=== PATIENT | female | born 1935 | race Caucasian/White ===

== ENCOUNTER → 2018-02-17 | Outpatient (CLI) | payer MEDICARE, OTHER ==
--- NOTE | 2018-02-17 12:51 | XR ---
EXAMINATION TYPE: XR lumbar spine 2 or 3V DATE OF EXAM: 02/17/2018 CLINICAL HISTORY: pain TECHNIQUE: Three views of the lumbar spine are submitted. COMPARISON: None. FINDINGS: There appear to be changes of prior lumbar laminectomy and fusion extending from L3 through L5 S1. Th ere is grade 1 retrolisthesis of L3 on L4 of approximately 5.7 mm and grade 1 anterolisthesis of L4 o n L5 of approximately 3.4 mm. Irregularity inferior endplate of L3 and may be postoperative in nature . Chronic infection is not excluded however. Correlate clinically and consider MRI or CT if felt clin ically indicated. Multilevel degenerative disc space narrowing and facet joint arthropathy. Mild curv ature convex to the right. IMPRESSION: 1.Irregularity inferior endplate of L3 and may be postoperative in nature. Chronic infection is not e xcluded however. Correlate clinically and consider MRI or CT if felt clinically indicated.
== END | disposition home or self-care (01) ==
LOC: RADXRMAIN 12:16
PROVIDERS: ATTEND Physician Assistant
DX: R93.7 Abnormal findings on diagnostic imaging of other parts of musculoskeletal system (principal)
CPT/HCPCS: 72100

== ENCOUNTER → 2018-02-18 | Outpatient (CLI) | payer MEDICARE, OTHER ==
--- NOTE | 2018-02-18 12:05 | MR ---
EXAMINATION TYPE: MR lumbar spine wo con DATE OF EXAM: 02/18/2018 COMPARISON: X-ray 02/17/2018 HISTORY: Chronic osteomyelitis TECHNIQUE: T1 and T2 axial and sagittal images of the lumbar spine are submitted. Exam is severely limited due to artifact and technique. Suggestion of bowel artifact in the posterior soft tissues at T12-L1. The patient did refuse contrast. This will limit assessment for infection including discitis and osteomyelitis. FINDINGS: Assessment spinal cord is limited due to artifact. Grossly no abnormal signal seen within t he visualized spinal cord. Diffuse muscular atrophy noted and findings are suggestive of prior laminectomy involving levels L3-S 1. Slight retrolisthesis of L3 on L4 noted measuring approximately 5 mm likely secondary to compressi on fracture.. At T12-L1 metal artifact limits assessment spinal canal particularly in the right. No obvious disc he rniation. At L1-2 there is is a tiny central disc bulge. No definite canal stenosis or foraminal encroachment. At L2-3 there is limited assessment due to artifact. There is circumferential disc bulging. The L3 ve rtebral body demonstrates a complete fracture in its mid body. There is retropulsion. Mild effacement of thecal sac. At L3-4 there is severe degenerative disc disease with heterogeneous signal within the marrow of L3 a nd L4 and the disc space. Severe fracture involving the mid aspect of the L3 vertebral segment comple te compression. There is approximate 5% retropulsion. Bilateral foraminal encroachment suspected. At L4-5 there is degenerative disc disease with abnormal signal involving the superior endplate of L5 . There is facet arthropathy. Bilateral foraminal encroachment suspected. Artifact and motion limits assessment. At L5-S1 there is degenerative disc disease with heterogeneous disc signal. There is facet arthropath y but no obvious canal stenosis, disc herniation or foraminal encroachment. IMPRESSION: 1. Severely limited exam due to the patient's refusal of contrast. Assessment for discitis or osteomy elitis is therefore nondiagnostic. Extensive artifact also contributes to a markedly limited exam. 2. Given the above parameters there is heterogeneous marrow signal involving the L3 and L5 vertebral body, L3-4, and L5-S1 disc spaces. Although, findings are nonspecific given the lack of contrast. Dif ferential diagnosis would include compression fractures and posttraumatic etiology, back space. Osteo myelitis and discitis would be in the differential diagnosis. Cannot adequately assess for epidural p hlegmon or adjacent paraspinal abscess without contrast. Grossly no sizable fluid collection seen wit hin the paraspinal region. 3. Severe mid body compression fracture L3 with 5% retropulsion. 4. Deformity superior endplate L5 could been the basis of a mild acute compression fracture. Osteomye litis also in the differential diagnosis correlate clinically given the limitations exam.
== END | disposition home or self-care (01) ==
LOC: RADMRIMAIN 09:23
PROVIDERS: ATTEND Family Medicine
DX: M48.56XA Collapsed vertebra, not elsewhere classified, lumbar region, initial encounter for fracture (principal); R93.7 Abnormal findings on diagnostic imaging of other parts of musculoskeletal system
CPT/HCPCS: 72148

== ENCOUNTER 2018-02-20 11:30 | Inpatient (IN) | payer MEDICARE, OTHER ==
--- NOTE | 2018-02-20 12:14 | ED ---
General Adult HPI - General Chief complaint: Back Pain/Injury Stated complaint: compound back fracture Time Seen by Provider: 02/20/18 11:59 Source: patient, RN notes reviewed, old records reviewed Mode of arrival: wheelchair Limitations: no limitations - History of Present Illness Initial comments: Patient 82-year-old female presented to the emergency room today with a chief complaint of increased lower back pain. She does admit that she was told she has compression fracture of L3. She states she is advised to follow-up with orthopedics. She says she does not have an appointment and told this coming Tuesday. She states she is been having pain that she's just been using Tylenol extra strength 4. She talked to the family physician today who advised to come here to the emergency room because of her discomfort. Patient states she's been sleeping in a recliner. She states she has more pain when she's tried getting out of bed. Pleasant pain that radiates down the right leg. Denies any bowel or bladder incontinence retention. Denies saddle anesthesia. States symptoms started 2 weeks ago. No specific injury or trauma. Patient denies any recent fever, chills, shortness of breath, chest pain, abdominal pain, nausea or vomiting, numbness or tingling, dysuria or hematuria, constipation or diarrhea, headaches or visual changes, or any other complaints. - Related Data Home Medications Medication Instructions Recorded Confirmed Amitriptyline HCl 25 mg PO HS 08/26/17 02/20/18 Citalopram Hydrobromide [CeleXA] 10 mg PO DAILY 08/26/17 02/20/18 Furosemide [Lasix] 20 mg PO DAILY 08/26/17 02/20/18 INSULIN LISPRO (humaLOG) [humaLOG] See Protocol SQ ACHS 08/26/17 02/20/18 Insulin Detemir [Levemir Flextouch] 60 unit SQ BID 08/26/17 02/20/18 Ipratropium-Albuterol Nebulize 3 ml INHALATION RT-QID PRN 02/20/18 02/20/18 [Duoneb 0.5 mg-3 mg/3 ml Soln] Lisinopril [Zestril] 2.5 mg PO DAILY 02/20/18 02/20/18 Previous Rx's Medication Instructions Recorded Pantoprazole [Protonix] 40 mg PO AC-BRKFST #0 tab 08/29/17 Allergies Allergy/AdvReac Type Severity Reaction Status Date / Time codeine Allergy Unknown Verified 02/20/18 13:03 iodine Allergy Rash/Hives Verified 02/20/18 13:03 Latex, Natural Rubber Allergy Rash/Hives Verified 02/20/18 13:03 Penicillins Allergy Rash/Hives Verified 02/20/18 13:03 Sulfa (Sulfonamide Allergy Unknown Verified 02/20/18 13:03 Antibiotics) Review of Systems ROS Statement: Those systems with pertinent positive or pertinent negative responses have been documented in the HPI. ROS Other: All systems not noted in ROS Statement are negative. Past Medical History Past Medical History: Heart Failure, Diabetes Mellitus, Hypertension, Memory Impairment, Osteoarthritis (OA) Additional Past Medical History / Comment(s): mld memory impairment, SOB with activity chronic back pain History of Any Multi-Drug Resistant Organisms: None Reported Past Surgical History: Cholecystectomy, Hysterectomy, Tonsillectomy Additional Past Surgical History / Comment(s): Back x2, tube in stomach after gall bladder removal, oopherectomy, 2 surgeries on face, Past Anesthesia/Blood Transfusion Reactions: No Reported Reaction Past Psychological History: Anxiety, Depression Smoking Status: Former smoker Past Alcohol Use History: None Reported Past Drug Use History: Unable to Obtain - Past Family History Mother Additional Family Medical History / Comment(s): of cancer General Exam - General Exam Comments Initial Comments: General: The patient is awake and alert, in no distress, and does not appear acutely ill. Eye: Pupils are equal, round and reactive to light, extra-ocular movements are intact. No nystagmus. There is normal conjunctiva bilaterally. No signs of icterus. Ears, nose, mouth and throat: There are moist mucous membranes and no oral lesions. Neck: The neck is supple, there is no tenderness or JVD. Cardiovascular: There is a regular rate and rhythm. No murmur, rub or gallop is appreciated. Respiratory: Lungs are clear to auscultation, respirations are non-labored, breath sounds are equal. No wheezes, stridor, rales, or rhonchi. Gastrointestinal: Soft, non-distended, non-tender abdomen without masses or organomegaly noted. There is no rebound or guarding present. No CVA tenderness. Bowel sounds are unremarkable. Musculoskeletal: Normal ROM. Patient does have tenderness lumbar spine L1 to S1. No step-off deformity appreciated. Strength 5/5. Sensation intact. Pulses equal bilaterally 2+. Neurological: A&O x 3. CN II-XII intact, There are no obvious motor or sensory deficits. Coordination appears grossly intact. Speech is normal. Skin: Skin is warm and dry and no rashes or lesions are noted. Psychiatric: Cooperative, appropriate mood & affect, normal judgment. Limitations: no limitations Course Vital Signs 02/20/18 02/20/18 11:38 12:16 Temperature 97.3 F L Pulse Rate 84 84 Respiratory 18 20 Rate Blood Pressure 227/97 202/95 O2 Sat by Pulse 100 99 Oximetry Medical Decision Making - Medical Decision Making Patient's MRI from 02/18/2018 was reviewed and is limited due to no contrast. Unable to completely exclude a possible osteomyelitis. There is evidence for a severe is admitted body compression fracture of L3 to 5 percent retropulsion. Patient labs been reviewed mildly elevated CRP. No elevated white count. No fever here in emergency room. Patient neurologically intact. No bowel or bladder incontinence retention. No saddle anesthesia. Patient does have some radicular pain going down the right leg. Patient will be started on antibiotics of vancomycin to cover for possible infection. Patient will be admitted to the hospital consult to orthopedics. - Lab Data Result diagrams: 02/20/18 12:50 02/20/18 12:50 Lab Results 02/20/18 02/20/18 02/20/18 Range/Units 12:50 12:50 12:50 WBC 8.6 (3.8-10.6) k/uL RBC 4.66 (3.80-5.40) m/uL Hgb 12.0 (11.4-16.0) gm/dL Hct 37.5 (34.0-46.0) % MCV 80.5 (80.0-100.0) fL MCH 25.7 (25.0-35.0) pg MCHC 32.0 (31.0-37.0) g/dL RDW 14.4 (11.5-15.5) % Plt Count 198 (150-450) k/uL Neutrophils % 78 % Lymphocytes % 15 % Monocytes % 3 % Eosinophils % 3 % Basophils % 1 % Neutrophils # 6.7 (1.3-7.7) k/uL Lymphocytes # 1.3 (1.0-4.8) k/uL Monocytes # 0.3 (0-1.0) k/uL Eosinophils # 0.2 (0-0.7) k/uL Basophils # 0.1 (0-0.2) k/uL PT 9.4 (9.0-12.0) sec INR 0.9 (<1.2) APTT 23.3 (22.0-30.0) sec Sodium 143 (137-145) mmol/L Potassium 5.7 H (3.5-5.1) mmol/L Chloride 110 H (98-107) mmol/L Carbon Dioxide 22 (22-30) mmol/L Anion Gap 11 mmol/L BUN 30 H (7-17) mg/dL Creatinine 1.30 H (0.52-1.04) mg/dL Est GFR (CKD-EPI)AfAm 44 (>60 ml/min/1.73 sqM) Est GFR (CKD-EPI)NonAf 38 (>60 ml/min/1.73 sqM) Glucose 78 (74-99) mg/dL Calcium 9.4 (8.4-10.2) mg/dL Total Bilirubin 0.3 (0.2-1.3) mg/dL AST 23 (14-36) U/L ALT 25 (9-52) U/L Alkaline Phosphatase 196 H (38-126) U/L C-Reactive Protein 19.8 H (<10.0) mg/L Total Protein 7.3 (6.3-8.2) g/dL Albumin 3.7 (3.5-5.0) g/dL Urine Color Urine Appearance (Clear) Urine pH (5.0-8.0) Ur Specific [place] (1.001-1.035) Urine Protein (Negative) Urine Glucose (UA) (Negative) Urine Ketones (Negative) Urine Blood (Negative) Urine Nitrite (Negative) Urine Bilirubin (Negative) Urine Urobilinogen (<2.0) mg/dL Ur Leukocyte Esterase (Negative) Urine RBC (0-5) /hpf Urine WBC (0-5) /hpf Ur Squamous Epith Cells (0-4) /hpf Urine Bacteria (None) /hpf 02/20/18 Range/Units 13:25 WBC (3.8-10.6) k/uL RBC (3.80-5.40) m/uL Hgb (11.4-16.0) gm/dL Hct (34.0-46.0) % MCV (80.0-100.0) fL MCH (25.0-35.0) pg MCHC (31.0-37.0) g/dL RDW (11.5-15.5) % Plt Count (150-450) k/uL Neutrophils % % Lymphocytes % % Monocytes % % Eosinophils % % Basophils % % Neutrophils # (1.3-7.7) k/uL Lymphocytes # (1.0-4.8) k/uL Monocytes # (0-1.0) k/uL Eosinophils # (0-0.7) k/uL Basophils # (0-0.2) k/uL PT (9.0-12.0) sec INR (<1.2) APTT (22.0-30.0) sec Sodium (137-145) mmol/L Potassium (3.5-5.1) mmol/L Chloride (98-107) mmol/L Carbon Dioxide (22-30) mmol/L Anion Gap mmol/L BUN (7-17) mg/dL Creatinine (0.52-1.04) mg/dL Est GFR (CKD-EPI)AfAm (>60 ml/min/1.73 sqM) Est GFR (CKD-EPI)NonAf (>60 ml/min/1.73 sqM) Glucose (74-99) mg/dL Calcium (8.4-10.2) mg/dL Total Bilirubin (0.2-1.3) mg/dL AST (14-36) U/L ALT (9-52) U/L Alkaline Phosphatase (38-126) U/L C-Reactive Protein (<10.0) mg/L Total Protein (6.3-8.2) g/dL Albumin (3.5-5.0) g/dL Urine Color Light Yellow Urine Appearance Clear (Clear) Urine pH 6.5 (5.0-8.0) Ur Specific [place] 1.006 (1.001-1.035) Urine Protein 1+ H (Negative) Urine Glucose (UA) Negative (Negative) Urine Ketones Negative (Negative) Urine Blood Negative (Negative) Urine Nitrite Negative (Negative) Urine Bilirubin Negative (Negative) Urine Urobilinogen <2.0 (<2.0) mg/dL Ur Leukocyte Esterase Negative (Negative) Urine RBC 1 (0-5) /hpf Urine WBC 2 (0-5) /hpf Ur Squamous Epith Cells <1 (0-4) /hpf Urine Bacteria Rare H (None) /hpf Disposition Clinical Impression: Compression fracture Narrative: Rule out osteomyelitis Disposition: ADMITTED IP TO THIS HOSP Condition: Good Referrals: Alfred Chowdhury MD [Primary Care Provider] - 1-2 days Time of Disposition: 14:07
[2018-02-20] MEDS ORDERED: HYDROcodone/APAP 5-325MG 1 EACH TAB PO STA (12:27)
[2018-02-20 13:02] LABS: Basophils # (A) 0.1 k/uL (0-0.2); Basophils % (A) 1 %; Eosinophils # (A) 0.2 k/uL (0-0.7); Eosinophils % (A) 3 %; HCT 37.5 % (34.0-46.0); Lymphocytes # (A) 1.3 k/uL (1.0-4.8); Lymphocytes % (A) 15 %; MCH 25.7 pg (25.0-35.0); MCV 80.5 fL (80.0-100.0); Monocytes # (A) 0.3 k/uL (0-1.0); Monocytes % (A) 3 %; Neutrophils # (A) 6.7 k/uL (1.3-7.7); Neutrophils % (A) 78 %; Platelet Count 198 k/uL (150-450); RBC 4.66 m/uL (3.80-5.40); RDW 14.4 % (11.5-15.5); WBC 8.6 k/uL (3.8-10.6)
[2018-02-20 13:10] LABS: INR 0.9 (<1.2); Partial Thromboplastin Time 23.3 sec (22.0-30.0); Prothrombin Time 9.4 sec (9.0-12.0)
[2018-02-20 13:19] LABS: Albumin 3.7 g/dL (3.5-5.0); C Reactive Protein 19.8 mg/L (<10.0); Calcium 9.4 mg/dL (8.4-10.2); Potassium 5.7 mmol/L (3.5-5.1); Total Bilirubin 0.3 mg/dL (0.2-1.3); Total Protein 7.3 g/dL (6.3-8.2)
[2018-02-20 13:45] LABS: Appearance,Urine Clear (Clear); Bacteria,Urine Rare /hpf; Bilirubin,Urine Negative (Negative); Blood,Urine Negative (Negative); Color,Urine Light Yellow; Glucose,Urine (UA) Negative (Negative); Ketones,Urine Negative (Negative); Leukocyte Esterase,Urine Negative (Negative); Nitrite,Urine Negative (Negative); PH, Urine 6.5 (5.0-8.0); Protein,Urine 1+ (Negative); RBC,Urine 1 /hpf (0-5); Specific Gravity,Urine 1.006 (1.001-1.035); Squamous Epithelial Cell,Urine <1 /hpf (0-4); Urobilinogen,Urine <2.0 mg/dL (<2.0); WBC,Urine 2 /hpf (0-5)
[2018-02-20] MEDS ORDERED: VANCOMYCIN IV PER PHARMACY 1 EACH MISC MISCELLANE PRN (13:55)
[2018-02-20] MEDS ORDERED: VANCOMYCIN 1,250 MG in SODIUM CHLORIDE 0.9% 250 ML IVPB STA (13:55)
[2018-02-20] MEDS ORDERED: LORazepam 2 MG/ML INJ IV PRN (14:07)
[2018-02-20] MEDS ORDERED: SODIUM CHLORIDE 0.9% 1,000 ML IV ONE (14:07)
[2018-02-20] MEDS ORDERED: ONDANSETRON 4 MG/2 ML VIAL IVP PRN (14:07)
[2018-02-20] MEDS ORDERED: NALOXONE 0.4 MG/ML 1 ML VIAL IV PRN (14:07)
[2018-02-20] MEDS ORDERED: IPRATROPIUM-ALBUTEROL 3 ML NEB INHALATION PRN (16:43)
[2018-02-20] MEDS ORDERED: SODIUM POLYSTYRENE SULFONATE 15 GM/60 ML BOTTLE PO STA (16:45)
[2018-02-20] MEDS ORDERED: KETOROLAC 30 MG/ML 1 ML VIAL IVP PRN (16:46)
[2018-02-20] MEDS ORDERED: ACETAMINOPHEN TAB 325 MG TAB PO PRN (16:47)
--- NOTE | 2018-02-20 16:53 | P.HPIM ---
History of Present Illness 82-year-old female presented to the emergency room today with a chief complaint of increased lower back pain. She does admit that she was told she has compression fracture of L3. She states she is advised to follow-up with orthopedics. She says she does not have an appointment and told this coming Tuesday. She states she is been having pain that she's just been using Tylenol extra strength 4. She talked to the family physician today who advised to come here to the emergency room because of her discomfort. Patient states she's been sleeping in a recliner. She states she has more pain when she's tried getting out of bed. Pleasant pain that radiates down the right leg. Denies any bowel or bladder incontinence retention. Denies saddle anesthesia. States symptoms started 2 weeks ago. No specific injury or trauma. Patient denies any recent fever, chills, shortness of breath, chest pain, abdominal pain, nausea or vomiting, numbness or tingling, dysuria or hematuria, constipation or diarrhea, headaches or visual changes, or any other complaints. [facility] surgery was consulted PT and OT will be consulted. Patient does have a hyperkalemia capsulate will be ordered lisinopril will be held or discontinued Ativan patient is a [place] unfortunately be continued when he cannot use ketorolac because of elevated creatinine 1.3. Patient denied any history of congestive heart failure. Patient appears to have some chronic kidney disease part of the contribution is from the diuretic therapy which will be held and lisinopril will be held as well. Review of Systems REVIEW OF SYSTEMS: CONSTITUTIONAL: No fever, no malaise, no fatigue. HEENT: No recent visual problems or hearing problems. Denied any sore throat. CARDIOVASCULAR: No chest pain, orthopnea, PND, no palpitations, no syncope. PULMONARY: No shortness of breath, no cough, no hemoptysis. GASTROINTESTINAL: No diarrhea, no nausea, no vomiting, no abdominal pain. Normoactive bowel sounds. NEUROLOGICAL: No headaches, no weakness, no numbness. HEMATOLOGICAL: Denies any bleeding or petechiae. GENITOURINARY: Denies any burning micturition, frequency, or urgency. MUSCULOSKELETAL/RHEUMATOLOGICAL: as mentioned in HPI ENDOCRINE: Denies any polyuria or polydipsia. The rest of the 14-point review of systems is negative. Past Medical History Past Medical History: Heart Failure, Diabetes Mellitus, Hypertension, Memory Impairment, Osteoarthritis (OA) Additional Past Medical History / Comment(s): mld memory impairment, SOB with activity chronic back pain History of Any Multi-Drug Resistant Organisms: None Reported Past Surgical History: Cholecystectomy, Hysterectomy, Tonsillectomy Additional Past Surgical History / Comment(s): Back x2, tube in stomach after gall bladder removal, oopherectomy, 2 surgeries on face, Past Anesthesia/Blood Transfusion Reactions: No Reported Reaction Past Psychological History: Anxiety, Depression Smoking Status: Former smoker Past Alcohol Use History: None Reported Past Drug Use History: Unable to Obtain - Past Family History Mother Additional Family Medical History / Comment(s): of cancer Medications and Allergies Home Medications Medication Instructions Recorded Confirmed Type Amitriptyline HCl 25 mg PO HS 08/26/17 02/20/18 History Citalopram Hydrobromide [CeleXA] 10 mg PO DAILY 08/26/17 02/20/18 History Furosemide [Lasix] 20 mg PO DAILY 08/26/17 02/20/18 History INSULIN LISPRO (humaLOG) [humaLOG] See Protocol SQ ACHS 08/26/17 02/20/18 History Insulin Detemir [Levemir Flextouch] 60 unit SQ BID 08/26/17 02/20/18 History Pantoprazole [Protonix] 40 mg PO AC-BRKFST #0 tab 08/29/17 02/20/18 Rx Ipratropium-Albuterol Nebulize 3 ml INHALATION RT-QID PRN 02/20/18 02/20/18 History [Duoneb 0.5 mg-3 mg/3 ml Soln] Lisinopril [Zestril] 2.5 mg PO DAILY 02/20/18 02/20/18 History Allergies Allergy/AdvReac Type Severity Reaction Status Date / Time codeine Allergy Unknown Verified 02/20/18 13:03 iodine Allergy Rash/Hives Verified 02/20/18 13:03 Latex, Natural Rubber Allergy Rash/Hives Verified 02/20/18 13:03 Penicillins Allergy Rash/Hives Verified 02/20/18 13:03 Sulfa (Sulfonamide Allergy Unknown Verified 02/20/18 13:03 Antibiotics) Physical Exam Vitals: Vital Signs Temp Pulse Pulse Resp BP BP Pulse Ox 02/20/18 15:32 97.5 F L 84 18 217/99 97 02/20/18 15:15 97.8 F 85 20 184/88 99 02/20/18 14:09 18 02/20/18 13:57 80 20 183/86 99 02/20/18 12:16 84 20 202/95 99 02/20/18 11:38 97.3 F L 84 18 227/97 100 Intake and Output 02/20/18 02/20/18 02/20/18 06:59 14:59 22:59 Other: Weight 79.379 kg PHYSICAL EXAMINATION: GENERAL: The patient is alert and oriented x3, not in any acute distress. Well developed, well nourished. HEENT: Pupils are round and equally reacting to light. EOMI. No scleral icterus. No conjunctival pallor. Normocephalic, atraumatic. No pharyngeal erythema. No thyromegaly. CARDIOVASCULAR: S1 and S2 present. No murmurs, rubs, or gallops. PULMONARY: Chest is clear to auscultation, no wheezing or crackles. ABDOMEN: Soft, nontender, nondistended, normoactive bowel sounds. No palpable organomegaly. MUSCULOSKELETAL: No joint swelling or deformity. EXTREMITIES: No cyanosis, clubbing, or pedal edema. NEUROLOGICAL: Gross neurological examination did not reveal any focal deficits. patient does have generalized weakness and bilateral lower limbs secondary to mostly pain in the back patient does have paraspinal tenderness SKIN: No rashes. Results CBC & Chem 7: 02/20/18 12:50 02/20/18 12:50 Labs: Abnormal Lab Results - Last 24 Hours (Table) 02/20/18 02/20/18 Range/Units 12:50 13:25 Potassium 5.7 H (3.5-5.1) mmol/L Chloride 110 H (98-107) mmol/L BUN 30 H (7-17) mg/dL Creatinine 1.30 H (0.52-1.04) mg/dL Alkaline Phosphatase 196 H (38-126) U/L C-Reactive Protein 19.8 H (<10.0) mg/L Urine Protein 1+ H (Negative) Urine Bacteria Rare H (None) /hpf Assessment and Plan Plan: -weakness and bilateral lower limbs and compression fracture of the back: PT and OT will be consulted, orthopedic surgery was consulted patient will need it TL CO brace. -Hyperkalemia: Secondary to lisinopril and the renal dysfunction patient appears to have chronic kidney disease stage III but I believe patient's creatinine will improve with disc herniation of lisinopril and Lasix because of which these 2 medications will be discontinued patient doesn't have any history of congestive heart failure. -Possible diabetic nephropathy -Type 2 diabetes mellitus patient will be resumed on her home regimen along with sliding scale insulin. -Possibility of acute renal failure: Secondary to diuretic therapy and lisinopril this mostly can be from a chronic kidney disease her previous creatinine was 1.8. -hypertension -gastroesophageal reflux disease for which patient is on Protonix will be continued -Depression continue with Amitriptyline and Celexa
[2018-02-20 17:23] LABS: Glucose,Whole Blood 91 mg/dL (75-99)
--- NOTE | 2018-02-20 18:03 | XR ---
EXAMINATION TYPE: XR lumbosacral spine min 4V DATE OF EXAM: 02/20/2018 COMPARISON: 02/17/2018 HISTORY: Back pain TECHNIQUE: 5 views FINDINGS: There is some compression deformity of the L3 vertebral body with anterior wedging and 25% loss of height. There is narrowing of L3-4 disc space. The sacroiliac joints appear intact. IMPRESSION: Compression fracture of L3 without significant change compared to recent exam. Osteopenia .
[2018-02-20] MEDS: INSULIN ASPART 100 UNIT/ML 1 ML 10 ML VIAL SQ SCH ×2 (19:54→21:37)
[2018-02-20] MEDS: AMITRIPTYLINE HCL 25 MG TAB PO SCH (20:12)
[2018-02-20 20:47] LABS: Glucose,Whole Blood 164 mg/dL (75-99)
[2018-02-20] MEDS: INSULIN DETEMIR 100 UNIT/ML 10 ML VIAL SQ SCH (21:37)
[2018-02-21] MEDS: HYDROcodone/APAP 5-325MG 1 EACH TAB PO PRN ×3 (02:43→21:27)
[2018-02-21 07:02] LABS: Glucose,Whole Blood 72 mg/dL (75-99)
[2018-02-21] MEDS: INSULIN ASPART 100 UNIT/ML 1 ML 10 ML VIAL SQ SCH ×4 (07:17→21:28)
[2018-02-21] MEDS: CITALOPRAM HYDROBROMIDE 10 MG TAB PO SCH (08:15)
[2018-02-21] MEDS: PANTOPRAZOLE 40 MG TABLET PO SCH (08:15)
[2018-02-21] MEDS: INSULIN DETEMIR 100 UNIT/ML 10 ML VIAL SQ SCH ×2 (08:20→21:28)
[2018-02-21] MEDS ORDERED: VANCOMYCIN 1,250 MG in SODIUM CHLORIDE 0.9% 250 ML IVPB ONE (09:00)
[2018-02-21 11:25] LABS: Glucose,Whole Blood 147 mg/dL (75-99)
[2018-02-21 12:02] LABS: Calcium 8.4 mg/dL (8.4-10.2)
--- NOTE | 2018-02-21 16:46 | P.PN ---
Subjective Progress Note Date: 02/21/18 Progress Note being dictated for Dr. Nguyễn interval history:82-year-old female presented to the emergency room today with a chief complaint of increased lower back pain. She does admit that she was told she has compression fracture of L3. She states she is advised to follow- up with orthopedics. She says she does not have an appointment and told this coming Tuesday. She states she is been having pain that she's just been using Tylenol extra strength 4. She talked to the family physician today who advised to come here to the emergency room because of her discomfort. Patient states she's been sleeping in a recliner. She states she has more pain when she's tried getting out of bed. Pleasant pain that radiates down the right leg. Denies any bowel or bladder incontinence retention. Denies saddle anesthesia. States symptoms started 2 weeks ago. No specific injury or trauma. Patient denies any recent fever, chills, shortness of breath, chest pain, abdominal pain , nausea or vomiting, numbness or tingling, dysuria or hematuria, constipation or diarrhea, headaches or visual changes, or any other complaints. orthopedic surgery was consulted PT and OT will be consulted. Patient does have a hyperkalemia capsulate will be ordered lisinopril will be held or discontinued Ativan patient is a [place] unfortunately be continued when he cannot use ketorolac because of elevated creatinine 1.3. Patient denied any history of congestive heart failure. Patient appears to have some chronic kidney disease part of the contribution is from the diuretic therapy which will be held and lisinopril will be held as well. 02/21/2018 PT/OT evaluation in progress.hypertensive. Blood sugars improving.afebrile, cultures pending. complains of bilateral lower back pain greater on the right. Objective - Vital Signs Vital signs: Vital Signs Temp 97.4 F L 02/21/18 15:00 Pulse 88 02/21/18 16:00 Resp 16 02/21/18 16:00 BP 232/98 02/21/18 15:00 Pulse Ox 95 02/21/18 15:00 Intake & Output 02/20/18 02/21/18 02/21/18 18:59 06:59 18:59 Intake Total 140 Balance 140 Weight 79.379 kg Intake: Intake, IV Titration 140 Amount Sodium Chloride 0.9% 1, 140 000 ml @ 75 mls/hr IV . [id number] ONE Rx#:[id number] Other: Voiding Method Toilet Toilet Toilet # Voids 1 1 # Bowel Movements 1 - Exam PHYSICAL EXAMINATION: GENERAL: The patient is alert and oriented x3,sitting up in chair, no acute distress. Well developed, well nourished. HEENT: Pupils are round and equally reacting to light. EOMI. No scleral icterus. No conjunctival pallor. Normocephalic, atraumatic. No pharyngeal erythema. No thyromegaly. CARDIOVASCULAR: S1 and S2 present. No murmurs, rubs, or gallops. PULMONARY: Chest is clear to auscultation, no wheezing or crackles. ABDOMEN: Soft, nontender, nondistended, normoactive bowel sounds. No palpable organomegaly. MUSCULOSKELETAL: No joint swelling or deformity. EXTREMITIES: No cyanosis, clubbing, or pedal edema. NEUROLOGICAL: Gross neurological examination did not reveal any focal deficits. patient does have generalized weakness and bilateral lower limbs secondary to mostly pain in the back patient does have paraspinal tenderness SKIN: No rashes. - Labs CBC & Chem 7: 02/20/18 12:50 02/21/18 11:28 Labs: Abnormal Lab Results - Last 24 Hours (Table) 02/20/18 02/21/18 02/21/18 Range/Units 20:45 07:00 11:23 BUN (7-17) mg/dL Creatinine (0.52-1.04) mg/dL Glucose (74-99) mg/dL POC Glucose (mg/dL) 164 H 72 L 147 H (75-99) mg/dL 02/21/18 Range/Units 11:28 BUN 29 H (7-17) mg/dL Creatinine 1.30 H (0.52-1.04) mg/dL Glucose 137 H (74-99) mg/dL POC Glucose (mg/dL) (75-99) mg/dL Microbiology - Last 24 Hours (Table) 02/20/18 12:50 Blood Culture - Preliminary Blood No Growth after 24 hours 02/20/18 13:25 Urine Culture - Preliminary Urine,Voided Assessment and Plan Assessment: -weakness and bilateral lower limbs and compression fracture of the back: PT and OT will be consulted, orthopedic surgery was consulted patient will need it TL CO brace. -Hyperkalemia: Secondary to lisinopril and the renal dysfunction patient appears to have chronic kidney disease stage III but I believe patient's creatinine will improve with disc herniation of lisinopril and Lasix because of which these 2 medications will be discontinued patient doesn't have any history of congestive heart failure. -Possible diabetic nephropathy -Type 2 diabetes mellitus -Possibility of acute renal failure: Secondary to diuretic therapy and lisinopril this mostly can be from a chronic kidney disease her previous creatinine was 1.8. -hypertension -gastroesophageal reflux disease -Depression continue with Amitriptyline and Celexa plan: Continue on current medication regime ,monitoring and symptomatic treatment. orthopedic consult in place. workers compensation attorney/case management to assist with potential subacute rehab placement at discharge. PT/OT.Brace being obtained. The impression and plan of care has been dictated as directed. : I performed a history and examination of this patient, discussed the same with the dictator. I agree with the dictator's note ,documented as a scribe. Any additional findings or plans will be noted.
[2018-02-21] MEDS: amLODIPine 5 MG TAB PO SCH (17:05)
[2018-02-21 17:28] LABS: Glucose,Whole Blood 202 mg/dL (75-99)
[2018-02-21 20:01] LABS: Glucose,Whole Blood 211 mg/dL (75-99)
[2018-02-21] MEDS: AMITRIPTYLINE HCL 25 MG TAB PO SCH (21:27)
[2018-02-22] MEDS: HYDROcodone/APAP 5-325MG 1 EACH TAB PO PRN ×3 (02:41→21:15)
[2018-02-22 07:30] LABS: Glucose,Whole Blood 68 mg/dL (75-99)
[2018-02-22 07:30] LABS: Glucose,Whole Blood 72 mg/dL (75-99)
[2018-02-22] MEDS: INSULIN ASPART 100 UNIT/ML 1 ML 10 ML VIAL SQ SCH ×5 (08:08→21:16)
[2018-02-22] MEDS: INSULIN DETEMIR 100 UNIT/ML 10 ML VIAL SQ SCH ×2 (08:09→21:16)
[2018-02-22] MEDS: CITALOPRAM HYDROBROMIDE 10 MG TAB PO SCH (08:10)
[2018-02-22] MEDS: amLODIPine 5 MG TAB PO SCH (08:10)
[2018-02-22] MEDS: PANTOPRAZOLE 40 MG TABLET PO SCH (08:10)
[2018-02-22 08:12] LABS: Calcium 8.9 mg/dL (8.4-10.2); Potassium 4.8 mmol/L (3.5-5.1)
[2018-02-22] MEDS ORDERED: LISINOPRIL 2.5 MG TAB PO SCH (09:00)
[2018-02-22 11:39] LABS: Glucose,Whole Blood 188 mg/dL (75-99)
[2018-02-22 17:19] LABS: Glucose,Whole Blood 277 mg/dL (75-99)
--- NOTE | 2018-02-22 18:30 | P.PN ---
Subjective Progress Note Date: 02/22/18 Progress Note being dictated for Dr. Nguyễn interval history:82-year-old female presented to the emergency room today with a chief complaint of increased lower back pain. She does admit that she was told she has compression fracture of L3. She states she is advised to follow- up with orthopedics. She says she does not have an appointment and told this coming Tuesday. She states she is been having pain that she's just been using Tylenol extra strength 4. She talked to the family physician today who advised to come here to the emergency room because of her discomfort. Patient states she's been sleeping in a recliner. She states she has more pain when she's tried getting out of bed. Pleasant pain that radiates down the right leg. Denies any bowel or bladder incontinence retention. Denies saddle anesthesia. States symptoms started 2 weeks ago. No specific injury or trauma. Patient denies any recent fever, chills, shortness of breath, chest pain, abdominal pain , nausea or vomiting, numbness or tingling, dysuria or hematuria, constipation or diarrhea, headaches or visual changes, or any other complaints. orthopedic surgery was consulted PT and OT will be consulted. Patient does have a hyperkalemia capsulate will be ordered lisinopril will be held or discontinued Ativan patient is a [place] unfortunately be continued when he cannot use ketorolac because of elevated creatinine 1.3. Patient denied any history of congestive heart failure. Patient appears to have some chronic kidney disease part of the contribution is from the diuretic therapy which will be held and lisinopril will be held as well. 02/21/2018 PT/OT evaluation in progress.hypertensive. Blood sugars improving.afebrile, cultures pending. complains of bilateral lower back pain greater on the right. 02/22/2018 sitting up in chair, pain significantly improved. Diet intake good, consuming 100% with no nausea or vomiting. Systolic blood pressures in the 150s currently. Renal function mildly worsened, creatinine 1.49. Objective - Vital Signs Vital signs: Vital Signs Temp 98.0 F 02/22/18 15:00 Pulse 89 02/22/18 16:00 Resp 18 02/22/18 16:00 BP 166/73 02/22/18 15:00 Pulse Ox 94 L 02/22/18 15:00 Intake & Output 02/21/18 02/22/18 02/22/18 18:59 06:59 18:59 Intake Total 328 821 2749 Balance 441 744 2605 Weight 79.379 kg Intake: Intake, IV Titration 140 Amount Sodium Chloride 0.9% 1, 140 000 ml @ 75 mls/hr IV . [id number] ONE Rx#:[id number] Oral 650 2000 Other: Voiding Method Toilet Toilet Toilet # Voids 1 2 1 # Bowel Movements 1 1 - Exam PHYSICAL EXAMINATION: GENERAL: The patient is alert and oriented x3,sitting up in chair, no acute distress. Well developed, well nourished. HEENT: Pupils are round and equally reacting to light. EOMI. No scleral icterus. No conjunctival pallor. Normocephalic, atraumatic. No pharyngeal erythema CARDIOVASCULAR: S1 and S2 present. No murmurs, rubs, or gallops. PULMONARY: Chest is clear to auscultation, no wheezing or crackles. ABDOMEN: Soft, nontender, nondistended, normoactive bowel sounds. No palpable organomegaly. MUSCULOSKELETAL: No joint swelling or deformity. EXTREMITIES: No cyanosis, clubbing, or pedal edema. NEUROLOGICAL: Gross neurological examination did not reveal any focal deficits. patient does have generalized weakness and bilateral lower limbs secondary to mostly pain in the back patient does have paraspinal tenderness-improving SKIN: No rashes. - Labs CBC & Chem 7: 02/20/18 12:50 02/22/18 07:35 Labs: Abnormal Lab Results - Last 24 Hours (Table) 02/21/18 02/22/18 02/22/18 Range/Units 19:59 07:14 07:29 BUN (7-17) mg/dL Creatinine (0.52-1.04) mg/dL POC Glucose (mg/dL) 211 H 68 L 72 L (75-99) mg/dL 02/22/18 02/22/18 02/22/18 Range/Units 07:35 11:37 17:11 BUN 30 H (7-17) mg/dL Creatinine 1.49 H (0.52-1.04) mg/dL POC Glucose (mg/dL) 188 H 277 H (75-99) mg/dL Microbiology - Last 24 Hours (Table) 02/20/18 12:50 Blood Culture - Preliminary Blood No Growth after 48 hours 02/20/18 13:25 Urine Culture - Final Urine,Voided Assessment and Plan Assessment: -weakness and bilateral lower limbs and compression fracture of the back: PT and OT will be consulted, orthopedic surgery was consulted patient will need it TL CO brace. -Hyperkalemia: Secondary to lisinopril and the renal dysfunction patient appears to have chronic kidney disease stage III but I believe patient's creatinine will improve with disc herniation of lisinopril and Lasix because of which these 2 medications will be discontinued patient doesn't have any history of congestive heart failure. -Possible diabetic nephropathy -Type 2 diabetes mellitus -Possibility of acute renal failure: Secondary to diuretic therapy and lisinopril this mostly can be from a chronic kidney disease her previous creatinine was 1.8. -hypertension -gastroesophageal reflux disease -Depression continue with Amitriptyline and Celexa plan: Continue on current medication regime ,monitoring and symptomatic treatment. orthopedic consult in place.subacute rehab placement at discharge. PT /OT.Brace. Close monitoring of Accu-Cheks. Close monitoring of renal function , ALEXANDRA inhibitor discontinued. Norvasc dose increased. The impression and plan of care has been dictated as directed. : I performed a history and examination of this patient, discussed the same with the dictator. I agree with the dictator's note ,documented as a scribe. Any additional findings or plans will be noted.
[2018-02-22 20:32] LABS: Glucose,Whole Blood 174 mg/dL (75-99)
[2018-02-22] MEDS: AMITRIPTYLINE HCL 25 MG TAB PO SCH (21:17)
[2018-02-23] MEDS: HYDROcodone/APAP 5-325MG 1 EACH TAB PO PRN ×2 (03:23→21:49)
[2018-02-23 07:06] LABS: Glucose,Whole Blood 220 mg/dL (75-99)
[2018-02-23] MEDS ORDERED: INSULIN ASPART 100 UNIT/ML 1 ML 10 ML VIAL SQ SCH (07:30)
[2018-02-23 07:32] LABS: Calcium 9.4 mg/dL (8.4-10.2); Potassium 5.2 mmol/L (3.5-5.1)
[2018-02-23 07:37] LABS: Vancomycin,Random 8.3 ug/mL
[2018-02-23] MEDS: INSULIN ASPART 100 UNIT/ML 1 ML 10 ML VIAL SQ SCH ×7 (08:15→21:40)
[2018-02-23] MEDS: PANTOPRAZOLE 40 MG TABLET PO SCH (08:17)
[2018-02-23] MEDS: CITALOPRAM HYDROBROMIDE 10 MG TAB PO SCH (08:18)
[2018-02-23] MEDS: INSULIN DETEMIR 100 UNIT/ML 10 ML VIAL SQ SCH ×2 (08:18→21:39)
[2018-02-23] MEDS ORDERED: amLODIPine 10 MG TAB PO SCH (09:00)
[2018-02-23] MEDS ORDERED: VANCOMYCIN 1,250 MG in SODIUM CHLORIDE 0.9% 250 ML IVPB ONE (10:00)
[2018-02-23] MEDS: SODIUM CHLORIDE 0.9% 1,000 ML IV SCH ×2 (10:29→20:44)
[2018-02-23 11:02] LABS: Glucose,Whole Blood 99 mg/dL (75-99)
[2018-02-23 17:14] LABS: Glucose,Whole Blood 181 mg/dL (75-99)
--- NOTE | 2018-02-23 18:09 | P.PN ---
Subjective Progress Note Date: 02/23/18 Progress Note being dictated for Dr. Nguyễn interval history:82-year-old female presented to the emergency room today with a chief complaint of increased lower back pain. She does admit that she was told she has compression fracture of L3. She states she is advised to follow- up with orthopedics. She says she does not have an appointment and told this coming Tuesday. She states she is been having pain that she's just been using Tylenol extra strength 4. She talked to the family physician today who advised to come here to the emergency room because of her discomfort. Patient states she's been sleeping in a recliner. She states she has more pain when she's tried getting out of bed. Pleasant pain that radiates down the right leg. Denies any bowel or bladder incontinence retention. Denies saddle anesthesia. States symptoms started 2 weeks ago. No specific injury or trauma. Patient denies any recent fever, chills, shortness of breath, chest pain, abdominal pain , nausea or vomiting, numbness or tingling, dysuria or hematuria, constipation or diarrhea, headaches or visual changes, or any other complaints. orthopedic surgery was consulted PT and OT will be consulted. Patient does have a hyperkalemia capsulate will be ordered lisinopril will be held or discontinued Ativan patient is a [place] unfortunately be continued when he cannot use ketorolac because of elevated creatinine 1.3. Patient denied any history of congestive heart failure. Patient appears to have some chronic kidney disease part of the contribution is from the diuretic therapy which will be held and lisinopril will be held as well. 02/21/2018 PT/OT evaluation in progress.hypertensive. Blood sugars improving.afebrile, cultures pending. complains of bilateral lower back pain greater on the right. 02/22/2018 sitting up in chair, pain significantly improved. Diet intake good, consuming 100% with no nausea or vomiting. Systolic blood pressures in the 150s currently. Renal function mildly worsened, creatinine 1.49. 02/23/18 no overnight events. Pain continues to improve, wearing brace. Creatinine 1.6. Afebrile. Objective - Vital Signs Vital signs: Vital Signs Temp 97.5 F L 02/23/18 14:29 Pulse 92 02/23/18 14:29 Resp 18 02/23/18 14:29 BP 160/72 02/23/18 14:29 Pulse Ox 95 02/23/18 14:29 Intake & Output 02/22/18 02/23/18 02/23/18 18:59 06:59 18:59 Intake Total 1999 650 525 Balance 1999 650 525 Weight 79.379 kg 79.379 kg Intake: IV 525 Sodium Chloride 0.9% 1, 525 000 ml @ 75 mls/hr IV . [id number] S[facility]AN Rx#:[id number] Oral 1999 Other: Voiding Method Toilet Toilet # Voids 1 2 1 # Bowel Movements 1 - Exam PHYSICAL EXAMINATION: GENERAL: The patient is alert and oriented x3,sitting up in chair, no acute distress. Well developed, well nourished. HEENT: Pupils are round and equally reacting to light. EOMI. No scleral icterus. No conjunctival pallor. Normocephalic, atraumatic. CARDIOVASCULAR: S1 and S2 present. No murmurs, rubs, or gallops. PULMONARY: Chest is clear to auscultation, no wheezing or crackles. ABDOMEN: Soft, nontender, nondistended, normoactive bowel sounds. No palpable organomegaly. MUSCULOSKELETAL: No joint swelling or deformity. EXTREMITIES: No cyanosis, clubbing, or pedal edema. NEUROLOGICAL: Gross neurological examination did not reveal any focal deficits. patient does have generalized weakness and bilateral lower limbs secondary to mostly pain in the back patient does have paraspinal tenderness-improving SKIN: No rashes. - Labs CBC & Chem 7: 02/20/18 12:50 02/23/18 06:59 Labs: Abnormal Lab Results - Last 24 Hours (Table) 02/22/18 02/23/18 02/23/18 Range/Units 20:31 06:59 07:04 Potassium 5.2 H (3.5-5.1) mmol/L BUN 35 H (7-17) mg/dL Creatinine 1.60 H (0.52-1.04) mg/dL Glucose 152 H (74-99) mg/dL POC Glucose (mg/dL) 174 H 220 H (75-99) mg/dL 02/23/18 Range/Units 17:09 Potassium (3.5-5.1) mmol/L BUN (7-17) mg/dL Creatinine (0.52-1.04) mg/dL Glucose (74-99) mg/dL POC Glucose (mg/dL) 181 H (75-99) mg/dL Microbiology - Last 24 Hours (Table) 02/20/18 12:50 Blood Culture - Preliminary Blood No Growth after 72 hours Assessment and Plan Assessment: -weakness and bilateral lower limbs and compression fracture of the back: PT and OT will be consulted, orthopedic surgery was consulted patient will need it TL CO brace. -Hyperkalemia: Secondary to lisinopril and the renal dysfunction patient appears to have chronic kidney disease stage III but I believe patient's creatinine will improve with disc herniation of lisinopril and Lasix because of which these 2 medications will be discontinued patient doesn't have any history of congestive heart failure. -Possible diabetic nephropathy -Type 2 diabetes mellitus -Possibility of acute renal failure: Secondary to diuretic therapy and lisinopril this mostly can be from a chronic kidney disease her previous creatinine was 1.8. -hypertension -gastroesophageal reflux disease -Depression continue with Amitriptyline and Celexa plan: Continue on current medication regime ,monitoring and symptomatic treatment.subacute rehab placement at discharge. PT/OT.Brace. Close monitoring of Accu-Cheks. Vancomycin discontinued. Gentle IV fluid hydration. Follow-up chest x-ray in a.m. Close monitoring of renal function. Discharge planning in progress for subacute rehab tomorrow. The impression and plan of care has been dictated as directed. : I performed a history and examination of this patient, discussed the same with the dictator. I agree with the dictator's note ,documented as a scribe. Any additional findings or plans will be noted.
[2018-02-23 20:53] LABS: Glucose,Whole Blood 131 mg/dL (75-99)
[2018-02-23] MEDS: AMITRIPTYLINE HCL 25 MG TAB PO SCH (21:39)
[2018-02-24 07:33] LABS: Glucose,Whole Blood 89 mg/dL (75-99)
[2018-02-24] MEDS: INSULIN ASPART 100 UNIT/ML 1 ML 10 ML VIAL SQ SCH ×4 (07:41→12:46)
[2018-02-24 07:50] VITALS: BP 129/79; PULSE 78; RESP 18; TEMP 97
[2018-02-24] MEDS: CITALOPRAM HYDROBROMIDE 10 MG TAB PO SCH ×2 (08:12→08:13)
[2018-02-24] MEDS: PANTOPRAZOLE 40 MG TABLET PO SCH (08:12)
[2018-02-24] MEDS: INSULIN DETEMIR 100 UNIT/ML 10 ML VIAL SQ SCH (08:15)
[2018-02-24 08:16] LABS: Calcium 9.1 mg/dL (8.4-10.2); Potassium 5.1 mmol/L (3.5-5.1)
[2018-02-24 08:20] LABS: Vancomycin,Random 7.4 ug/mL
[2018-02-24] MEDS ORDERED: amLODIPine 5 MG TAB PO SCH (09:00)
--- NOTE | 2018-02-24 09:16 | XR ---
EXAMINATION TYPE: XR chest 2V DATE OF EXAM: 02/24/2018 COMPARISON: 08/26/2027 INDICATION: CHF TECHNIQUE: Frontal and lateral views of the chest are obtained. FINDINGS: The heart size is normal. The pulmonary vasculature is normal. The lungs are clear. IMPRESSION: 1. No acute pulmonary process.
--- NOTE | 2018-02-24 11:13 | P.DS ---
Providers Date of admission: 02/21/18 08:51 Expected date of discharge: 02/24/18 Attending physician: Alfred Nguyễn Primary care physician: Alfred Chowdhury [facility] Course: Final; DIagnoses: -weakness and bilateral lower limbs and compression fracture of the back: PT and OT will be consulted, orthopedic surgery was consulted patient will need it TL CO brace. -Hyperkalemia: Secondary to lisinopril and the renal dysfunction patient appears to have chronic kidney disease stage III but I believe patient's creatinine will improve with disc herniation of lisinopril and Lasix because of which these 2 medications will be discontinued patient doesn't have any history of congestive heart failure. -Possible diabetic nephropathy -Type 2 diabetes mellitus -Possibility of acute renal failure: Secondary to diuretic therapy and lisinopril this mostly can be from a chronic kidney disease her previous creatinine was 1.8. -hypertension -gastroesophageal reflux disease -Depression continue with Amitriptyline and Celexa Hospital COurse: This is a 82-year-old female presented to the emergency room today with a chief complaint of increased lower back pain. She does admit that she was told she has compression fracture of L3. She states she is advised to follow-up with orthopedics. She says she does not have an appointment and told this coming Tuesday. She states she is been having pain that she's just been using Tylenol extra strength 4. She talked to the family physician today who advised to come here to the emergency room because of her discomfort. Patient states she's been sleeping in a recliner. She states she has more pain when she 's tried getting out of bed. Pleasant pain that radiates down the right leg. Denies any bowel or bladder incontinence retention. Denies saddle anesthesia. States symptoms started 2 weeks ago. No specific injury or trauma. Patient denies any recent fever, chills, shortness of breath, chest pain, abdominal pain , nausea or vomiting, numbness or tingling, dysuria or hematuria, constipation or diarrhea, headaches or visual changes, or any other complaints. orthopedic surgery was consulted PT and OT will be consulted. Patient does have a hyperkalemia capsulate will be ordered lisinopril will be held or discontinued Ativan patient is a [place] unfortunately be continued when he cannot use ketorolac because of elevated creatinine 1.3. Patient denied any history of congestive heart failure. Patient appears to have some chronic kidney disease part of the contribution is from the diuretic therapy which will be held and lisinopril will be held as well. 02/21/2018 PT/OT evaluation in progress.hypertensive. Blood sugars improving.afebrile, cultures pending. complains of bilateral lower back pain greater on the right. 02/22/2018 sitting up in chair, pain significantly improved. Diet intake good, consuming 100% with no nausea or vomiting. Systolic blood pressures in the 150s currently. Renal function mildly worsened, creatinine 1.49. 02/23/18 no overnight events. Pain continues to improve, wearing brace. Creatinine 1.6. Afebrile. PHYSICAL EXAMINATION: GENERAL: The patient is alert and oriented x3,sitting up in chair, no acute distress. Well developed, well nourished. HEENT: Pupils are round and equally reacting to light. EOMI. No scleral icterus. No conjunctival pallor. Normocephalic, atraumatic. CARDIOVASCULAR: S1 and S2 present. No murmurs, rubs, or gallops. PULMONARY: Chest is clear to auscultation, no wheezing or crackles. ABDOMEN: Soft, nontender, nondistended, normoactive bowel sounds. No palpable organomegaly. MUSCULOSKELETAL: No joint swelling or deformity. EXTREMITIES: No cyanosis, clubbing, or pedal edema. NEUROLOGICAL: Gross neurological examination did not reveal any focal deficits. patient does have generalized weakness and bilateral lower limbs secondary to mostly pain in the back patient does have paraspinal tenderness-improving SKIN: No rashes. The impression and plan of care has been dictated as directed. : I performed a history and examination of this patient, discussed the same with the dictator. I agree with the dictator's note ,documented as a scribe. Any additional findings or plans will be noted. Time Taken: 35 min Patient Condition at Discharge: Stable Plan - Discharge Summary Discharge Rx Participant: No New Discharge Prescriptions: New Acetaminophen Tab [Tylenol] 650 mg PO Q4HR PRN tab PRN Reason: Fever And/ Or Pain amLODIPine [Norvasc] 5 mg PO BID tab INSULIN LISPRO (HumaLOG) [humaLOG] 0 unit SQ ACHS #1 vial Discontinued INSULIN LISPRO (humaLOG) [humaLOG] See Protocol SQ ACHS Lisinopril [Zestril] 2.5 mg PO DAILY No Action Insulin Detemir [Levemir Flextouch] 60 unit SQ BID Amitriptyline HCl 25 mg PO HS Citalopram Hydrobromide [CeleXA] 10 mg PO DAILY Pantoprazole [Protonix] 40 mg PO AC-BRKFST #0 tab Ipratropium-Albuterol Nebulize [Duoneb 0.5 mg-3 mg/3 ml Soln] 3 ml INHALATION RT-QID PRN PRN Reason: Shortness Of Breath Discharge Medication List Amitriptyline HCl 25 mg PO HS 08/26/17 [History] Citalopram Hydrobromide [CeleXA] 10 mg PO DAILY 08/26/17 [History] Insulin Detemir [Levemir Flextouch] 60 unit SQ BID 08/26/17 [History] Pantoprazole [Protonix] 40 mg PO AC-BRKFST #0 tab 08/29/17 [Rx] Ipratropium-Albuterol Nebulize [Duoneb 0.5 mg-3 mg/3 ml Soln] 3 ml INHALATION RT -QID PRN 02/20/18 [History] Acetaminophen Tab [Tylenol] 650 mg PO Q4HR PRN tab 02/24/18 [Rx] INSULIN LISPRO (HumaLOG) [humaLOG] 0 unit SQ ACHS #1 vial 02/24/18 [Rx] amLODIPine [Norvasc] 5 mg PO BID tab 02/24/18 [Rx] Follow up Appointment(s)/Referral(s): Alfred Chowdhury MD [Primary Care Provider] - 3 Days Activity/Diet/Wound Care/Special Instructions: Medi PH Diet: COnsist. Carb Home med Lasix on hold r/t renal function cbc,bmp in 2 days.
[2018-02-24] MEDS ORDERED: traMADol 50 MG TAB PO PRN (11:15)
[2018-02-24 11:52] LABS: Glucose,Whole Blood 163 mg/dL (75-99)
[2018-02-25] MEDS ORDERED: amLODIPine 5 MG TAB PO SCH (09:00)
== END 2018-02-24 13:50 | DRG 543 ==
LOC: EC 11:30 → 5MS5E 14:57 → OBSVTOIN 02-21 08:51
PROVIDERS: ADMIT Family Medicine; ATTEND Family Medicine
DX: M48.56XA Collapsed vertebra, not elsewhere classified, lumbar region, initial encounter for fracture (principal); N17.9 Acute kidney failure, unspecified; E11.21 Type 2 diabetes mellitus with diabetic nephropathy; E87.5 Hyperkalemia; E11.22 Type 2 diabetes mellitus with diabetic chronic kidney disease; N18.3 Chronic kidney disease, stage 3 (moderate); I12.9 Hypertensive chronic kidney disease with stage 1 through stage 4 chronic kidney disease, or unspecified chronic kidney disease; F32.9 Major depressive disorder, single episode, unspecified; K21.9 Gastro-esophageal reflux disease without esophagitis; M54.16 Radiculopathy, lumbar region; T46.4X5A Adverse effect of angiotensin-converting-enzyme inhibitors, initial encounter; F41.9 Anxiety disorder, unspecified; M19.91 Primary osteoarthritis, unspecified site; G89.29 Other chronic pain; M54.9 Dorsalgia, unspecified; G31.84 Mild cognitive impairment of uncertain or unknown etiology; Z79.4 Long term (current) use of insulin; Z79.899 Other long term (current) drug therapy; Z90.49 Acquired absence of other specified parts of digestive tract; Z90.710 Acquired absence of both cervix and uterus; Z87.891 Personal history of nicotine dependence; Z88.5 Allergy status to narcotic agent; Z88.0 Allergy status to penicillin; Z88.2 Allergy status to sulfonamides; Z88.8 Allergy status to other drugs, medicaments and biological substances; Z91.040 Latex allergy status; Z80.9 Family history of malignant neoplasm, unspecified
CPT/HCPCS: 36415; 71046; 72110; 72148; 80048; 80053; 80202; 81001; 83605; 85025; 85610; 85730; 86140; 87040; 87086; 96365; 99285

== ENCOUNTER 2019-06-14 16:09 | Inpatient (IN) | payer MEDICARE, OTHER ==
--- NOTE | 2019-06-14 17:21 | XR ---
EXAMINATION TYPE: XR ankle complete RT DATE OF EXAM: 06/14/2019 COMPARISON: NONE HISTORY: Pain after falling TECHNIQUE: 3 views FINDINGS: There is soft tissue swelling around the ankle joint. There is a plantar calcaneal spur. I see no fracture nor dislocation. Ankle mortise is anatomic. IMPRESSION: Soft tissue swelling. No fracture seen.
[2019-06-14 17:42] LABS: Anisocytosis Slight; Basophils % (A) 1 %; Eosinophils # (A) 0.2 k/uL (0-0.7); Eosinophils % (A) 3 %; HCT 35.8 % (34.0-46.0); HGB 11.7 gm/dL (11.4-16.0); Lymphocytes # (A) 1.3 k/uL (1.0-4.8); Lymphocytes % (A) 20 %; MCH 26.1 pg (25.0-35.0); MCHC 32.7 g/dL (31.0-37.0); MCV 79.9 fL (80.0-100.0); Mean Platelet Volume 8.9; Monocytes # (A) 0.2 k/uL (0-1.0); Monocytes % (A) 3 %; Neutrophils # (A) 4.8 k/uL (1.3-7.7); Neutrophils % (A) 73 %; Platelet Count 200 k/uL (150-450); RBC 4.48 m/uL (3.80-5.40); RDW 16.5 % (11.5-15.5); WBC 6.6 k/uL (3.8-10.6)
--- NOTE | 2019-06-14 17:43 | XR ---
EXAMINATION TYPE: XR tibia fibula RT DATE OF EXAM: 06/14/2019 COMPARISON: NONE HISTORY: Pain TECHNIQUE: 4 views FINDINGS: There is subcutaneous edema around the right lower leg. There is a plantar calcaneal spur. There are small Achilles calcaneal spur. I see no fracture nor dislocation. IMPRESSION: Subcutaneous edema. No fracture seen.
--- NOTE | 2019-06-14 17:44 | XR ---
EXAMINATION TYPE: XR knee complete RT DATE OF EXAM: 06/14/2019 COMPARISON: NONE HISTORY: Pain TECHNIQUE: 3 views FINDINGS: There is spurring on the superior patella. I see no fracture nor dislocation. IMPRESSION: Minor degenerative spurring at the medial joint space. Normal joint spaces. No fracture s een.
--- NOTE | 2019-06-14 17:45 | ED ---
Fall HPI - General Chief Complaint: Fall Stated Complaint: Fall, knee pain Source: patient Mode of arrival: wheelchair - History of Present Illness Initial Comments: The patient is an 83-year-old female who presents to the emergency department with reported fall last week. She states that she was taking a shower at her daughter's house for she has been residing for the past 2 and half months. She sustained a fall on the wet floor and fell forward. She landed on her right knee. She was unable to stand on her own and daughter can lift her therefore they called EMS for lift assist. The patient has been reporting continued pain over the past week. Her daughter states that she's been taking ibuprofen at home as needed. She has been able to bear weight. She does use a walker. There is seen today in their primary care office for evaluation. Her PCP did recommend going into the emergency department for an x-ray. He also recommended further workup as the patient has been more confused. Laboratory studies were conducted in the office as well as a urinalysis. Urinalysis was reported as normal. The patient denies hitting her head. She denies any neck pain or stiffness. No back pain or flank pain. She denies any chest pain or shortness of breath. No abdominal pain. There've been no change the patient's bowel or bladder habits. There are no other alleviating, precipitating or modifying factors - Related Data Home Medications Medication Instructions Recorded Confirmed Amitriptyline HCl 25 mg PO HS 08/26/17 06/14/19 Citalopram Hydrobromide [CeleXA] 10 mg PO DAILY 08/26/17 06/14/19 Insulin Detemir [Levemir Flextouch] 60 unit SQ BID 08/26/17 06/14/19 Ergocalciferol (Vitamin D2) 50,000 unit PO Q7D 06/14/19 06/14/19 [Vitamin D2] Furosemide [Lasix] 20 mg PO DAILY 06/14/19 06/14/19 INSULIN LISPRO (HumaLOG) [humaLOG] See Protocol SQ ACHS 06/14/19 06/14/19 Levothyroxine Sodium [Synthroid] 50 mcg PO DAILY 06/14/19 06/14/19 Lisinopril [Zestril] 2.5 mg PO DAILY 06/14/19 06/14/19 traMADol HCL [Ultram] 50 mg PO BID PRN 06/14/19 06/14/19 Previous Rx's Medication Instructions Recorded Pantoprazole [Protonix] 40 mg PO AC-BRKFST #0 tab 08/29/17 amLODIPine [Norvasc] 5 mg PO DAILY tab 02/24/18 Allergies Allergy/AdvReac Type Severity Reaction Status Date / Time codeine Allergy Unknown Verified 06/14/19 16:59 iodine Allergy Rash/Hives Verified 06/14/19 16:59 Latex, Natural Rubber Allergy Rash/Hives Verified 06/14/19 16:59 Penicillins Allergy Rash/Hives Verified 06/14/19 16:59 Sulfa (Sulfonamide Allergy Unknown Verified 06/14/19 16:59 Antibiotics) Review of Systems ROS Statement: Those systems with pertinent positive or pertinent negative responses have been documented in the HPI. ROS Other: All systems not noted in ROS Statement are negative. Past Medical History Past Medical History: Heart Failure, Diabetes Mellitus, Hypertension, Memory Impairment, Osteoarthritis (OA) Additional Past Medical History / Comment(s): mld memory impairment, SOB with activity chronic back pain History of Any Multi-Drug Resistant Organisms: None Reported Past Surgical History: Cholecystectomy, Hysterectomy, Tonsillectomy Additional Past Surgical History / Comment(s): Back x2, tube in stomach after gall bladder removal, oopherectomy, 2 surgeries on face, Past Anesthesia/Blood Transfusion Reactions: No Reported Reaction Past Psychological History: Anxiety, Depression Smoking Status: Former smoker Past Alcohol Use History: None Reported Past Drug Use History: None Reported - Past Family History Mother Additional Family Medical History / Comment(s): of cancer Father Family Medical History: Congestive Heart Failure (CHF) Additional Family Medical History / Comment(s): shingles General Exam Limitations: no limitations Course Vital Signs 06/14/19 06/14/19 06/14/19 16:11 19:24 22:35 Temperature 97.8 F 97.5 F L Pulse Rate 100 81 86 Respiratory 16 16 16 Rate Blood Pressure 130/73 175/82 158/87 O2 Sat by Pulse 97 97 98 Oximetry Medical Decision Making - Medical Decision Making Upon arrival the patient was placed into room 9. She is hooked up to continuous pulse ox and cardiac monitoring. 12-lead EKG was performed. I did offer the patient something for pain control however she refused. Auditory studies were conducted. I did perform a CT of the patient's brain as well as x-rays of the patient's right knee, tib-fib and ankle. Upon return results I did discuss them with the patient. As the patient does have persistent pain with difficulty inflating it did recommend a CT of the patient's right knee. Imaging is performed and does demonstrate a lateral tibial condyle fracture. Based discuss this with family. The patient was placed in a knee immobilizer. The daughter reports that the patient has had multiple falls secondary to her difficulty ambulating and is concerned for her mother's safety at home. She is requesting evaluation by social work for possible residential placement. Because of this I did recommend admission to the hospital. Patient was admitted to Dr. Márquez. Bridging orders were placed. I did consult orthopedics. The patient remained in stable condition was transported to floor - Lab Data Result diagrams: 06/14/19 17:30 06/14/19 17:30 Lab Results 06/14/19 06/14/19 06/14/19 Range/Units 17:30 17:30 17:30 WBC 6.6 (3.8-10.6) k/uL RBC 4.48 (3.80-5.40) m/uL Hgb 11.7 (11.4-16.0) gm/dL Hct 35.8 (34.0-46.0) % MCV 79.9 L (80.0-100.0) fL MCH 26.1 (25.0-35.0) pg MCHC 32.7 (31.0-37.0) g/dL RDW 16.5 H (11.5-15.5) % Plt Count 200 (150-450) k/uL Neutrophils % 73 % Lymphocytes % 20 % Monocytes % 3 % Eosinophils % 3 % Basophils % 1 % Neutrophils # 4.8 (1.3-7.7) k/uL Lymphocytes # 1.3 (1.0-4.8) k/uL Monocytes # 0.2 (0-1.0) k/uL Eosinophils # 0.2 (0-0.7) k/uL Basophils # 0.0 (0-0.2) k/uL Anisocytosis Slight PT 9.5 (9.0-12.0) sec INR 0.9 (<1.2) APTT 24.4 (22.0-30.0) sec Sodium 141 (137-145) mmol/L Potassium 5.2 H (3.5-5.1) mmol/L Chloride 111 H (98-107) mmol/L Carbon Dioxide 19 L (22-30) mmol/L Anion Gap 11 mmol/L BUN 56 H (7-17) mg/dL Creatinine 1.59 H (0.52-1.04) mg/dL Est GFR (CKD-EPI)AfAm 34 (>60 ml/min/1.73 sqM) Est GFR (CKD-EPI)NonAf 30 (>60 ml/min/1.73 sqM) Glucose 142 H (74-99) mg/dL Calcium 9.3 (8.4-10.2) mg/dL Total Bilirubin 0.3 (0.2-1.3) mg/dL AST 19 (14-36) U/L ALT 15 (9-52) U/L Alkaline Phosphatase 194 H (38-126) U/L Ammonia (<30) umol/L Total Protein 7.4 (6.3-8.2) g/dL Albumin 4.1 (3.5-5.0) g/dL Salicylates <1.0 mg/dL Acetaminophen <10.0 ug/mL 06/14/19 Range/Units 20:10 WBC (3.8-10.6) k/uL RBC (3.80-5.40) m/uL Hgb (11.4-16.0) gm/dL Hct (34.0-46.0) % MCV (80.0-100.0) fL MCH (25.0-35.0) pg MCHC (31.0-37.0) g/dL RDW (11.5-15.5) % Plt Count (150-450) k/uL Neutrophils % % Lymphocytes % % Monocytes % % Eosinophils % % Basophils % % Neutrophils # (1.3-7.7) k/uL Lymphocytes # (1.0-4.8) k/uL Monocytes # (0-1.0) k/uL Eosinophils # (0-0.7) k/uL Basophils # (0-0.2) k/uL Anisocytosis PT (9.0-12.0) sec INR (<1.2) APTT (22.0-30.0) sec Sodium (137-145) mmol/L Potassium (3.5-5.1) mmol/L Chloride (98-107) mmol/L Carbon Dioxide (22-30) mmol/L Anion Gap mmol/L BUN (7-17) mg/dL Creatinine (0.52-1.04) mg/dL Est GFR (CKD-EPI)AfAm (>60 ml/min/1.73 sqM) Est GFR (CKD-EPI)NonAf (>60 ml/min/1.73 sqM) Glucose (74-99) mg/dL Calcium (8.4-10.2) mg/dL Total Bilirubin (0.2-1.3) mg/dL AST (14-36) U/L ALT (9-52) U/L Alkaline Phosphatase (38-126) U/L Ammonia <9 (<30) umol/L Total Protein (6.3-8.2) g/dL Albumin (3.5-5.0) g/dL Salicylates mg/dL Acetaminophen ug/mL - EKG Data EKG Comments: EKG demonstrates a normal sinus rhythm with a ventricular rate of 82. AL interval 212. QRS 98. QTC of 455. There is a first-degree AV block. Inverted T-wave in lead 3. No acute ST segment elevations Disposition Clinical Impression: Fall, Fracture of lateral condyle of right tibia Disposition: ADMITTED IP TO THIS HOSP Is patient prescribed a controlled substance at d/c from ED?: No Decision to Admit Reason: Admit from EC Decision Date: 06/14/19 Decision Time: 22:37
[2019-06-14 17:49] LABS: INR 0.9 (<1.2); Partial Thromboplastin Time 24.4 sec (22.0-30.0); Potassium 5.2 mmol/L (3.5-5.1); Prothrombin Time 9.5 sec (9.0-12.0)
[2019-06-14 17:50] LABS: ALT 15 U/L (9-52); AST 19 U/L (14-36); Acetaminophen <10.0 ug/mL; African American GFR (CKD) 34 (>60 ml/min/1.73 sqM); Albumin 4.1 g/dL (3.5-5.0); Alkaline Phosphatase 194 U/L (38-126); Anion Gap 11 mmol/L; Blood Urea Nitrogen 56 mg/dL (7-17); Calcium 9.3 mg/dL (8.4-10.2); Carbon Dioxide 19 mmol/L (22-30); Chloride 111 mmol/L (98-107); Glucose 142 mg/dL (74-99); Salicylate <1.0 mg/dL; Sodium 141 mmol/L (137-145); Total Bilirubin 0.3 mg/dL (0.2-1.3); Total Protein 7.4 g/dL (6.3-8.2)
--- NOTE | 2019-06-14 18:22 | CT ---
EXAMINATION TYPE: CT brain wo con DATE OF EXAM: 06/14/2019 COMPARISON: MR scan of the brain 10/20/2017 HISTORY: Fall today. CT DLP: 1048.4 mGycm Automated exposure control for dose reduction was used. FINDINGS: There is a 3.2 x 2 cm partly calcified extra-axial mass in the midline at the frontal lobe convexity consistent with meningioma. There is no midline shift. There is no sign of intracranial hemorrhage. T here is no evidence of cerebral edema. Calvarium is intact. 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 NO ACUTE INTRACRANIAL A BNORMALITY.
--- NOTE | 2019-06-14 20:35 | CT ---
EXAMINATION TYPE: CT lower extremity RT wo con DATE OF EXAM: 06/14/2019 COMPARISON: None HISTORY: pt fell last week, injuring RT knee CT DLP: 273.2 mGycm Automated exposure control for dose reduction was used. FINDINGS: Multiple axial sections were obtained from the distal femur to the bottom of the foot without contras t. There is some spurring on the superior patella. There is a plantar calcaneal spur. There are small Ac hilles calcaneal spur. Ankle mortise is anatomic. There is some narrowing of the lateral joint space. There is mild knee joint effusion. There is some cortical irregularity involving the lateral tibial condyle. There are thin lucent line suspicious for hairline fractures. Bones of the foot appear intact. IMPRESSION: MILD KNEE JOINT EFFUSION. I SUSPECT HAIRLINE NONDISPLACED FRACTURES OF THE LATERAL TIBIAL CONDYLE.
[2019-06-14] MEDS ORDERED: NALOXONE 0.4 MG/ML 1 ML VIAL IV PRN (22:39)
[2019-06-15 00:15] VITALS: BMI 35.2
[2019-06-15] MEDS: AMITRIPTYLINE HCL 25 MG TAB PO SCH ×2 (00:25→21:25)
[2019-06-15] MEDS: LEVOTHYROXINE 50 MCG TAB PO SCH (05:51)
[2019-06-15 07:03] LABS: Glucose,Whole Blood 185 mg/dL (75-99)
[2019-06-15] MEDS: INSULIN DETEMIR (LEVEMIR) 100 UNIT/ML SYR SQ SCH ×3 (08:41→21:38)
[2019-06-15] MEDS: FUROSEMIDE 20 MG TAB PO SCH (08:41)
[2019-06-15] MEDS: CITALOPRAM HYDROBROMIDE 10 MG TAB PO SCH (08:42)
[2019-06-15] MEDS: amLODIPine 5 MG TAB PO SCH (08:42)
[2019-06-15] MEDS: PANTOPRAZOLE 40 MG TABLET PO SCH (08:42)
[2019-06-15] MEDS: LISINOPRIL 2.5 MG TAB PO SCH (08:42)
[2019-06-15 12:03] LABS: Glucose,Whole Blood 257 mg/dL (75-99)
--- NOTE | 2019-06-15 12:04 | P.CNOR ---
History of Present Illness - [facility] Consult date: 06/15/19 Consult reason: fracture History of present illness: Patient is an 83-year-old female who presented to [facility] yesterday afternoon with regards to an injury in pain involving the right lower extremity. Patient had a fall last week at her daughter's home, she was showering and slipped and fell. Instead injury, she's had difficulty ambulating and right lower extremity pain. She reports [facility] yesterday, multiple imaging and lab tests were done. Computed tomography scan of the extremity demonstrated a possible lateral tibial plateau fracture involving the right knee. Patient was admitted under internal medicine for further workup. Our orthopedic team was on consult today also. Patient was evaluated at bedside today, she had family present. She is resting comfortably in a chair. She notes most discomfort on the medial aspect of the knee. She states the pain is improved to yesterday. Patient normally utilizes a walker when ambulating. She's been living with her daughter for the last few months. Her daughter states that she has needed extra help lately with activities of daily living. Patient denies any previous surgery involving the right lower extremity. Patient has no other orthopedic complaints this time. Review of Systems Constitutional: Reports as per [facility] Past Medical History Past Medical History: Heart Failure, Diabetes Mellitus, Hypertension, Memory Impairment, Osteoarthritis (OA) Additional Past Medical History / Comment(s): mld memory impairment, SOB with activity chronic back pain History of Any Multi-Drug Resistant Organisms: None Reported Past Surgical History: Cholecystectomy, Hysterectomy, Tonsillectomy Additional Past Surgical History / Comment(s): Back x2, tube in stomach after gall bladder removal, oopherectomy, 2 surgeries on face, Past Anesthesia/Blood Transfusion Reactions: No Reported Reaction Past Psychological History: Anxiety, Depression Smoking Status: Former smoker Past Alcohol Use History: None Reported Past Drug Use History: None Reported - Past Family History Mother Additional Family Medical History / Comment(s): of cancer Father Family Medical History: Congestive Heart Failure (CHF) Additional Family Medical History / Comment(s): shingles Medications and Allergies Home Medications Medication Instructions Recorded Confirmed Type Amitriptyline HCl 25 mg PO HS 08/26/17 06/14/19 History Citalopram Hydrobromide [CeleXA] 10 mg PO DAILY 08/26/17 06/14/19 History Insulin Detemir [Levemir Flextouch] 60 unit SQ BID 08/26/17 06/14/19 History Pantoprazole [Protonix] 40 mg PO AC-BRKFST #0 tab 08/29/17 06/14/19 Rx amLODIPine [Norvasc] 5 mg PO DAILY tab 02/24/18 06/14/19 Rx Ergocalciferol (Vitamin D2) 50,000 unit PO Q7D 06/14/19 06/14/19 History [Vitamin D2] Furosemide [Lasix] 20 mg PO DAILY 06/14/19 06/14/19 History INSULIN LISPRO (HumaLOG) [humaLOG] See Protocol SQ ACHS 06/14/19 06/14/19 History Levothyroxine Sodium [Synthroid] 50 mcg PO DAILY 06/14/19 06/14/19 History Lisinopril [Zestril] 2.5 mg PO DAILY 06/14/19 06/14/19 History traMADol HCL [Ultram] 50 mg PO BID PRN 06/14/19 06/14/19 History Allergies Allergy/AdvReac Type Severity Reaction Status Date / Time codeine Allergy Unknown Verified 06/14/19 16:59 iodine Allergy Rash/Hives Verified 06/14/19 16:59 Latex, Natural Rubber Allergy Rash/Hives Verified 06/14/19 16:59 Penicillins Allergy Rash/Hives Verified 06/14/19 16:59 Sulfa (Sulfonamide Allergy Unknown Verified 06/14/19 16:59 Antibiotics) Physical Examination Right lower extremity: No obvious effusion present over the knee, no significant areas of soft tissue swelling or erythema. There is no apparent effusion over the knee Notable tenderness with palpation along the medial joint line, minimal ten derness along the lateral joint line. No tenderness with palpation of the patella. There is no tenderness with palpation of the lower leg, including foot or ankle Plantar flexion, dorsiflexion, EHL, FHL are intact. Patient is able to range the knee through extension and flexion minimal difficulty. Logroll maneuver of the extremity reproduces no pain, she is able to straight leg raise. Sensory exam to light touch throughout the extremities intact. Calf is soft soft, no tenderness with palpation. Dorsalis pedis pulses 2+ Results - Labs Labs: Abnormal Lab Results - Last 24 Hours (Table) 06/14/19 06/14/19 06/15/19 Range/Units 17:30 17:30 07:00 MCV 79.9 L (80.0-100.0) fL RDW 16.5 H (11.5-15.5) % Potassium 5.2 H (3.5-5.1) mmol/L Chloride 111 H (98-107) mmol/L Carbon Dioxide 19 L (22-30) mmol/L BUN 56 H (7-17) mg/dL Creatinine 1.59 H (0.52-1.04) mg/dL Glucose 142 H (74-99) mg/dL POC Glucose (mg/dL) 185 H (75-99) mg/dL Alkaline Phosphatase 194 H (38-126) U/L H & H 06/14/19 Range/Units 17:30 Hgb 11.7 (11.4-16.0) gm/dL Hct 35.8 (34.0-46.0) % Coagulation 06/14/19 Range/Units 17:30 INR 0.9 (<1.2) Result Diagrams: 06/14/19 17:30 06/14/19 17:30 - Diagnostic results Knee x-ray: report reviewed, image reviewed Knee CT: report reviewed, image reviewed Ankle/Foot x-ray: report reviewed, image reviewed Assessment and Plan Plan: Imaging: Multiple images were reviewed with reports from radiology. X-rays of the foot and ankle demonstrated no acute fractures or dislocations. Obvious osteoar thritic component of the right knee, with joint space narrowing and osteophyte formation. Computed tomography scan does reveal a nondisplaced lateral tibial plateau fracture. Assessment: 1. Right knee nondisplaced lateral tibial plateau fracture 2. Lateral knee osteoarthritis 3. History of recent fall 4. Medical comorbidities Plan: I was able to review the case with my attending Dr. Lyle, this including physical exam findings and imaging studies. Patient will utilize a knee immobilizer brace at this time, she'll be nonweightbearing on the right lower extremity, okay for toe-touch with transfers. Utilize walker all times Ice and elevate often Physical therapy evaluation Other medical management specialist and recommendations Patient will likely need subacute rehab during recovery Time with Patient: Less than 30
[2019-06-15] MEDS ORDERED: ALPRAZolam 0.25 MG TAB PO PRN (15:03)
[2019-06-15] MEDS ORDERED: ERGOCALCIFEROL 50,000 UNIT CAP PO SCH (16:00)
--- NOTE | 2019-06-15 16:41 | HP ---
HISTORY AND PHYSICAL I am covering for Dr. Chowdhury. CHIEF COMPLAINTS: Fall and as well as right knee pain. HISTORY OF PRESENT ILLNESS: This 83-year-old woman with a past medical history of multiple medical problems including diabetes mellitus, type 2, hypertension, history of dementia, history of DJD, history of cholecystectomy, hysterectomy, history of chronic back pain, history of CHF being followed by Dr. Alfred Chowdhury in the outpatient setting apparently living with her daughter who herself has issues such as multiple sclerosis. The patient apparently had multiple falls and yesterday the patient slipped and fell and hit the right knee. The floor was wet apparently and the patient complaining of severe pain. Patient unable to ambulate and the patient came to [facility] and was admitted for further evaluation and treatment. The orthopedics evaluated the patient and a lower extremity CT scan was also done which showed suspected nondisplaced fracture of the lateral tibial condyle and mild knee contusion was noted and the patient admitted for further evaluation and treatment. There is no history of fever, rigors. No history of headache, loss of consciousness, seizures at this time. PAST MEDICAL HISTORY: History of CHF, history of diabetes and hypertension, history of memory impairment, history of DJD, history of cholecystectomy, anxiety and depression. MEDICATIONS: Prior to admission include home medications: 1. Ultram 50 mg b.i.d. p.r.n. 2. Norvasc 5 mg p.o. daily. 3. Protonix 40 mg with breakfast. 4. Zestril 2.5 mg p.o. daily. 5. Synthroid 50 mcg p.o. daily. 6. Levemir 60 units b.i.d. 7. Humalog before meals and q.h.s. 8. Lasix 20 mg daily. 9. Vitamin D2, 50,000 every 7 days. 10.Celexa 10 mg p.o. 11.Amitriptyline 25 mg q.h.s. ALLERGIES: CODEINE, IODINE, LATEX, PENICILLIN, SULFA. FAMILY HISTORY: History of CHF, of cancer. SOCIAL HISTORY: Previous history of smoking. No history of current smoking or alcohol intake. REVIEW OF SYSTEMS: ENT: Diminished vision. Diminished hearing. CARDIOVASCULAR: No angina or palpitations. RESPIRATORY: As mentioned earlier. GI no nausea or vomiting. no dysuria or hematuria. NERVOUS SYSTEM: As mentioned earlier. ALLERGY/IMMUNOLOGY: No asthma or hayfever. MUSCULOSKELETAL: As mentioned earlier. HEMATOLOGY/ONCOLOGY: No history of anemia. ENDOCRINE: Hypothyroidism. CONSTITUTIONAL: As mentioned earlier. DERMATOLOGY: Negative. RHEUMATOLOGY negative. PSYCHIATRY as mentioned earlier. PHYSICAL EXAMINATION: Alert and oriented x2. Pulse 89, blood pressure 156/87, respirations 17, temperature 97.2, pulse ox 98% on room air. HEENT are conjunctivae normal. Oral mucosa moist. NECK is no jugular venous distention. No carotid bruit. No lymph node enlargement. Cardiovascular system: S1, S2 muffled. No S3, no S4. RESPIRATION: Breath sounds diminished in the bases. A few scattered rhonchi and crackles. ABDOMEN: Soft, nontender. No mass palpable. No ascites. No hepatomegaly, splenomegaly. LEGS: Movement of the right knee is painful. Knee is in a splint at this time. Otherwise, pulses felt normally. NERVOUS SYSTEM: Higher functions as mentioned earlier. Moves all 4 limbs. No focal motor or sensory deficits. LYMPHATICS: No lymph nodes palpable in the neck, axillae or groin. SKIN: No ulcers, rashes or bleeding. JOINTS: No active deforming arthropathy. LABS: At this time shows: WBC 6.2, hemoglobin 11.2, sodium 140, potassium 5.2 creatinine is 1.59. ASSESSMENT: 1. Fall and nondisplaced fracture of the lateral tibial condyle on the right knee. 2. Severe gait pain and severe gait dysfunction. 3. Mild hyperkalemia. 4. Increased creatinine with possibly chronic kidney disease stage III. 5. History of congestive heart failure, ejection fraction unknown. 6. Diabetes mellitus type 2. 7. Hypertension. 8. History of memory impairment. 9. Dementia. 10.Degenerative joint disease. 11.History of back pain. 12.History of hysterectomy. 13.History of cholecystectomy. 14.History of oophorectomy. 15.History of anxiety, depression. 16.Remote history of nicotine dependence. 17.Obesity with body mass index of 35.7. 18.FULL CODE. RECOMMENDATIONS AND DISCUSSION: In this 83-year-old woman who presented with multiple complex medical issues, we will monitor the patient closely, continue the current medications, management and symptomatic treatment. Recommend resume the home medications. Monitor blood sugars closely. Otherwise symptomatic treatment of the pain. Orthopedic evaluation has been sought. The patient has multiple comorbidities and significant gait dysfunction. The patient also had issues at home in which the other family member, the one daughter and another son and [id number] are concerned about the safety of the home situation, so I would recommend PT/OT evaluation, possible ECF rehab at this time. I would also recommend social media editor to work with the family so that post discharge from the ECF, the patient could go home could go to possibly an assisted living situation where more monitoring and care could be arranged. Overall prognosis is guarded and further recommendations to follow. A copy of dictation being forwarded to Dr. Alfred Chowdhury who is the primary physician. DVT prophylaxis. MMODL / IJN: [id number] /
[2019-06-15 17:15] LABS: Glucose,Whole Blood 167 mg/dL (75-99)
[2019-06-15] MEDS: INSULIN ASPART (NovoLOG) 100 UNIT/ML VIAL SQ SCH ×3 (17:34→21:38)
[2019-06-15 21:25] LABS: Glucose,Whole Blood 234 mg/dL (75-99)
[2019-06-15] MEDS: HEPARIN SODIUM,PORCINE 5,000 UNIT/ML 1 ML VIAL SQ SCH (21:25)
[2019-06-16] MEDS: LEVOTHYROXINE 50 MCG TAB PO SCH (05:44)
[2019-06-16 07:00] LABS: Glucose,Whole Blood 128 mg/dL (75-99)
[2019-06-16] MEDS: LISINOPRIL 2.5 MG TAB PO SCH (09:17)
[2019-06-16] MEDS: PANTOPRAZOLE 40 MG TABLET PO SCH (09:17)
[2019-06-16] MEDS: HEPARIN SODIUM,PORCINE 5,000 UNIT/ML 1 ML VIAL SQ SCH ×2 (09:17→21:20)
[2019-06-16] MEDS: INSULIN DETEMIR (LEVEMIR) 100 UNIT/ML SYR SQ SCH (09:17)
[2019-06-16] MEDS: FUROSEMIDE 20 MG TAB PO SCH (09:17)
[2019-06-16] MEDS: CITALOPRAM HYDROBROMIDE 10 MG TAB PO SCH (09:17)
[2019-06-16] MEDS: amLODIPine 5 MG TAB PO SCH (09:17)
[2019-06-16] MEDS: INSULIN ASPART (NovoLOG) 100 UNIT/ML VIAL SQ SCH ×4 (09:22→21:04)
[2019-06-16 11:53] LABS: Glucose,Whole Blood 159 mg/dL (75-99)
[2019-06-16] MEDS: MULTIVITAMINS, THERA 1 EACH TAB PO SCH (12:09)
[2019-06-16 16:40] LABS: Glucose,Whole Blood 135 mg/dL (75-99)
[2019-06-16 20:23] LABS: Glucose,Whole Blood 165 mg/dL (75-99)
[2019-06-16] MEDS ORDERED: INSULIN DETEMIR (LEVEMIR) 100 UNIT/ML SYR SQ ONE (21:15)
[2019-06-16] MEDS: AMITRIPTYLINE HCL 25 MG TAB PO SCH (21:20)
--- NOTE | 2019-06-16 21:21 | PN ---
PROGRESS NOTE DATE OF SERVICE: 06/16/2019 I am covering for Dr. Chowdhury. This 83-year-old woman was admitted with a fall also had a hairline fracture of the tibial plateau. PT/OT evaluating the patient for possible ECF rehab. No chest pain. No palpitations. No fever. Patient is complaining of pain. PHYSICAL EXAM: Alert and oriented x2. Pulse 81. Blood pressure 159/77, respirations 16, temperature 97.6, pulse ox 97% on room air. HEENT: Conjunctivae normal. NECK: No JVD. CARDIOVASCULAR: S1, S2 muffled. RESPIRATIONS: Breath sounds diminished in the bases. No rhonchi. No crackles. ABDOMEN is soft, nontender. LEGS: Right knee movements are painful. NERVOUS SYSTEM: No focal deficits. LAB: CBC within normal limits except MCV and as well as RDW. Potassium is 5.2. Creatinine is 1.59. ASSESSMENT: 1. Fall and nondisplaced fracture of the lateral tibial condyle on the right knee. 2. Severe gait dysfunction and as well as right knee pain. 3. Mild hyperkalemia. 4. Increased creatinine with possibly chronic kidney stage III. 5. History of congestive heart failure, ejection fraction unknown. 6. Diabetes type 2 history. 7. Hypertension history. 8. History of memory impairment. 9. Dementia. 10.Degenerative joint disease. 11.History of back pain. 12.History of hysterectomy. 13.History of cholecystectomy. 14.History of oophorectomy. 15.History of anxiety, depression. 16.Remote history of nicotine dependence. 17.Obesity with body mass index of 35.7. 18.FULL CODE. RECOMMENDATIONS AND DISCUSSION: I recommend to continue current medications. Continue with monitoring and symptomatic treatment. Continue the pain management. PT/OT evaluation, possible ECF rehab. Repeat labs have been recommended and further recommendations to follow. See orders for details. MMODL / IJN: [id number] /
[2019-06-17] MEDS: LEVOTHYROXINE 50 MCG TAB PO SCH (05:39)
[2019-06-17 06:53] LABS: Glucose,Whole Blood 116 mg/dL (75-99)
[2019-06-17] MEDS: traMADol 50 MG TAB PO PRN (07:19)
[2019-06-17 08:37] LABS: Calcium 9.1 mg/dL (8.4-10.2); Potassium 5.6 mmol/L (3.5-5.1)
[2019-06-17 08:52] LABS: Anisocytosis Slight; Basophils # (A) 0.1 k/uL (0-0.2); Basophils % (A) 1 %; Eosinophils # (A) 0.3 k/uL (0-0.7); Eosinophils % (A) 3 %; HCT 34.9 % (34.0-46.0); HGB 11.4 gm/dL (11.4-16.0); Hypochromasia Slight; Lymphocytes # (A) 1.8 k/uL (1.0-4.8); Lymphocytes % (A) 23 %; MCH 26.6 pg (25.0-35.0); MCHC 32.6 g/dL (31.0-37.0); MCV 81.8 fL (80.0-100.0); Monocytes # (A) 0.2 k/uL (0-1.0); Monocytes % (A) 3 %; Neutrophils # (A) 5.2 k/uL (1.3-7.7); Neutrophils % (A) 69 %; Platelet Count 209 k/uL (150-450); RBC 4.27 m/uL (3.80-5.40); RDW 16.2 % (11.5-15.5); WBC 7.6 k/uL (3.8-10.6)
[2019-06-17] MEDS: INSULIN DETEMIR (LEVEMIR) 100 UNIT/ML SYR SQ SCH ×3 (09:42→21:41)
[2019-06-17] MEDS: INSULIN ASPART (NovoLOG) 100 UNIT/ML VIAL SQ SCH ×4 (09:43→21:36)
[2019-06-17] MEDS: PANTOPRAZOLE 40 MG TABLET PO SCH ×2 (09:44→09:47)
[2019-06-17] MEDS: LISINOPRIL 2.5 MG TAB PO SCH (09:44)
[2019-06-17] MEDS: FUROSEMIDE 20 MG TAB PO SCH (09:44)
[2019-06-17] MEDS: CITALOPRAM HYDROBROMIDE 10 MG TAB PO SCH (09:44)
[2019-06-17] MEDS: amLODIPine 5 MG TAB PO SCH (09:45)
[2019-06-17] MEDS: HEPARIN SODIUM,PORCINE 5,000 UNIT/ML 1 ML VIAL SQ SCH ×2 (09:49→20:42)
[2019-06-17 11:45] LABS: Glucose,Whole Blood 145 mg/dL (75-99)
[2019-06-17] MEDS: MULTIVITAMINS, THERA 1 EACH TAB PO SCH (12:49)
[2019-06-17] MEDS ORDERED: SODIUM POLYSTYRENE SULFONATE 15 GM/60 ML BOTTLE PO ONE (15:30)
[2019-06-17] MEDS ORDERED: ERGOCALCIFEROL 50,000 UNIT CAP PO SCH (16:00)
[2019-06-17 16:53] LABS: Glucose,Whole Blood 150 mg/dL (75-99)
--- NOTE | 2019-06-17 19:31 | PN ---
PROGRESS NOTE DATE OF SERVICE: 06/17/2019. This 83-year-old woman who was admitted after a fall and nondisplaced fracture is being closely monitored. No chest pain. No palpitations. No fever. PHYSICAL EXAM: Alert and oriented times three. Pulse 96, blood pressure 131/74, respiration 15, temperature 98.1, pulse ox 98% on room air. HEENT: Conjunctivae normal. Oral mucosa moist. NECK is no jugular venous distention. No carotid bruit. No lymph node enlargement. CARDIOVASCULAR: S1-S2 muffled. RESPIRATIONS: Breath sounds diminished in the bases. A few scattered rhonchi. No crackles. ABDOMEN: Soft. Nontender. LEGS: Right knee slightly painful. No chest pain. No palpitations. Splint. Pulses felt normally. NERVOUS SYSTEM: No focal deficits. LAB STUDIES: At this time shows WBC 7.2, hemoglobin 11.2, sodium 130, potassium 5.2. Creatinine 1.77. ASSESSMENT: 1. Fall and nondisplaced fracture of the lateral tibial condyle on the right knee. 2. Severe gait dysfunction as well as right knee pain. 3. Mild hyperkalemia. 4. Increased creatinine with possible acute on chronic kidney disease stage III. 5. History of congestive heart failure, ejection fraction unknown. 6. Diabetes mellitus type 2 history. 7. Hypertension history. 8. History of memory impairment. 9. Dementia. 10.History of degenerative joint disease. 11.History of back pain. 12.History of hysterectomy. 13.History of cholecystectomy. 14.History of oophorectomy. 15.History of anxiety, depression. 16.Remote history of nicotine dependence. 17.Obesity with body mass index of 35.7. 18.FULL CODE. RECOMMENDATIONS AND DISCUSSION: I recommend to continue current medications, management and symptomatic treatment. PT/OT evaluation, possible ECF rehab. Continue the rest of medications. Further recommendations to follow. I would avoid lisinopril, Kayexalate 15 g today. Further recommendations to follow. MMODL / IJN: [id number] /
[2019-06-17 20:20] LABS: Glucose,Whole Blood 133 mg/dL (75-99)
[2019-06-17] MEDS: AMITRIPTYLINE HCL 25 MG TAB PO SCH (20:43)
[2019-06-18] MEDS: LEVOTHYROXINE 50 MCG TAB PO SCH (05:52)
[2019-06-18] MEDS: traMADol 50 MG TAB PO PRN (05:52)
[2019-06-18 07:13] LABS: Glucose,Whole Blood 120 mg/dL (75-99)
[2019-06-18] MEDS: INSULIN ASPART (NovoLOG) 100 UNIT/ML VIAL SQ SCH ×4 (07:57→21:45)
[2019-06-18] MEDS: FUROSEMIDE 20 MG TAB PO SCH (08:02)
[2019-06-18] MEDS: amLODIPine 5 MG TAB PO SCH (08:02)
[2019-06-18] MEDS: HEPARIN SODIUM,PORCINE 5,000 UNIT/ML 1 ML VIAL SQ SCH ×2 (08:02→21:44)
[2019-06-18] MEDS: MULTIVITAMINS, THERA 1 EACH TAB PO SCH (08:02)
[2019-06-18] MEDS: INSULIN DETEMIR (LEVEMIR) 100 UNIT/ML SYR SQ SCH ×2 (08:02→21:45)
[2019-06-18] MEDS: PANTOPRAZOLE 40 MG TABLET PO SCH (08:02)
[2019-06-18] MEDS: CITALOPRAM HYDROBROMIDE 10 MG TAB PO SCH (08:03)
[2019-06-18 09:54] LABS: Basophils % (A) 1 %; Eosinophils # (A) 0.2 k/uL (0-0.7); Eosinophils % (A) 4 %; HCT 35.9 % (34.0-46.0); HGB 11.2 gm/dL (11.4-16.0); Lymphocytes # (A) 1.3 k/uL (1.0-4.8); Lymphocytes % (A) 23 %; MCH 24.8 pg (25.0-35.0); MCHC 31.2 g/dL (31.0-37.0); MCV 79.4 fL (80.0-100.0); Mean Platelet Volume 8.4; Monocytes # (A) 0.2 k/uL (0-1.0); Monocytes % (A) 3 %; Neutrophils # (A) 3.8 k/uL (1.3-7.7); Neutrophils % (A) 67 %; Platelet Count 189 k/uL (150-450); RBC 4.52 m/uL (3.80-5.40); RDW 15.7 % (11.5-15.5); WBC 5.6 k/uL (3.8-10.6)
[2019-06-18 09:56] LABS: Potassium 5.8 mmol/L (3.5-5.1)
[2019-06-18] MEDS ORDERED: SODIUM POLYSTYRENE SULFONATE 15 GM/60 ML BOTTLE PO ONE (11:00)
--- NOTE | 2019-06-18 11:59 | P.PN ---
Subjective Patient sitting in chair at bedside. States pain controlled noted potassium 5.8, Ordered if unsuccessful will consult nephrology. Hopeful discharge soon extended care Objective - Vital Signs Vital signs: Vital Signs Temp 98.4 F 06/18/19 07:00 Pulse 77 06/18/19 07:00 Resp 16 06/18/19 07:00 BP 137/75 06/18/19 07:00 Pulse Ox 95 06/18/19 07:00 Intake & Output 06/17/19 06/18/19 06/18/19 18:59 06:59 18:59 Intake Total 880 480 Balance 880 480 Intake: Oral 880 480 Other: Voiding Method Toilet # Voids 2 0 - Constitutional General appearance: Present: mild distress, obese - EENT Eyes: Present: PERRLA ENT: Present: hard of hearing Ears: bilateral: normal - Neck Neck: Present: normal ROM - Respiratory Respiratory: bilateral: CTA - Cardiovascular Rhythm: regular - Gastrointestinal General gastrointestinal: Present: soft - Integumentary Integumentary: Present: normal - Neurologic Neurologic: Present: CNII-XII intact - Musculoskeletal Musculoskeletal Comment(s): His knee mobilizer to right leg Musculoskeletal: Present: generalized weakness - Psychiatric Psychiatric: Present: A&O x's 3, appropriate affect, intact judgment & insight - Labs CBC & Chem 7: 06/18/19 09:19 06/18/19 09:19 Labs: Abnormal Lab Results - Last 24 Hours (Table) 06/17/19 06/17/19 06/18/19 Range/Units 16:51 20:17 07:10 Hgb (11.4-16.0) gm/dL MCV (80.0-100.0) fL MCH (25.0-35.0) pg RDW (11.5-15.5) % Potassium (3.5-5.1) mmol/L BUN (7-17) mg/dL Creatinine (0.52-1.04) mg/dL Glucose (74-99) mg/dL POC Glucose (mg/dL) 150 H 133 H 120 H (75-99) mg/dL 06/18/19 06/18/19 Range/Units 09:19 09:19 Hgb 11.2 L (11.4-16.0) gm/dL MCV 79.4 L (80.0-100.0) fL MCH 24.8 L (25.0-35.0) pg RDW 15.7 H (11.5-15.5) % Potassium 5.8 H (3.5-5.1) mmol/L BUN 58 H (7-17) mg/dL Creatinine 1.76 H (0.52-1.04) mg/dL Glucose 177 H (74-99) mg/dL POC Glucose (mg/dL) (75-99) mg/dL - Imaging and Cardiology CT Scan - head: report reviewed Assessment and Plan Plan: Assessment fall with nondisplaced fracture of lateral tibial condyle right knee Severe gait dysfunction secondary to right knee pain Hyperkalemia potassium 5.8 chronic slight ordered Acute kidney disease stage III History of congestive heart failure unknown ejection fraction Diabetes type 2 Hypertension Memory impairment with dementia Degenerative joint disease chronic back pain Anxiety/depression Obesity with BMI of 35.7 Plan Hyperkalemia correction Continue with PT OT and orthopedic consultation Hopeful discharge to extended care facility sent
[2019-06-18 12:02] LABS: Glucose,Whole Blood 136 mg/dL (75-99)
[2019-06-18 17:11] LABS: Glucose,Whole Blood 201 mg/dL (75-99)
[2019-06-18] MEDS: AMITRIPTYLINE HCL 25 MG TAB PO SCH (21:45)
[2019-06-18 21:47] LABS: Glucose,Whole Blood 151 mg/dL (75-99)
[2019-06-19 07:09] LABS: Glucose,Whole Blood 109 mg/dL (75-99)
[2019-06-19] MEDS: LEVOTHYROXINE 50 MCG TAB PO SCH (07:30)
[2019-06-19 08:40] LABS: Basophils % (A) 1 %; Eosinophils # (A) 0.2 k/uL (0-0.7); Eosinophils % (A) 4 %; HCT 34.9 % (34.0-46.0); HGB 11.1 gm/dL (11.4-16.0); Lymphocytes # (A) 1.5 k/uL (1.0-4.8); Lymphocytes % (A) 24 %; MCH 25.3 pg (25.0-35.0); MCHC 31.8 g/dL (31.0-37.0); MCV 79.5 fL (80.0-100.0); Mean Platelet Volume 8.5; Monocytes # (A) 0.2 k/uL (0-1.0); Monocytes % (A) 3 %; Neutrophils # (A) 4.2 k/uL (1.3-7.7); Neutrophils % (A) 68 %; Platelet Count 179 k/uL (150-450); RBC 4.39 m/uL (3.80-5.40); RDW 15.8 % (11.5-15.5); WBC 6.3 k/uL (3.8-10.6)
[2019-06-19 08:42] LABS: Calcium 8.7 mg/dL (8.4-10.2); Potassium 4.6 mmol/L (3.5-5.1)
[2019-06-19 09:03] VITALS: BP 131/75; PULSE 83; RESP 16; TEMP 97.7
[2019-06-19] MEDS: FUROSEMIDE 20 MG TAB PO SCH (10:44)
[2019-06-19] MEDS: MULTIVITAMINS, THERA 1 EACH TAB PO SCH (10:44)
[2019-06-19] MEDS: CITALOPRAM HYDROBROMIDE 10 MG TAB PO SCH (10:44)
[2019-06-19] MEDS: PANTOPRAZOLE 40 MG TABLET PO SCH (10:44)
[2019-06-19] MEDS: INSULIN DETEMIR (LEVEMIR) 100 UNIT/ML SYR SQ SCH (10:44)
[2019-06-19] MEDS: amLODIPine 5 MG TAB PO SCH (10:44)
[2019-06-19] MEDS: HEPARIN SODIUM,PORCINE 5,000 UNIT/ML 1 ML VIAL SQ SCH (10:44)
[2019-06-19] MEDS: INSULIN ASPART (NovoLOG) 100 UNIT/ML VIAL SQ SCH ×2 (10:44→12:51)
[2019-06-19 12:05] LABS: Glucose,Whole Blood 137 mg/dL (75-99)
--- NOTE | 2019-06-19 12:49 | P.DS ---
Providers Date of admission: 06/15/19 11:42 Expected date of discharge: 06/19/19 Attending physician: Alfred Chowdhury Consults: 06/14/19 22:41 Consult Physician Urgent Consulting Provider: John Lyle Consult Reason/Comments: right tibial condyle fracture Do you want consulting provider notified?: Yes Primary care physician: Alfred Chowdhury Hospital Course: 83-year-old female was brought to the emergency room after fall patient was complaining of right knee pain found to have a nondisplaced fracture patient has been treated by orthopedics. Patient was found to have hyperkalemia was corrected patient is now stable for transferred to [facility] for rehab Assessment Fall with nondisplaced fracture of the lateral tibial condyle right knee Hyperkalemia corrected Acute acute on chronic kidney disease stage III History of congestive heart failure ejection fraction unknown diabetes type 2 Hypertension Memory impairment with dementia Degenerative joint disease with back pain Obesity BMI 35.7 Plan Transfer to a [facility] for rehab Plan - Discharge Summary Discharge Rx Participant: Yes New Discharge Prescriptions: New Multivitamins, Thera [Multivitamin (formulary)] 1 each PO DAILY@1200 tab ALPRAZolam [Xanax] 0.25 mg PO TID PRN #6 tab PRN Reason: Anxiety Continue Insulin Detemir [Levemir Flextouch] 60 unit SQ BID Amitriptyline HCl 25 mg PO HS Citalopram Hydrobromide [CeleXA] 10 mg PO DAILY Pantoprazole [Protonix] 40 mg PO AC-BRKFST #0 tab amLODIPine [Norvasc] 5 mg PO DAILY tab Levothyroxine Sodium [Synthroid] 50 mcg PO DAILY Furosemide [Lasix] 20 mg PO DAILY INSULIN LISPRO (HumaLOG) [humaLOG] See Protocol SQ ACHS Ergocalciferol (Vitamin D2) [Vitamin D2] 50,000 unit PO Q7D traMADol HCL [Ultram] 50 mg PO BID PRN #6 tablet PRN Reason: Pain Discontinued Lisinopril [Zestril] 2.5 mg PO DAILY Discharge Medication List Amitriptyline HCl 25 mg PO HS 08/26/17 [History] Citalopram Hydrobromide [CeleXA] 10 mg PO DAILY 08/26/17 [History] Insulin Detemir [Levemir Flextouch] 60 unit SQ BID 08/26/17 [History] Pantoprazole [Protonix] 40 mg PO AC-BRKFST #0 tab 08/29/17 [Rx] amLODIPine [Norvasc] 5 mg PO DAILY tab 02/24/18 [Rx] Ergocalciferol (Vitamin D2) [Vitamin D2] 50,000 unit PO Q7D 06/14/19 [History] Furosemide [Lasix] 20 mg PO DAILY 06/14/19 [History] INSULIN LISPRO (HumaLOG) [humaLOG] See Protocol SQ ACHS 06/14/19 [History] Levothyroxine Sodium [Synthroid] 50 mcg PO DAILY 06/14/19 [History] ALPRAZolam [Xanax] 0.25 mg PO TID PRN #6 tab 06/19/19 [Rx] Multivitamins, Thera [Multivitamin (formulary)] 1 each PO DAILY@1200 tab 06/19/19 [Rx] traMADol HCL [Ultram] 50 mg PO BID PRN #6 tablet 06/19/19 [Rx] Follow up Appointment(s)/Referral(s): Alfred Chowdhury MD [Primary Care Provider] - 1-2 days Pablo Nguyen PAC [PHYSICIAN [employer]ER] - 07/04/19 1:30 pm
== END 2019-06-19 14:23 | DRG 563 ==
LOC: EC 16:09 → 4SSUR 22:39 → OBSVTOIN 06-15 11:42
PROVIDERS: ADMIT Family Medicine; ATTEND Family Medicine
DX: S82.124A Nondisplaced fracture of lateral condyle of right tibia, initial encounter for closed fracture (principal); I13.0 Hypertensive heart and chronic kidney disease with heart failure and stage 1 through stage 4 chronic kidney disease, or unspecified chronic kidney disease; N17.9 Acute kidney failure, unspecified; E11.22 Type 2 diabetes mellitus with diabetic chronic kidney disease; E87.5 Hyperkalemia; I50.9 Heart failure, unspecified; N18.3 Chronic kidney disease, stage 3 (moderate); F03.90 Unspecified dementia, unspecified severity, without behavioral disturbance, psychotic disturbance, mood disturbance, and anxiety; E66.9 Obesity, unspecified; M17.12 Unilateral primary osteoarthritis, left knee; F32.9 Major depressive disorder, single episode, unspecified; F41.9 Anxiety disorder, unspecified; G89.29 Other chronic pain; R29.6 Repeated falls; M54.9 Dorsalgia, unspecified; R26.9 Unspecified abnormalities of gait and mobility; Z68.35 Body mass index [BMI] 35.0-35.9, adult; Z87.891 Personal history of nicotine dependence; Z88.5 Allergy status to narcotic agent; Z88.0 Allergy status to penicillin; Z88.2 Allergy status to sulfonamides; Z91.041 Radiographic dye allergy status; Z91.040 Latex allergy status; Z90.710 Acquired absence of both cervix and uterus; Z90.49 Acquired absence of other specified parts of digestive tract; Z79.4 Long term (current) use of insulin; Z79.890 Hormone replacement therapy; Z79.899 Other long term (current) drug therapy; Z82.49 Family history of ischemic heart disease and other diseases of the circulatory system; Z80.9 Family history of malignant neoplasm, unspecified; W18.2XXA Fall in (into) shower or empty bathtub, initial encounter; Y92.002 Bathroom of unspecified non-institutional (private) residence as the place of occurrence of the external cause
CPT/HCPCS: 36415; 70450; 80048; 80053; 80329; 82140; 83520; 85025; 85610; 85730; 93005; 99285

== ENCOUNTER 2020-02-23 12:50 | Inpatient (IN) | payer MEDICARE, OTHER ==
[2020-02-23] MEDS ORDERED: AZITHROMYCIN 500 MG in SODIUM CHLORIDE 0.9% 250 ML IVPB STA (13:01)
[2020-02-23] MEDS ORDERED: SODIUM CHLORIDE 0.9% 500 ML 500 ML IV STA (13:01)
--- NOTE | 2020-02-23 13:25 | ED ---
General Adult HPI - General Chief complaint: Shortness of Breath Stated complaint: COVID Source: patient, EMS, RN notes reviewed, old records reviewed Mode of arrival: EMS Limitations: no limitations - History of Present Illness Initial comments: 84-year-old female presenting for evaluation of dyspnea and hypoxia. Patient was tested for coronavirus on Tuesday and the results were positive today which is Tuesday. Patient had desaturations at the halfway requiring sup plemental oxygen. She was placed on 3 L and according EMS was in the high 80s. This was increased to 4 L and she had improved oxygenation. Patient denying subjective fever or chills. She's had some nausea and poor appetite. She does report a cough which is nonproductive. Patient has a DO NOT RESUSCITATE order. - Related Data Home Medications Medication Instructions Recorded Confirmed Citalopram Hydrobromide [CeleXA] 10 mg PO DAILY@0800 08/26/17 02/23/20 Ergocalciferol (Vitamin D2) 50,000 unit PO Q7D 06/14/19 02/23/20 [Vitamin D2] INSULIN LISPRO (HumaLOG) [humaLOG] See Protocol SQ ACHS 06/14/19 02/23/20 Levothyroxine Sodium [Synthroid] 50 mcg PO DAILY 06/14/19 02/23/20 Acetaminophen [Tylenol Arthritis] 650 mg PO Q6H PRN 02/23/20 02/23/20 Budesonide [Pulmicort] 0.5 mg INHALATION RT-BID@0800,199902/23/20 02/23/20 Fluticasone Nasal [place] [Flonase 2 spray EA NOSTRIL DAILY PRN 02/23/20 02/23/20 Nasal [place]] Furosemide [Lasix] 40 mg PO BID@0800,199902/23/20 02/23/20 HYDROcodone/APAP 5-325MG [[place] 1 tab PO Q6H PRN 02/23/20 02/23/20 5-325] Insulin Glargine [Lantus] 25 unit SQ BID@0800,159902/23/20 02/23/20 Ipratropium-Albuterol Nebulize 3 ml INHALATION RT-Q4H PRN 02/23/20 02/23/20 [Duoneb 0.5 mg-3 mg/3 ml Soln] Lidocaine/Menthol [Icy Hot 4%-1% 1 patch TOPICAL DAILY 02/23/20 02/23/20 Patch] Lisinopril [Zestril] 10 mg PO DAILY@0800 02/23/20 02/23/20 Menthol [Biofreeze] 1 applic TOPICAL Q6H PRN 02/23/20 02/23/20 Metoprolol Tartrate [Lopressor] 50 mg PO BID@0800,1600 02/23/20 02/23/20 Montelukast [Singulair] 10 mg PO HS@199902/23/20 02/23/20 Multivitamins, Thera [Multivitamin 1 tab PO DAILY@0800 02/23/20 02/23/20 (formulary)] Pantoprazole Sodium [Protonix] 20 mg PO DAILY@0800 02/23/20 02/23/20 Potassium Chloride ER [K-Dur 20] 20 meq PO DAILY@0800 02/23/20 02/23/20 Sennosides [Senna] 8.6 mg PO BID@0800,1600 02/23/20 02/23/20 Sodium Bicarbonate Tab 650 mg PO BID@0800,1600 02/23/20 02/23/20 amLODIPine [Norvasc] 10 mg PO HS@199902/23/20 02/23/20 Allergies Allergy/AdvReac Type Severity Reaction Status Date / Time codeine Allergy Unknown Verified 02/23/20 14:10 iodine Allergy Rash/Hives Verified 02/23/20 14:10 Latex, Natural Rubber Allergy Rash/Hives Verified 02/23/20 14:10 Penicillins Allergy Rash/Hives Verified 02/23/20 14:10 Sulfa (Sulfonamide Allergy Unknown Verified 02/23/20 14:10 Antibiotics) Review of Systems ROS Statement: Those systems with pertinent positive or pertinent negative responses have been documented in the HPI. ROS Other: All systems not noted in ROS Statement are negative. Past Medical History Past Medical History: Heart Failure, Diabetes Mellitus, Hypertension, Memory Impairment, Osteoarthritis (OA) Additional Past Medical History / Comment(s): mld memory impairment, SOB with activity chronic back pain History of Any Multi-Drug Resistant Organisms: None Reported Past Surgical History: Cholecystectomy, Hysterectomy, Tonsillectomy Additional Past Surgical History / Comment(s): Back x2, tube in stomach after gall bladder removal, oopherectomy, 2 surgeries on face, Past Anesthesia/Blood Transfusion Reactions: No Reported Reaction Past Psychological History: Anxiety, Depression Smoking Status: Former smoker Past Alcohol Use History: None Reported Past Drug Use History: None Reported - Past Family History Mother Additional Family Medical History / Comment(s): of cancer Father Family Medical History: Congestive Heart Failure (CHF) Additional Family Medical History / Comment(s): shingles General Exam Limitations: no limitations General appearance: alert, in distress (Mild tachypnea and respiratory distress) Eye exam: Present: normal appearance ENT exam: Present: normal exam Neck exam: Present: normal inspection. Absent: tenderness, meningismus Respiratory exam: Present: respiratory distress, wheezes, decreased breath sounds Cardiovascular Exam: Present: normal rhythm, bradycardia GI/Abdominal exam: Present: soft. Absent: distended, tenderness, guarding, rebound Extremities exam: Present: normal inspection, normal capillary refill. Absent: pedal edema, calf tenderness Neurological exam: Present: alert. Absent: motor sensory deficit Psychiatric exam: Present: normal affect, normal mood Skin exam: Present: warm, dry, intact. Absent: cyanosis, diaphoretic Course Vital Signs 02/23/20 02/23/20 02/23/20 12:51 13:14 14:15 Temperature 97.9 F 98.4 F Pulse Rate 54 L 57 L Respiratory 20 22 18 Rate Blood Pressure 108/50 104/65 O2 Sat by Pulse 97 100 Oximetry EKG Findings - EKG Comments: EKG Findings:: EKG sinus bradycardia, left axis deviation rate of 55, IN interval 206, QRS duration 90, QTC 445, no ST segment elevation Medical Decision Making - Medical Decision Making 84-year-old female presenting with known coronavirus and hypoxia. Patient requiring increasing amounts of supplemental oxygen. Chest x-ray confirming of bilateral opacity system with the virus. She has a stable hemoglobin, normal white blood cell count. She is up trending creatinine likely prerenal as she has not been eating well for the past several days. Creatinine is 2.45. Potassium is elevated at 5.5. Placed on IV hydration, given supplemental oxygen by nasal cannula at 3 or 4 L. I discussed case with pulmonology and the admitting physician. She is kept in isolation precautions will be admitted for close monitoring. She is a DO NOT RESUSCITATE, DO NOT INTUBATE. - Lab Data Result diagrams: 02/23/20 13:10 02/23/20 13:10 Lab Results 02/23/20 02/23/20 02/23/20 Range/Units 13:10 13:10 13:10 WBC 4.4 (3.8-10.6) k/uL RBC 4.03 (3.80-5.40) m/uL Hgb 10.5 L (11.4-16.0) gm/dL Hct 31.8 L (34.0-46.0) % MCV 78.9 L (80.0-100.0) fL MCH 26.0 (25.0-35.0) pg MCHC 32.9 (31.0-37.0) g/dL RDW 15.6 H (11.5-15.5) % Plt Count 173 (150-450) k/uL Neutrophils % 80 % Lymphocytes % 12 % Monocytes % 5 % Eosinophils % 1 % Basophils % 1 % Neutrophils # 3.5 (1.3-7.7) k/uL Lymphocytes # 0.5 L (1.0-4.8) k/uL Monocytes # 0.2 (0-1.0) k/uL Eosinophils # 0.0 (0-0.7) k/uL Basophils # 0.0 (0-0.2) k/uL Microcytosis Slight Sodium 132 L (137-145) mmol/L Potassium 5.5 H (3.5-5.1) mmol/L Chloride 99 (98-107) mmol/L Carbon Dioxide 25 (22-30) mmol/L Anion Gap 8 mmol/L BUN 44 H (7-17) mg/dL Creatinine 2.45 H (0.52-1.04) mg/dL Est GFR (CKD-EPI)AfAm 20 (>60 ml/min/1.73 sqM) Est GFR (CKD-EPI)NonAf 17 (>60 ml/min/1.73 sqM) Glucose 94 (74-99) mg/dL Plasma Lactic Acid Jose Daniel 0.9 (0.7-2.0) mmol/L Calcium 7.6 L (8.4-10.2) mg/dL Magnesium 1.7 (1.6-2.3) mg/dL Total Bilirubin 0.3 (0.2-1.3) mg/dL AST 41 H (14-36) U/L ALT 26 (4-34) U/L Alkaline Phosphatase 93 (38-126) U/L Total Protein 5.5 L (6.3-8.2) g/dL Albumin 2.8 L (3.5-5.0) g/dL Critical Care Time Critical Care Time: Yes Total Critical Care Time: 35 Disposition Clinical Impression: Coronavirus infection, Pneumonia, [place] (acute kidney injury) Disposition: ADMITTED IP TO THIS [facility] Condition: Stable Is patient prescribed a controlled substance at d/c from ED?: No Referrals: Freddy Edmondson DO [Primary Care Provider] - 1-2 days Decision to Admit Reason: Admit from EC Decision Date: 02/23/20 Decision Time: 15:13
[2020-02-23 13:29] LABS: Basophils % (A) 1 %; Eosinophils % (A) 1 %; HCT 31.8 % (34.0-46.0); HGB 10.5 gm/dL (11.4-16.0); Lymphocytes # (A) 0.5 k/uL (1.0-4.8); Lymphocytes % (A) 12 %; MCHC 32.9 g/dL (31.0-37.0); MCV 78.9 fL (80.0-100.0); Microcytosis Slight; Monocytes # (A) 0.2 k/uL (0-1.0); Monocytes % (A) 5 %; Neutrophils # (A) 3.5 k/uL (1.3-7.7); Neutrophils % (A) 80 %; Platelet Count 173 k/uL (150-450); RBC 4.03 m/uL (3.80-5.40); RDW 15.6 % (11.5-15.5); WBC 4.4 k/uL (3.8-10.6)
[2020-02-23 13:40] LABS: Albumin 2.8 g/dL (3.5-5.0); Calcium 7.6 mg/dL (8.4-10.2); Magnesium 1.7 mg/dL (1.6-2.3); Potassium 5.5 mmol/L (3.5-5.1); Total Bilirubin 0.3 mg/dL (0.2-1.3); Total Protein 5.5 g/dL (6.3-8.2)
--- NOTE | 2020-02-23 14:07 | XR ---
EXAMINATION TYPE: XR chest 1V portable DATE OF EXAM: 02/23/2020 HISTORY: nataly. REFERENCE: Previous study dated 02/24/2018. FINDINGS: The heart is enlarged. There are some peripheral opacities in both lungs. There is prominen ce of the right hilum. There is blunting of both CP angles. IMPRESSION: 1. PERIPHERAL OPACITIES IN THE CORRECT CLINICAL SETTING MAY REPRESENT COVID 19 INFECTION. 2. CARDIOMEGALY. 3. PROMINENCE OF THE RIGHT HILUM. I COULD NOT EXCLUDE A HILAR MASS OR ADENOPATHY.
[2020-02-23] MEDS ORDERED: NALOXONE 0.4 MG/ML 1 ML VIAL IV PRN (15:01)
[2020-02-23] MEDS ORDERED: LORazepam 2 MG/ML INJ IV STA (15:01)
[2020-02-23] MEDS: SODIUM CHLORIDE 0.9% 1,000 ML IV SCH (15:11)
[2020-02-23 15:18] LABS: INR 0.9 (<1.2); Prothrombin Time 9.7 sec (9.0-12.0)
[2020-02-23 15:25] LABS: Partial Thromboplastin Time 21.8 sec (22.0-30.0)
[2020-02-23 17:14] LABS: Glucose,Whole Blood 93 mg/dL (75-99)
[2020-02-23] MEDS: ALBUTEROL HFA INHALER INHALATION PRN (18:29)
[2020-02-23 21:26] LABS: Glucose,Whole Blood 94 mg/dL (75-99)
--- NOTE | 2020-02-23 23:10 | P.HPIM ---
History of Present Illness H&P Date: 02/23/20 Chief Complaint: Shortness of breath Patient is a 84-year-old female with a known history of hypertension, diabetes type 2, chronic kidney disease stage III, chronic CHF ejection fraction unknown and chronic back pain, osteoarthritis came to ER with worsening shortness of br eath, cough, exertional dyspnea and hypoxia. Patient is currently at [facility]. Patient was tested for covid 19 on aspirin yesterday this came out positive today on Tuesday. Patient was also hypoxic athome and was placed on supplemental oxygen with another cannula. Pulse ox was in high 80s when she was placed on 3 L by EMS. Patient denied any fevers or chills. Otherwise patient has been having dry cough for almost more than a week. Does have nausea. Loss of appetite. as of vomiting. EKG showed sinus tachycardia Chest x-ray showed peripheral opacities in the correctly setting may represent covid19 infection. Cardiomegaly. Prominence of the right hilum could not exclude hilar mass or adenopathy. WBC 4.4, hemoglobin 10.5, platelets 173, lymphocytes 0.5 BUN 44 and creatinine 2.45 Sodium 132 and potassium 5.5 Past Medical History Past Medical History: Heart Failure, Diabetes Mellitus, Hypertension, Memory Impairment, Osteoarthritis (OA) Additional Past Medical History / Comment(s): Patient was in the hospital back in May 2019 after she had a fall and she developed a nondisplaced fracture of the lateral tibial condyle of the right knee. She was transferred to [facility]. She has memory impairment and dementia in addition to osteoarthritis and chronic back pain. She has also chronic stage III kidney disease, CHF, diabetes mellitus type 2, hypertension, and she has obesity with a BMI of 35.7. History of Any Multi-Drug Resistant Organisms: None Reported Past Surgical History: Cholecystectomy, Hysterectomy, Tonsillectomy Additional Past Surgical History / Comment(s): Back surgery, cholecystectomy, oopherectomy, 2 surgeries on face, Past Anesthesia/Blood Transfusion Reactions: No Reported Reaction Past Psychological History: Anxiety, Depression Additional Psychological History / Comment(s): pt is a since 1991. pt lives with daughter león for 7 years with exception of going to rehab at [facility] aug 26 to then home again(recieved home care thru [facility] till some time in sep 2017. receives meals on wheels. has walker/glucometer. Smoking Status: Former smoker Past Alcohol Use History: None Reported Additional Past Alcohol Use History / Comment(s): started smoking 1969-a pack would last 3-4 days, quit 2000 Past Drug Use History: None Reported - Past Family History Mother Additional Family Medical History / Comment(s): of cancer Father Family Medical History: Congestive Heart Failure (CHF) Additional Family Medical History / Comment(s): shingles Medications and Allergies Home Medications Medication Instructions Recorded Confirmed Type Citalopram Hydrobromide [CeleXA] 10 mg PO DAILY@0800 08/26/17 02/23/20 History Ergocalciferol (Vitamin D2) 50,000 unit PO Q7D 06/14/19 02/23/20 History [Vitamin D2] INSULIN LISPRO (HumaLOG) [humaLOG] See Protocol SQ ACHS 06/14/19 02/23/20 History Levothyroxine Sodium [Synthroid] 50 mcg PO DAILY 06/14/19 02/23/20 History Acetaminophen [Tylenol Arthritis] 650 mg PO Q6H PRN 02/23/20 02/23/20 History Budesonide [Pulmicort] 0.5 mg INHALATION RT-BID@0800,199902/23/20 02/23/20 History Fluticasone Nasal [place] [Flonase 2 spray EA NOSTRIL DAILY PRN 02/23/20 02/23/20 History Nasal [place]] Furosemide [Lasix] 40 mg PO BID@0800,199902/23/20 02/23/20 History HYDROcodone/APAP 5-325MG [[place] 1 tab PO Q6H PRN 02/23/20 02/23/20 History 5-325] Insulin Glargine [Lantus] 25 unit SQ BID@0800,1600 02/23/20 02/23/20 History Ipratropium-Albuterol Nebulize 3 ml INHALATION RT-Q4H PRN 02/23/20 02/23/20 History [Duoneb 0.5 mg-3 mg/3 ml Soln] Lidocaine/Menthol [Icy Hot 4%-1% 1 patch TOPICAL DAILY 02/23/20 02/23/20 History Patch] Lisinopril [Zestril] 10 mg PO DAILY@0800 02/23/20 02/23/20 History Menthol [Biofreeze] 1 applic TOPICAL Q6H PRN 02/23/20 02/23/20 History Metoprolol Tartrate [Lopressor] 50 mg PO BID@0800,1600 02/23/20 02/23/20 History Montelukast [Singulair] 10 mg PO HS@199902/23/20 02/23/20 History Multivitamins, Thera [Multivitamin 1 tab PO DAILY@0800 02/23/20 02/23/20 History (formulary)] Pantoprazole Sodium [Protonix] 20 mg PO DAILY@0800 02/23/20 02/23/20 History Potassium Chloride ER [K-Dur 20] 20 meq PO DAILY@0800 02/23/20 02/23/20 History Sennosides [Senna] 8.6 mg PO BID@0800,1600 02/23/20 02/23/20 History Sodium Bicarbonate Tab 650 mg PO BID@0800,1600 02/23/20 02/23/20 History amLODIPine [Norvasc] 10 mg PO HS@199902/23/20 02/23/20 History Allergies Allergy/AdvReac Type Severity Reaction Status Date / Time codeine Allergy Unknown Verified 02/23/20 14:10 iodine Allergy Rash/Hives Verified 02/23/20 14:10 Latex, Natural Rubber Allergy Rash/Hives Verified 02/23/20 14:10 Penicillins Allergy Rash/Hives Verified 02/23/20 14:10 Sulfa (Sulfonamide Allergy Unknown Verified 02/23/20 14:10 Antibiotics) Physical Exam Vitals: Vital Signs Temp Pulse Pulse Resp BP BP Pulse Ox 02/23/20 20:10 99.2 F 60 18 122/75 93 L 02/23/20 19:29 61 02/23/20 18:33 24 95 02/23/20 17:10 99.2 F 63 32 H 124/66 91 L 02/23/20 16:47 32 H 93 L 02/23/20 16:00 32 H 02/23/20 14:15 98.4 F 57 L 18 104/65 100 02/23/20 13:14 22 02/23/20 12:51 97.9 F 54 L 20 108/50 97 Intake and Output 02/23/20 02/23/20 02/23/20 06:59 14:59 22:59 Intake Total 100 Balance 100 Intake: Oral 100 Other: Voiding Method Diaper # Voids 1 Weight 89.811 kg 89.811 kg Results CBC & Chem 7: 02/23/20 13:10 02/23/20 13:10 Labs: Abnormal Lab Results - Last 24 Hours (Table) 02/23/20 02/23/20 02/23/20 Range/Units 13:10 13:10 14:46 Hgb 10.5 L (11.4-16.0) gm/dL Hct 31.8 L (34.0-46.0) % MCV 78.9 L (80.0-100.0) fL RDW 15.6 H (11.5-15.5) % Lymphocytes # 0.5 L (1.0-4.8) k/uL APTT 21.8 L (22.0-30.0) sec Sodium 132 L (137-145) mmol/L Potassium 5.5 H (3.5-5.1) mmol/L BUN 44 H (7-17) mg/dL Creatinine 2.45 H (0.52-1.04) mg/dL Calcium 7.6 L (8.4-10.2) mg/dL AST 41 H (14-36) U/L Total Protein 5.5 L (6.3-8.2) g/dL Albumin 2.8 L (3.5-5.0) g/dL Thrombosis Risk Factor Assmnt - Choose All That Apply Any of the Below Risk Factors Present?: Yes Each Factor Represents 1 point: Obesity (BMI >25) Other Risk Factors: Yes Each Risk Factor Represents 3 Points: Age 75 years or older Thrombosis Risk Factor Assessment Total Risk Factor Score: 4 Thrombosis Risk Factor Assessment Level: Moderate Risk Assessment and Plan Assessment: Severe acute respiratory syndrome due to Covid 19 infection Acute hypoxic respiratory failure Acute on chronic kidney disease stage III Mild hyperkalemia secondary to acute kidney injury Hypertension Diabetes type 2 Chronic CHF with ejection fraction unknown Memory impairment Osteoarthritis Chronic back pain Morbid obesity with BMI 37.1 Previous history of smoking Anxiety/depression Hypothyroidism DVT prophylaxis. Plan: Patient will be conveyed on oxygen therapy and was started on hydr oxychloroquine. Continue to follow closely. Current with home blood pressure medications and insulin sliding scale. GI and DVT prophylaxis. Pulmonary was consulted. Further recommendations based on the clinical course. Time with Patient: Greater than 30
[2020-02-24] MEDS: HYDROcodone/APAP 5-325MG 1 EACH TAB PO PRN ×2 (04:15→10:33)
[2020-02-24] MEDS: LEVOTHYROXINE 50 MCG TAB PO SCH (05:53)
[2020-02-24 06:48] LABS: Glucose,Whole Blood 90 mg/dL (75-99)
[2020-02-24 07:57] LABS: Calcium 7.6 mg/dL (8.4-10.2)
[2020-02-24 08:18] LABS: Basophils % (A) 0 %; Eosinophils % (A) 1 %; HCT 30.3 % (34.0-46.0); HGB 9.5 gm/dL (11.4-16.0); Hypochromasia Moderate; Lymphocytes # (A) 0.4 k/uL (1.0-4.8); Lymphocytes % (A) 11 %; MCH 26.1 pg (25.0-35.0); MCHC 31.5 g/dL (31.0-37.0); MCV 82.9 fL (80.0-100.0); Monocytes # (A) 0.2 k/uL (0-1.0); Monocytes % (A) 4 %; Neutrophils # (A) 3.4 k/uL (1.3-7.7); Neutrophils % (A) 82 %; Platelet Count 185 k/uL (150-450); RBC 3.66 m/uL (3.80-5.40); RDW 15.6 % (11.5-15.5); WBC 4.1 k/uL (3.8-10.6)
[2020-02-24] MEDS: SODIUM BICARBONATE TAB 650 MG TAB PO SCH ×2 (08:19→16:34)
[2020-02-24] MEDS: METOPROLOL TARTRATE 50 MG TAB PO SCH ×2 (08:19→16:34)
[2020-02-24] MEDS: SENNOSIDES 8.6 MG TAB PO SCH ×2 (08:19→15:34)
[2020-02-24] MEDS: PANTOPRAZOLE 40 MG TABLET PO SCH (08:19)
[2020-02-24] MEDS: HYDROXYCHLOROQUINE SULFATE 200 MG TAB PO SCH ×2 (08:19→21:05)
[2020-02-24] MEDS: FUROSEMIDE 40 MG TAB PO SCH ×2 (08:19→21:06)
[2020-02-24] MEDS: MULTIVITAMINS, THERA 1 EACH TAB PO SCH (08:19)
[2020-02-24] MEDS: ALBUTEROL HFA INHALER INHALATION PRN ×3 (09:01→16:48)
[2020-02-24 11:32] LABS: Glucose,Whole Blood 107 mg/dL (75-99)
--- NOTE | 2020-02-24 11:38 | P.CNPUL ---
History of Present Illness Consult date: 02/23/20 Reason for consult: dyspnea, hypoxemia, pneumonia History of present illness: 84-year-old female patient a [place] [facility] resident who got admitted via emergency department because of increased shortness of breath and hypoxemia. The patient lives at [facility] in several other residents have been diagnosed having COVID 19 infection. The patient was tested for Covid 19 on Tuesday and the results are positive as reported today. The patient was having oxygen saturations at the [place] [facility] and she was requiring oxygen supplementation. At the time of arrival she was found to have pulse ox in the 80s and the patient was placed on 3 L of oxygen by nasal cannula and following that it was increased up to 4 L. Her oxygenation improved. Her cough was nonproductive it's was dry. She has a DNR/DNI CODE STATUS. Her blood work showed the following: The patient was found to have a lymphopenia with a lymphocyte count of 0.5 Patient was found to have anemia with a hemoglobin of 10.5, microcytic the patient was found to have acute kidney injury on top of chronic kidney disease. Creatinine was as high as 2.5 with a baseline creatinine or GFR were lowered and the patient was known to have chronic stage III kidney disease The patient's proBNP level was 5880 The chest x-ray showed peripheral opacity consistent with Covid 19 infection in addition to cardiomegaly and prominence of the right hilum. Review of Systems REVIEW OF SYSTEMS: CONSTITUTIONAL: low-grade fever and generalized fatigue HEENT: No recent visual problems or hearing problems. Denied any sore throat. CARDIOVASCULAR: No chest pain, orthopnea, PND, no palpitations, no syncope. PULMONARY: increased cough and shortness of breath, no hemoptysis. GASTROINTESTINAL: No diarrhea, no nausea, no vomiting, no abdominal pain. Normoactive bowel sounds. NEUROLOGICAL: No headaches, no weakness, no numbness. HEMATOLOGICAL: Denies any bleeding or petechiae. GENITOURINARY: Denies any burning micturition, frequency, or urgency. MUSCULOSKELETAL/RHEUMATOLOGICAL: as mentioned in HPI ENDOCRINE: Denies any polyuria or polydipsia. Past Medical History Past Medical History: Heart Failure, Diabetes Mellitus, Hypertension, Memory Impairment, Osteoarthritis (OA) Additional Past Medical History / Comment(s): Patient was in the hospital back in May 2019 after she had a fall and she developed a nondisplaced fracture of the lateral tibial condyle of the right knee. She was transferred to [facility]. She has memory impairment and dementia in addition to osteoarthritis and chronic back pain. She has also chronic stage III kidney disease, CHF, diabetes mellitus type 2, hypertension, and she has obesity with a BMI of 35.7. History of Any Multi-Drug Resistant Organisms: None Reported Past Surgical History: Cholecystectomy, Hysterectomy, Tonsillectomy Additional Past Surgical History / Comment(s): Back surgery, cholecystectomy, oopherectomy, 2 surgeries on face, Past Anesthesia/Blood Transfusion Reactions: No Reported Reaction Past Psychological History: Anxiety, Depression Additional Psychological History / Comment(s): pt is a since 1991. pt lives with daughter león for 7 years with exception of going to rehab at [facility] aug 26 to then home again(recieved home care thru [facility] till some time in sep 2017. receives meals on wheels. has walker/glucometer. Smoking Status: Former smoker Past Alcohol Use History: None Reported Additional Past Alcohol Use History / Comment(s): started smoking 1969-a pack would last 3-4 days, quit 2000 Past Drug Use History: None Reported - Past Family History Mother Additional Family Medical History / Comment(s): of cancer Father Family Medical History: Congestive Heart Failure (CHF) Additional Family Medical History / Comment(s): shingles Medications and Allergies Home Medications Medication Instructions Recorded Confirmed Type Citalopram Hydrobromide [CeleXA] 10 mg PO DAILY@0800 08/26/17 02/23/20 History Ergocalciferol (Vitamin D2) 50,000 unit PO Q7D 06/14/19 02/23/20 History [Vitamin D2] INSULIN LISPRO (HumaLOG) [humaLOG] See Protocol SQ ACHS 06/14/19 02/23/20 History Levothyroxine Sodium [Synthroid] 50 mcg PO DAILY 06/14/19 02/23/20 History Acetaminophen [Tylenol Arthritis] 650 mg PO Q6H PRN 02/23/20 02/23/20 History Budesonide [Pulmicort] 0.5 mg INHALATION RT-BID@0800,199902/23/20 02/23/20 History Fluticasone Nasal [place] [Flonase 2 spray EA NOSTRIL DAILY PRN 02/23/20 02/23/20 History Nasal [place]] Furosemide [Lasix] 40 mg PO BID@0800,199902/23/20 02/23/20 History HYDROcodone/APAP 5-325MG [Warner 1 tab PO Q6H PRN 02/23/20 02/23/20 History 5-325] Insulin Glargine [Lantus] 25 unit SQ BID@0800,159902/23/20 02/23/20 History Ipratropium-Albuterol Nebulize 3 ml INHALATION RT-Q4H PRN 02/23/20 02/23/20 History [Duoneb 0.5 mg-3 mg/3 ml Soln] Lidocaine/Menthol [Icy Hot 4%-1% 1 patch TOPICAL DAILY 02/23/20 02/23/20 History Patch] Lisinopril [Zestril] 10 mg PO DAILY@0800 02/23/20 02/23/20 History Menthol [Biofreeze] 1 applic TOPICAL Q6H PRN 02/23/20 02/23/20 History Metoprolol Tartrate [Lopressor] 50 mg PO BID@0800,159902/23/20 02/23/20 History Montelukast [Singulair] 10 mg PO HS@199902/23/20 02/23/20 History Multivitamins, Thera [Multivitamin 1 tab PO DAILY@0800 02/23/20 02/23/20 History (formulary)] Pantoprazole Sodium [Protonix] 20 mg PO DAILY@0800 02/23/20 02/23/20 History Potassium Chloride ER [K-Dur 20] 20 meq PO DAILY@0800 02/23/20 02/23/20 History Sennosides [Senna] 8.6 mg PO BID@0800,159902/23/20 02/23/20 History Sodium Bicarbonate Tab 650 mg PO BID@0800,159902/23/20 02/23/20 History amLODIPine [Norvasc] 10 mg PO HS@199902/23/20 02/23/20 History Allergies Allergy/AdvReac Type Severity Reaction Status Date / Time codeine Allergy Unknown Verified 02/23/20 14:10 iodine Allergy Rash/Hives Verified 02/23/20 14:10 Latex, Natural Rubber Allergy Rash/Hives Verified 02/23/20 14:10 Penicillins Allergy Rash/Hives Verified 02/23/20 14:10 Sulfa (Sulfonamide Allergy Unknown Verified 02/23/20 14:10 Antibiotics) Physical Exam Vitals: Vital Signs Temp Pulse Pulse Resp BP BP Pulse Ox 02/23/20 19:29 61 02/23/20 18:33 24 95 02/23/20 17:10 99.2 F 63 32 H 124/66 91 L 02/23/20 16:47 32 H 93 L 02/23/20 16:00 32 H 02/23/20 14:15 98.4 F 57 L 18 104/65 100 02/23/20 13:14 22 02/23/20 12:51 97.9 F 54 L 20 108/50 97 Intake and Output 02/23/20 02/23/20 02/23/20 06:59 14:59 22:59 Other: Voiding Method Diaper Weight 89.811 kg 89.811 kg General appearance: alert, in mild respiratory distress and the patient Was found to have some mild tachypnea and dyspnea Eye exam: Present: normal appearance ENT exam: Present: normal exam Neck exam: Present: normal inspection. Absent: tenderness, meningismus Respiratory exam: Present: respiratory distress, wheezes, decreased breath sounds Cardiovascular Exam: Present: normal rhythm, bradycardia GI/Abdominal exam: Present: soft. Absent: distended, tenderness, guarding, rebound Extremities exam: Present: normal inspection, normal capillary refill. Absent: pedal edema, calf tenderness Neurological exam: Present: alert. Absent: motor sensory deficit Psychiatric exam: Present: normal affect, normal mood Skin exam: Examination of the skin revealed no evidence of significant rashes, suspicious appearing nevi or other concerning lesions. Results - Laboratory Findings CBC and BMP: 02/23/20 13:10 02/23/20 13:10 PT/INR, D-dimer PT 9.7 sec (9.0-12.0) 02/23/20 14:46 INR 0.9 (<1.2) 02/23/20 14:46 Abnormal lab findings: Abnormal Labs 02/23/20 02/23/20 02/23/20 13:10 13:10 14:46 Hgb 10.5 L Hct 31.8 L MCV 78.9 L RDW 15.6 H Lymphocytes # 0.5 L APTT 21.8 L Sodium 132 L Potassium 5.5 H BUN 44 H Creatinine 2.45 H Calcium 7.6 L AST 41 H Total Protein 5.5 L Albumin 2.8 L - Diagnostic Findings Chest x-ray: image reviewed Assessment and Plan Plan: 1 acute COVID 19 pneumonia 2 acute hypoxic respiratory failure secondary to above. The patient has peripheral infiltrates on the chest x-ray typical of an underlying Covid 19 pneumonia and the patient is currently on 3 L of oxygen by nasal cannula 3 cough and shortness of breath secondary to above 4 acute on chronic kidney disease. The patient has a chronic before meals kidney disease and there is an acute kidney injury on top of chronic kidney failure with a further rise in the creatinine. Consider underlying intravascular volume depletion 5 diabetes mellitus type 2 6 osteoarthritis and chronic back pain 7 congestion heart failure 8 hypertension 9 obesity with a BMI of 35.7 10 previous history of fall and nondisplaced fracture of the lateral tibial con dyle of the right knee 11 [place] [facility] resident Plan Place the patient and droplet isolation Plaquenil per protocol regarding Covid 19 infection pneumonia Supplemented with oxygen between 3-4 L to maintain a saturation above 90% Monitor respiratory status Resume home medication Hold off on use of any form of nebulized medications and utilized Ventolin MDI if needed Monitor renal function and the patient is on normal saline today to 50 mL an hour Avoid nephrotoxic agents We'll continue to follow
--- NOTE | 2020-02-24 14:02 | P.PN ---
Subjective Progress Note Date: 02/24/20 Principal diagnosis: Acute CoVID 19 pneumonia 84-year-old female patient a [facility] resident who got admitted via emergency department because of increased shortness of breath and hypoxemia. The patient lives at [facility] in several other residents have been diagnosed having COVID 19 infection. The patient was tested for Covid 19 on Tuesday and the results are positive as reported today. The patient was having oxygen saturations at the [facility] and she was requiring oxygen supplementation. At the time of arrival she was found to have pulse ox in the 80s and the patient was placed on 3 L of oxygen by nasal cannula and following that it was increased up to 4 L. Her oxygenation improved. Her cough was nonproductive it's was dry. She has a DNR/DNI CODE STATUS. Her blood work showed the following: The patient was found to have a lymphopenia with a lymphocyte count of 0.5 Patient was found to have anemia with a hemoglobin of 10.5, microcytic the patient was found to have acute kidney injury on top of chronic kidney disease. Creatinine was as high as 2.5 with a baseline creatinine or GFR were lowered and the patient was known to have chronic stage III kidney disease The patient's proBNP level was 5880 The chest x-ray showed peripheral opacity consistent with Covid 19 infection in addition to cardiomegaly and prominence of the right hilum. The patient was seen today 02/24/2020 in follow-up on the regular medical floor. She is currently resting in bed. Arousable. She is maintaining O2 saturation in the low 90s on 4 L/m per nasal cannula. She's currently afebrile. Hemodynamically stable. White count 4.1. Hemoglobin 9.5. Platelets 185. Sodium 133. Creatinine 2.22. She is continued on Plaquenil, bronchodilators. Objective - Vital Signs Vital signs: Vital Signs Temp 98.0 F 02/24/20 11:50 Pulse 58 L 02/24/20 11:50 Resp 21 02/24/20 11:50 BP 117/73 02/24/20 11:50 Pulse Ox 90 L 02/24/20 11:50 Intake & Output 02/23/20 02/24/20 02/24/20 18:59 06:59 18:59 Intake Total 150 Balance 150 Weight 89.811 kg Intake: Oral 150 Other: Voiding Method Diaper # Voids 1 - Exam General appearance: 84-year-old female patient, in mild respiratory distress, mild tachypnea and dyspnea Eye exam: Present: normal appearance ENT exam: Present: normal exam Neck exam: Present: normal inspection. Absent: tenderness, meningismus Respiratory exam: Present: mild respiratory distress, wheezes, decreased breath sounds Cardiovascular Exam: Present: normal rhythm, bradycardia GI/Abdominal exam: Present: soft. Absent: distended, tenderness, guarding, rebound Extremities exam: Present: normal inspection, normal capillary refill. Absent: pedal edema, calf tenderness Neurological exam: Present: alert. Absent: motor sensory deficit Psychiatric exam: Present: normal affect, normal mood Skin exam: Examination of the skin revealed no evidence of significant rashes, suspicious appearing nevi or other concerning lesions. - Labs CBC & Chem 7: 02/24/20 07:12 02/24/20 07:12 Labs: Abnormal Lab Results - Last 24 Hours (Table) 02/23/20 02/24/20 02/24/20 Range/Units 14:46 07:12 07:12 RBC 3.66 L (3.80-5.40) m/uL Hgb 9.5 L (11.4-16.0) gm/dL Hct 30.3 L (34.0-46.0) % RDW 15.6 H (11.5-15.5) % Lymphocytes # 0.4 L (1.0-4.8) k/uL APTT 21.8 L (22.0-30.0) sec Sodium 133 L (137-145) mmol/L Carbon Dioxide 18 L (22-30) mmol/L BUN 48 H (7-17) mg/dL Creatinine 2.22 H (0.52-1.04) mg/dL POC Glucose (mg/dL) (75-99) mg/dL Calcium 7.6 L (8.4-10.2) mg/dL 02/24/20 Range/Units 11:31 RBC (3.80-5.40) m/uL Hgb (11.4-16.0) gm/dL Hct (34.0-46.0) % RDW (11.5-15.5) % Lymphocytes # (1.0-4.8) k/uL APTT (22.0-30.0) sec Sodium (137-145) mmol/L Carbon Dioxide (22-30) mmol/L BUN (7-17) mg/dL Creatinine (0.52-1.04) mg/dL POC Glucose (mg/dL) 107 H (75-99) mg/dL Calcium (8.4-10.2) mg/dL Assessment and Plan Assessment: 1 acute COVID 19 pneumonia 2 acute hypoxic respiratory failure secondary to above. The patient has peripheral infiltrates on the chest x-ray typical of an underlying Covid 19 pneumonia and the patient is currently on 3 L of oxygen by nasal cannula 3 cough and shortness of breath secondary to above 4 acute on chronic kidney disease. The patient has a chronic before meals kidney disease and there is an acute kidney injury on top of chronic kidney failure with a further rise in the creatinine. Consider underlying intravascular volume depletion 5 diabetes mellitus type 2 6 osteoarthritis and chronic back pain 7 congestion heart failure 8 hypertension 9 obesity with a BMI of 35.7 10 previous history of fall and nondisplaced fracture of the lateral tibial condyle of the right knee 11 [facility] resident Plan The patient was seen by Dr. Loyd Continue Plaquenil Continue droplet isolation Add subcutaneous heparin Continue oxygen supplementation to maintain O2 saturations greater than 90% Closely monitor respiratory status Continue bronchodilators DO NOT RESUSCITATE/DO NOT INTUBATE CODE STATUS We'll continue to follow I, the cosigning physician, performed a history & physical examination of the patient. Lungs sounds with bilateral scattered rhonchi. Maintaining good O2 saturations in the 90s on 4 L/m per nasal. I discussed the assessment and plan of care with my nurse practitioner, Purvi Giles. I attest to the above note as dictated by her.
[2020-02-24] MEDS: SODIUM CHLORIDE 0.9% 1,000 ML IV SCH (15:15)
[2020-02-24] MEDS: HEPARIN SODIUM,PORCINE 5,000 UNIT/ML 1 ML VIAL SQ SCH ×2 (16:34→23:39)
[2020-02-24 16:46] LABS: Glucose,Whole Blood 131 mg/dL (75-99)
[2020-02-24 20:06] LABS: Glucose,Whole Blood 118 mg/dL (75-99)
[2020-02-24] MEDS: amLODIPine 10 MG TAB PO SCH (21:06)
[2020-02-24] MEDS: MONTELUKAST 10 MG TAB PO SCH (21:06)
--- NOTE | 2020-02-25 00:43 | P.PN ---
Subjective Progress Note Date: 02/24/20 Principal diagnosis: Covid 19 infection Patient is a 84-year-old female with a known history of hypertension, diabetes type 2, chronic kidney disease stage III, chronic CHF ejection fraction unknown and chronic back pain, osteoarthritis came to ER with worsening shortness of gloria ath, cough, exertional dyspnea and hypoxia. Patient is currently at [facility]. Patient was tested for covid 19 on aspirin yesterday this came out positive today on Tuesday. Patient was also hypoxic athome and was placed on supplemental oxygen with another cannula. Pulse ox was in high 80s when she was placed on 3 L by EMS. Patient denied any fevers or chills. Otherwise patient has been having dry cough for almost more than a week. Does have nausea. Loss of appetite. as of vomiting. EKG showed sinus tachycardia Chest x-ray showed peripheral opacities in the correctly setting may represent covid19 infection. Cardiomegaly. Prominence of the right hilum could not exclude hilar mass or adenopathy. WBC 4.4, hemoglobin 10.5, platelets 173, lymphocytes 0.5 BUN 44 and creatinine 2.45 Sodium 132 and potassium 5.5 02/24/2020 Patient is currently resting on the bed. Requiring oxygen at 4 L via nasal cannula. Afebrile. Otherwise creatinine level is slightly improved with 2.2 to and WBC count 4.1. Patient is 185. Patient is being continued on Plaquenil and also breathing treatments. No nausea vomiting or diarrhea. Denied any headache or dizziness. Current medications reviewed. Objective - Vital Signs Vital signs: Vital Signs Temp 98.0 F 02/24/20 11:50 Pulse 58 L 02/24/20 11:50 Resp 21 02/24/20 11:50 BP 117/73 02/24/20 11:50 Pulse Ox 90 L 02/24/20 11:50 Intake & Output 02/23/20 02/24/20 02/24/20 18:59 06:59 18:59 Intake Total 150 400 Balance 150 400 Weight 89.811 kg Intake: IV 400 Sodium Chloride 0.9% 1, 400 000 ml @ 50 mls/hr IV . Q20H SULAIMAN Rx#:[id number] Oral 150 Other: Voiding Method Diaper # Voids 1 - Exam General appearance: 84-year-old female patient, in mild respiratory distress, mild tachypnea and dyspnea Eye exam: Present: normal appearance ENT exam: Present: normal exam Neck exam: Present: normal inspection. Absent: tenderness, meningismus Respiratory exam: Present: mild respiratory distress, wheezes, decreased breath sounds Cardiovascular Exam: Present: normal rhythm, bradycardia GI/Abdominal exam: Present: soft. Absent: distended, tenderness, guarding, rebound Extremities exam: Present: normal inspection, normal capillary refill. Absent: pedal edema, calf tenderness Neurological exam: Present: alert. Absent: motor sensory deficit Psychiatric exam: Present: normal affect, normal mood Skin exam: Examination of the skin revealed no evidence of significant rashes, suspicious appearing nevi or other concerning lesions. - Labs CBC & Chem 7: 02/24/20 07:12 02/24/20 07:12 Labs: Abnormal Lab Results - Last 24 Hours (Table) 02/23/20 02/24/20 02/24/20 Range/Units 14:46 07:12 07:12 RBC 3.66 L (3.80-5.40) m/uL Hgb 9.5 L (11.4-16.0) gm/dL Hct 30.3 L (34.0-46.0) % RDW 15.6 H (11.5-15.5) % Lymphocytes # 0.4 L (1.0-4.8) k/uL APTT 21.8 L (22.0-30.0) sec Sodium 133 L (137-145) mmol/L Carbon Dioxide 18 L (22-30) mmol/L BUN 48 H (7-17) mg/dL Creatinine 2.22 H (0.52-1.04) mg/dL POC Glucose (mg/dL) (75-99) mg/dL Calcium 7.6 L (8.4-10.2) mg/dL 02/24/20 Range/Units 11:31 RBC (3.80-5.40) m/uL Hgb (11.4-16.0) gm/dL Hct (34.0-46.0) % RDW (11.5-15.5) % Lymphocytes # (1.0-4.8) k/uL APTT (22.0-30.0) sec Sodium (137-145) mmol/L Carbon Dioxide (22-30) mmol/L BUN (7-17) mg/dL Creatinine (0.52-1.04) mg/dL POC Glucose (mg/dL) 107 H (75-99) mg/dL Calcium (8.4-10.2) mg/dL Assessment and Plan Assessment: Severe acute respiratory syndrome due to Covid 19 infection Acute hypoxic respiratory failure Acute on chronic kidney disease stage III Mild hyperkalemia secondary to acute kidney injury Hypertension Diabetes type 2 Chronic CHF with ejection fraction unknown Memory impairment Osteoarthritis Chronic back pain Morbid obesity with BMI 37.1 Previous history of smoking Anxiety/depression Hypothyroidism DVT prophylaxis. Plan: Patient will be conveyed on oxygen therapy and was started on hydroxychloroquine. Continue to follow closely. Current with home blood pressure medications and insulin sliding scale. GI and DVT prophylaxis. Pulmonary is following. Further recommendations based on the clinical course. Time with Patient: Greater than 30
[2020-02-25] MEDS: HYDROcodone/APAP 5-325MG 1 EACH TAB PO PRN ×2 (03:04→16:08)
[2020-02-25] MEDS: LEVOTHYROXINE 50 MCG TAB PO SCH (05:58)
[2020-02-25 07:15] LABS: Glucose,Whole Blood 91 mg/dL (75-99)
[2020-02-25] MEDS: SODIUM CHLORIDE 0.9% 1,000 ML IV SCH (07:43)
[2020-02-25] MEDS: SODIUM BICARBONATE TAB 650 MG TAB PO SCH ×2 (07:59→16:10)
[2020-02-25] MEDS: HEPARIN SODIUM,PORCINE 5,000 UNIT/ML 1 ML VIAL SQ SCH ×2 (07:59→16:10)
[2020-02-25] MEDS: HYDROXYCHLOROQUINE SULFATE 200 MG TAB PO SCH ×2 (07:59→20:35)
[2020-02-25] MEDS: MULTIVITAMINS, THERA 1 EACH TAB PO SCH (07:59)
[2020-02-25] MEDS: PANTOPRAZOLE 40 MG TABLET PO SCH (07:59)
[2020-02-25] MEDS: SENNOSIDES 8.6 MG TAB PO SCH ×2 (08:00→16:07)
[2020-02-25] MEDS: METOPROLOL TARTRATE 50 MG TAB PO SCH ×2 (08:00→16:10)
[2020-02-25] MEDS: FUROSEMIDE 40 MG TAB PO SCH (08:00)
[2020-02-25 10:39] LABS: Glucose,Whole Blood 134 mg/dL (75-99)
[2020-02-25] MEDS: FUROSEMIDE 10 MG/ML 4 ML VIAL IV SCH ×2 (11:34→16:10)
[2020-02-25] MEDS: ALBUTEROL HFA INHALER INHALATION PRN ×4 (12:27→20:58)
--- NOTE | 2020-02-25 12:54 | P.PN ---
Subjective Progress Note Date: 02/25/20 Principal diagnosis: Acute COVID 19 pneumonia 84-year-old female patient a [facility] resident who got admitted via emergency department because of increased shortness of breath and hypoxemia. The patient lives at [facility] in several other residents have been diagnosed having COVID 19 infection. The patient was tested for Covid 19 on Tuesday and the results are positive as reported today. The patient was having oxygen saturations at the [facility] and she was requiring oxygen supplementation. At the time of arrival she was found to have pulse ox in the 80s and the patient was placed on 3 L of oxygen by nasal cannula and following that it was increased up to 4 L. Her oxygenation improved. Her cough was nonproductive it's was dry. She has a DNR/DNI CODE STATUS. Her blood work showed the following: The patient was found to have a lymphopenia with a lymphocyte count of 0.5 Patient was found to have anemia with a hemoglobin of 10.5, microcytic the patient was found to have acute kidney injury on top of chronic kidney disease. Creatinine was as high as 2.5 with a baseline creatinine or GFR were lowered and the patient was known to have chronic stage III kidney disease The patient's proBNP level was 5880 The chest x-ray showed peripheral opacity consistent with Covid 19 infection in addition to cardiomegaly and prominence of the right hilum. The patient was seen today 02/24/2020 in follow-up on the regular medical floor. She is currently resting in bed. Arousable. She is maintaining O2 saturation in the low 90s on 4 L/m per nasal cannula. She's currently afebrile. Hemodynamically stable. White count 4.1. Hemoglobin 9.5. Platelets 185. Sodium 133. Creatinine 2.22. She is continued on Plaquenil, bronchodilators. On 02/25/2020 patient seen in follow-up on general medical floor. She is awake and alert, in no acute distress, she is however having loose stools, and patient is incontinent of bladder and bowel. She is currently at 7 L of oxygen, with a pulse ox of between 92-94%, she has been afebrile, hemodynamically she is s table, mildly dyspneic, but no acute distress, admission chest x-ray has been reviewed showing peripheral opacities that could represent coronavirus infection, and prominence of the right hilum, and a hilar mass or adenopathy could not completely excluded. Fluid overload is also being considered, patient is on oral Lasix of 40 mg twice daily. Patient is on Plaquenil. No antibiotics. Patient has been afebrile since admission. Objective - Vital Signs Vital signs: Vital Signs Temp 97.7 F 02/25/20 11:01 Pulse 57 L 02/25/20 11:01 Resp 21 02/25/20 11:01 BP 114/61 02/25/20 11:01 Pulse Ox 94 L 02/25/20 11:01 Intake & Output 02/24/20 02/25/20 02/25/20 18:59 06:59 18:59 Intake Total 400 670 Output Total 100 250 Balance 400 570 -250 Intake: IV 400 Sodium Chloride 0.9% 1, 400 000 ml @ 50 mls/hr IV . Q20H [facility] Rx#:[id number] Oral 670 Output: Urine 100 250 Other: Voiding Method Diaper # Voids 2 # Bowel Movements 2 1 - Exam GENERAL EXAM: Alert, 84-year-old female, somewhat his oxygen, with a pulse ox between 92-94% moaning, confused. HEAD: Normocephalic/atraumatic. EYES: Normal reaction of pupils, equal size. Conjunctiva pink, sclera white. NOSE: Clear with pink turbinates. THROAT: No erythema or exudates. NECK: No masses, no JVD, no thyroid enlargement, no adenopathy. CHEST: No chest wall deformity. Symmetrical expansion. LUNGS: Equal air entry with no crackles, wheeze, rhonchi or dullness. CVS: Regular rate and rhythm, normal S1 and S2, no gallops, no murmurs, no rubs ABDOMEN: Soft, nontender. No hepatosplenomegaly, normal bowel sounds, no guarding or rigidity. EXTREMITIES: No clubbing, no edema, no cyanosis, 2+ pulses and upper and lower extremities. MUSCULOSKELETAL: Muscle strength and tone normal. SPINE: No scoliosis or deformity SKIN: No rashes CENTRAL NERVOUS SYSTEM: Alert, confused. No focal deficits, tone is normal in all 4 extremities. - Labs CBC & Chem 7: 02/24/20 07:12 02/24/20 07:12 Labs: Abnormal Lab Results - Last 24 Hours (Table) 02/24/20 02/24/20 02/25/20 Range/Units 16:45 20:05 10:36 POC Glucose (mg/dL) 131 H 118 H 134 H (75-99) mg/dL Microbiology - Last 24 Hours (Table) 02/23/20 13:25 Blood Culture - Preliminary Blood No Growth after 24 hours Assessment and Plan Plan: Assessment: #1. Acute Covid 19 pneumonia #2. Acute hypoxemic respiratory failure related to the above #3. Rule out a component of congestive heart failure with acute exacerbation with unknown ejection fraction #4. Cough, shortness of breath related to the above #5. Acute on chronic kidney disease #6. Diabetes mellitus type 2 #7. Osteoarthritis and chronic back pain #8. History of chronic congestive heart failure with unknown duction fraction #9. Obesity #10. Previous history of fall and nondisplaced fracture of the lateral tibial condyle of the right knee #11. Bowel and bladder incontinence #12. correction resident Plan: Continue current medical treatment, continue Plaquenil, we'll switch the oral Lasix to IV Lasix for next 24 hours, repeat chest x-ray in the morning, obtain LDH, CRP, ferritin, d-dimer, will add BNP, and echocardiogram. Accurate intake and output, daily weights. Continue close monitoring, code status is DO NOT RESUSCITATE, we'll continue to follow I performed a history & physical examination of the patient and discussed their management with my nurse practitioner, Kianna Alaniz. I reviewed the nurse practitioner's note and agree with the documented findings and plan of care. Lung sounds are positive for diminished breath sounds. The findings and the impression was discussed with the patient. I attest to the documentation by the nurse practitioner. t Time with Patient: Less than 30
[2020-02-25] MEDS: amLODIPine 10 MG TAB PO SCH (20:35)
[2020-02-25] MEDS: MONTELUKAST 10 MG TAB PO SCH (20:35)
--- NOTE | 2020-02-25 21:30 | P.PN ---
Progress Note - Text Progress Note Date: 02/25/20 Presenting complaint: Short of breath Interval history Patient is a 84-year-old female of Dr. Edmondson. known history of hypertension, diabetes type 2, chronic kidney disease stage III, chronic CHF ejection fraction unknown and chronic back pain, osteoarthritis came to ER with worsening shortnes s of breath, cough, exertional dyspnea and hypoxia. Patient is currently at [facility]. Patient was tested for covid 19 came out on Tuesday. Patient was also hypoxic at home and was placed on supplemental oxygen with another cannula. Pulse ox was in high 80s when she was placed on 3 L by EMS. Patient denied any fevers or chills. Otherwise patient has been having dry cough for almost more than a week. Does have nausea. Loss of appetite. as of vomiting. Admitted with acute hypoxic respiratory failure, acute COVID 19 pneumonia Today-tired, short of breath some cough.[email or web address].Eatsomebreakfast Review of systems: Was done for constitutional, cardiovascular, GI, pulmonary. relevant finding as above Active Medications Acetaminophen (Tylenol Tab) 650 mg PO Q6H PRN PRN Reason: Pain Hydrocodone Bitart/Acetaminophen (Lanse 5-325) 1 each PO Q6H PRN PRN Reason: Pain Last Admin: 02/25/20 16:08 Dose: 1 each Documented by: Albuterol Sulfate (Ventolin Hfa Inhaler) 2 puff INHALATION RT-QID PRN PRN Reason: Shortness Of Breath Or Wheezing Last Admin: 02/25/20 20:58 Dose: 2 puff Documented by: Amlodipine Besylate (Norvasc) 10 mg PO HS@2000 [facility] Last Admin: 02/25/20 20:35 Dose: 10 mg Documented by: Furosemide (Lasix) 40 mg IV Q8HR [facility] Last Admin: 02/25/20 16:10 Dose: 40 mg Documented by: Heparin Sodium (Porcine) (Heparin) 5,000 unit SQ Q8HR [facility] Last Admin: 02/25/20 16:10 Dose: 5,000 unit Documented by: Hydroxychloroquine Sulfate (Plaquenil) 200 mg PO BID [facility] Stop: 02/28/20 21:01 Last Admin: 02/25/20 20:35 Dose: 200 mg Documented by: Sodium Chloride (Saline 0.9%) 1,000 mls @ 50 mls/hr IV .Q20H [facility] Last Admin: 02/25/20 07:43 Dose: Not Given Documented by: Levothyroxine Sodium (Synthroid) 50 mcg PO DAILY@0630 [facility] Last Admin: 02/25/20 05:58 Dose: 50 mcg Documented by: Lorazepam (Ativan) 0.5 mg IV Q6HR PRN PRN Reason: Anxiety Metoprolol Tartrate (Lopressor) 50 mg PO BID@0800,1600 [facility] Last Admin: 02/25/20 16:10 Dose: 50 mg Documented by: Montelukast Sodium (Singulair) 10 mg PO HS@1999 [facility] Last Admin: 02/25/20 20:35 Dose: 10 mg Documented by: Multivitamins (Theragran) 1 each PO DAILY@0800 [facility] Last Admin: 02/25/20 07:59 Dose: 1 each Documented by: Naloxone HCl (Narcan) 0.2 mg IV Q2M PRN PRN Reason: Opioid Reversal Pantoprazole Sodium (Protonix) 40 mg PO DAILY@0800 [facility] Last Admin: 02/25/20 07:59 Dose: 40 mg Documented by: Senna (Senokot) 8.6 mg PO BID@0800,1600 [facility] Last Admin: 02/25/20 16:07 Dose: Not Given Documented by: Sodium Bicarbonate (Sodium Bicarbonate Tab) 650 mg PO BID@0800,1600 [facility] Last Admin: 02/25/20 16:10 Dose: 650 mg Documented by: On examination: VITAL SIGNS: 97.7, 57, 21, 140/61, 94% on 7 L GENERAL APPEARANCE: Laying in bed, tired Psych-answering simple questions Additional examination as per pulmonary: CHEST: No chest wall deformity. Symmetrical expansion. LUNGS: Equal air entry with no crackles, wheeze, rhonchi or dullness. CVS: Regular rate and rhythm, normal S1 and S2, no gallops, no murmurs, no rubs ABDOMEN: Soft, nontender. No hepatosplenomegaly, normal bowel sounds, no guarding or rigidity. EXTREMITIES: No clubbing, no edema, no cyanosis, 2+ pulses and upper and lower extremities. INVESTIGATIONS, reviewed in the clinical context: White count 4.1 hemoglobin 9.5 potassium 5 bun 48 creatinine 2.22 Previous testing: White count 4.4 hemoglobin 10.5 potassium 5.5 bun 44 creatinine 2.45 February 13-creatinine 1.64 Chest x-ray bilateral infiltrates Assessment: Severe acute respiratory syndrome due to Covid 19 infection, POA, slow to respond Acute hypoxic respiratory failure due to Covid 19 pneumonia, POA, slow to respond -Covid-19 pneumonia Acute kidney injury likely ATN from pneumonia -Chronic kidney disease stage III likely nephrosclerosis and diabetic nephropathy -hyperkalemia secondary to acute kidney injury Essential Hypertension Diabetes type 2, chronically on insulin Acute on Chronic CHF exacerbation with ejection fraction unknown on IV Lasix Mild cognitive impairment Primary Osteoarthritis Chronic back pain Morbid obesity with BMI 37.1 Anxiety/depression Hypothyroidism Plan: Patient is currently receiving IV Lasix, Plaquenil, Synthroid,.
[2020-02-26] MEDS: FUROSEMIDE 10 MG/ML 4 ML VIAL IV SCH ×3 (00:06→17:35)
[2020-02-26] MEDS: LORazepam 2 MG/ML INJ IV PRN ×2 (03:22→21:48)
[2020-02-26] MEDS: SODIUM CHLORIDE 0.9% 1,000 ML IV SCH ×2 (04:42→20:19)
[2020-02-26] MEDS: LEVOTHYROXINE 50 MCG TAB PO SCH (05:54)
[2020-02-26 07:46] LABS: Glucose,Whole Blood 138 mg/dL (75-99)
[2020-02-26] MEDS: ALBUTEROL HFA INHALER INHALATION PRN ×3 (07:51→22:00)
--- NOTE | 2020-02-26 08:16 | XR ---
EXAMINATION TYPE: XR chest 1V portable DATE OF EXAM: 02/26/2020 Comparison: 02/23/2020 Clinical History: 84-year-old female shortness of breath Findings: Heart upper limits of normal in size. Some improvement in aeration at the peripheral right upper lobe . Mild patchy bibasilar opacities remain. Mild interstitial density particularly on the right is also demonstrated. Impression: Interstitial density is present on the right and there is some patchy bibasilar infiltrate. Improveme nt in aeration in the right upper lobe. Atypical pneumonias versus atypical interstitial edema.
[2020-02-26] MEDS: ENOXAPARIN 30 MG/0.3 ML SYRINGE SQ SCH (08:23)
[2020-02-26] MEDS: SENNOSIDES 8.6 MG TAB PO SCH ×2 (08:23→17:35)
[2020-02-26] MEDS: HYDROcodone/APAP 5-325MG 1 EACH TAB PO PRN (08:23)
[2020-02-26] MEDS: PANTOPRAZOLE 40 MG TABLET PO SCH (08:24)
[2020-02-26] MEDS: MULTIVITAMINS, THERA 1 EACH TAB PO SCH (08:24)
[2020-02-26] MEDS: SODIUM BICARBONATE TAB 650 MG TAB PO SCH ×2 (08:24→17:35)
[2020-02-26] MEDS: METOPROLOL TARTRATE 50 MG TAB PO SCH ×2 (08:24→17:35)
[2020-02-26] MEDS: HYDROXYCHLOROQUINE SULFATE 200 MG TAB PO SCH ×2 (08:24→20:22)
[2020-02-26 08:39] LABS: C Reactive Protein 156.3 mg/L (<10.0)
--- NOTE | 2020-02-26 12:38 | P.PN ---
Subjective Progress Note Date: 02/26/20 Principal diagnosis: Acute COVID 19 pneumonia 84-year-old female patient a group home resident who got admitted via emergency department because of increased shortness of breath and hypoxemia. The patient lives at [facility] in several other residents have been diagnosed having COVID 19 infection. The patient was tested for Covid 19 on Tuesday and the results are positive as reported today. The patient was having oxygen saturations at the group home and she was requiring oxygen supplementation. At the time of arrival she was found to have pulse ox in the 80s and the patient was placed on 3 L of oxygen by nasal cannula and following that it was increased up to 4 L. Her oxygenation improved. Her cough was nonproductive it's was dry. She has a DNR/DNI CODE STATUS. Her blood work showed the following: The patient was found to have a lymphopenia with a lymphocyte count of 0.5 Patient was found to have anemia with a hemoglobin of 10.5, microcytic the patient was found to have acute kidney injury on top of chronic kidney disease. Creatinine was as high as 2.5 with a baseline creatinine or GFR were lowered and the patient was known to have chronic stage III kidney disease The patient's proBNP level was 5880 The chest x-ray showed peripheral opacity consistent with Covid 19 infection in addition to cardiomegaly and prominence of the right hilum. The patient was seen today 02/24/2020 in follow-up on the regular medical floor. She is currently resting in bed. Arousable. She is maintaining O2 saturation in the low 90s on 4 L/m per nasal cannula. She's currently afebrile. Hemodynamically stable. White count 4.1. Hemoglobin 9.5. Platelets 185. Sodium 133. Creatinine 2.22. She is continued on Plaquenil, bronchodilators. On 02/25/2020 patient seen in follow-up on general medical floor. She is awake and alert, in no acute distress, she is however having loose stools, and patient is incontinent of bladder and bowel. She is currently at 7 L of oxygen, with a pulse ox of between 92-94%, she has been afebrile, hemodynamically she is s table, mildly dyspneic, but no acute distress, admission chest x-ray has been reviewed showing peripheral opacities that could represent coronavirus infection, and prominence of the right hilum, and a hilar mass or adenopathy could not completely excluded. Fluid overload is also being considered, patient is on oral Lasix of 40 mg twice daily. Patient is on Plaquenil. No antibiotics. Patient has been afebrile since admission. On 02/26/2020 patient seen in follow-up on general medical floor. Patient's FiO2 is down to 5 L, her pulse ox is 93-97%, she is in no acute distress. SHEENT has Covid 19 related to pneumonia, she's been afebrile. Today's chest x- ray shows interstitial density present on the right, and some patchy bibasilar infiltrate and improvement in aeration of the right upper lobe. D-dimer came back at 6.35, LDH is 887, and CRP is elevated at 156.3, BNP is 2110. Patient continues on IV Lasix of 40 mg every 8 hours, and she is in negative fluid balance of 980 mL over the last 24 hours. No complaints of chest pain. Chest x-ray appears to be improved, clear breath sounds on physical exam. We will continue to wean FiO2 Objective - Vital Signs Vital signs: Vital Signs Temp 97.5 F L 02/26/20 03:30 Pulse 62 02/26/20 11:46 Resp 22 02/26/20 11:46 BP 117/63 02/26/20 11:46 Pulse Ox 92 L 02/26/20 11:46 Intake & Output 02/25/20 02/26/20 02/26/20 18:59 06:59 18:59 Intake Total 120 Output Total 500 600 Balance -500 -480 Intake: Oral 120 Output: Urine 500 600 Other: Voiding Method Diaper Diaper # Bowel Movements 1 - Exam GENERAL EXAM: Alert, 84-year-old female, on 5 L of oxygen, with pulse ox of 97% HEAD: Normocephalic/atraumatic. EYES: Normal reaction of pupils, equal size. Conjunctiva pink, sclera white. NOSE: Clear with pink turbinates. THROAT: No erythema or exudates. NECK: No masses, no JVD, no thyroid enlargement, no adenopathy. CHEST: No chest wall deformity. Symmetrical expansion. LUNGS: Equal air entry with no crackles, wheeze, rhonchi or dullness. CVS: Regular rate and rhythm, normal S1 and S2, no gallops, no murmurs, no rubs ABDOMEN: Soft, nontender. No hepatosplenomegaly, normal bowel sounds, no guarding or rigidity. EXTREMITIES: No clubbing, no edema, no cyanosis, 2+ pulses and upper and lower extremities. MUSCULOSKELETAL: Muscle strength and tone normal. SPINE: No scoliosis or deformity SKIN: No rashes CENTRAL NERVOUS SYSTEM: Alert, confused. No focal deficits, tone is normal in all 4 extremities. - Labs CBC & Chem 7: 02/24/20 07:12 02/24/20 07:12 Labs: Abnormal Lab Results - Last 24 Hours (Table) 02/26/20 02/26/20 02/26/20 Range/Units 06:45 06:45 07:43 D-Dimer 6.35 H (<0.60) mg/L FEU POC Glucose (mg/dL) 138 H (75-99) mg/dL Lactate Dehydrogenase 887 H (313-618) U/L C-Reactive Protein 156.3 H (<10.0) mg/L Microbiology - Last 24 Hours (Table) 02/23/20 13:25 Blood Culture - Preliminary Blood No Growth after 48 hours Assessment and Plan Plan: Assessment: #1. Acute Covid 19 pneumonia #2. Acute hypoxemic respiratory failure related to the above, improving #3. Rule out a component of congestive heart failure with acute exacerbation with unknown ejection fraction #4. Cough, shortness of breath related to the above #5. Acute on chronic kidney disease #6. Diabetes mellitus type 2 #7. Osteoarthritis and chronic back pain #8. History of chronic congestive heart failure with unknown duction fraction #9. Obesity #10. Previous history of fall and nondisplaced fracture of the lateral tibial condyle of the right knee #11. Bowel and bladder incontinence #12. [facility] resident Plan: We will obtain follow-up electrolytes and renal profile, continue weaning FiO2, patient is maintaining negative fluid balance, today's lab work has been reviewed, inflammatory markers are elevated, consistent with Covid 19 infection. Clinically patient is improving, she's been afebrile, will continue with same medical treatment. I performed a history & physical examination of the patient and discussed their management with my nurse practitioner, Kianna Alaniz. I reviewed the nurse practitioner's note and agree with the documented findings and plan of care. Lung sounds are positive for diminished breath sounds. The findings and the impression was discussed with the patient. I attest to the documentation by the nurse practitioner. t Time with Patient: Less than 30
[2020-02-26 15:51] LABS: Ferritin 506.6 ng/mL (10.0-291.0)
[2020-02-26] MEDS: amLODIPine 10 MG TAB PO SCH (19:46)
[2020-02-26] MEDS: MONTELUKAST 10 MG TAB PO SCH (19:46)
--- NOTE | 2020-02-26 20:19 | P.PN ---
Progress Note - Text Progress Note Date: 02/26/20 Presenting complaint: Short of breath Interval history Patient is a 84-year-old female of Dr. Edmondson. known history of hypertension, diabetes type 2, chronic kidney disease stage III, chronic CHF ejection fraction unknown and chronic back pain, osteoarthritis came to ER with worsening shortne ss of breath, cough, exertional dyspnea and hypoxia. Patient is currently at [facility]. Patient was tested for covid 19 came out on Tuesday. Patient was also hypoxic at home and was placed on supplemental oxygen with another cannula. Pulse ox was in high 80s when she was placed on 3 L by EMS. Patient denied any fevers or chills. Otherwise patient has been having dry cough for almost more than a week. Does have nausea. Loss of appetite. as of vomiting. Admitted with acute hypoxic respiratory failure, acute COVID 19 pneumonia Today-not eating much. Tired. Slight cough. Some shortness of breath Review of systems: Was done for constitutional, cardiovascular, GI, pulmonary. relevant finding as above Active Medications Acetaminophen (Tylenol Tab) 650 mg PO Q6H PRN PRN Reason: Pain Hydrocodone Bitart/Acetaminophen (Mobile 5-325) 1 each PO Q6H PRN PRN Reason: Pain Last Admin: 02/25/20 16:08 Dose: 1 each Documented by: Albuterol Sulfate (Ventolin Hfa Inhaler) 2 puff INHALATION RT-QID PRN PRN Reason: Shortness Of Breath Or Wheezing Last Admin: 02/26/20 11:25 Dose: 2 puff Documented by: Amlodipine Besylate (Norvasc) 10 mg PO HS@2000 [facility] Last Admin: 02/26/20 19:46 Dose: 10 mg Documented by: Enoxaparin Sodium (Lovenox) 30 mg SQ DAILY [facility] Last Admin: 02/26/20 08:23 Dose: 30 mg Documented by: Furosemide (Lasix) 40 mg IV Q8HR [facility] Last Admin: 02/26/20 17:35 Dose: 40 mg Documented by: Hydroxychloroquine Sulfate (Plaquenil) 200 mg PO BID [facility] Stop: 02/28/20 21:01 Last Admin: 02/26/20 08:24 Dose: 200 mg Documented by: Sodium Chloride (Saline 0.9%) 1,000 mls @ 50 mls/hr IV .Q20H [facility] Last Admin: 02/26/20 04:42 Dose: Not Given Documented by: Levothyroxine Sodium (Synthroid) 50 mcg PO DAILY@0630 [facility] Last Admin: 02/26/20 05:54 Dose: 50 mcg Documented by: Lorazepam (Ativan) 0.5 mg IV Q6HR PRN PRN Reason: Anxiety Last Admin: 02/26/20 03:22 Dose: 0.5 mg Documented by: Metoprolol Tartrate (Lopressor) 50 mg PO BID@0800,1600 [facility] Last Admin: 02/26/20 17:35 Dose: 50 mg Documented by: Montelukast Sodium (Singulair) 10 mg PO HS@1999 [facility] Last Admin: 02/26/20 19:46 Dose: 10 mg Documented by: Multivitamins (Theragran) 1 each PO DAILY@0800 [facility] Last Admin: 02/26/20 08:24 Dose: 1 each Documented by: Naloxone HCl (Narcan) 0.2 mg IV Q2M PRN PRN Reason: Opioid Reversal Pantoprazole Sodium (Protonix) 40 mg PO DAILY@0800 [facility] Last Admin: 02/26/20 08:24 Dose: 40 mg Documented by: Senna (Senokot) 8.6 mg PO BID@0800,1600 [facility] Last Admin: 02/26/20 17:35 Dose: 8.6 mg Documented by: Sodium Bicarbonate (Sodium Bicarbonate Tab) 650 mg PO BID@0800,1600 [facility] Last Admin: 02/26/20 17:35 Dose: 650 mg Documented by: On examination: VITAL SIGNS: 97.7, 65, 130/68, 90% on 4 L GENERAL APPEARANCE: Laying in bed, slightly restless Psych-answering simple questions Additional examination as per pulmonary: CHEST: No chest wall deformity. Symmetrical expansion. LUNGS: Equal air entry with no crackles, wheeze, rhonchi or dullness. CVS: Regular rate and rhythm, normal S1 and S2, no gallops, no murmurs, no rubs ABDOMEN: Soft, nontender. No hepatosplenomegaly, normal bowel sounds, no guarding or rigidity. EXTREMITIES: No clubbing, no edema, no cyanosis, 2+ pulses and upper and lower extremities. INVESTIGATIONS, reviewed in the clinical context: D-dimer 6.35 ferritin 506 LDH 87 CRP 156 proBNP 2110 Previous testing: White count 4.4 hemoglobin 10.5 potassium 5.5 bun 44 creatinine 2.45 February 13-creatinine 1.64 Chest x-ray bilateral infiltrates Assessment: Acute hypoxic respiratory failure due to Covid 19 pneumonia, POA, slow to respond -[place] coronavirus infected pneumonia Acute kidney injury likely ATN from pneumonia -Chronic kidney disease stage III likely nephrosclerosis and diabetic nephropathy -hyperkalemia secondary to acute kidney injury Essential Hypertension Diabetes type 2, chronically on insulin Acute on Chronic CHF exacerbation with ejection fraction unknown on IV Lasix Mild cognitive impairment Primary Osteoarthritis Chronic back pain Morbid obesity with BMI 37.1 Anxiety/depression Hypothyroidism Plan: Decreased dose of Lasix. Encouraged oral intake. Repeat labs in the morning.
[2020-02-27] MEDS: FUROSEMIDE 10 MG/ML 4 ML VIAL IV SCH ×2 (01:07→09:06)
[2020-02-27] MEDS: HYDROcodone/APAP 5-325MG 1 EACH TAB PO PRN ×2 (01:07→17:57)
[2020-02-27 04:45] LABS: Glucose,Whole Blood 132 mg/dL (75-99)
[2020-02-27] MEDS: LEVOTHYROXINE 50 MCG TAB PO SCH (05:15)
[2020-02-27 07:16] LABS: Basophils # (A) 0.1 k/uL (0-0.2); Basophils % (A) 1 %; Eosinophils # (A) 0.1 k/uL (0-0.7); Eosinophils % (A) 2 %; HCT 31.7 % (34.0-46.0); HGB 9.8 gm/dL (11.4-16.0); Hypochromasia Slight; Lymphocytes # (A) 0.5 k/uL (1.0-4.8); Lymphocytes % (A) 9 %; MCH 25.5 pg (25.0-35.0); MCV 82.3 fL (80.0-100.0); Mean Platelet Volume 8.8; Monocytes # (A) 0.3 k/uL (0-1.0); Monocytes % (A) 5 %; Neutrophils # (A) 4.6 k/uL (1.3-7.7); Neutrophils % (A) 80 %; Platelet Count 261 k/uL (150-450); RBC 3.85 m/uL (3.80-5.40); RDW 15.8 % (11.5-15.5); WBC 5.7 k/uL (3.8-10.6)
--- NOTE | 2020-02-27 07:20 | XR ---
EXAMINATION TYPE: XR chest 1V portable DATE OF EXAM: 02/27/2020 HISTORY: Shortness of breath. COMPARISON: 02/26/2020 TECHNIQUE: Single view of the chest is submitted. FINDINGS: Demonstrated are scattered senescent parenchymal change. Bilateral reticulonodular infiltrates persist although appear to be improving. The heart is stable. Hilar and mediastinal structures are within normal limits. Degenerative changes are seen of the dorsal spine. IMPRESSION: 1. Bilateral reticulonodular infiltrates persist although appear to be improving.
[2020-02-27 07:50] LABS: Calcium 8.3 mg/dL (8.4-10.2); Potassium 4.4 mmol/L (3.5-5.1)
[2020-02-27] MEDS: METOPROLOL TARTRATE 50 MG TAB PO SCH ×2 (08:37→15:38)
[2020-02-27] MEDS: MULTIVITAMINS, THERA 1 EACH TAB PO SCH (08:37)
[2020-02-27] MEDS: PANTOPRAZOLE 40 MG TABLET PO SCH (08:37)
[2020-02-27] MEDS: ENOXAPARIN 30 MG/0.3 ML SYRINGE SQ SCH ×2 (08:37→09:06)
[2020-02-27] MEDS: HYDROXYCHLOROQUINE SULFATE 200 MG TAB PO SCH ×2 (08:37→20:38)
[2020-02-27] MEDS: SODIUM BICARBONATE TAB 650 MG TAB PO SCH ×2 (08:37→15:38)
[2020-02-27] MEDS: SENNOSIDES 8.6 MG TAB PO SCH ×2 (08:37→15:31)
[2020-02-27] MEDS: ALBUTEROL HFA INHALER INHALATION PRN ×2 (09:09→11:54)
[2020-02-27] MEDS ORDERED: HYDROmorphone 0.5 MG/0.5 ML SYRINGE IVP PRN (11:45)
--- NOTE | 2020-02-27 13:11 | P.PN ---
Subjective Progress Note Date: 02/27/20 Principal diagnosis: Acute COVID 19 pneumonia 84-year-old female patient a [facility] resident who got admitted via emergency department because of increased shortness of breath and hypoxemia. The patient lives at [facility] in several other residents have been diagnosed having COVID 19 infection. The patient was tested for Covid 19 on Tuesday and the results are positive as reported today. The patient was having oxygen saturations at the [facility] and she was requiring oxygen supplementation. At the time of arrival she was found to have pulse ox in the 80s and the patient was placed on 3 L of oxygen by nasal cannula and following that it was increased up to 4 L. Her oxygenation improved. Her cough was nonproductive it's was dry. She has a DNR/DNI CODE STATUS. Her blood work showed the following: The patient was found to have a lymphopenia with a lymphocyte count of 0.5 Patient was found to have anemia with a hemoglobin of 10.5, microcytic the patient was found to have acute kidney injury on top of chronic kidney disease. Creatinine was as high as 2.5 with a baseline creatinine or GFR were lowered and the patient was known to have chronic stage III kidney disease The patient's proBNP level was 5880 The chest x-ray showed peripheral opacity consistent with Covid 19 infection in addition to cardiomegaly and prominence of the right hilum. The patient was seen today 02/24/2020 in follow-up on the regular medical floor. She is currently resting in bed. Arousable. She is maintaining O2 saturation in the low 90s on 4 L/m per nasal cannula. She's currently afebrile. Hemodynamically stable. White count 4.1. Hemoglobin 9.5. Platelets 185. Sodium 133. Creatinine 2.22. She is continued on Plaquenil, bronchodilators. On 02/25/2020 patient seen in follow-up on general medical floor. She is awake and alert, in no acute distress, she is however having loose stools, and patient is incontinent of bladder and bowel. She is currently at 7 L of oxygen, with a pulse ox of between 92-94%, she has been afebrile, hemodynamically she is s table, mildly dyspneic, but no acute distress, admission chest x-ray has been reviewed showing peripheral opacities that could represent coronavirus infection, and prominence of the right hilum, and a hilar mass or adenopathy could not completely excluded. Fluid overload is also being considered, patient is on oral Lasix of 40 mg twice daily. Patient is on Plaquenil. No antibiotics. Patient has been afebrile since admission. On 02/26/2020 patient seen in follow-up on general medical floor. Patient's FiO2 is down to 5 L, her pulse ox is 93-97%, she is in no acute distress. SHEENT has Covid 19 related to pneumonia, she's been afebrile. Today's chest x- ray shows interstitial density present on the right, and some patchy bibasilar infiltrate and improvement in aeration of the right upper lobe. D-dimer came back at 6.35, LDH is 887, and CRP is elevated at 156.3, BNP is 2110. Patient continues on IV Lasix of 40 mg every 8 hours, and she is in negative fluid balance of 980 mL over the last 24 hours. No complaints of chest pain. Chest x-ray appears to be improved, clear breath sounds on physical exam. We will continue to wean FiO2 On 02/27/2020 patient seen in follow-up on a general medical floor. She is awake and alert, in no acute distress, she was found to be Covid 19 positive. She is resting quietly in bed, she is currently on 4 L of oxygen with a pulse ox of 95-98%, she has been afebrile. Today's chest x-ray has been reviewed showing improvement in appearance of bilateral infiltrates. Patient has been afebrile. Patient is in negative fluid balance, and appears to be somewhat dehydrated, today's labs have been reviewed, showing slight worsening of her renal function, and we will contact IV Lasix to just once daily. Today's d-dimer is elevated at 6.35, LDH is 887, CRP is 156. Lung sounds reveal sounds bilaterally, no significant rhonchi wheezing. Objective - Vital Signs Vital signs: Vital Signs Temp 97.5 F L 02/27/20 11:13 Pulse 61 02/27/20 11:13 Resp 18 02/27/20 11:13 BP 110/68 02/27/20 11:13 Pulse Ox 98 02/27/20 11:13 Intake & Output 02/26/20 02/27/20 02/27/20 18:59 06:59 18:59 Output Total 200 250 Balance -200 -250 Output: Urine 200 250 Other: Voiding Method Diaper Diaper # Voids 2 1 # Bowel Movements 1 1 1 - Exam GENERAL EXAM: Alert, 84-year-old female, on 4 L of oxygen, with pulse ox of 98% HEAD: Normocephalic/atraumatic. EYES: Normal reaction of pupils, equal size. Conjunctiva pink, sclera white. NOSE: Clear with pink turbinates. THROAT: No erythema or exudates. NECK: No masses, no JVD, no thyroid enlargement, no adenopathy. CHEST: No chest wall deformity. Symmetrical expansion. LUNGS: Equal air entry with no crackles, wheeze, rhonchi or dullness. CVS: Regular rate and rhythm, normal S1 and S2, no gallops, no murmurs, no rubs ABDOMEN: Soft, nontender. No hepatosplenomegaly, normal bowel sounds, no guarding or rigidity. EXTREMITIES: No clubbing, no edema, no cyanosis, 2+ pulses and upper and lower extremities. MUSCULOSKELETAL: Muscle strength and tone normal. SPINE: No scoliosis or deformity SKIN: No rashes CENTRAL NERVOUS SYSTEM: Alert, confused. No focal deficits, tone is normal in all 4 extremities. - Labs CBC & Chem 7: 02/27/20 06:31 02/27/20 06:31 Labs: Abnormal Lab Results - Last 24 Hours (Table) 02/26/20 02/27/20 02/27/20 Range/Units 06:45 04:43 06:31 Hgb (11.4-16.0) gm/dL Hct (34.0-46.0) % RDW (11.5-15.5) % Lymphocytes # (1.0-4.8) k/uL Sodium 135 L (137-145) mmol/L Carbon Dioxide 21 L (22-30) mmol/L BUN 57 H (7-17) mg/dL Creatinine 2.58 H (0.52-1.04) mg/dL Glucose 115 H (74-99) mg/dL POC Glucose (mg/dL) 132 H (75-99) mg/dL Calcium 8.3 L (8.4-10.2) mg/dL Ferritin 506.6 H (10.0-291.0) ng/mL 02/27/20 Range/Units 06:31 Hgb 9.8 L (11.4-16.0) gm/dL Hct 31.7 L (34.0-46.0) % RDW 15.8 H (11.5-15.5) % Lymphocytes # 0.5 L (1.0-4.8) k/uL Sodium (137-145) mmol/L Carbon Dioxide (22-30) mmol/L BUN (7-17) mg/dL Creatinine (0.52-1.04) mg/dL Glucose (74-99) mg/dL POC Glucose (mg/dL) (75-99) mg/dL Calcium (8.4-10.2) mg/dL Ferritin (10.0-291.0) ng/mL Microbiology - Last 24 Hours (Table) 02/23/20 13:25 Blood Culture - Preliminary Blood No Growth after 72 hours Assessment and Plan Plan: Assessment: #1. Acute Covid 19 pneumonia #2. Acute hypoxemic respiratory failure related to the above, improving #3. Rule out a component of congestive heart failure with acute exacerbation with unknown ejection fraction #4. Cough, shortness of breath related to the above #5. Acute on chronic kidney disease #6. Diabetes mellitus type 2 #7. Osteoarthritis and chronic back pain #8. History of chronic congestive heart failure with unknown duction fraction #9. Obesity #10. Previous history of fall and nondisplaced fracture of the lateral tibial condyle of the right knee #11. Bowel and bladder incontinence #12. [facility] resident Plan: Today's chest x-ray has been reviewed showing improvement in bilateral infiltrates, patient is maintaining negative fluid balance, she has been diuresed, we'll contact IV Lasix to once daily. Continue with current treatment for "with 19 infection, will continue weaning FiO2, increase activity as tolerated. Follow-up electrolytes and BMP tomorrow I performed a history & physical examination of the patient and discussed their management with my nurse practitioner, Kianna Alaniz. I reviewed the nurse practitioner's note and agree with the documented findings and plan of care. Lung sounds are positive for diminished breath sounds. The findings and the impression was discussed with the patient. I attest to the documentation by the nurse practitioner. t Time with Patient: Less than 30
--- NOTE | 2020-02-27 14:14 | P.CRDCN ---
History of Present Illness History of present illness: HISTORY OF PRESENTING ILLNESS This is a pleasant 84-year-old female past medical history significant for diabetes mellitus, hypertension and arthritis. 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 She is extremely hard of hearing. We have been asked to see in consultation for prolonged QT on hydrochloroquine. She presented to the hospital on February 22 from [facility] with symptoms of shortness of breath and hypoxia. Covid 19 positive. She had been isolated at the [facility] but they were noticing episodes of desaturation on oxygen in the high 80s. She was initiated on treatment and received dose 5 of 8 this morning. She is seen and examined resting comfortably laying flat in bed in no acute distress. She denies chest pain, dizziness, palpitations or worsening shortness of breath. Initial EKG on admission reveals sinus mechanism with QT 445ms. telemetry tracings reviewed, this morning there was one strip saved with a QT of 0.5. Initial chest x-ray on admission revealed peripheral opacities. Repeat today reveals ongoing bilateral infiltrates. Laboratory data reviewed, WBC 5.7, hemoglobin 9.8, platelets 261, d-dimer 6.25, sodium 135, potassium 4.4, creatinine 2.5, C-reactive protein 156, NT proBNP 2110, lactate 887. REVIEW OF SYSTEMS At the time of my exam: CONSTITUTIONAL: Denies fever or chills. CARDIOVASCULAR: Denies chest pain, shortness of breath, orthopnea, PND or palpitations. RESPIRATORY: Denies cough. GASTROINTESTINAL: Denies abdominal pain, diarrhea, constipation, nausea or vomiting. MUSCULOSKELETAL: Denies myalgias. NEUROLOGIC: Denies numbness, tingling or weakness. ENDOCRINE: Denies fatigue, weight change, polydipsia or polyurina. GENITOURINARY: Denies burning, hematuria or urgency with micturation. HEMATOLOGIC: Denies history of anemia or bleeding. PHYSICAL EXAMINATION Blood pressure 110/67 heart rate 64 afebrile and maintaining oxygen saturation on nasal cannula. CONSTITUTIONAL: No apparent distress. HEENT: Head is normocephalic. Pupils are equal, round. Sclerae anicteric. Mucous membranes of the mouth are moist. No JVD. No carotid bruit. CHEST EXAMINATION: Lungs are clear to auscultation. No chest wall tenderness is noted on palpation or with deep breathing. HEART EXAMINATION: Regular rate and rhythm. S1, S2 heard. No murmurs, gallops or rub. ABDOMEN: Soft, nontender. Positive bowel sounds. EXTREMITIES: 2+ peripheral pulses, no lower extremity edema and no calf t enderness. NEUROLOGIC EXAMINATION: Patient is awake, alert and oriented x3. ASSESSMENT Covid 19 Pneumonia Prolonged QT Hypertension Diabetes mellitus PLAN Continue to monitor on telemetry for worsening of the QT prolongation. Continue with hydroxychloroquine. Thank you kindly for this consultation. Nurse Practitioner note has been reviewed, I agree with a documented findings and plan of care. Patient was seen and examined. Past Medical History Past Medical History: Heart Failure, Diabetes Mellitus, Hypertension, Memory Impairment, Osteoarthritis (OA) Additional Past Medical History / Comment(s): Patient was in the hospital back in May 2019 after she had a fall and she developed a nondisplaced fracture of the lateral tibial condyle of the right knee. She was transferred to [facility]. She has memory impairment and dementia in addition to osteoarthritis and chronic back pain. She has also chronic stage III kidney disease, CHF, diabetes mellitus type 2, hypertension, and she has obesity with a BMI of 35.7. History of Any Multi-Drug Resistant Organisms: None Reported Past Surgical History: Cholecystectomy, Hysterectomy, Tonsillectomy Additional Past Surgical History / Comment(s): Back surgery, cholecystectomy, oopherectomy, 2 surgeries on face, Past Anesthesia/Blood Transfusion Reactions: No Reported Reaction Past Psychological History: Anxiety, Depression Additional Psychological History / Comment(s): pt is a since 1991. pt lives with daughter león for 7 years with exception of going to rehab at [facility] aug 26 to then home again(recieved home care thru [facility] till some time in sep 2017. receives meals on wheels. has walker/glucometer. Smoking Status: Former smoker Past Alcohol Use History: None Reported Additional Past Alcohol Use History / Comment(s): started smoking 1969-a pack would last 3-4 days, quit 2000 Past Drug Use History: None Reported - Past Family History Mother Additional Family Medical History / Comment(s): of cancer Father Family Medical History: Congestive Heart Failure (CHF) Additional Family Medical History / Comment(s): shingles Medications and Allergies Home Medications Medication Instructions Recorded Confirmed Type Citalopram Hydrobromide [CeleXA] 10 mg PO DAILY@0800 08/26/17 02/23/20 History Ergocalciferol (Vitamin D2) 50,000 unit PO Q7D 06/14/19 02/23/20 History [Vitamin D2] INSULIN LISPRO (HumaLOG) [humaLOG] See Protocol SQ ACHS 06/14/19 02/23/20 History Levothyroxine Sodium [Synthroid] 50 mcg PO DAILY 06/14/19 02/23/20 History Acetaminophen [Tylenol Arthritis] 650 mg PO Q6H PRN 02/23/20 02/23/20 History Budesonide [Pulmicort] 0.5 mg INHALATION RT-BID@799,199902/23/20 02/23/20 History Fluticasone Nasal [place] [Flonase 2 spray EA NOSTRIL DAILY PRN 02/23/20 02/23/20 History Nasal [place]] Furosemide [Lasix] 40 mg PO BID@0800,199902/23/20 02/23/20 History HYDROcodone/APAP 5-325MG [Buchanan 1 tab PO Q6H PRN 02/23/20 02/23/20 History 5-325] Insulin Glargine [Lantus] 25 unit SQ BID@0800,159902/23/20 02/23/20 History Ipratropium-Albuterol Nebulize 3 ml INHALATION RT-Q4H PRN 02/23/20 02/23/20 History [Duoneb 0.5 mg-3 mg/3 ml Soln] Lidocaine/Menthol [Icy Hot 4%-1% 1 patch TOPICAL DAILY 02/23/20 02/23/20 History Patch] Lisinopril [Zestril] 10 mg PO DAILY@0800 02/23/20 02/23/20 History Menthol [Biofreeze] 1 applic TOPICAL Q6H PRN 02/23/20 02/23/20 History Metoprolol Tartrate [Lopressor] 50 mg PO BID@0800,1600 02/23/20 02/23/20 History Montelukast [Singulair] 10 mg PO HS@199902/23/20 02/23/20 History Multivitamins, Thera [Multivitamin 1 tab PO DAILY@0802/23/20 02/23/20 History (formulary)] Pantoprazole Sodium [Protonix] 20 mg PO DAILY@0800 02/23/20 02/23/20 History Potassium Chloride ER [K-Dur 20] 20 meq PO DAILY@0800 02/23/20 02/23/20 History Sennosides [Senna] 8.6 mg PO BID@0800,1600 02/23/20 02/23/20 History Sodium Bicarbonate Tab 650 mg PO BID@0800,1600 02/23/20 02/23/20 History amLODIPine [Norvasc] 10 mg PO HS@199902/23/20 02/23/20 History Allergies Allergy/AdvReac Type Severity Reaction Status Date / Time codeine Allergy Unknown Verified 02/23/20 14:10 iodine Allergy Rash/Hives Verified 02/23/20 14:10 Latex, Natural Rubber Allergy Rash/Hives Verified 02/23/20 14:10 Penicillins Allergy Rash/Hives Verified 02/23/20 14:10 Sulfa (Sulfonamide Allergy Unknown Verified 02/23/20 14:10 Antibiotics) Physical Exam Vitals: Vital Signs Temp Pulse Resp BP Pulse Ox 02/27/20 07:00 97.6 F 64 18 110/67 95 02/27/20 05:14 96 02/27/20 02:53 97.6 F 72 18 127/64 92 L 02/27/20 01:06 92 L 02/26/20 23:16 97.8 F 72 18 120/73 91 L 02/26/20 21:23 91 L 02/26/20 19:15 98.0 F 65 18 130/68 90 L 02/26/20 17:34 97.7 F 65 94 L 02/26/20 15:00 64 18 125/67 94 L 02/26/20 11:46 62 22 117/63 92 L Intake and Output 02/26/20 02/27/20 02/27/20 22:59 06:59 14:59 Output Total 250 Balance -250 Output: Urine 250 Other: Voiding Method Diaper # Voids 2 # Bowel Movements 1 Results 02/27/20 06:31 02/27/20 06:31 CBC 02/27/20 Range/Units 06:31 WBC 5.7 (3.8-10.6) k/uL RBC 3.85 (3.80-5.40) m/uL Hgb 9.8 L (11.4-16.0) gm/dL Hct 31.7 L (34.0-46.0) % Plt Count 261 (150-450) k/uL Comprehensive Metabolic Panel 02/27/20 Range/Units 06:31 Sodium 135 L (137-145) mmol/L Potassium 4.4 (3.5-5.1) mmol/L Chloride 102 (98-107) mmol/L Carbon Dioxide 21 L (22-30) mmol/L BUN 57 H (7-17) mg/dL Creatinine 2.58 H (0.52-1.04) mg/dL Glucose 115 H (74-99) mg/dL Calcium 8.3 L (8.4-10.2) mg/dL Current Medications Generic Name Dose Route Start Last Admin Trade Name Freq PRN Reason Stop Dose Admin Acetaminophen 650 mg 02/23/20 22:00 Tylenol Tab PO Q6H PRN Pain Hydrocodone Bitart/Acetaminophen 1 each 02/23/20 21:18 02/27/20 01:07 Buchanan 5-325 PO 1 each Q6H PRN Administration Pain Albuterol Sulfate 2 puff 02/23/20 15:04 02/27/20 09:09 Ventolin Hfa Inhaler INHALATION 2 puff RT-QID PRN Administration Shortness Of Breath Or Wheezing Amlodipine Besylate 10 mg 02/24/20 20:00 02/26/20 19:46 Norvasc PO 10 mg HS@2000 SULAIMAN Administration Enoxaparin Sodium 30 mg 02/26/20 09:00 02/27/20 09:06 Lovenox SQ 30 mg DAILY SULAIMAN Administration Furosemide 40 mg 02/25/20 10:00 02/27/20 09:06 Lasix IV 40 mg Q8HR SULAIMAN Administration Hydroxychloroquine Sulfate 200 mg 02/25/20 09:00 02/27/20 08:37 Plaquenil PO 02/28/20 21:01 200 mg BID SULAIMAN Administration Sodium Chloride 1,000 mls @ 50 mls/hr 02/23/20 14:00 02/26/20 20:19 Saline 0.9% IV Not Given .Q20H SULAIMAN Levothyroxine Sodium 50 mcg 02/24/20 06:30 02/27/20 05:15 Synthroid PO 50 mcg DAILY@0630 SULAIMAN Administration Lorazepam 0.5 mg 02/23/20 15:01 02/26/20 21:48 Ativan IV 0.5 mg Q6HR PRN Administration Anxiety Metoprolol Tartrate 50 mg 02/24/20 08:00 02/27/20 08:37 Lopressor PO 50 mg BID@08,1599 SULAIMAN Administration Montelukast Sodium 10 mg 02/24/20 20:00 02/26/20 19:46 Singulair PO 10 mg HS@1999 SULAIMAN Administration Multivitamins 1 each 02/24/20 08:00 02/27/20 08:37 Theragran PO 1 each DAILY@08 SULAIMAN Administration Naloxone HCl 0.2 mg 02/23/20 15:01 Narcan IV Q2M PRN Opioid Reversal Pantoprazole Sodium 40 mg 02/24/20 08:00 02/27/20 08:37 Protonix PO 40 mg DAILY@08 SULAIMAN Administration Senna 8.6 mg 02/24/20 08:00 02/27/20 08:37 Senokot PO 8.6 mg BID@799,1599 SULAIMAN Administration Sodium Bicarbonate 650 mg 02/24/20 08:00 02/27/20 08:37 Sodium Bicarbonate Tab PO 650 mg BID@799,1599 SULAIMAN Administration Intake and Output 02/26/20 02/27/20 02/27/20 22:59 06:59 14:59 Output Total 250 Balance -250 Output: Urine 250 Other: Voiding Method Diaper # Voids 2 # Bowel Movements 1 02/27/20 06:31 02/27/20 06:31
[2020-02-27] MEDS: SODIUM CHLORIDE 0.9% 1,000 ML IV SCH (19:50)
[2020-02-27] MEDS: MONTELUKAST 10 MG TAB PO SCH (20:38)
[2020-02-27] MEDS: amLODIPine 10 MG TAB PO SCH (20:38)
--- NOTE | 2020-02-27 22:05 | P.PN ---
Progress Note - Text Progress Note Date: 02/27/20 Presenting complaint: Short of breath Interval history Patient is a 84-year-old female of Dr. Edmondson. known history of hypertension, diabetes type 2, chronic kidney disease stage III, chronic CHF ejection fraction unknown and chronic back pain, osteoarthritis came to ER with worsening shortne ss of breath, cough, exertional dyspnea and hypoxia. Patient is currently at [facility]. Patient was tested for covid 19 came out on Tuesday. Patient was also hypoxic at home and was placed on supplemental oxygen with another cannula. Pulse ox was in high 80s when she was placed on 3 L by EMS. Patient denied any fevers or chills. Otherwise patient has been having dry cough for almost more than a week. Does have nausea. Loss of appetite. as of vomiting. Admitted with acute hypoxic respiratory failure, acute COVID 19 pneumonia Today-continues to feeling weak and tired. Poor oral intake. Cough short of breath. Some diarrhea still present. Review of systems: Was done for constitutional, cardiovascular, GI, pulmonary. relevant finding as above Active Medications Acetaminophen (Tylenol Tab) 650 mg PO Q6H PRN PRN Reason: Pain Hydrocodone Bitart/Acetaminophen (Rainbow 5-325) 1 each PO Q6H PRN PRN Reason: Pain Last Admin: 02/27/20 17:57 Dose: 1 each Documented by: Albuterol Sulfate (Ventolin Hfa Inhaler) 2 puff INHALATION RT-QID PRN PRN Reason: Shortness Of Breath Or Wheezing Last Admin: 02/27/20 11:54 Dose: 2 puff Documented by: Amlodipine Besylate (Norvasc) 10 mg PO HS@2000 [facility] Last Admin: 02/27/20 20:38 Dose: 10 mg Documented by: Enoxaparin Sodium (Lovenox) 30 mg SQ DAILY [facility] Last Admin: 02/27/20 09:06 Dose: 30 mg Documented by: Furosemide (Lasix) 40 mg IV DAILY [facility] Hydroxychloroquine Sulfate (Plaquenil) 200 mg PO BID [facility] Stop: 02/28/20 21:01 Last Admin: 02/27/20 20:38 Dose: 200 mg Documented by: Sodium Chloride (Saline 0.9%) 1,000 mls @ 50 mls/hr IV .Q20H [facility] Last Admin: 02/27/20 19:50 Dose: Not Given Documented by: Levothyroxine Sodium (Synthroid) 50 mcg PO DAILY@0630 [facility] Last Admin: 02/27/20 05:15 Dose: 50 mcg Documented by: Lorazepam (Ativan) 0.5 mg IV Q6HR PRN PRN Reason: Anxiety Last Admin: 02/26/20 21:48 Dose: 0.5 mg Documented by: Metoprolol Tartrate (Lopressor) 50 mg PO BID@0800,1600 [facility] Last Admin: 02/27/20 15:38 Dose: Not Given Documented by: Montelukast Sodium (Singulair) 10 mg PO HS@2000 [facility] Last Admin: 02/27/20 20:38 Dose: 10 mg Documented by: Multivitamins (Theragran) 1 each PO DAILY@0800 [facility] Last Admin: 02/27/20 08:37 Dose: 1 each Documented by: Naloxone HCl (Narcan) 0.2 mg IV Q2M PRN PRN Reason: Opioid Reversal Pantoprazole Sodium (Protonix) 40 mg PO DAILY@0800 [facility] Last Admin: 02/27/20 08:37 Dose: 40 mg Documented by: Senna (Senokot) 8.6 mg PO BID@0800,1600 [facility] Last Admin: 02/27/20 15:31 Dose: Not Given Documented by: Sodium Bicarbonate (Sodium Bicarbonate Tab) 650 mg PO BID@0800,1600 [facility] Last Admin: 02/27/20 15:38 Dose: Not Given Documented by: On examination: VITAL SIGNS: 97.6, 60, 18, 106/54, 96% on 4 L GENERAL APPEARANCE: Laying in bed, tired Psych-answering simple questions Additional examination as per pulmonary: CHEST: No chest wall deformity. Symmetrical expansion. LUNGS: Equal air entry with no crackles, wheeze, rhonchi or dullness. CVS: Regular rate and rhythm, normal S1 and S2, no gallops, no murmurs, no rubs ABDOMEN: Soft, nontender. No hepatosplenomegaly, normal bowel sounds, no guarding or rigidity. EXTREMITIES: No clubbing, no edema, no cyanosis, 2+ pulses and upper and lower extremities. INVESTIGATIONS, reviewed in the clinical context: White count 5.7 hemoglobin 9.8 pressure 4.4 bun 57 creatinine 2.58 Chest x-ray film personally reviewed by me-some infiltrates Previous testing: White count 4.4 hemoglobin 10.5 potassium 5.5 bun 44 creatinine 2.45 February 13-creatinine 1.64 Chest x-ray bilateral infiltrates Assessment: Acute hypoxic respiratory failure due to Covid 19 pneumonia, POA, slow to respond -Norvel coronavirus infected pneumonia Acute kidney injury likely ATN from pneumonia -Chronic kidney disease stage III likely nephrosclerosis and diabetic nephropathy -hyperkalemia secondary to acute kidney injury-improved Essential Hypertension Diabetes type 2, chronically on insulin Acute on Chronic CHF exacerbation with ejection fraction unknown on IV Lasix Mild cognitive impairment Primary Osteoarthritis Chronic back pain Morbid obesity with BMI 37.1 Anxiety/depression Hypothyroidism Plan: Patient on IV Lasix 40 mg a day, Plaquenil, we'll in sync. Other medications to continue. Encouraged oral intake.
[2020-02-27] MEDS: ZINC SULFATE 220 MG CAP PO SCH (23:52)
[2020-02-28] MEDS: LEVOTHYROXINE 50 MCG TAB PO SCH (05:47)
[2020-02-28] MEDS: HYDROcodone/APAP 5-325MG 1 EACH TAB PO PRN (06:27)
[2020-02-28] MEDS: ENOXAPARIN 30 MG/0.3 ML SYRINGE SQ SCH (07:15)
[2020-02-28] MEDS: MULTIVITAMINS, THERA 1 EACH TAB PO SCH (07:16)
[2020-02-28] MEDS: SODIUM BICARBONATE TAB 650 MG TAB PO SCH ×2 (07:16→17:18)
[2020-02-28] MEDS: SENNOSIDES 8.6 MG TAB PO SCH ×2 (07:16→17:18)
[2020-02-28] MEDS: METOPROLOL TARTRATE 50 MG TAB PO SCH ×2 (07:16→17:18)
[2020-02-28] MEDS: ZINC SULFATE 220 MG CAP PO SCH (07:16)
[2020-02-28] MEDS: PANTOPRAZOLE 40 MG TABLET PO SCH (07:16)
[2020-02-28] MEDS: HYDROXYCHLOROQUINE SULFATE 200 MG TAB PO SCH ×2 (07:16→21:30)
[2020-02-28] MEDS: ALBUTEROL HFA INHALER INHALATION PRN ×2 (07:59→11:14)
--- NOTE | 2020-02-28 08:37 | XR ---
EXAMINATION TYPE: XR chest 1V portable DATE OF EXAM: 02/28/2020 COMPARISON: 02/27/2020 INDICATION: Shortness of breath TECHNIQUE: Single frontal view of the chest is obtained. FINDINGS: The heart size is mildly prominent. The pulmonary vasculature is normal. Suspicious focal infiltrate is not evident. IMPRESSION: 1. Findings appear improved from prior study. Some subtle residual may remain present. No developing infiltrates are evident.
[2020-02-28 08:45] LABS: Calcium 8.2 mg/dL (8.4-10.2); Potassium 4.3 mmol/L (3.5-5.1)
[2020-02-28] MEDS ORDERED: FUROSEMIDE 10 MG/ML 4 ML VIAL IV SCH (09:00)
--- NOTE | 2020-02-28 12:21 | P.PN ---
Subjective Progress Note Date: 02/28/20 Principal diagnosis: Acute COVID 19 pneumonia 84-year-old female patient a [facility] resident who got admitted via emergency department because of increased shortness of breath and hypoxemia. The patient lives at [facility] in several other residents have been diagnosed having COVID 19 infection. The patient was tested for Covid 19 on Tuesday and the results are positive as reported today. The patient was having oxygen saturations at the snf and she was requiring oxygen supplementation. At the time of arrival she was found to have pulse ox in the 80s and the patient was placed on 3 L of oxygen by nasal cannula and following that it was increased up to 4 L. Her oxygenation improved. Her cough was nonproductive it's was dry. She has a DNR/DNI CODE STATUS. Her blood work showed the following: The patient was found to have a lymphopenia with a lymphocyte count of 0.5 Patient was found to have anemia with a hemoglobin of 10.5, microcytic the patient was found to have acute kidney injury on top of chronic kidney disease. Creatinine was as high as 2.5 with a baseline creatinine or GFR were lowered and the patient was known to have chronic stage III kidney disease The patient's proBNP level was 5880 The chest x-ray showed peripheral opacity consistent with Covid 19 infection in addition to cardiomegaly and prominence of the right hilum. The patient was seen today 02/24/2020 in follow-up on the regular medical floor. She is currently resting in bed. Arousable. She is maintaining O2 saturation in the low 90s on 4 L/m per nasal cannula. She's currently afebrile. Hemodynamically stable. White count 4.1. Hemoglobin 9.5. Platelets 185. Sodium 133. Creatinine 2.22. She is continued on Plaquenil, bronchodilators. On 02/25/2020 patient seen in follow-up on general medical floor. She is awake and alert, in no acute distress, she is however having loose stools, and patient is incontinent of bladder and bowel. She is currently at 7 L of oxygen, with a pulse ox of between 92-94%, she has been afebrile, hemodynamically she is s table, mildly dyspneic, but no acute distress, admission chest x-ray has been reviewed showing peripheral opacities that could represent coronavirus infection, and prominence of the right hilum, and a hilar mass or adenopathy could not completely excluded. Fluid overload is also being considered, patient is on oral Lasix of 40 mg twice daily. Patient is on Plaquenil. No antibiotics. Patient has been afebrile since admission. On 02/26/2020 patient seen in follow-up on general medical floor. Patient's FiO2 is down to 5 L, her pulse ox is 93-97%, she is in no acute distress. SHEENT has Covid 19 related to pneumonia, she's been afebrile. Today's chest x- ray shows interstitial density present on the right, and some patchy bibasilar infiltrate and improvement in aeration of the right upper lobe. D-dimer came back at 6.35, LDH is 887, and CRP is elevated at 156.3, BNP is 2110. Patient continues on IV Lasix of 40 mg every 8 hours, and she is in negative fluid balance of 980 mL over the last 24 hours. No complaints of chest pain. Chest x-ray appears to be improved, clear breath sounds on physical exam. We will continue to wean FiO2 On 02/27/2020 patient seen in follow-up on a general medical floor. She is awake and alert, in no acute distress, she was found to be Covid 19 positive. She is resting quietly in bed, she is currently on 4 L of oxygen with a pulse ox of 95-98%, she has been afebrile. Today's chest x-ray has been reviewed showing improvement in appearance of bilateral infiltrates. Patient has been afebrile. Patient is in negative fluid balance, and appears to be somewhat dehydrated, today's labs have been reviewed, showing slight worsening of her renal function, and we will contact IV Lasix to just once daily. Today's d-dimer is elevated at 6.35, LDH is 887, CRP is 156. Lung sounds reveal sounds bilaterally, no significant rhonchi wheezing. On 02/28/2020 patient seen in follow-up on general medical floor, she is resting comfortably in bed, she is in no acute distress. She states she is feeling better, her pulse ox was 97% on 4 L, and FiO2 was dropped down to 2 L she is maintaining O2 sat at 98%, she is afebrile, hemodynamically stable, yesterday we cut back her IV Lasix to once daily, denies labs showed slightly worsened creatinine, up to 2.65, we'll stop the IV Lasix altogether today, electrolytes are within normal limits, BUN is 47, creatinine is 2.65. Repeat chest x-ray shows improved aeration with some subtle residual pulmonary vasculature prominence, no developing infiltrates. Patient remains on Plaquenil. She has completed her antibiotics. Blood Cultures have been negative, she's been afebrile Objective - Vital Signs Vital signs: Vital Signs Temp 97.7 F 02/28/20 11:26 Pulse 65 02/28/20 11:26 Resp 18 02/28/20 11:26 BP 115/80 02/28/20 11:26 Pulse Ox 98 02/28/20 11:26 Intake & Output 02/27/20 02/28/20 02/28/20 18:59 06:59 18:59 Intake Total 296 20 318 Output Total 450 Balance 296 -430 318 Intake: Oral 296 20 318 Output: Urine 450 Other: Voiding Method Diaper Diaper # Voids 1 # Bowel Movements 1 - Exam GENERAL EXAM: Alert, 84-year-old female, on 4 L of oxygen, with pulse ox of 97% HEAD: Normocephalic/atraumatic. EYES: Normal reaction of pupils, equal size. Conjunctiva pink, sclera white. NOSE: Clear with pink turbinates. THROAT: No erythema or exudates. NECK: No masses, no JVD, no thyroid enlargement, no adenopathy. CHEST: No chest wall deformity. Symmetrical expansion. LUNGS: Equal air entry with no crackles, wheeze, rhonchi or dullness. CVS: Regular rate and rhythm, normal S1 and S2, no gallops, no murmurs, no rubs ABDOMEN: Soft, nontender. No hepatosplenomegaly, normal bowel sounds, no guarding or rigidity. EXTREMITIES: No clubbing, no edema, no cyanosis, 2+ pulses and upper and lower extremities. MUSCULOSKELETAL: Muscle strength and tone normal. SPINE: No scoliosis or deformity SKIN: No rashes CENTRAL NERVOUS SYSTEM: Alert, confused. No focal deficits, tone is normal in all 4 extremities. - Labs CBC & Chem 7: 02/27/20 06:31 02/28/20 08:12 Labs: Abnormal Lab Results - Last 24 Hours (Table) 02/28/20 Range/Units 08:12 BUN 57 H (7-17) mg/dL Creatinine 2.65 H (0.52-1.04) mg/dL Glucose 132 H (74-99) mg/dL Calcium 8.2 L (8.4-10.2) mg/dL Microbiology - Last 24 Hours (Table) 02/23/20 13:25 Blood Culture - Preliminary Blood No Growth after 96 hours Assessment and Plan Plan: Assessment: #1. Acute Covid 19 pneumonia #2. Acute hypoxemic respiratory failure related to the above, improving #3. Rule out a component of congestive heart failure with acute exacerbation with unknown ejection fraction #4. Cough, shortness of breath related to the above #5. Acute on chronic kidney disease #6. Diabetes mellitus type 2 #7. Osteoarthritis and chronic back pain #8. History of chronic congestive heart failure with unknown duction fraction #9. Obesity #10. Previous history of fall and nondisplaced fracture of the lateral tibial condyle of the right knee #11. Bowel and bladder incontinence #12. care home resident Plan: Today's chest x-ray shows further improvement of bilateral aeration. FiO2 is down to 2 L, continue weaning FiO2. Clinical stable, slight worsening of renal function, we'll stop the IV Lasix altogether, last signs have been stable, no fever or chills, she is completing a course of oral Levaquin, from pulmonary perspective she stable for discharge home or ECF today I performed a history & physical examination of the patient and discussed their management with my nurse practitioner, Kianna Alaniz. I reviewed the nurse practitioner's note and agree with the documented findings and plan of care. Lung sounds are positive for diminished breath sounds. The findings and the impression was discussed with the patient. I attest to the documentation by the nurse practitioner. t Time with Patient: Less than 30
--- NOTE | 2020-02-28 12:33 | P.PN ---
Subjective HISTORY OF PRESENTING ILLNESS This is a pleasant 84-year-old female past medical history significant for diabetes mellitus, hypertension and arthritis. She denies prior history of coronary artery disease and does not follow in the office with a employee relations assistant. She is extremely hard of hearing. Chart and telemetry tracings reviewed, no p hysical contact with the patient. Telemetry tracings indicate her QT has been between 0.43 and 0.47 for the previous 24 hours. No arrhythmia noted. Blood pressure 115/80 heart rate 65 afebrile and maintaining oxygen saturation on nasal cannula. Laboratory data reviewed, sodium 139, potassium 4.3, creatinine 2.65. Repeat chest xray this morning reveals normal pulmonary vasculature and no suspicious focal infiltrate. Per nurse Claudia the patient was having some hip pain this morning and was given a norco which has caused her some increased lethargy today. Plan is for discharge tomorrow. ASSESSMENT Covid 19 Pneumonia Prolonged QT Hypertension Diabetes mellitus PLAN Continue to monitor on telemetry for worsening of the QT prolongation. Continue with hydroxychloroquine. Nurse Practitioner note has been reviewed, I agree with a documented findings and plan of care. Patient was seen and examined. Objective - Vital Signs Vital signs: Vital Signs Temp 97.7 F 02/28/20 11:26 Pulse 65 02/28/20 11:26 Resp 18 02/28/20 11:26 BP 115/80 02/28/20 11:26 Pulse Ox 98 02/28/20 11:26 Intake & Output 02/27/20 02/28/20 02/28/20 18:59 06:59 18:59 Intake Total 296 20 318 Output Total 450 Balance 296 -430 318 Intake: Oral 296 20 318 Output: Urine 450 Other: Voiding Method Diaper Diaper # Voids 1 # Bowel Movements 1 - Labs CBC & Chem 7: 02/27/20 06:31 02/28/20 08:12 Labs: Abnormal Lab Results - Last 24 Hours (Table) 02/28/20 Range/Units 08:12 BUN 57 H (7-17) mg/dL Creatinine 2.65 H (0.52-1.04) mg/dL Glucose 132 H (74-99) mg/dL Calcium 8.2 L (8.4-10.2) mg/dL Microbiology - Last 24 Hours (Table) 02/23/20 13:25 Blood Culture - Preliminary Blood No Growth after 96 hours
[2020-02-28 14:24] VITALS: BMI 35.0
--- NOTE | 2020-02-28 20:52 | P.PN ---
Progress Note - Text Progress Note Date: 02/28/20 Presenting complaint: Short of breath Interval history Patient is a 84-year-old female of Dr. Edmondson. known history of hypertension, diabetes type 2, chronic kidney disease stage III, chronic CHF ejection fraction unknown and chronic back pain, osteoarthritis came to ER with worsening shortne ss of breath, cough, exertional dyspnea and hypoxia. Patient is currently at [facility]. Patient was tested for covid 19 came out on Tuesday. Patient was also hypoxic at home and was placed on supplemental oxygen with another cannula. Pulse ox was in high 80s when she was placed on 3 L by EMS. Patient denied any fevers or chills. Otherwise patient has been having dry cough for almost more than a week. Does have nausea. Loss of appetite. as of vomiting. Admitted with acute hypoxic respiratory failure, acute COVID 19 pneumonia Today-Feels a bit better. Appetite is still low. Breathing slightly better. Review of systems: Was done for constitutional, cardiovascular, GI, pulmonary. relevant finding as above Active Medications Acetaminophen (Tylenol Tab) 650 mg PO Q6H PRN PRN Reason: Pain Hydrocodone Bitart/Acetaminophen ([place] 5-325) 1 each PO Q6H PRN PRN Reason: Pain Last Admin: 02/28/20 06:27 Dose: 1 each Documented by: Albuterol Sulfate (Ventolin Hfa Inhaler) 2 puff INHALATION RT-QID PRN PRN Reason: Shortness Of Breath Or Wheezing Last Admin: 02/28/20 11:14 Dose: 2 puff Documented by: Amlodipine Besylate (Norvasc) 10 mg PO HS@1999 [facility] Last Admin: 02/27/20 20:38 Dose: 10 mg Documented by: Enoxaparin Sodium (Lovenox) 30 mg SQ DAILY [facility] Last Admin: 02/28/20 07:15 Dose: 30 mg Documented by: Hydroxychloroquine Sulfate (Plaquenil) 200 mg PO BID [facility] Stop: 02/28/20 21:01 Last Admin: 02/28/20 07:16 Dose: 200 mg Documented by: Levothyroxine Sodium (Synthroid) 50 mcg PO DAILY@0630 [facility] Last Admin: 02/28/20 05:47 Dose: 50 mcg Documented by: Lorazepam (Ativan) 0.5 mg IV Q6HR PRN PRN Reason: Anxiety Last Admin: 02/26/20 21:48 Dose: 0.5 mg Documented by: Metoprolol Tartrate (Lopressor) 50 mg PO BID@0800,1600 [facility] Last Admin: 02/28/20 17:18 Dose: 50 mg Documented by: Montelukast Sodium (Singulair) 10 mg PO HS@2000 [facility] Last Admin: 02/27/20 20:38 Dose: 10 mg Documented by: Multivitamins (Theragran) 1 each PO DAILY@0800 [facility] Last Admin: 02/28/20 07:16 Dose: 1 each Documented by: Naloxone HCl (Narcan) 0.2 mg IV Q2M PRN PRN Reason: Opioid Reversal Pantoprazole Sodium (Protonix) 40 mg PO DAILY@0800 [facility] Last Admin: 02/28/20 07:16 Dose: 40 mg Documented by: Senna (Senokot) 8.6 mg PO BID@0800,1600 [facility] Last Admin: 02/28/20 17:18 Dose: 8.6 mg Documented by: Sodium Bicarbonate (Sodium Bicarbonate Tab) 650 mg PO BID@0800,1600 [facility] Last Admin: 02/28/20 17:18 Dose: 650 mg Documented by: Zinc Sulfate (Orazinc) 220 mg PO DAILY [facility] Last Admin: 02/28/20 07:16 Dose: 220 mg Documented by: On examination: VITAL SIGNS: 97.6, 65, 18, 116/67, 94% on 2 L GENERAL APPEARANCE: Laying in bed, more comfortable Psych-answering simple questions Additional examination as per pulmonary: CHEST: No chest wall deformity. Symmetrical expansion. LUNGS: Equal air entry with no crackles, wheeze, rhonchi or dullness. CVS: Regular rate and rhythm, normal S1 and S2, no gallops, no murmurs, no rubs ABDOMEN: Soft, nontender. No hepatosplenomegaly, normal bowel sounds, no guarding or rigidity. EXTREMITIES: No clubbing, no edema, no cyanosis, 2+ pulses and upper and lower extremities. INVESTIGATIONS, reviewed in the clinical context: Potassium 4.3 bun 57 creatinine 2.65 Previous testing: White count 4.4 hemoglobin 10.5 potassium 5.5 bun 44 creatinine 2.45 February 13-creatinine 1.64 Chest x-ray bilateral infiltrates Assessment: Acute hypoxic respiratory failure due to Covid 19 pneumonia, POA, slowly improving -Norvel coronavirus infected pneumonia Acute kidney injury likely ATN from pneumonia -Chronic kidney disease stage III likely nephrosclerosis and diabetic nephropathy -hyperkalemia secondary to acute kidney injury-improved Essential Hypertension Diabetes type 2, chronically on insulin Acute on Chronic CHF exacerbation with ejection fraction unknown on IV Lasix Mild cognitive impairment Primary Osteoarthritis Chronic back pain Morbid obesity with BMI 37.1 Anxiety/depression Hypothyroidism -Prolonged QT interval Plan: Patient remains on Plaquenil, zinc. Spoke to nurse to have the patient up in the a chair. Encourage oral intake.
[2020-02-28] MEDS: MONTELUKAST 10 MG TAB PO SCH (21:30)
[2020-02-28] MEDS: amLODIPine 10 MG TAB PO SCH (21:30)
[2020-02-29] MEDS: ACETAMINOPHEN TAB 325 MG TAB PO PRN ×2 (00:02→06:31)
[2020-02-29] MEDS: LORazepam 2 MG/ML INJ IV PRN (00:02)
[2020-02-29] MEDS: LEVOTHYROXINE 50 MCG TAB PO SCH (05:37)
[2020-02-29] MEDS: SODIUM BICARBONATE TAB 650 MG TAB PO SCH ×2 (06:32→15:35)
[2020-02-29] MEDS: ENOXAPARIN 30 MG/0.3 ML SYRINGE SQ SCH (06:32)
[2020-02-29] MEDS: SENNOSIDES 8.6 MG TAB PO SCH ×2 (06:32→15:35)
[2020-02-29] MEDS: ZINC SULFATE 220 MG CAP PO SCH (06:32)
[2020-02-29] MEDS: MULTIVITAMINS, THERA 1 EACH TAB PO SCH (06:32)
[2020-02-29] MEDS: PANTOPRAZOLE 40 MG TABLET PO SCH (06:32)
[2020-02-29] MEDS: METOPROLOL TARTRATE 50 MG TAB PO SCH ×2 (06:32→15:35)
[2020-02-29 06:52] VITALS: RESP 18
[2020-02-29 07:03] LABS: Calcium 8.3 mg/dL (8.4-10.2); Potassium 4.3 mmol/L (3.5-5.1)
[2020-02-29] MEDS: ALBUTEROL HFA INHALER INHALATION PRN (07:35)
--- NOTE | 2020-02-29 07:35 | XR ---
EXAMINATION TYPE: XR chest 1V portable DATE OF EXAM: 02/29/2020 CLINICAL HISTORY: Difficulty breathing progress study. TECHNIQUE: Single AP portable upright view of the chest is obtained. COMPARISON: Chest x-ray from one day earlier and older studies. FINDINGS: Overlying EKG leads redemonstrated. Osseous structures are demineralized. Persistent cardi omegaly with atherosclerotic thoracic aorta. Chronic parenchymal changes with patchy bibasilar and pe ripheral opacities. No pleural effusion or pneumothorax seen bilaterally. IMPRESSION: Cardiomegaly and chronic parenchymal changes with multifocal infiltrates and/or edema rem ain present. No significant change from most recent x-ray. Some improved aeration in the periphery no diamante from older x-rays though some persistent infiltrate is thought present.
--- NOTE | 2020-02-29 10:55 | P.PN ---
Subjective HISTORY OF PRESENTING ILLNESS This is a pleasant 84-year-old female past medical history significant for diabetes mellitus, hypertension and arthritis. She denies prior history of coronary artery disease and does not follow in the office with a professor of religion. She is extremely hard of hearing. Chart and telemetry tracings reviewed, no p hysical contact with the patient. Telemetry tracings indicate her QT remaining stable. Hydroxychloroquine complete. Blood pressure 134/68 heart rate 73 afebrile maintaining oxygen saturation on room air. ASSESSMENT Covid 19 Pneumonia Prolonged QT Hypertension Diabetes mellitus PLAN Stable from a cardiac perspective. Please call with further questions or concerns. Nurse Practitioner note has been reviewed, I agree with a documented findings and plan of care. Patient was seen and examined. Objective - Vital Signs Vital signs: Vital Signs Temp 97.7 F 02/29/20 10:51 Pulse 73 02/29/20 10:51 Resp 18 02/29/20 10:51 BP 134/68 02/29/20 10:51 Pulse Ox 92 L 02/29/20 10:51 Intake & Output 02/28/20 02/29/20 02/29/20 18:59 06:59 18:59 Intake Total 368 150 Output Total 400 Balance -32 150 Weight 89.811 kg Intake: Oral 368 150 Output: Urine 400 Other: Voiding Method Diaper Diaper # Voids 1 1 # Bowel Movements 1 1 - Labs CBC & Chem 7: 02/27/20 06:31 02/29/20 05:28 Labs: Abnormal Lab Results - Last 24 Hours (Table) 02/29/20 Range/Units 05:28 BUN 55 H (7-17) mg/dL Creatinine 2.44 H (0.52-1.04) mg/dL Calcium 8.3 L (8.4-10.2) mg/dL Microbiology - Last 24 Hours (Table) 02/23/20 13:25 Blood Culture - Preliminary Blood No Growth after 120 hours
--- NOTE | 2020-02-29 11:52 | P.PN ---
Subjective Progress Note Date: 02/29/20 Principal diagnosis: Acute COVID 19 pneumonia 84-year-old female patient a [facility] resident who got admitted via emergency department because of increased shortness of breath and hypoxemia. The patient lives at [facility] in several other residents have been diagnosed having COVID 19 infection. The patient was tested for Covid 19 on Tuesday and the results are positive as reported today. The patient was having oxygen saturations at the [facility] and she was requiring oxygen supplementation. At the time of arrival she was found to have pulse ox in the 80s and the patient was placed on 3 L of oxygen by nasal cannula and following that it was increased up to 4 L. Her oxygenation improved. Her cough was nonproductive it's was dry. She has a DNR/DNI CODE STATUS. Her blood work showed the following: The patient was found to have a lymphopenia with a lymphocyte count of 0.5 Patient was found to have anemia with a hemoglobin of 10.5, microcytic the patient was found to have acute kidney injury on top of chronic kidney disease. Creatinine was as high as 2.5 with a baseline creatinine or GFR were lowered and the patient was known to have chronic stage III kidney disease The patient's proBNP level was 5880 The chest x-ray showed peripheral opacity consistent with Covid 19 infection in addition to cardiomegaly and prominence of the right hilum. The patient was seen today 02/24/2020 in follow-up on the regular medical floor. She is currently resting in bed. Arousable. She is maintaining O2 saturation in the low 90s on 4 L/m per nasal cannula. She's currently afebrile. Hemodynamically stable. White count 4.1. Hemoglobin 9.5. Platelets 185. Sodium 133. Creatinine 2.22. She is continued on Plaquenil, bronchodilators. On 02/25/2020 patient seen in follow-up on general medical floor. She is awake and alert, in no acute distress, she is however having loose stools, and patient is incontinent of bladder and bowel. She is currently at 7 L of oxygen, with a pulse ox of between 92-94%, she has been afebrile, hemodynamically she is s table, mildly dyspneic, but no acute distress, admission chest x-ray has been reviewed showing peripheral opacities that could represent coronavirus infection, and prominence of the right hilum, and a hilar mass or adenopathy could not completely excluded. Fluid overload is also being considered, patient is on oral Lasix of 40 mg twice daily. Patient is on Plaquenil. No antibiotics. Patient has been afebrile since admission. On 02/26/2020 patient seen in follow-up on general medical floor. Patient's FiO2 is down to 5 L, her pulse ox is 93-97%, she is in no acute distress. SHEENT has Covid 19 related to pneumonia, she's been afebrile. Today's chest x- ray shows interstitial density present on the right, and some patchy bibasilar infiltrate and improvement in aeration of the right upper lobe. D-dimer came back at 6.35, LDH is 887, and CRP is elevated at 156.3, BNP is 2110. Patient continues on IV Lasix of 40 mg every 8 hours, and she is in negative fluid balance of 980 mL over the last 24 hours. No complaints of chest pain. Chest x-ray appears to be improved, clear breath sounds on physical exam. We will continue to wean FiO2 On 02/27/2020 patient seen in follow-up on a general medical floor. She is awake and alert, in no acute distress, she was found to be Covid 19 positive. She is resting quietly in bed, she is currently on 4 L of oxygen with a pulse ox of 95-98%, she has been afebrile. Today's chest x-ray has been reviewed showing improvement in appearance of bilateral infiltrates. Patient has been afebrile. Patient is in negative fluid balance, and appears to be somewhat dehydrated, today's labs have been reviewed, showing slight worsening of her renal function, and we will contact IV Lasix to just once daily. Today's d-dimer is elevated at 6.35, LDH is 887, CRP is 156. Lung sounds reveal sounds bilaterally, no significant rhonchi wheezing. On 02/28/2020 patient seen in follow-up on general medical floor, she is resting comfortably in bed, she is in no acute distress. She states she is feeling better, her pulse ox was 97% on 4 L, and FiO2 was dropped down to 2 L she is maintaining O2 sat at 98%, she is afebrile, hemodynamically stable, yesterday we cut back her IV Lasix to once daily, denies labs showed slightly worsened creatinine, up to 2.65, we'll stop the IV Lasix altogether today, electrolytes are within normal limits, BUN is 47, creatinine is 2.65. Repeat chest x-ray shows improved aeration with some subtle residual pulmonary vasculature prominence, no developing infiltrates. Patient remains on Plaquenil. She has completed her antibiotics. Blood Cultures have been negative, she's been afebrile On 02/29/2020 patient seen in follow-up on general medical floor, she is resting comfortably in bed, she is on room air, pulse ox is 92%, hemodynamically stable, patient has been afebrile, physical therapy is getting very to get the patient up out of bed today. She appears to be in no acute distress, no evidence of difficulty breathing, no cough, or congestion, lung sounds are clear, diminished at the bases, no significant events overnight, patient has been diuresed, her diuretics remain on hold. Follow-up labs have been reviewed today, electrolytes are within normal limits, renal profile slightly improved with B1 of 55 creatinine 2.44. No fever or chills. Today's chest x-ray shows multifocal infiltrates and/or edema, no significant change, with some improved aeration in the periphery. Clinically stable. She has completed her antibiotic and Plaquenil, anticipate discharge to [facility] today Objective - Vital Signs Vital signs: Vital Signs Temp 97.7 F 02/29/20 10:51 Pulse 73 02/29/20 10:51 Resp 18 02/29/20 10:51 BP 134/68 02/29/20 10:51 Pulse Ox 92 L 02/29/20 10:51 Intake & Output 02/28/20 02/29/20 02/29/20 18:59 06:59 18:59 Intake Total 368 150 Output Total 400 Balance -32 150 Weight 89.811 kg Intake: Oral 368 150 Output: Urine 400 Other: Voiding Method Diaper Diaper # Voids 1 1 # Bowel Movements 1 1 - Exam GENERAL EXAM: Alert, 84-year-old female, on room air, with a pulse ox of 92% HEAD: Normocephalic/atraumatic. EYES: Normal reaction of pupils, equal size. Conjunctiva pink, sclera white. NOSE: Clear with pink turbinates. THROAT: No erythema or exudates. NECK: No masses, no JVD, no thyroid enlargement, no adenopathy. CHEST: No chest wall deformity. Symmetrical expansion. LUNGS: Equal air entry with no crackles, wheeze, rhonchi or dullness. CVS: Regular rate and rhythm, normal S1 and S2, no gallops, no murmurs, no rubs ABDOMEN: Soft, nontender. No hepatosplenomegaly, normal bowel sounds, no guarding or rigidity. EXTREMITIES: No clubbing, no edema, no cyanosis, 2+ pulses and upper and lower extremities. MUSCULOSKELETAL: Muscle strength and tone normal. SPINE: No scoliosis or deformity SKIN: No rashes CENTRAL NERVOUS SYSTEM: Alert, confused. No focal deficits, tone is normal in all 4 extremities. - Labs CBC & Chem 7: 02/27/20 06:31 02/29/20 05:28 Labs: Abnormal Lab Results - Last 24 Hours (Table) 02/29/20 Range/Units 05:28 BUN 55 H (7-17) mg/dL Creatinine 2.44 H (0.52-1.04) mg/dL Calcium 8.3 L (8.4-10.2) mg/dL Microbiology - Last 24 Hours (Table) 02/23/20 13:25 Blood Culture - Preliminary Blood No Growth after 120 hours Assessment and Plan Plan: Assessment: #1. Acute Covid 19 pneumonia #2. Acute hypoxemic respiratory failure related to the above, improving #3. Rule out a component of congestive heart failure with acute exacerbation with unknown ejection fraction #4. Cough, shortness of breath related to the above #5. Acute on chronic kidney disease #6. Diabetes mellitus type 2 #7. Osteoarthritis and chronic back pain #8. History of chronic congestive heart failure with unknown duction fraction #9. Obesity #10. Previous history of fall and nondisplaced fracture of the lateral tibial condyle of the right knee #11. Bowel and bladder incontinence #12. senior care resident Plan: Patient has remained stable, no fever or chills, she is now on room air, no worsening dyspnea, she is been afebrile, has completed a course of Plaquenil, and antibiotics blood cultures have been negative, no acute events overnight, slight improvement in her renal profile, diuretics remain on hold, from pulmonary perspective patient stable for discharge to [facility] today. I performed a history & physical examination of the patient and discussed their management with my nurse practitioner, Kianna Alaniz. I reviewed the nurse practitioner's note and agree with the documented findings and plan of care. Lung sounds are positive for diminished breath sounds. The findings and the i mpression was discussed with the patient. I attest to the documentation by the nurse practitioner. t Time with Patient: Less than 30
--- NOTE | 2020-02-29 13:49 | P.DS ---
Providers Date of admission: 02/23/20 15:04 Expected date of discharge: 02/29/20 Attending physician: Sea Padilal Consults: 02/23/20 15:02 Consult Physician Routine Consulting Provider: Nery Loyd Consult Reason/Comments: COVID, hypoxia Do you want consulting provider notified?: Already Contacted 02/27/20 08:21 Consult Physician Routine Consulting Provider: Dave Witt Consult Reason/Comments: prolonged QT Do you want consulting provider notified?: Yes Primary care physician: [facility] Course: Presenting complaint: Short of breath Interval history Patient is a 84-year-old female of Dr. Edmondson. known history of hypertension, diabetes type 2, chronic kidney disease stage III, chronic CHF ejection fraction unknown and chronic back pain, osteoarthritis came to ER with worsening shortness of breath, cough, exertional dyspnea and hypoxia. [facility]. Patient was tested for covid 19-positive. Patient was also hypoxic at home and was placed on supplemental oxygen with another cannula. Pulse ox was in high 80s when she was placed on 3 L by EMS. Patient denied any fevers or chills. Otherwise patient has been having dry cough for almost more than a week. Does have nausea. Loss of appetite. as of vomiting. Admitted with acute hypoxic respiratory failure, acute COVID 19 pneumonia. Also patient felt to have acute kidney injury possibly from ATN. Patient did receive 5 days of hydroxy-chloroquine. Also treated for CHF exacerbation. Today-patient subsequently has done much better. Now 92% on room air. Appetite is still not very good. History symptoms are much improved. Cleared by pulmonary. Discussed with social services aide. In the nurse. Inform patient. Discussion and discharge planning more than 35 minutes Consultation: Dr. jane and colleagues from pulmonary Dr. Witt from cardiology. On examination: VITAL SIGNS: 97.7, 73, 18, 134/68, 92% on room air GENERAL APPEARANCE: Laying in bed, comfortable Psych-answering simple questions Additional examination as per pulmonary: CHEST: No chest wall deformity. Symmetrical expansion. LUNGS: Equal air entry with no crackles, wheeze, rhonchi or dullness. CVS: Regular rate and rhythm, normal S1 and S2, no gallops, no murmurs, no rubs ABDOMEN: Soft, nontender. No hepatosplenomegaly, normal bowel sounds, no guarding or rigidity. EXTREMITIES: No clubbing, no edema, no cyanosis, 2+ pulses and upper and lower extremities. INVESTIGATIONS, reviewed in the clinical context: Potassium 4.3 bun 55 creatinine 2.44 February 28-coronavirus PCR detected Previous testing: White count 4.4 hemoglobin 10.5 potassium 5.5 bun 44 creatinine 2.45 February 13-creatinine 1.64 Chest x-ray bilateral infiltrates Assessment: Acute hypoxic respiratory failure due to Covid 19 pneumonia, POA, improved -Norvel coronavirus infected pneumonia, POA Acute kidney injury likely ATN from pneumonia, POA -Chronic kidney disease stage III likely nephrosclerosis and diabetic nephropathy -hyperkalemia secondary to acute kidney injury-improved Essential Hypertension Diabetes type 2, chronically on insulin Acute on Chronic CHF exacerbation with ejection fraction unknown Mild cognitive impairment Primary Osteoarthritis Chronic back pain Morbid obesity with BMI 37.1 Anxiety/depression Hypothyroidism -Prolonged QT interval Disposition: COUNT INCLUDES [facility] Patient Condition at Discharge: Stable Plan - Discharge Summary Discharge Rx Participant: Yes New Discharge Prescriptions: New Albuterol Inhaler [Ventolin Hfa Inhaler] 2 puff INHALATION RT-QID PRN puff PRN Reason: Shortness Of Breath Or Wheezing Continue Citalopram Hydrobromide [CeleXA] 10 mg PO DAILY@0800 Levothyroxine Sodium [Synthroid] 50 mcg PO DAILY INSULIN LISPRO (HumaLOG) [humaLOG] See Protocol SQ ACHS Ergocalciferol (Vitamin D2) [Vitamin D2] 50,000 unit PO Q7D Lidocaine/Menthol [Icy Hot 4%-1% Patch] 1 patch TOPICAL DAILY Ipratropium-Albuterol Nebulize [Duoneb 0.5 mg-3 mg/3 ml Soln] 3 ml INHALATION RT-Q4H PRN PRN Reason: Shortness Of Breath Menthol [Biofreeze] 1 applic TOPICAL Q6H PRN PRN Reason: MILD PAIN ON SHOULDERS Acetaminophen [Tylenol Arthritis] 650 mg PO Q6H PRN PRN Reason: Pain amLODIPine [Norvasc] 10 mg PO HS@1999 Sodium Bicarbonate Tab 650 mg PO BID@0800,1600 Sennosides [Senna] 8.6 mg PO BID@0800,1600 Budesonide [Pulmicort] 0.5 mg INHALATION RT-BID@0800,2000 Metoprolol Tartrate [Lopressor] 50 mg PO BID@0800,1600 Pantoprazole Sodium [Protonix] 20 mg PO DAILY@0800 Multivitamins, Thera [Multivitamin (formulary)] 1 tab PO DAILY@0800 Montelukast [Singulair] 10 mg PO HS@1999 HYDROcodone/APAP 5-325MG [[place] 5-325] 1 tab PO Q6H PRN #12 tab PRN Reason: Pain Changed Insulin Glargine [Lantus] 10 unit SQ HS #0 Discontinued Fluticasone Nasal [place]se[place] [Flonase Nasal [place]se[place]] 2 spray EA NOSTRIL DAILY PRN PRN Reason: Allergy Symptoms Furosemide [Lasix] 40 mg PO BID@0800,1999 Potassium Chloride ER [K-Dur 20] 20 meq PO DAILY@0800 Lisinopril [Zestril] 10 mg PO DAILY@0800 Discharge Medication List Citalopram Hydrobromide [CeleXA] 10 mg PO DAILY@0800 08/26/17 [History] Ergocalciferol (Vitamin D2) [Vitamin D2] 50,000 unit PO Q7D 06/14/19 [History] INSULIN LISPRO (HumaLOG) [humaLOG] See Protocol SQ ACHS 06/14/19 [History] Levothyroxine Sodium [Synthroid] 50 mcg PO DAILY 06/14/19 [History] Acetaminophen [Tylenol Arthritis] 650 mg PO Q6H PRN 02/23/20 [History] Budesonide [Pulmicort] 0.5 mg INHALATION RT-BID@0800,199902/23/20 [History] Ipratropium-Albuterol Nebulize [Duoneb 0.5 mg-3 mg/3 ml Soln] 3 ml INHALATION RT-Q4H PRN 02/23/20 [History] Lidocaine/Menthol [Icy Hot 4%-1% Patch] 1 patch TOPICAL DAILY 02/23/20 [History] Menthol [Biofreeze] 1 applic TOPICAL Q6H PRN 02/23/20 [History] Metoprolol Tartrate [Lopressor] 50 mg PO BID@0800,1600 02/23/20 [History] Montelukast [Singulair] 10 mg PO HS@2000 04/04/20 [History] Multivitamins, Thera [Multivitamin (formulary)] 1 tab PO DAILY@0800 02/23/20 [History] Pantoprazole Sodium [Protonix] 20 mg PO DAILY@0800 02/23/20 [History] Sennosides [Senna] 8.6 mg PO BID@0800,1600 02/23/20 [History] Sodium Bicarbonate Tab 650 mg PO BID@0800,1600 02/23/20 [History] amLODIPine [Norvasc] 10 mg PO HS@199902/23/20 [History] Albuterol Inhaler [Ventolin Hfa Inhaler] 2 puff INHALATION RT-QID PRN puff 09/09 [Rx] HYDROcodone/APAP 5-325MG [[place] 5-325] 1 tab PO Q6H PRN #12 tab 02/29/20 [Rx] Insulin Glargine [Lantus] 10 unit SQ HS #0 02/29/20 [Rx] Follow up Appointment(s)/Referral(s): Freddy Edmondson DO [Primary Care Provider] - 1-2 days Activity/Diet/Wound Care/Special Instructions: COVID-19 positive, discharge instructions and precautions including quarantine
[2020-02-29 15:41] VITALS: BP 136/72; PULSE 77; TEMP 97.8
--- NOTE | 2020-03-03 15:23 | ECHOF ---
Referral Reason:assess LV function MEASUREMENTS -------- HEIGHT: 160.0 cm WEIGHT: 89.8 kg BP: 114/61 RVIDd: 3.7 cm (< 3.3) IVSd: 1.3 cm (0.6 - 1.1) LVIDd: 4.2 cm (3.9 - 5.3) LVPWd: 1.3 cm (0.6 - 1.1) IVSs: 1.7 cm LVIDs: 2.4 cm LVPWs: 1.7 cm LA Diam: 3.3 cm (2.7 - 3.8) Ao Diam: 3.4 cm (2.0 - 3.7) AV Cusp: 2.0 cm (1.5 - 2.6) MV EXCURSION: 15.271 mm (> 18.000) MV EF SLOPE: 38 mm/s (70 - 150) EPSS: 0.9 cm MV E Jasbir: 1.06 m/s MV DecT: 305 ms MV A Jasbir: 0.98 m/s MV E/A Ratio: 1.07 RAP: 5.00 mmHg RVSP: 44.00 mmHg FINDINGS -------- Sinus rhythm. This was a technically adequate study. The left ventricular size is normal. There is mild concentric left ventricular hypertrophy. Overa ll left ventricular systolic function is normal with, an EF between 55 - 60 %. The right ventricle is mildly enlarged. The left atrial size is normal. The right atrial size is normal. Interatrial and interventricular septum intact. The aortic valve is trileaflet, and appears structurally normal. No aortic stenosis or regurgitation. The mitral valve leaflets are mildly thickened. Mild mitral regurgitation is present. Mild tricuspid regurgitation present. There is mild pulmonary hypertension. The right ventricular systolic pressure, as measured by Doppler, is 44.00mmHg. The pulmonic valve was not well visualized. There is no pulmonic regurgitation present. The aortic root size is normal. IVC Not well visulized. There is no pericardial effusion. CONCLUSIONS -------- 1. There is mild concentric left ventricular hypertrophy. 2. Overall left ventricular systolic function is normal with, an EF between 55 - 60 %. 3. The right ventricle is mildly enlarged. 4. The left atrial size is normal. 5. The aortic valve is trileaflet, and appears structurally normal. No aortic stenosis or regurgitati on. 6. The mitral valve leaflets are mildly thickened. 7. Mild mitral regurgitation is present. 8. Mild tricuspid regurgitation present. 9. There is mild pulmonary hypertension. DRAPERY OPERATOR: Fatou Carreno RDCS
== END 2020-02-29 15:59 | DRG 177 ==
LOC: EC 12:50 → 4SSUR 15:04
PROVIDERS: ADMIT Hospitalist; ATTEND Hospitalist
DX: U07.1 COVID-19 (principal); J12.89 Other viral pneumonia; J96.01 Acute respiratory failure with hypoxia; N17.0 Acute kidney failure with tubular necrosis; I13.0 Hypertensive heart and chronic kidney disease with heart failure and stage 1 through stage 4 chronic kidney disease, or unspecified chronic kidney disease; D50.9 Iron deficiency anemia, unspecified; D72.810 Lymphocytopenia; E03.9 Hypothyroidism, unspecified; E11.22 Type 2 diabetes mellitus with diabetic chronic kidney disease; E66.01 Morbid (severe) obesity due to excess calories; E87.5 Hyperkalemia; F03.90 Unspecified dementia, unspecified severity, without behavioral disturbance, psychotic disturbance, mood disturbance, and anxiety; F32.9 Major depressive disorder, single episode, unspecified; F41.9 Anxiety disorder, unspecified; G89.29 Other chronic pain; H91.90 Unspecified hearing loss, unspecified ear; I50.9 Heart failure, unspecified; M19.91 Primary osteoarthritis, unspecified site; N18.3 Chronic kidney disease, stage 3 (moderate); R32 Unspecified urinary incontinence; Z66 Do not resuscitate; Z68.37 Body mass index [BMI] 37.0-37.9, adult; Z79.4 Long term (current) use of insulin; Z79.890 Hormone replacement therapy; Z79.899 Other long term (current) drug therapy; Z82.49 Family history of ischemic heart disease and other diseases of the circulatory system; Z87.891 Personal history of nicotine dependence; Z90.710 Acquired absence of both cervix and uterus; Z88.5 Allergy status to narcotic agent; Z88.0 Allergy status to penicillin; Z91.041 Radiographic dye allergy status; Z91.040 Latex allergy status; M54.9 Dorsalgia, unspecified; R94.31 Abnormal electrocardiogram [ECG] [EKG]
CPT/HCPCS: 36415; 71045; 80048; 80053; 82728; 83605; 83615; 83735; 83880; 85025; 85027; 85379; 85610; 85730; 86140; 87040; 87635; 93005; 93306; 94640; 94760; 96365; 96366; 96375; 99291

== ENCOUNTER 2020-03-27 16:32 | Emergency (ER) | payer MEDICARE, OTHER ==
[2020-03-27 16:55] VITALS: RESP 18
[2020-03-27] MEDS ORDERED: LIDOCAINE 1% INJ 10MG/ML (20 ML MDV) SQ ONE (17:12)
--- NOTE | 2020-03-27 17:20 | ED ---
Skin/Abscess/FB HPI - General Chief complaint: Skin/Abscess/Foreign Body Stated complaint: Abscess Time Seen by Provider: 03/27/20 16:58 Source: patient Mode of arrival: ambulatory Limitations: no limitations - History of Present Illness Initial comments: Patient is an 84-year-old female, recently discharged from the hospital for COVID, presenting to the emergency Department with complaints of a possible abscess on her right glut x 1 week. Patient currently is at [facility]. She denies any recent fevers, chills. She has been on doxycycline for this with only minimal improvement. Patient was sent into the hospital for possible drainage. She denies any other complaints at this time. Upon arrival to the ER, her vital signs are stable. - Related Data Home Medications Medication Instructions Recorded Confirmed Citalopram Hydrobromide [CeleXA] 10 mg PO DAILY@0800 08/26/17 02/23/20 Ergocalciferol (Vitamin D2) 50,000 unit PO Q7D 06/14/19 02/23/20 [Vitamin D2] INSULIN LISPRO (HumaLOG) [humaLOG] See Protocol SQ ACHS 06/14/19 02/23/20 Levothyroxine Sodium [Synthroid] 50 mcg PO DAILY 06/14/19 02/23/20 Acetaminophen [Tylenol Arthritis] 650 mg PO Q6H PRN 02/23/20 02/23/20 Budesonide [Pulmicort] 0.5 mg INHALATION RT-BID@08,199902/23/20 02/23/20 Ipratropium-Albuterol Nebulize 3 ml INHALATION RT-Q4H PRN 02/23/20 02/23/20 [Duoneb 0.5 mg-3 mg/3 ml Soln] Lidocaine/Menthol [Icy Hot 4%-1% 1 patch TOPICAL DAILY 02/23/20 02/23/20 Patch] Menthol [Biofreeze] 1 applic TOPICAL Q6H PRN 02/23/20 02/23/20 Metoprolol Tartrate [Lopressor] 50 mg PO BID@0800,1600 02/23/20 02/23/20 Montelukast [Singulair] 10 mg PO HS@199902/23/20 02/23/20 Multivitamins, Thera [Multivitamin 1 tab PO DAILY@0800 02/23/20 02/23/20 (formulary)] Pantoprazole Sodium [Protonix] 20 mg PO DAILY@0800 02/23/20 02/23/20 Sennosides [Senna] 8.6 mg PO BID@0800,1600 02/23/20 02/23/20 Sodium Bicarbonate Tab 650 mg PO BID@0800,1600 02/23/20 02/23/20 amLODIPine [Norvasc] 10 mg PO HS@199902/23/20 02/23/20 Previous Rx's Medication Instructions Recorded Albuterol Inhaler [Ventolin Hfa 2 puff INHALATION RT-QID PRN puff 02/29/20 Inhaler] Furosemide [Lasix] 40 mg PO DAILY #1 tablet 02/29/20 HYDROcodone/APAP 5-325MG [[place] 1 tab PO Q6H PRN #12 tab 02/29/20 5-325] Insulin Glargine [Lantus] 10 unit SQ HS #0 02/29/20 Allergies Allergy/AdvReac Type Severity Reaction Status Date / Time codeine Allergy Unknown Verified 03/27/20 16:56 iodine Allergy Rash/Hives Verified 03/27/20 16:56 Latex, Natural Rubber Allergy Rash/Hives Verified 03/27/20 16:56 Penicillins Allergy Rash/Hives Verified 03/27/20 16:56 Sulfa (Sulfonamide Allergy Unknown Verified 03/27/20 16:56 Antibiotics) Review of Systems ROS Statement: Those systems with pertinent positive or pertinent negative responses have been documented in the HPI. ROS Other: All systems not noted in ROS Statement are negative. Past Medical History Past Medical History: Heart Failure, Diabetes Mellitus, Hypertension, Memory Impairment, Osteoarthritis (OA) Additional Past Medical History / Comment(s): Patient was in the hospital back in May 2019 after she had a fall and she developed a nondisplaced fracture of the lateral tibial condyle of the right knee. She was transferred to [facility]. She has memory impairment and dementia in addition to osteoarthritis and chronic back pain. She has also chronic stage III kidney disease, CHF, diabetes mellitus type 2, hypertension, and she has obesity with a BMI of 35.7. History of Any Multi-Drug Resistant Organisms: None Reported Past Surgical History: Cholecystectomy, Hysterectomy, Tonsillectomy Additional Past Surgical History / Comment(s): Back surgery, cholecystectomy, oopherectomy, 2 surgeries on face, Past Anesthesia/Blood Transfusion Reactions: No Reported Reaction Past Psychological History: Anxiety, Depression Smoking Status: Former smoker Past Alcohol Use History: None Reported Past Drug Use History: None Reported - Past Family History Mother Additional Family Medical History / Comment(s): of cancer Father Family Medical History: Congestive Heart Failure (CHF) Additional Family Medical History / Comment(s): shingles General Exam - General Exam Comments Initial Comments: GENERAL: Well-appearing, well-nourished and in no acute distress. HEAD: Atraumatic, normocephalic. EYES: Pupils equal round and reactive to light, extraocular movements intact, sclera anicteric, conjunctiva are normal. ENT: TMs normal, nares patent, oropharynx clear without exudates. Moist mucous membranes. NECK: Normal range of motion, supple without lymphadenopathy or JVD. LUNGS: Breath sounds clear to auscultation bilaterally and equal. No wheezes rales or rhonchi. HEART: Regular rate and rhythm without murmurs, rubs or gallops. ABDOMEN: Soft, nontender, normoactive bowel sounds. No guarding, no rebound. No masses appreciated. : Deferred EXTREMITIES: Normal range of motion, no pitting or edema. No clubbing or cyanosis. NEUROLOGICAL: Cranial nerves II through XII grossly intact. Normal speech, normal gait. PSYCH: Normal mood, normal affect. SKIN: Warm, Dry, normal turgor,. Patient has a large area of mild erythema, induration and mild fluctuance noted to the right gluteal fold. There is pain with palpation. This area measures roughly 5 cm x 3 cm. Limitations: no limitations Course Vital Signs 03/27/20 03/27/20 16:53 19:52 Temperature 98.1 F 98.8 F Pulse Rate 60 66 Respiratory 18 18 Rate Blood Pressure 145/77 139/78 O2 Sat by Pulse 99 99 Oximetry Procedures - [place] Protocol (Time Out) Procedure Performed:: I&D Performing Provider: Manuela Jimenez Nurse: Marifer Estrada Timeout Date: 03/28/20 Timeout Time: 18:00 Patient Identification (2 identifiers required): Verbal, Arm Band Patient/Legal Header Boss has Confirmed: Identity, Site, Procedure, Consent Site: right glut fold Site Marked: Yes Site Verified With Patient/Guardian: Yes Final Confirmation: Procedure, Site, Patient Position - Incision & Drainage Consent Obtained: verbal consent, written consent Indication: Abscess, right glut. Site: buttock (righ lower flod) Size (cm): 5 Anesthetic Used: lidocaine 1% Amount (mLs): 2 I&D Cleaning Method: Alcohol Wipe Sterile Field Used?: Yes Scalpel Used: #11 Needle Aspiration Performed?: No Irrigation Performed?: No I&D Drainage Obtained: Pus, Blood Culture Obtained?: No Patient Tolerated Procedure: well Medical Decision Making - Medical Decision Making Patient is an 84-year-old female here from [facility] with an abscess to her right gluteal full x 1 week. She is currently on doxycycline. She was sent in for I&D. Her vitals are stable, afebrile. She has no other complaints today. After consent, an I&D was performed on the right gluteal fold with minimal purulent drainage, blood. The area is still very indurated. Patient will continue with her oral antibiotics. She is stable for discharge at this time. She needs to continue with warm compresses to the area. Follow-up with PCP. Case discussed with Dr. Aleman. Disposition Clinical Impression: Cellulitis and abscess of buttock Disposition: HOME SELF-CARE Condition: Stable Instructions (If sedation given, give patient instructions): Abscess Incision and Drainage (ED) Additional Instructions: Please return to the Emergency Department if symptoms worsen or any other concerns. Continue with already prescribed antibiotics. Apply warm compresses to the area 2-3 times a day. Keep area clean and dry. Follow-up with PCP. Is patient prescribed a controlled substance at d/c from ED?: No Referrals: Freddy Edmondson DO [Primary Care Provider] - 1-2 days
[2020-03-27 19:53] VITALS: BP 139/78; PULSE 66; TEMP 98.8
== END 2020-03-27 19:52 | disposition home or self-care (01) ==
LOC: EC 16:32
DX: L02.31 Cutaneous abscess of buttock (principal); I13.0 Hypertensive heart and chronic kidney disease with heart failure and stage 1 through stage 4 chronic kidney disease, or unspecified chronic kidney disease; E11.22 Type 2 diabetes mellitus with diabetic chronic kidney disease; N18.3 Chronic kidney disease, stage 3 (moderate); I50.9 Heart failure, unspecified; F41.9 Anxiety disorder, unspecified; F32.9 Major depressive disorder, single episode, unspecified; E66.9 Obesity, unspecified; Z68.35 Body mass index [BMI] 35.0-35.9, adult; Z87.891 Personal history of nicotine dependence; Z79.4 Long term (current) use of insulin; Z79.890 Hormone replacement therapy; Z79.51 Long term (current) use of inhaled steroids; Z79.899 Other long term (current) drug therapy; Z88.5 Allergy status to narcotic agent; Z91.048 Other nonmedicinal substance allergy status; Z91.040 Latex allergy status; Z88.0 Allergy status to penicillin; Z88.2 Allergy status to sulfonamides
CPT/HCPCS: 99283; 10060; J2001

== ENCOUNTER 2020-10-27 12:09 | Emergency (ER) | payer MEDICARE, OTHER ==
--- NOTE | 2020-10-27 12:43 | ED ---
General Adult HPI - General Chief complaint: Skin/Abscess/Foreign Body Stated complaint: Rash Time Seen by Provider: 10/27/20 12:43 Source: patient Mode of arrival: ambulatory Limitations: no limitations - History of Present Illness Initial comments: Patient is an 85-year-old female who presents to the emergency department from [facility] with reported redness and swelling to the left side of her face for 4 days. Patient reports that her facility is concern for shingles. He denies a previous history of such. States that she does have left eye pain, redness and swelling. She also reports to the sensation that her left ear is plugged. Denies visual changes. Admits to mild left eye pain when she gazes to the right. No fevers or chills. Denies any headaches. No nausea or vomiting. Patient does have a notable abrasion to her nasal bridge. Denies any trauma. Denies any neck pain or stiffness. No other alleviating, precipitating or modif jerrica factors - Related Data Home Medications Medication Instructions Recorded Confirmed Citalopram Hydrobromide [CeleXA] 10 mg PO DAILY 08/26/17 10/27/20 Ergocalciferol (Vitamin D2) 50,000 unit PO TU 06/14/19 10/27/20 [Vitamin D2] Levothyroxine Sodium [Synthroid] 50 mcg PO DAILY@0700 06/14/19 10/27/20 Budesonide [Pulmicort] 0.5 mg INHALATION RT-BID@0800,2000 02/23/20 10/27/20 Lidocaine/Menthol [Icy Hot 4%-1% 1 patch TOPICAL DAILY 02/23/20 10/27/20 Patch] Metoprolol Tartrate [Lopressor] 50 mg PO BID@0800,1600 02/23/20 10/27/20 Montelukast [Singulair] 10 mg PO HS 02/23/20 10/27/20 Multivitamins, Thera [Multivitamin 1 tab PO DAILY 02/23/20 10/27/20 (formulary)] Sennosides [Senna] 8.6 mg PO BID 02/23/20 10/27/20 Sodium Bicarbonate Tab 650 mg PO BID 02/23/20 10/27/20 amLODIPine [Norvasc] 10 mg PO HS 02/23/20 10/27/20 Calcitriol [Rocaltrol] 0.25 mcg PO SUTH 10/27/20 10/27/20 Cimetidine See Taper PO DIRECTED 10/27/20 10/27/20 Furosemide [Lasix] 60 mg PO DAILY 10/27/20 10/27/20 HYDROcodone/APAP 5-325MG [[place] 1 tab PO HS 10/27/20 10/27/20 5-325] HYDROcodone/APAP 5-325MG [[place] 1 tab PO Q8H PRN 10/27/20 10/27/20 5-325] LORazepam [Ativan] 0.5 mg PO HS@2000 10/27/20 10/27/20 Mineral Oil 1 drop BOTH EARS HS 10/27/20 10/27/20 Repaglinide [Prandin] 0.5 mg PO BID@1100,1800 10/27/20 10/27/20 Previous Rx's Medication Instructions Recorded Insulin Glargine [Lantus] 10 unit SQ HS #0 02/29/20 Cefdinir 300 mg PO Q12HR #14 cap 10/27/20 Allergies Allergy/AdvReac Type Severity Reaction Status Date / Time codeine Allergy Unknown Verified 10/27/20 13:10 iodine Allergy Rash/Hives Verified 10/27/20 13:10 Latex, Natural Rubber Allergy Rash/Hives Verified 10/27/20 13:10 Penicillins Allergy Rash/Hives Verified 10/27/20 13:10 Sulfa (Sulfonamide Allergy Unknown Verified 10/27/20 13:10 Antibiotics) Review of Systems ROS Statement: Those systems with pertinent positive or pertinent negative responses have been documented in the HPI. ROS Other: All systems not noted in ROS Statement are negative. Past Medical History Past Medical History: Heart Failure, Diabetes Mellitus, Hypertension, Memory Impairment, Osteoarthritis (OA) Additional Past Medical History / Comment(s): Patient was in the hospital back in May 2019 after she had a fall and she developed a nondisplaced fracture of the lateral tibial condyle of the right knee. She was transferred to [facility]. She has memory impairment and dementia in addition to osteoarthritis and chronic back pain. She has also chronic stage III kidney disease, CHF, diabetes mellitus type 2, hypertension, and she has obesity with a BMI of 35.7. History of Any Multi-Drug Resistant Organisms: None Reported Past Surgical History: Cholecystectomy, Hysterectomy, Tonsillectomy Additional Past Surgical History / Comment(s): Back surgery, cholecystectomy, oopherectomy, 2 surgeries on face, Past Anesthesia/Blood Transfusion Reactions: No Reported Reaction Past Psychological History: Anxiety, Depression Smoking Status: Former smoker - Past Family History Mother Additional Family Medical History / Comment(s): of cancer Father Family Medical History: Congestive Heart Failure (CHF) Additional Family Medical History / Comment(s): shingles General Exam Limitations: no limitations General appearance: alert, in no apparent distress Head exam: Present: atraumatic, other (abrasion over nasal bridge. No vesicular lesions identified. ) Eye exam: Present: PERRL, EOMI, conjunctival injection (right eye), periorbital swelling, other (no dendritic lesions. no corneal abrasions. no entraptment. No pain with eye movement.). Absent: periorbital tenderness ENT exam: Present: normal exam Neck exam: Present: normal inspection. Absent: tenderness, meningismus, lymphadenopathy Course Vital Signs 10/27/20 10/27/20 10/27/20 12:13 14:48 16:15 Temperature 98.1 F Pulse Rate 65 67 68 Respiratory 22 20 16 Rate Blood Pressure 167/75 179/85 173/85 O2 Sat by Pulse 100 100 100 Oximetry Medical Decision Making - Medical Decision Making Upon arrival patient is placed into room 7. A thorough history and physical exam was performed. Patient does have abrasion noted over the nasal bridge. Also some dried tissue noted to the left side of the nasal bridge. No vesicular lesions concerning for shingles. Patient does have conjunctival injection. No signs of entrapment. Did recommend laboratory studies and imaging of the patient's head. Creatinine is 1.96 which is the patient's baseline therefore CT is performed without contrast. CT does demonstrate left lateral periorbital and upper left premaxillary soft tissue swelling. No post septal extension. I did stain the patient's left eye using fluroscein stained. No dendritic lesions identified. No corneal foreign bodies or ulcers. I did call and discuss the case with Dr. Shafer. He request that the patient follow up in office with him on Tuesday. I did call [facility] and the nurse states that the patient's are being taken to their doctor's appointment by a transport van which is currently running. The nurse at the facility is made aware that they need to call in the morning to make an appointment for Tuesday. Dr. Shafer recommended that the patient be placed on antibiotics and will follow up with her. Patient was given the first dose in the emergency department. If she has any new or worsening symptoms she should return to the emergency department. Patient understood this and was discharged back to [facility] in stable condition. - Lab Data Result diagrams: 10/27/20 13:29 10/27/20 13:29 Lab Results 10/27/20 10/27/20 Range/Units 13:29 13:29 WBC 6.0 (3.8-10.6) k/uL RBC 4.02 (3.80-5.40) m/uL Hgb 10.9 L (11.4-16.0) gm/dL Hct 32.8 L (34.0-46.0) % MCV 81.7 (80.0-100.0) fL MCH 27.1 (25.0-35.0) pg MCHC 33.2 (31.0-37.0) g/dL RDW 14.6 (11.5-15.5) % Plt Count 174 (150-450) k/uL MPV 7.9 Neutrophils % 77 % Lymphocytes % 12 % Monocytes % 5 % Eosinophils % 4 % Basophils % 1 % Neutrophils # 4.6 (1.3-7.7) k/uL Lymphocytes # 0.7 L (1.0-4.8) k/uL Monocytes # 0.3 (0-1.0) k/uL Eosinophils # 0.3 (0-0.7) k/uL Basophils # 0.0 (0-0.2) k/uL Sodium 139 (137-145) mmol/L Potassium 4.2 (3.5-5.1) mmol/L Chloride 107 (98-107) mmol/L Carbon Dioxide 29 (22-30) mmol/L Anion Gap 3 mmol/L BUN 42 H (7-17) mg/dL Creatinine 1.96 H (0.52-1.04) mg/dL Est GFR (CKD-EPI)AfAm 26 (>60 ml/min/1.73 sqM) Est GFR (CKD-EPI)NonAf 23 (>60 ml/min/1.73 sqM) Glucose 114 H (74-99) mg/dL Calcium 7.6 L (8.4-10.2) mg/dL Total Bilirubin 0.4 (0.2-1.3) mg/dL AST 20 (14-36) U/L ALT 12 (4-34) U/L Alkaline Phosphatase 150 H (38-126) U/L Total Protein 6.0 L (6.3-8.2) g/dL Albumin 2.7 L (3.5-5.0) g/dL Disposition Clinical Impression: Preseptal cellulitis of left eye Disposition: HOME SELF-CARE Condition: Stable Instructions (If sedation given, give patient instructions): Periorbital Cellulitis in Adults (ED) Additional Instructions: Dr. Shafer, the eye doctor, wants to see you in office on Tuesday the . Call tomorrow to make an appointment. Return to the ED for any new or worsening symptoms. Prescriptions: Cefdinir 300 mg PO Q12HR #14 cap Is patient prescribed a controlled substance at d/c from ED?: No Referrals: Freddy Edmondson DO [Primary Care Provider] - 1-2 days Mir Shafer MD [STAFF PHYSICIAN] - 1-2 days Time of Disposition: 15:51
[2020-10-27 12:44] VITALS: TEMP 98.1
[2020-10-27] MEDS ORDERED: FLUORESCEIN STRIPS 1 MG STRIP LEFT EYE ONE (13:04)
[2020-10-27] MEDS ORDERED: PROPARACAINE 0.5% OPHTH DROPS 15 ML BTL LEFT EYE STA (13:04)
[2020-10-27 13:49] LABS: Basophils % (A) 1 %; Eosinophils # (A) 0.3 k/uL (0-0.7); Eosinophils % (A) 4 %; HCT 32.8 % (34.0-46.0); HGB 10.9 gm/dL (11.4-16.0); Lymphocytes # (A) 0.7 k/uL (1.0-4.8); Lymphocytes % (A) 12 %; MCH 27.1 pg (25.0-35.0); MCHC 33.2 g/dL (31.0-37.0); MCV 81.7 fL (80.0-100.0); Mean Platelet Volume 7.9; Monocytes # (A) 0.3 k/uL (0-1.0); Monocytes % (A) 5 %; Neutrophils # (A) 4.6 k/uL (1.3-7.7); Neutrophils % (A) 77 %; Platelet Count 174 k/uL (150-450); RBC 4.02 m/uL (3.80-5.40); RDW 14.6 % (11.5-15.5)
[2020-10-27 13:59] LABS: Albumin 2.7 g/dL (3.5-5.0); Calcium 7.6 mg/dL (8.4-10.2); Potassium 4.2 mmol/L (3.5-5.1); Total Bilirubin 0.4 mg/dL (0.2-1.3)
[2020-10-27] MEDS ORDERED: cefTRIAXone IN SWFI 1,000 MG/10 ML SYRINGE IVP STA (14:38)
--- NOTE | 2020-10-27 15:22 | CT ---
EXAMINATION TYPE: CT facial bones wo con DATE OF EXAM: 10/27/2020 COMPARISON: None HISTORY: 85-year-old female Left sided redness and swelling with pain. Fall 4 months ago. TECHNIQUE: Contiguous axial scanning of the facial bones without IV contrast. Coronal reconstructions performed. CT DLP: 380 mGycm Automated exposure control for dose reduction was used. FINDINGS: The above high density sclerotic material measuring 9 mm embedded within the subcutaneous adipose lay er of the right cheek should be correlated clinically. Possible retained foreign body. There appears to be old fractures of the right inferior and lateral orbital butterfield extending down ken g the lateral aspect of the maxilla and maxillary sinus. Some type of prosthesis is present along the right infraorbital region. There is left lateral periorbital and upper left premaxillary soft tissue swelling. The left orbit, z ygomatic arch, pterygoid plates, left nasal bone, the bilateral mandible appear intact. Chronic appearing opacification inferior right maxillary sinus likely sequela of chronic trauma and m ucosal thickening. Mild mucosal thickening left frontal sinus and anterior left ethmoid air cells. Visualized mastoid air cells and middle ear cavities are clear. Globes appear symmetric and intact. Partially visualized anterior midline, partially calcified extra-axial mass measuring at least 3.1 cm . This was also present on 06/14/2019 suggesting meningioma but is only partially visualized presently . Unable to determine if it has remained the same size. IMPRESSION: 1. OLD FRACTURE DEFORMITIES OF THE RIGHT ORBIT AND RIGHT MAXILLA. SOME TYPE OF PROSTHESIS IS REDEMONS TRATED BELOW THE RIGHT GLOBE. 2. LEFT LATERAL PERIORBITAL AND UPPER LEFT PREMAXILLARY SOFT TISSUE SWELLING. NO UNDERLYING ACUTE FAC IAL BONE FRACTURE SEEN. CORRELATE FOR PRESEPTAL CELLULITIS . NO POSTSEPTAL EXTENSION IS SEEN. 3. PARTIALLY VISUALIZED ANTERIOR MIDLINE EXTRA-AXIAL MASS MEASURING AT LEAST 3.1 CM. 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 IT IS ONLY PARTIALLY VISUALIZED ON THE CURRENT EXAM, UNABLE TO DETER MINE IF THIS HAS CHANGED IN SIZE. 4. CORRELATE TO EXCLUDE RETAINED 9 MM FOREIGN BODY WITHIN THE RIGHT MAXILLARY SUBCUTANEOUS ADIPOSE LA MICHELLE. .
[2020-10-27] MEDS ORDERED: MORPHINE SULFATE 2 MG/ML SYRINGE IVP ONE (15:34)
[2020-10-27 16:17] VITALS: BP 173/85; PULSE 68; RESP 16
== END 2020-10-27 16:25 | disposition home or self-care (01) ==
LOC: EC 12:09 → EEVIPCON 12:09 → EC 16:25
DX: L03.213 Periorbital cellulitis (principal); S00.31XA Abrasion of nose, initial encounter; J34.89 Other specified disorders of nose and nasal sinuses; F41.9 Anxiety disorder, unspecified; F32.9 Major depressive disorder, single episode, unspecified; I50.9 Heart failure, unspecified; M19.90 Unspecified osteoarthritis, unspecified site; I13.0 Hypertensive heart and chronic kidney disease with heart failure and stage 1 through stage 4 chronic kidney disease, or unspecified chronic kidney disease; E11.22 Type 2 diabetes mellitus with diabetic chronic kidney disease; N18.30 Chronic kidney disease, stage 3 unspecified; E66.9 Obesity, unspecified; Z79.4 Long term (current) use of insulin; Z79.899 Other long term (current) drug therapy; Z79.890 Hormone replacement therapy; Z88.5 Allergy status to narcotic agent; Z91.040 Latex allergy status; Z88.0 Allergy status to penicillin; Z88.2 Allergy status to sulfonamides; Z91.048 Other nonmedicinal substance allergy status; Z68.35 Body mass index [BMI] 35.0-35.9, adult; Z87.891 Personal history of nicotine dependence; X58.XXXA Exposure to other specified factors, initial encounter
CPT/HCPCS: 36415; 80053; 85025; 70486; 99284; 96374; 96375; J0696; J2270

== ENCOUNTER 2021-01-02 15:13 | Inpatient (IN) | payer MEDICARE, OTHER ==
[2021-01-02] MEDS ORDERED: MORPHINE SULFATE 2 MG/ML SYRINGE IM STA (15:24)
--- NOTE | 2021-01-02 15:31 | ED ---
General Adult HPI - General Chief complaint: Fall Stated complaint: Head injury Time Seen by Provider: 01/02/21 15:14 Source: EMS Mode of arrival: ambulatory - History of Present Illness Initial comments: 85 year-old female patient presents to the emergency department for evaluation after experiencing a fall. She is a resident at [facility]. Apparent she fell from her chair and hit her head. She does have some bleeding from a scalp wound. She is complaining of right hip pain. She is also reporting left shoulder pain, but states she received an injection in that arm today. Denies headache. She is somewhat debilitated and hard of hearing so obtaining information is difficulty. She does not take blood thinning medications. - Related Data Home Medications Medication Instructions Recorded Confirmed Citalopram Hydrobromide [CeleXA] 10 mg PO DAILY 08/26/17 01/02/21 Levothyroxine Sodium [Synthroid] 50 mcg PO DAILY@0700 06/14/19 01/02/21 Budesonide [Pulmicort] 0.5 mg INHALATION RT-BID 02/23/20 01/02/21 Metoprolol Tartrate [Lopressor] 50 mg PO BID 02/23/20 01/02/21 Montelukast [Singulair] 10 mg PO HS 02/23/20 01/02/21 Multivitamins, Thera [Multivitamin 1 tab PO DAILY 02/23/20 01/02/21 (formulary)] Sennosides [Senna] 8.6 mg PO BID 02/23/20 01/02/21 Sodium Bicarbonate Tab 650 mg PO BID 02/23/20 01/02/21 amLODIPine [Norvasc] 10 mg PO HS 02/23/20 01/02/21 Calcitriol [Rocaltrol] 0.25 mcg PO SUTH 10/27/20 01/02/21 Furosemide [Lasix] 60 mg PO DAILY 10/27/20 01/02/21 HYDROcodone/APAP 5-325MG [[place] 1 tab PO HS 10/27/20 01/02/21 5-325] HYDROcodone/APAP 5-325MG [[place] 1 tab PO Q8H PRN 10/27/20 01/02/21 5-325] LORazepam [Ativan] 0.5 mg PO HS@199910/27/20 01/02/21 Repaglinide [Prandin] 0.5 mg PO BID@1100,1800 10/27/20 01/02/21 Ergocalciferol [Vitamin D2 (1250 1,250 mcg PO TU 01/02/21 01/02/21 Mcg = 44865 Iu)] Famotidine [Pepcid] 20 mg PO HS 01/02/21 01/02/21 Loteprednol Etabonate [Inveltys] 1 drop LEFT EYE BID 01/02/21 01/02/21 Menthol [Icy Hot] 1 patch TRANSDERM DAILY 01/02/21 01/02/21 Mineral Oil 2 drops BOTH EARS HS@199901/02/21 01/02/21 Previous Rx's Medication Instructions Recorded Insulin Glargine [Lantus] 10 unit SQ HS #0 02/29/20 Allergies Allergy/AdvReac Type Severity Reaction Status Date / Time codeine Allergy Unknown Verified 01/02/21 15:32 iodine Allergy Rash/Hives Verified 01/02/21 15:32 Latex, Natural Rubber Allergy Rash/Hives Verified 01/02/21 15:32 Penicillins Allergy Rash/Hives Verified 01/02/21 15:32 Sulfa (Sulfonamide Allergy Unknown Verified 01/02/21 15:32 Antibiotics) Review of Systems ROS Statement: Those systems with pertinent positive or pertinent negative responses have been documented in the HPI. ROS Other: All systems not noted in ROS Statement are negative. Past Medical History Past Medical History: Heart Failure, Diabetes Mellitus, Hypertension, Memory Impairment, Osteoarthritis (OA) Additional Past Medical History / Comment(s): Patient was in the hospital back in May 2019 after she had a fall and she developed a nondisplaced fracture of the lateral tibial condyle of the right knee. She was transferred to [facility]. She has memory impairment and dementia in addition to osteoarthritis and chronic back pain. She has also chronic stage III kidney disease, CHF, diabetes mellitus type 2, hypertension, and she has obesity with a BMI of 35.7. History of Any Multi-Drug Resistant Organisms: None Reported Past Surgical History: Cholecystectomy, Hysterectomy, Tonsillectomy Additional Past Surgical History / Comment(s): Back surgery, cholecystectomy, oopherectomy, 2 surgeries on face, Past Anesthesia/Blood Transfusion Reactions: No Reported Reaction Past Psychological History: Anxiety, Depression Smoking Status: Former smoker Past Alcohol Use History: None Reported Past Drug Use History: None Reported - Past Family History Mother Additional Family Medical History / Comment(s): of cancer Father Family Medical History: Congestive Heart Failure (CHF) Additional Family Medical History / Comment(s): shingles General Exam General appearance: alert, in no apparent distress, other (This is a well developed, well nourished, debilitated appearing lady in no acute distress. ) Head exam: Present: other (There is abrasion to the right posterior scalp. ) Eye exam: Present: normal appearance, PERRL, EOMI. Absent: scleral icterus, conjunctival injection, periorbital swelling ENT exam: Present: normal exam, mucous membranes moist Neck exam: Present: normal inspection, other (Tenderness noted over the posterior cervical spine.). Absent: tenderness, meningismus, full ROM (C-collar in place), lymphadenopathy Respiratory exam: Present: normal lung sounds bilaterally. Absent: respiratory distress, wheezes, rales, rhonchi, stridor Cardiovascular Exam: Present: regular rate, normal rhythm, normal heart sounds. Absent: systolic murmur, diastolic murmur, rubs, gallop, clicks GI/Abdominal exam: Present: soft, normal bowel sounds. Absent: distended, tenderness, guarding, rebound, rigid Extremities exam: Present: normal inspection, full ROM (All extremities within limitations of patient's age), tenderness (Right hip tenderness, left deltoid tenderness.), other (shortening or rotation noted to the lower extremities. Skin to the legs and arms are pink, warm, dry. Cap refill less than 3 seconds. Radial pulses 2+. Pedal pulses 2+.) Back exam: Present: normal inspection. Absent: vertebral tenderness Neurological exam: Present: alert, oriented X3, CN II-XII intact Psychiatric exam: Present: normal affect, normal mood Skin exam: Present: warm, dry, intact, normal color. Absent: rash Course Vital Signs 01/02/21 01/02/21 01/02/21 15:20 17:43 20:55 Temperature 98.2 F 97.8 F Pulse Rate 60 63 80 Respiratory 20 22 16 Rate Blood Pressure 166/107 151/89 162/92 O2 Sat by Pulse 100 96 96 Oximetry EKG Findings - EKG Comments: EKG Findings:: EKG obtained at 1823 shows sinus rhythm with first-degree AV block, prolonged QT interval. Ventricular rate is 65, NE interval 240, QRS duration 102, QT 474, QTC 492. No evidence of ST elevation or depression. Medical Decision Making - Medical Decision Making 85 year-old female patient presented to the emergency department for evaluation after experiencing a fall at her long-term care facility. She was reporting right hip pain as well as headache and neck pain. Physical examination did reveal abrasion to the right posterior scalp. CT brain and C-spine was negative. Right hip and pelvis x-ray did reveal a right femoral neck fracture. Labs were obtained for presurgical clearance showed evidence of elevated potassium of 5.6, BUN 52, creatinine 2.32. Urinalysis was obtained after catheter insertion did show presence of urinary tract infection with turbid appearance, 3+ protein, small amount of blood, large leukocyte esterase, 11 red blood cells, greater than 182 white blood cells, many white blood cell clumps, and few bacteria. She did test negative for COVID-19. Case was discussed with Ventura LIZAMA who agrees to admission. Dr. Padilla covers her primary care physician so he was admitted for medical management. Case was discussed with my attending Dr. Reilly. - Lab Data Result diagrams: 01/02/21 18:19 01/02/21 18:19 Lab Results 01/02/21 01/02/21 01/02/21 Range/Units 18:19 18:19 18:19 WBC 8.9 (3.8-10.6) k/uL RBC 4.11 (3.80-5.40) m/uL Hgb 11.2 L (11.4-16.0) gm/dL Hct 34.2 (34.0-46.0) % MCV 83.4 (80.0-100.0) fL MCH 27.4 (25.0-35.0) pg MCHC 32.8 (31.0-37.0) g/dL RDW 15.1 (11.5-15.5) % Plt Count 215 (150-450) k/uL MPV 7.7 Neutrophils % 86 % Lymphocytes % 8 % Monocytes % 3 % Eosinophils % 2 % Basophils % 1 % Neutrophils # 7.7 (1.3-7.7) k/uL Lymphocytes # 0.7 L (1.0-4.8) k/uL Monocytes # 0.2 (0-1.0) k/uL Eosinophils # 0.1 (0-0.7) k/uL Basophils # 0.1 (0-0.2) k/uL PT 9.5 (9.0-12.0) sec INR 0.9 (<1.2) APTT 23.3 (22.0-30.0) sec Sodium (137-145) mmol/L Potassium (3.5-5.1) mmol/L Chloride (98-107) mmol/L Carbon Dioxide (22-30) mmol/L Anion Gap mmol/L BUN (7-17) mg/dL Creatinine (0.52-1.04) mg/dL Est GFR (CKD-EPI)AfAm (>60 ml/min/1.73 sqM) Est GFR (CKD-EPI)NonAf (>60 ml/min/1.73 sqM) Glucose (74-99) mg/dL Calcium (8.4-10.2) mg/dL Total Bilirubin (0.2-1.3) mg/dL AST (14-36) U/L ALT (4-34) U/L Alkaline Phosphatase (38-126) U/L Total Protein (6.3-8.2) g/dL Albumin (3.5-5.0) g/dL Urine Color Light Yellow Urine Appearance Turbid H (Clear) Urine pH 6.0 (5.0-8.0) Ur Specific [place] 1.015 (1.001-1.035) Urine Protein 3+ H (Negative) Urine Glucose (UA) Negative (Negative) Urine Ketones Negative (Negative) Urine Blood Small H (Negative) Urine Nitrite Negative (Negative) Urine Bilirubin Negative (Negative) Urine Urobilinogen <2.0 (<2.0) mg/dL Ur Leukocyte Esterase Large H (Negative) Urine RBC 11 H (0-5) /hpf Urine WBC >182 H (0-5) /hpf Urine WBC Clumps Many H (None) /hpf Urine Bacteria Few H (None) /hpf Coronavirus (PCR) (Not Detectd) 01/02/21 01/02/21 Range/Units 18:19 18:27 WBC (3.8-10.6) k/uL RBC (3.80-5.40) m/uL Hgb (11.4-16.0) gm/dL Hct (34.0-46.0) % MCV (80.0-100.0) fL MCH (25.0-35.0) pg MCHC (31.0-37.0) g/dL RDW (11.5-15.5) % Plt Count (150-450) k/uL MPV Neutrophils % % Lymphocytes % % Monocytes % % Eosinophils % % Basophils % % Neutrophils # (1.3-7.7) k/uL Lymphocytes # (1.0-4.8) k/uL Monocytes # (0-1.0) k/uL Eosinophils # (0-0.7) k/uL Basophils # (0-0.2) k/uL PT (9.0-12.0) sec INR (<1.2) APTT (22.0-30.0) sec Sodium 141 (137-145) mmol/L Potassium 5.6 H (3.5-5.1) mmol/L Chloride 107 (98-107) mmol/L Carbon Dioxide 24 (22-30) mmol/L Anion Gap 10 mmol/L BUN 52 H (7-17) mg/dL Creatinine 2.32 H (0.52-1.04) mg/dL Est GFR (CKD-EPI)AfAm 21 (>60 ml/min/1.73 sqM) Est GFR (CKD-EPI)NonAf 19 (>60 ml/min/1.73 sqM) Glucose 115 H (74-99) mg/dL Calcium 7.8 L (8.4-10.2) mg/dL Total Bilirubin 0.3 (0.2-1.3) mg/dL AST 34 (14-36) U/L ALT 23 (4-34) U/L Alkaline Phosphatase 215 H (38-126) U/L Total Protein 6.9 (6.3-8.2) g/dL Albumin 3.2 L (3.5-5.0) g/dL Urine Color Urine Appearance (Clear) Urine pH (5.0-8.0) Ur Specific [place] (1.001-1.035) Urine Protein (Negative) Urine Glucose (UA) (Negative) Urine Ketones (Negative) Urine Blood (Negative) Urine Nitrite (Negative) Urine Bilirubin (Negative) Urine Urobilinogen (<2.0) mg/dL Ur Leukocyte Esterase (Negative) Urine RBC (0-5) /hpf Urine WBC (0-5) /hpf Urine WBC Clumps (None) /hpf Urine Bacteria (None) /hpf Coronavirus (PCR) Not Detected (Not Detectd) - Radiology Data Radiology results: report reviewed, image reviewed CT brain C-spine without contrast was obtained. Report was reviewed in its entirety. Impression by Dr. Davis shows slight widening of the heterogenous midline anterior mass. Meningioma remains likely within the differential. No acute intracranial process. Atrophy. Cervical spine shows degenerative disc changes. Severe left foraminal narrowing C5 to 6. No acute osseous abnormality. X-ray of the right hip and pelvis is obtained. Report was reviewed in its entirety. Impression by Dr. Chong shows right femoral neck fracture. One view x-ray of the chest is obtained. Report is reviewed in its entirety. Impression by Dr. Chong shows CHF. CT pelvis without contrast was obtained. Report is reviewed in its entirety. Impression by Dr. Chong shows acute right femoral neck fracture. Chronic appearing L5 compression fracture with questionable superimposed acute component. Sacral decubitus ulcer. Disposition Clinical Impression: Closed right hip fracture, Head injury Disposition: ADMITTED IP TO THIS [facility] Condition: Serious Decision to Admit Reason: Admit from EC Decision Date: 01/02/21 Decision Time: 18:51
--- NOTE | 2021-01-02 16:23 | CT ---
EXAMINATION TYPE: CT brain jurgen wo con DATE OF EXAM: 01/02/2021 COMPARISON: 06/14/2019 HISTORY: fall/head injury CT DLP: 1415.1 mGycm, Automated exposure control for dose reduction was used. CONTRAST: Patient injected with 0 mL of Isovue 300. CT of the brain is performed utilizing 3 mm thick sections through the posterior fossa and 3 mm thick sections through the remaining calvarium. Study is performed within 24 hours of arrival to the hospital. No abnormal hyperdensity is present to suggest an acute intracranial hemorrhage. There is a heterogenous with somewhat calcific components. This measures 3.4 x 1.8 cm in size. This i s slightly enlarged from the comparison of 2019. Previous measurement 3.1 cm wider by 1.9 cm. No acute infarcts are evident. Ventricles and sulci are prominent for the patient age. Paranasal sinuses and mastoid air cells within the [id number] are clear. IMPRESSIONS: 1. There may be some slight widening of the heterogenous midline anterior mass. Meningioma remains li megan within the differential. 2. No acute intracranial process. 3. Atrophy CT cervical spine. COMPARISON: None CT of the cervical spine is performed in the axial plane at 2 mm thick sections. Reconstructed image s in the coronal, and sagittal plane are reviewed on the computer. No acute fractures are evident. Vertebral body alignment is normal. There is loss of disc height diffusely throughout the cervical spine Vertebral body heights are preserved. No spinal canal stenosis is evident. Uncovertebral joint hypertrophy is contributing to foraminal narrowing. This is severe some left C5-6 level. IMPRESSIONS: 1. Degenerative disc changes. 2. Severe left foraminal narrowing C5-6. 3. No acute osseous abnormality
--- NOTE | 2021-01-02 17:55 | XR ---
EXAMINATION TYPE: XR Hip RT and AP Pelvis DATE OF EXAM: 01/02/2021 COMPARISON: NONE HISTORY: Right hip pain status post fall. TECHNIQUE: A single AP view of the pelvis is obtained. Two views of the right hip are obtained. FINDINGS: There is a mildly displaced and valgus angulated right femoral neck fracture. No evidence of dislocat ion. There are mild degenerative changes of the bilateral hips. IMPRESSION: Right femoral neck fracture.
[2021-01-02] MEDS ORDERED: HYDROmorphone 0.5 MG/0.5 ML SYRINGE IVP STA (18:02)
[2021-01-02] MEDS ORDERED: ONDANSETRON 4 MG/2 ML VIAL IVP STA (18:02)
[2021-01-02 18:32] LABS: Basophils # (A) 0.1 k/uL (0-0.2); Basophils % (A) 1 %; Eosinophils # (A) 0.1 k/uL (0-0.7); Eosinophils % (A) 2 %; HCT 34.2 % (34.0-46.0); HGB 11.2 gm/dL (11.4-16.0); Lymphocytes # (A) 0.7 k/uL (1.0-4.8); Lymphocytes % (A) 8 %; MCH 27.4 pg (25.0-35.0); MCHC 32.8 g/dL (31.0-37.0); MCV 83.4 fL (80.0-100.0); Mean Platelet Volume 7.7; Monocytes # (A) 0.2 k/uL (0-1.0); Monocytes % (A) 3 %; Neutrophils # (A) 7.7 k/uL (1.3-7.7); Neutrophils % (A) 86 %; Platelet Count 215 k/uL (150-450); RBC 4.11 m/uL (3.80-5.40); RDW 15.1 % (11.5-15.5); WBC 8.9 k/uL (3.8-10.6)
[2021-01-02 18:42] LABS: INR 0.9 (<1.2); Partial Thromboplastin Time 23.3 sec (22.0-30.0); Prothrombin Time 9.5 sec (9.0-12.0)
[2021-01-02 18:43] LABS: Albumin 3.2 g/dL (3.5-5.0); Calcium 7.8 mg/dL (8.4-10.2); Potassium 5.6 mmol/L (3.5-5.1); Total Bilirubin 0.3 mg/dL (0.2-1.3); Total Protein 6.9 g/dL (6.3-8.2)
[2021-01-02 18:48] LABS: Appearance,Urine Turbid (Clear); Bacteria,Urine Few /hpf; Bilirubin,Urine Negative (Negative); Blood,Urine Small (Negative); Color,Urine Light Yellow; Glucose,Urine (UA) Negative (Negative); Ketones,Urine Negative (Negative); Leukocyte Esterase,Urine Large (Negative); Nitrite,Urine Negative (Negative); Protein,Urine 3+ (Negative); RBC,Urine 11 /hpf (0-5); Specific Gravity,Urine 1.015 (1.001-1.035); Urobilinogen,Urine <2.0 mg/dL (<2.0); WBC,Urine >182 /hpf (0-5)
[2021-01-02] MEDS ORDERED: NALOXONE 0.4 MG/ML 1 ML VIAL IV PRN (18:49)
[2021-01-02] MEDS ORDERED: TRIMETHOBENZAMIDE 100 MG/ML 2 ML VIAL IM PRN (18:50)
--- NOTE | 2021-01-02 18:54 | XR ---
EXAMINATION TYPE: XR chest 1V DATE OF EXAM: 01/02/2021 COMPARISON: 02/29/2020. HISTORY: Preoperative. TECHNIQUE: Single frontal view of the chest is obtained. FINDINGS: There is moderate to marked pulmonary edema with small to moderate bilateral pleural effus ions. No pneumothorax seen. The cardiac silhouette size is enlarged. The osseous structures are in tact. IMPRESSION: CHF
[2021-01-02] MEDS ORDERED: HYDROmorphone 1 MG/ML 1 ML SYRINGE IVP STA (19:34)
--- NOTE | 2021-01-02 19:46 | P.HPOR ---
History of Present Illness H&P Date: 01/02/21 Chief Complaint: Right subcapital femur fracture, displaced Patient is an 85-year-old female who was brought to [facility] after a fall from her wheelchair. Patient is a resident at [facility]. During the fall she did strike her head but denies losing consciousness. Upon arrival to the hospital, imaging and lab tests were done. Computed to mography scan of the head revealed no acute intracranial processes. X-rays of the hip and pelvis demonstrated a displaced subcapital femur fracture on the right-hand side. I was contacted by the emergency room staff and was able to discuss the case. Dr. Navarrete was available to review the images. I then was able to evaluate patient in the emergency room. Patient's son was at bedside to help with review of systems and history of present illness. Patient is relatively immobile, she utilizes an wheelchair at most times. She does transfer with help. She has a known past medical history of high blood pressure, congestive heart failure, chronic kidney disease, type II diabetic. Patient is very hard of hearing, she utilizes a microphone type system help with this. Achieving a review of system was very difficult, she did receive IV pain medication and is slightly confused. Patient notes some discomfort in the left upper extremity, she did just receive a COVID 19 vaccine today. She does have some discomfort on the back of her head, there is a notable scalp laceration that region. She has a history of back surgery with chronic low back pain. She denies any new onset low back pain, thoracic or cervical pain. She denies any pain involving the left lower extremity. She denies any pain of the bilateral upper extremity the size area of injection. She notes most of the pain in the right lower extremity with movement, it is more at the proximal part of the femur into the groin. No recent history of loss of bowel or bladder function Review of Systems Constitutional: Reports as per HPI Past Medical History Past Medical History: Heart Failure, Diabetes Mellitus, Hypertension, Memory I mpairment, Osteoarthritis (OA) Additional Past Medical History / Comment(s): Patient was in the hospital back in May 2019 after she had a fall and she developed a nondisplaced fracture of the lateral tibial condyle of the right knee. She was transferred to [facility]. She has memory impairment and dementia in addition to osteoarthritis and chronic back pain. She has also chronic stage III kidney disease, CHF, diabetes mellitus type 2, hypertension, and she has obesity with a BMI of 35.7. History of Any Multi-Drug Resistant Organisms: None Reported Past Surgical History: Cholecystectomy, Hysterectomy, Tonsillectomy Additional Past Surgical History / Comment(s): Back surgery, cholecystectomy, oopherectomy, 2 surgeries on face, Past Anesthesia/Blood Transfusion Reactions: No Reported Reaction Past Psychological History: Anxiety, Depression Smoking Status: Former smoker Past Alcohol Use History: None Reported Past Drug Use History: None Reported - Past Family History Mother Additional Family Medical History / Comment(s): of cancer Father Family Medical History: Congestive Heart Failure (CHF) Additional Family Medical History / Comment(s): shingles Medications and Allergies Home Medications Medication Instructions Recorded Confirmed Type Citalopram Hydrobromide [CeleXA] 10 mg PO DAILY 08/26/17 01/02/21 History Levothyroxine Sodium [Synthroid] 50 mcg PO DAILY@0700 06/14/19 01/02/21 History Budesonide [Pulmicort] 0.5 mg INHALATION RT-BID 02/23/20 01/02/21 History Metoprolol Tartrate [Lopressor] 50 mg PO BID 02/23/20 01/02/21 History Montelukast [Singulair] 10 mg PO HS 02/23/20 01/02/21 History Multivitamins, Thera [Multivitamin 1 tab PO DAILY 02/23/20 01/02/21 History (formulary)] Sennosides [Senna] 8.6 mg PO BID 02/23/20 01/02/21 History Sodium Bicarbonate Tab 650 mg PO BID 02/23/20 01/02/21 History amLODIPine [Norvasc] 10 mg PO HS 02/23/20 01/02/21 History Insulin Glargine [Lantus] 10 unit SQ HS #0 02/29/20 01/02/21 Rx Calcitriol [Rocaltrol] 0.25 mcg PO SUTH 10/27/20 01/02/21 History Furosemide [Lasix] 60 mg PO DAILY 10/27/20 01/02/21 History HYDROcodone/APAP 5-325MG [[place] 1 tab PO HS 10/27/20 01/02/21 History 5-325] HYDROcodone/APAP 5-325MG [[place] 1 tab PO Q8H PRN 10/27/20 01/02/21 History 5-325] LORazepam [Ativan] 0.5 mg PO HS@199910/27/20 01/02/21 History Repaglinide [Prandin] 0.5 mg PO BID@1100,1800 10/27/20 01/02/21 History Ergocalciferol [Vitamin D2 (1250 1,250 mcg PO TU 01/02/21 01/02/21 History Mcg = 52789 Iu)] Famotidine [Pepcid] 20 mg PO HS 01/02/21 01/02/21 History Loteprednol Etabonate [Inveltys] 1 drop LEFT EYE BID 01/02/21 01/02/21 History Menthol [Icy Hot] 1 patch TRANSDERM DAILY 01/02/21 01/02/21 History Mineral Oil 2 drops BOTH EARS HS@199901/02/21 01/02/21 History Allergies Allergy/AdvReac Type Severity Reaction Status Date / Time codeine Allergy Unknown Verified 01/02/21 15:32 iodine Allergy Rash/Hives Verified 01/02/21 15:32 Latex, Natural Rubber Allergy Rash/Hives Verified 01/02/21 15:32 Penicillins Allergy Rash/Hives Verified 01/02/21 15:32 Sulfa (Sulfonamide Allergy Unknown Verified 01/02/21 15:32 Antibiotics) Physical Examination Right lower extremity: Open lesions or sores are visualized throughout the extremity, no significant areas of erythema or soft tissue swelling There is obvious shortening and external rotation of the extremity compared to the contralateral side She is able to straight leg raise, lateral maneuver reproduces severe pain Range of motion of the hip and knee were not assessed Plantar flexion, dorsiflexion, EHL, FHL are intact Her sensory exam light touch throughout the extremity is intact, her dorsalis pedis pulses 2+ General orthopedic exam: No open lesions or sores are visualized throughout the bilateral upper extremities Besides the area of the left posterior upper arm, no other areas of point tenderness of the bilateral upper extremities Range of motion with regards to shoulder abduction, elbow extension, elbow flexion, wrist extension, wrist flexion and intrinsics are all adequate with patient's age and current medical state Logroll maneuver the left hip reproduces no pain She is able to extend the hip along with extend and flex the knee with minimal difficulty. Plantar flexion, dorsiflexion, EHL, FHL are intact. Her sensory exam to light touch throughout the left lower extremity is intact, dorsalis pedis pulses 2+ Results - Labs Labs: Abnormal Lab Results - Last 24 Hours (Table) 01/02/21 01/02/21 01/02/21 Range/Units 18:19 18:19 18:19 Hgb 11.2 L (11.4-16.0) gm/dL Lymphocytes # 0.7 L (1.0-4.8) k/uL Potassium 5.6 H (3.5-5.1) mmol/L BUN 52 H (7-17) mg/dL Creatinine 2.32 H (0.52-1.04) mg/dL Glucose 115 H (74-99) mg/dL Calcium 7.8 L (8.4-10.2) mg/dL Alkaline Phosphatase 215 H (38-126) U/L Albumin 3.2 L (3.5-5.0) g/dL Urine Appearance Turbid H (Clear) Urine Protein 3+ H (Negative) Urine Blood Small H (Negative) Ur Leukocyte Esterase Large H (Negative) Urine RBC 11 H (0-5) /hpf Urine WBC >182 H (0-5) /hpf Urine WBC Clumps Many H (None) /hpf Urine Bacteria Few H (None) /hpf H & H 01/02/21 Range/Units 18:19 Hgb 11.2 L (11.4-16.0) gm/dL Hct 34.2 (34.0-46.0) % Coagulation 01/02/21 Range/Units 18:19 INR 0.9 (<1.2) Result Diagrams: 01/02/21 18:19 01/02/21 18:19 - Diagnostic results Hip x-ray: report reviewed, image reviewed (Images demonstrated obvious displa farhana right subcapital femur fracture. Obvious arthritic changes are noted throughout the bilateral hips, including joint space narrowing and subchondral sclerosis.) Assessment and Plan Assessment: Right subcapital femur fracture, displaced, closed Scalp laceration Status post fall from wheelchair Multiple medical comorbidities Plan: I was able to review the case along with treatment options with the patient and her son at bedside today. We would like proceed with a right hip hemiarthroplasty of the subcapital femur fracture on the right side. We will like to proceed with this on 01/03/2021. Patient's son was notified and Dr. Navarrete would be available in the preoperative area to discuss further risk assessment. We did discuss briefly the risk and benefits, this to include infection, blood loss, neurovascular injury, development of blood clots, need for subsequent surgery, pain and stiffness, mortality. Obtain consent Robles catheter placement year Nothing by mouth after midnight Nonweightbearing right lower extremity DVT prophylaxis, we'll begin subcu medication after surgery PT/OT evaluation after surgery Pain control, oral and IV medication as needed. Dose accordingly due to patient's age and mental status Medical recommendations Computed tomography scan of the pelvis without contrast has been ordered to further evaluate the bony processes, further recommendations after review the images Discharge planning: Plan is for patient to return to [facility] when medically stable Time with Patient: Less than 30
--- NOTE | 2021-01-02 20:30 | CT ---
EXAMINATION TYPE: CT pelvis wo con DATE OF EXAM: 01/02/2021 COMPARISON: Same-day radiograph. HISTORY: Right hip pain after fall. CT DLP: 569.4 mGycm TECHNIQUE: Axial CT images of the pelvis was obtained without contrast. Coronal and sagittal reformat s were generated and reviewed. Automated exposure control for dose reduction was used. FINDINGS: There is a mildly displaced and valgus angulated transcervical right femoral neck fracture. No eviden ce of dislocation. There are sljn-tr-fqijnaxp degenerative changes of the bilateral hips. There is so ft tissue edema about the right hip. There is small right hip joint effusion. There is moderate L5 compression fracture with approximately 40% height loss. No evidence of retropul екатерина. No significant spondylolisthesis. There is moderate to severe L5-S1 spondylosis. Right decubitus ulcer is seen. Urinary bladder Robles catheter is in place. IMPRESSION: ACUTE RIGHT FEMORAL NECK FRACTURE. CHRONIC APPEARING L5 COMPRESSION FRACTURE WITH QUESTIONABLE SUPERIMPOSED ACUTE COMPONENT. SACRAL DECUBITUS ULCER.
[2021-01-02 21:46] LABS: Glucose,Whole Blood 112 mg/dL (75-99)
[2021-01-03] MEDS: HYDROmorphone 0.5 MG/0.5 ML SYRINGE IVP PRN ×5 (00:50→22:18)
[2021-01-03 06:25] LABS: Glucose,Whole Blood 115 mg/dL (75-99)
[2021-01-03 07:29] LABS: Glucose,Whole Blood 117 mg/dL (75-99)
[2021-01-03] MEDS ORDERED: CLINDAMYCIN 900 MG in DEXTROSE 5% IN WATER 50 ML IVPB ONE ×2 (08:00)
[2021-01-03] MEDS ORDERED: KETAMINE 10 MG/ML 20 ML VIAL ONE (08:40)
[2021-01-03] MEDS ORDERED: CLINDAMYCIN 150 MG/ML 4 ML VIAL ONE (08:40)
[2021-01-03] MEDS ORDERED: ePHEDrine SULFATE/0.9% NACL/PF 50 MG/5 ML SYRINGE IV ONE (08:40)
[2021-01-03] MEDS ORDERED: PHENYLEPHRINE-0.9% NACL SYG 1,000 MCG/10 ML SYRINGE ONE (08:40)
[2021-01-03] MEDS ORDERED: ONDANSETRON 4 MG/2 ML VIAL ONE (08:40)
[2021-01-03] MEDS ORDERED: PROPOFOL 10 MG/ML 20 ML VIAL IV ONE (08:40)
[2021-01-03] MEDS ORDERED: LACTATED RINGERS 1,000 ML IV ONE (08:44)
[2021-01-03] MEDS ORDERED: MAGNESIUM HYDROXIDE 2,400 MG/10 ML CUP PO PRN (10:39)
[2021-01-03] MEDS ORDERED: ONDANSETRON 4 MG/2 ML VIAL IVP PRN (10:39)
[2021-01-03] MEDS ORDERED: HYDROcodone/APAP 5-325MG 1 EACH TAB PO PRN (10:42)
[2021-01-03 11:09] LABS: Glucose,Whole Blood 120 mg/dL (75-99)
--- NOTE | 2021-01-03 11:27 | P.OP ---
Date of Procedure: 01/03/21 Preoperative Diagnosis: 1. Right femoral neck fracture, complete, displaced comminuted. 2. s/p ffs w/BHT no LOC 3. Complex medical history Postoperative Diagnosis: Same Procedure(s) Performed: Right hip hemiarthroplasty Implants: Depyu Corail 12 stem standard neck +1.5 head 47 bipolar Anesthesia: spinal Surgeon: Justin Navarrete [employer] #1: Pablo Nguyen (Was present for the entire case and was necessary due to the complexity of the case.) Estimated Blood Loss (ml): 100 IV fluids (ml): 1,500 Urine output (ml): 100 Pathology: none sent Condition: stable Disposition: PACU Indications for Procedure: This is a pleasant and slightly deaf 85-year-old female who presented to the emergency department after a fall from her wheelchair at her residence and metal lodged. Patient states that she was trying to get out of her wheelchair when she tripped and fell onto her right hip causing immediate right hip pain and inability to ambulate and deformity. The patient presented the emergency department with her son who is a steam plant operator and EMT. He states he knew right away that it was broken. She denied any numbness or tingling x-rays and computed tomography scan confirmed a right femoral neck fracture. We discussed the risks and benefits of surgery including risk of bleeding infection damage trying tissue was cut reoperation risk of anesthesia including with the son who is very understanding. He states he understands that this is for quality of life as well as pain control. He states that she can just get around in her wheelchair he would be happy and she would be happy if she spends most her time in the wheelchair normally. I would discuss the risks of anesthesia up to and including as well as the risks of surgery infection dislocation amongst others and he was willing to assume these risks and stated he was comfortable with this doing surgery today. Operative Findings: Comminuted complete displaced femoral neck fracture of the right Description of Procedure: The patient was seen and examined in the preoperative area. All preoperative protocols were followed. Informed consent was obtained risks and benefits of the procedure were discussed at length. Risks including bleeding infection damage to the surrounding tissue and risk of reoperation were discussed with the patient. Risk of anesthesia up to and including was a discussed with the patient. These are outlined in the risk reviewed. They were willing to accept these risks and all of the risks of surgery. The patient was given a weight- based dose of antibiotics in the form of 900 mg Clinda IVPB 1. Up. The patient was seen and evaluated by the anesthesia team who deemed them fit for surgery. The site was marked, the patient was willing to proceed with the procedure. The patient was transferred to the operative suite by the Department of anesthesia. There were then drifted off to sleep by the department of anesthesia and spinal anesthesia was used. Once adequate anesthesia had been obtained the patient was carefully transferred to the operative bed. All bony prominences were padded accordingly. SCDs were placed on the nonoperative lower extremities. Arms were well padded. Right lower extremity was exposed. The patient was placed in the lateral decubitus position on a peg board pegs were placed. Axillary roll was placed underneath the patient arms were placed out to the side well-padded on the padded table. The patient's left lower extremity was well-padded and the peroneal and ankle region to prevent any other issues. Her right lower extremity was exposed. Left flexion of his and taped to the table to allow for stability. She is in good position of the lateral decubitus position. The left or the right lower extremity was then exposed 10:15 placed around the patient's lower perineal region. Alcohol was used as a prewash over the patient's skin Preoperative briefing was done with the operative team and everyone was ready for the procedure to start. The patients right lower extremity was then prepped and draped in the normal sterile fashion. Timeout was then performed and all parties in agreement with the procedure to be performed. Standard posterior approach the right hip was undertaken with a previously by marked incision traversing the greater trochanter 2 fingerbreadths above and 2 fingerbreadths below the center. In line with the femur. Dissection was taken down to the tensor fascia which was then split bluntly proximally and distally. This revealed the short external rotators and a large hemorrhagic bursa which was removed. Leg was then internally rotated and short external rotators were released along the posterior capsule along the femoral neck proximally. The gluteus medius was protected with a retractor. We were then able to visualize the fracture of the neck patient's leg was internally rotated Homans placed around the neck for protection guide was then used to sussy a 45 neck cut 1 fingerbreadth above the lesser trochanter. Clean up cut was then performed once performed the femur was then moved side and the femoral head was visualized the labrum was completely intact. The femoral head was then removed using a corkscrew. It was then sized. A 46 and 47 trial were then placed in the acetabulum and a 47 trial had a better fit so this was selected as a head size femur is then internally rotated and elevated using a Diaz as well as a home and to left visualization of the canal. The lateral portion was then cleaned to allow for visualization and a box osteotome was used to enter the canal followed by canal finder and a rasp. Lateralizer was used then and sequential broaching was done until a 12 broach was seated and stable. We then trialed a standard neck with a +1.5 head and a 47 bipolar this reduced very well and there was good motion and good stability. We then dislocated the hip atraumatically removed the components and broach and copiously irrigated the wound acetabulum and the shaft. Shaft was sounded and there was good butterfield. Final implant was then selected and carefully impacted into place once in place the trunion was cleaned and the bipolar head was impacted into place and was tested and was stable. Hip was then relocated and had good fit as well as good stability through flexion and internal rotation as well as external rotation. The leg lengths were restored and in good position. We again irrigated copiously with the pulse lavage as well as Irricept. Short external rotators were then reapproximated to the posterior femur using Ethibond stitch. Once this was accomplished we then closed the tensor fascia mona in an abducted position with Ethibond as well as #1 Vicryl in running fashion. Subcu fat was then closed with 0 Vicryl followed by subcu with 2-0 Vicryl followed by 4-0 running strata fix Monocryl. Glue was placed over the skin after the skin was copiously irrigated and cleaned with alcohol. Glue help the skin together well. It was then dressed with an operative foam dressing. The patient was then transferred back to their hospital bed. There were awakened by department of anesthesia having tolerated the procedure very well with no complications. The patient was then transported to the postoperative care unit in stable condition.
--- NOTE | 2021-01-03 11:46 | XR ---
EXAMINATION TYPE: XR Hip Limited RT DATE OF EXAM: 01/03/2021 Comparison: Correlation CT 01/02/2021 Clinical History: 85-year-old female s/p right hip hemiarthroplasty Findings: Image shows placement of what appears to be a bipolar right hip hemiarthroplasty the femoral head com ponent is tilted counterclockwise which may be normal and can be correlated clinically. Scattered sof t tissue air related to recent operation. Alignment is grossly anatomic. Impression: Postoperative appearance of suspected bipolar right hip hemiarthroplasty. This should be confirmed cl inically given the counterclockwise orientation of the femoral head component (which would be normal in a bipolar component).
[2021-01-03 12:38] LABS: Glucose,Whole Blood 138 mg/dL (75-99)
[2021-01-03] MEDS: BUDESONIDE 0.5 MG/2 ML NEBU INHALATION SCH ×2 (13:04→21:10)
[2021-01-03] MEDS: INSULIN ASPART (NovoLOG) 100 UNIT/ML VIAL SQ SCH ×3 (13:27→22:19)
[2021-01-03] MEDS: MULTIVITAMINS, THERA 1 EACH TAB PO SCH (13:55)
[2021-01-03] MEDS: METOPROLOL TARTRATE 50 MG TAB PO SCH ×2 (13:55→22:17)
[2021-01-03] MEDS: CITALOPRAM HYDROBROMIDE 10 MG TAB PO SCH (13:55)
[2021-01-03 17:03] LABS: Glucose,Whole Blood 141 mg/dL (75-99)
[2021-01-03] MEDS: CLINDAMYCIN 900 MG in DEXTROSE 5% IN WATER 50 ML IVPB SCH ×4 (17:38→22:28)
[2021-01-03] MEDS: REPAGLINIDE 1 MG TAB PO SCH (18:58)
[2021-01-03 21:08] LABS: Glucose,Whole Blood 117 mg/dL (75-99)
[2021-01-03] MEDS: SODIUM BICARBONATE TAB 650 MG TAB PO SCH (22:17)
[2021-01-03] MEDS: FAMOTIDINE 20 MG TAB PO SCH (22:17)
[2021-01-03] MEDS: amLODIPine 10 MG TAB PO SCH (22:17)
[2021-01-03] MEDS: LORazepam 0.5 MG TAB PO SCH (22:17)
[2021-01-03] MEDS: SENNOSIDES 8.6 MG TAB PO SCH (22:17)
[2021-01-03] MEDS: MONTELUKAST 10 MG TAB PO SCH (22:17)
[2021-01-03] MEDS: SENNOSIDES-DOCUSATE SODIUM 1 EACH TAB PO SCH (22:18)
[2021-01-03] MEDS: INSULIN DETEMIR (LEVEMIR) 100 UNIT/ML SYR SQ SCH (22:19)
[2021-01-03] MEDS: NON FORMULARY DRUG (Loteprednol Etabonate [Inveltys] 2.8 ML Drops.Susp) LEFT EYE SCH (22:20)
--- NOTE | 2021-01-03 22:32 | P.CONS ---
History of Present Illness - Reason for Consult Consult date: 01/03/21 Medical management Requesting physician: Justin Navarrete - Chief Complaint Right hip - History of Present Illness Consultation Patient is a 85-year-old female patient of of Dr. Edmondson, resident of [facility]. Chronic stable medical conditions include hypertension, diabetes type 2, chronic kidney disease stage III, chronic CHF , and chronic back pain, osteoarthritis . At the [facility] patient fell from a chair. She did hit her head. No report of patient passing out. Some bleeding from her scalp wound. Was complaining of right hip pain in the ER. Some shoulder pain also. Patient not a good historian. Patient suffered a right femoral neck fracture displaced comminuted. Underwent right hip hemiarthroplasty. Saw the patient after surgery. Somewhat sedated could not give me really any history as she was lethargic Review of systems: Cannot be done as patient is lethargic post surgery Past medical history to include: Chronic kidney disease stage III, hypertension, diabetes, CHF with diastolic dysfunction EF 55-60%, cognitive impairment, osteoarthritis, hard of hearing, morbid obesity, anxiety depression, hypothyroidism Social history: Patient is a . Currently at [facility]. Smoked a few cigarettes a day from 1969 through 2000. No alcohol. Normally uses a walker. Physical examination: VITAL SIGNS: 97.4, 70, 133 with 71, 93% on 6 L GENERAL: BMI 37.4, laying in bed, lethargic]. EYES: Pupils equal. Conjunctiva normal. HEENT: External appearance of nose and ears normal, oral cavity grossly normal. NECK: JVD unable to assess; masses not palpable. HEART: First and second heart sounds are normal; no edema. LUNGS: Respiratory rate normal; decreased breath sounds. ABDOMEN: Soft, nontender, liver spleen not palpable, no masses palpable. PSYCH: [Patient sedated MUSCULAR skeletal: Dressing over the right hip. Evidence of OA. NEUROLOGICAL: Cranial nerves grossly intact; no facial asymmetry, power and sensation grossly intact. LYMPHATICS: No lymph nodes palpable in the axilla and neck INVESTIGATIONS, reviewed in the clinical context: CBC 8.9 hemoglobin 11.2 platelets 215 potassium 5.6 bun 52 creatinine 2.3 to UA positive for leukoesterase, WBC, bacteria Coronavirus [PCR]-not detected EKG tracing personally reviewed by me-normal sinus rhythm, first degree AV block, prolonged QT Right hip c-vsh-zagwsdw neck fracture Computed tomography scan of the brain and C-spine without contrast-heterogenesis midline anterior mass likely meningioma, atrophy CT pelvis without contrast-L5 compression fracture, chronic- acute component questionable Previous testin12/09/2020 bun 38 creatinine 2.1 Assessment: -Right femoral neck fracture secondary to fall followed by hemiarthroplasty -Chronic kidney disease stage III likely nephrosclerosis and diabetic nephropathy -hyperkalemia secondary chronic kidney injury-repeat Essential Hypertension Diabetes type 2, chronically on insulin, follow Accu-Chek Chronic CHF exacerbation with diastolic dysfunction EF 55-60% Mild cognitive impairment Primary Osteoarthritis Chronic back pain Morbid obesity with BMI 37.1 Anxiety/depression Hypothyroidism -Prolonged QT interval -Sacral decubitus ulcer, POA -Acute UTI with cystitis on IV ceftriaxone -Chronic meningioma -Probable chronic L5 compression fracture Continue current medication treatment plan. Follow Accu-Cheks. Will follow Thank you Past Medical History Past Medical History: Heart Failure, Diabetes Mellitus, Hypertension, Memory Impairment, Osteoarthritis (OA) Additional Past Medical History / Comment(s): Patient was in the hospital back in May 2019 after she had a fall and she developed a nondisplaced fracture of the lateral tibial condyle of the right knee. She was transferred to [facility]. She has memory impairment and dementia in addition to osteoarthritis and chronic back pain. She has also chronic stage III kidney disease, CHF, diabetes mellitus type 2, hypertension, and she has obesity with a BMI of 35.7. History of Any Multi-Drug Resistant Organisms: None Reported Past Surgical History: Cholecystectomy, Hysterectomy, Tonsillectomy Additional Past Surgical History / Comment(s): Back surgery, cholecystectomy, oopherectomy, 2 surgeries on face, Past Anesthesia/Blood Transfusion Reactions: No Reported Reaction Past Psychological History: Anxiety, Depression Smoking Status: Former smoker Past Alcohol Use History: None Reported Past Drug Use History: None Reported - Past Family History Mother Additional Family Medical History / Comment(s): of cancer Father Family Medical History: Congestive Heart Failure (CHF) Additional Family Medical History / Comment(s): shingles Medications and Allergies Home Medications Medication Instructions Recorded Confirmed Type Citalopram Hydrobromide [CeleXA] 10 mg PO DAILY 08/26/17 01/02/21 History Levothyroxine Sodium [Synthroid] 50 mcg PO DAILY@0700 07/25/19 02/12/21 History Budesonide [Pulmicort] 0.5 mg INHALATION RT-BID 02/23/20 01/02/21 History Metoprolol Tartrate [Lopressor] 50 mg PO BID 02/23/20 01/02/21 History Montelukast [Singulair] 10 mg PO HS 02/23/20 01/02/21 History Multivitamins, Thera [Multivitamin 1 tab PO DAILY 02/23/20 01/02/21 History (formulary)] Sennosides [Senna] 8.6 mg PO BID 02/23/20 01/02/21 History Sodium Bicarbonate Tab 650 mg PO BID 02/23/20 01/02/21 History amLODIPine [Norvasc] 10 mg PO HS 02/23/20 01/02/21 History Insulin Glargine [Lantus] 10 unit SQ HS #0 02/29/20 01/02/21 Rx Calcitriol [Rocaltrol] 0.25 mcg PO SUTH 10/27/20 01/02/21 History Furosemide [Lasix] 60 mg PO DAILY 10/27/20 01/02/21 History HYDROcodone/APAP 5-325MG [[place] 1 tab PO HS 10/27/20 01/02/21 History 5-325] HYDROcodone/APAP 5-325MG [[place] 1 tab PO Q8H PRN 10/27/20 01/02/21 History 5-325] LORazepam [Ativan] 0.5 mg PO HS@199910/27/20 01/02/21 History Repaglinide [Prandin] 0.5 mg PO BID@1100,1800 10/27/20 01/02/21 History Ergocalciferol [Vitamin D2 (1250 1,250 mcg PO TU 01/02/21 01/02/21 History Mcg = 04954 Iu)] Famotidine [Pepcid] 20 mg PO HS 01/02/21 01/02/21 History Loteprednol Etabonate [Inveltys] 1 drop LEFT EYE BID 01/02/21 01/02/21 History Menthol [Icy Hot] 1 patch TRANSDERM DAILY 01/02/21 01/02/21 History Mineral Oil 2 drops BOTH EARS HS@199901/02/21 01/02/21 History Allergies Allergy/AdvReac Type Severity Reaction Status Date / Time codeine Allergy Unknown Verified 01/02/21 15:32 iodine Allergy Rash/Hives Verified 01/02/21 15:32 Latex, Natural Rubber Allergy Rash/Hives Verified 01/02/21 15:32 Penicillins Allergy Rash/Hives Verified 01/02/21 15:32 Sulfa (Sulfonamide Allergy Unknown Verified 01/02/21 15:32 Antibiotics) Physical Exam Vitals: Vital Signs Temp Pulse Pulse Resp BP BP Pulse Ox 01/03/21 11:15 71 16 139/62 92 L 01/03/21 11:00 72 16 148/66 92 L 01/03/21 10:45 72 16 124/60 93 L 01/03/21 10:38 98.2 F 73 16 120/56 90 L 01/03/21 08:16 97 01/03/21 05:00 98.6 F 73 20 129/81 99 01/02/21 23:00 20 01/02/21 21:23 97.4 F L 66 17 147/70 96 01/02/21 20:55 97.8 F 80 16 162/92 96 01/02/21 17:43 63 22 151/89 96 01/02/21 15:20 98.2 F 60 20 166/107 100 Intake and Output 01/02/21 01/03/21 01/03/21 22:59 06:59 14:59 Intake Total 0 300 Output Total 400 250 Balance -400 50 Intake: IV 300 Oral 0 Output: Urine 400 200 Estimated Blood Loss 50 Other: Voiding Method Indwelling Catheter Indwelling Catheter Weight 83.915 kg Results CBC & Chem 7: 01/02/21 18:19 01/02/21 18:19 Labs: Abnormal Lab Results - Last 24 Hours (Table) 01/02/21 01/02/21 01/02/21 Range/Units 18:19 18:19 18:19 Hgb 11.2 L (11.4-16.0) gm/dL Lymphocytes # 0.7 L (1.0-4.8) k/uL Potassium 5.6 H (3.5-5.1) mmol/L BUN 52 H (7-17) mg/dL Creatinine 2.32 H (0.52-1.04) mg/dL Glucose 115 H (74-99) mg/dL POC Glucose (mg/dL) (75-99) mg/dL Calcium 7.8 L (8.4-10.2) mg/dL Alkaline Phosphatase 215 H (38-126) U/L Albumin 3.2 L (3.5-5.0) g/dL Urine Appearance Turbid H (Clear) Urine Protein 3+ H (Negative) Urine Blood Small H (Negative) Ur Leukocyte Esterase Large H (Negative) Urine RBC 11 H (0-5) /hpf Urine WBC >182 H (0-5) /hpf Urine WBC Clumps Many H (None) /hpf Urine Bacteria Few H (None) /hpf 01/02/21 01/03/21 01/03/21 Range/Units 21:43 06:23 07:28 Hgb (11.4-16.0) gm/dL Lymphocytes # (1.0-4.8) k/uL Potassium (3.5-5.1) mmol/L BUN (7-17) mg/dL Creatinine (0.52-1.04) mg/dL Glucose (74-99) mg/dL POC Glucose (mg/dL) 112 H 115 H 117 H (75-99) mg/dL Calcium (8.4-10.2) mg/dL Alkaline Phosphatase (38-126) U/L Albumin (3.5-5.0) g/dL Urine Appearance (Clear) Urine Protein (Negative) Urine Blood (Negative) Ur Leukocyte Esterase (Negative) Urine RBC (0-5) /hpf Urine WBC (0-5) /hpf Urine WBC Clumps (None) /hpf Urine Bacteria (None) /hpf 01/03/21 Range/Units 11:07 Hgb (11.4-16.0) gm/dL Lymphocytes # (1.0-4.8) k/uL Potassium (3.5-5.1) mmol/L BUN (7-17) mg/dL Creatinine (0.52-1.04) mg/dL Glucose (74-99) mg/dL POC Glucose (mg/dL) 120 H (75-99) mg/dL Calcium (8.4-10.2) mg/dL Alkaline Phosphatase (38-126) U/L Albumin (3.5-5.0) g/dL Urine Appearance (Clear) Urine Protein (Negative) Urine Blood (Negative) Ur Leukocyte Esterase (Negative) Urine RBC (0-5) /hpf Urine WBC (0-5) /hpf Urine WBC Clumps (None) /hpf Urine Bacteria (None) /hpf Microbiology - Last 24 Hours (Table) 01/02/21 18:19 Urine Culture - Preliminary Urine,Voided
[2021-01-03 23:24] LABS: African American GFR (CKD) 20 (>60 ml/min/1.73 sqM); Anion Gap 9 mmol/L; Blood Urea Nitrogen 55 mg/dL (7-17); Calcium 7.5 mg/dL (8.4-10.2); Carbon Dioxide 23 mmol/L (22-30); Chloride 109 mmol/L (98-107); Glucose 120 mg/dL (74-99); Non-African American GFR(CKD) 17 (>60 ml/min/1.73 sqM); Potassium 5.9 mmol/L (3.5-5.1); Sodium 141 mmol/L (137-145)
[2021-01-04] MEDS: HYDROmorphone 0.5 MG/0.5 ML SYRINGE IVP PRN ×2 (02:52→17:37)
[2021-01-04 06:49] LABS: Glucose,Whole Blood 102 mg/dL (75-99)
[2021-01-04] MEDS: BUDESONIDE 0.5 MG/2 ML NEBU INHALATION SCH ×2 (07:27→20:14)
[2021-01-04] MEDS: INSULIN ASPART (NovoLOG) 100 UNIT/ML VIAL SQ SCH ×4 (09:29→21:51)
[2021-01-04 10:06] LABS: Basophils # (A) 0.05 X 10*3/uL (0.00-0.10); Basophils % (A) 0.7 %; Eosinophils # (A) 0.02 X 10*3/uL (0.04-0.35); Eosinophils % (A) 0.3 %; HCT 29.9 % (37.2-46.3); Lymphocytes # (A) 0.54 X 10*3/uL (0.90-5.00); Lymphocytes % (A) 7.8 %; MCH 26.9 pg (27.0-32.0); MCHC 30.1 g/dL (32.0-37.0); MCV 89.5 fL (80.0-97.0); Mean Platelet Volume 11.3 fL (9.5-12.2); Monocytes # (A) 0.44 X 10*3/uL (0.20-1.00); Monocytes % (A) 6.4 %; Neutrophils # (A) 5.61 X 10*3/uL (1.80-7.70); Neutrophils % (A) 81.6 %; Platelet Count 182 X 10*3/uL (140-440); RBC 3.34 X 10*6/uL (4.10-5.20); RDW 15.4 % (11.5-14.5); WBC 6.88 X 10*3/uL (4.50-10.00)
--- NOTE | 2021-01-04 10:31 | XR ---
EXAMINATION TYPE: XR pelvis AP view DATE OF EXAM: 01/04/2021 COMPARISON: NONE HISTORY: Postop Patient rotated limiting assessment of the SI joints and sacrum. Diffuse osteopenia noted postsurgica l change. Small amount of subcutaneous emphysema involving the soft tissues adjacent right hip. Arthr opathy of the left hip. Degenerative change lower lumbar spine. IMPRESSION: 1. Postoperative change
[2021-01-04] MEDS ORDERED: LORazepam 2 MG/ML INJ IV STA (11:50)
[2021-01-04] MEDS ORDERED: ALPRAZolam 0.25 MG TAB PO PRN (11:51)
--- NOTE | 2021-01-04 12:05 | P.PN ---
Subjective Progress Note Date: 01/04/21 Principal diagnosis: Status post right hip hemiarthroplasty Patient evaluated at bedside today Dr. Navarrete was also available. Patient is very agitated at bedside this morning. She seems very confused, she is not answering questions appropriately. X-ray evaluation of the hip was reviewed, implants are in good position and stable. Internal medicine is following the patient at this time, urinalysis is revealing a active urinary tract infection. She has received 3 doses of antibiotics for the preoperative and postop surgical aspect, I anticipate she'll continue on IV antibiotics during her hospital stay. Review of systems was unachievable due to her current mental state. Objective - Vital Signs Vital signs: Vital Signs Temp 98.0 F 01/04/21 05:10 Pulse 72 01/04/21 07:40 Resp 18 01/04/21 05:10 BP 116/67 01/04/21 05:10 Pulse Ox 93 L 01/04/21 05:10 Intake & Output 01/03/21 01/04/21 01/04/21 18:59 06:59 18:59 Intake Total 300 460 Output Total 450 420 Balance -150 40 Intake: IV 300 Intake, IV Titration 100 Amount Clindamycin 900 mg In 50 Dextrose 5% in Water 50 ml @ 50 mls/hr IVPB Q6H SULAIMAN Rx#:[id number] cefTRIAXone 1 gm In 50 Sodium Chloride 0.9% 50 ml @ 100 mls/hr IVPB HS SULAIMAN Rx#:[id number] Oral 360 Output: Urine 400 420 Estimated Blood Loss 50 Other: Voiding Method Indwelling Catheter Indwelling Catheter - Exam Right lower extremity: Incision is clean, dry, and intact. The foam dressing is in good condition. There is minimal soft tissue swelling and ecchymosis surrounding the medial and lateral aspects of the incision. Calf is soft, no tenderness with palpation. Plantar flexion, dorsiflexion, EHL, FHL are intact. Dorsal pedis pulses 2+. - Labs CBC & Chem 7: 01/04/21 05:28 01/03/21 22:29 Labs: Abnormal Lab Results - Last 24 Hours (Table) 01/03/21 01/03/21 01/03/21 Range/Units 12:37 17:01 20:48 RBC (4.10-5.20) X 10*6/uL Hgb (12.0-15.0) g/dL Hct (37.2-46.3) % MCH (27.0-32.0) pg MCHC (32.0-37.0) g/dL RDW (11.5-14.5) % Immature Gran # (0.00-0.04) X 10*3/uL Lymphocytes # (0.90-5.00) X 10*3/uL Eosinophils # (0.04-0.35) X 10*3/uL Potassium (3.5-5.1) mmol/L Chloride (98-107) mmol/L BUN (7-17) mg/dL Creatinine (0.52-1.04) mg/dL Glucose (74-99) mg/dL POC Glucose (mg/dL) 138 H 141 H 117 H (75-99) mg/dL Calcium (8.4-10.2) mg/dL 01/03/21 01/04/21 01/04/21 Range/Units 22:29 05:28 06:48 RBC 3.34 L (4.10-5.20) X 10*6/uL Hgb 9.0 L (12.0-15.0) g/dL Hct 29.9 L (37.2-46.3) % MCH 26.9 L (27.0-32.0) pg MCHC 30.1 L (32.0-37.0) g/dL RDW 15.4 H (11.5-14.5) % Immature Gran # 0.22 H (0.00-0.04) X 10*3/uL Lymphocytes # 0.54 L (0.90-5.00) X 10*3/uL Eosinophils # 0.02 L (0.04-0.35) X 10*3/uL Potassium 5.9 H (3.5-5.1) mmol/L Chloride 109 H (98-107) mmol/L BUN 55 H (7-17) mg/dL Creatinine 2.46 H (0.52-1.04) mg/dL Glucose 120 H (74-99) mg/dL POC Glucose (mg/dL) 102 H (75-99) mg/dL Calcium 7.5 L (8.4-10.2) mg/dL Microbiology - Last 24 Hours (Table) 01/02/21 18:19 Urine Culture - Preliminary Urine,Voided Gram Neg Bacilli Assessment and Plan Assessment: status post right hip hemiarthroplasty urinary tract infection other medical comorbidities Plan: Discussed with nursing at bedside medications to be added. We will utilize oral Xanax at a low dose and also IV Ativan at a very low dose patient requires Dr. Navarrete did talk to the son on the phone today, he is coming in the visit which should hopefully help with orientation Anticipate most of the confusion and current mental state from the anesthesia from surgery, this may take a few days to subside Pain control, continue low dose oral narcotics. IV pain medication for breakthrough, used sparingly due to age and current mental state DVT prophylaxis, continue subcu medication PT/OT evaluation Internal medicine recommendations Weight-bear as tolerated with walker Further recommendations to follow Time with Patient: Less than 30
[2021-01-04] MEDS: LEVOTHYROXINE 50 MCG TAB PO SCH (14:09)
[2021-01-04] MEDS: METOPROLOL TARTRATE 50 MG TAB PO SCH ×2 (14:10→21:56)
[2021-01-04] MEDS: CITALOPRAM HYDROBROMIDE 10 MG TAB PO SCH (14:10)
[2021-01-04] MEDS: NON FORMULARY DRUG (Loteprednol Etabonate [Inveltys] 2.8 ML Drops.Susp) LEFT EYE SCH ×2 (14:10→21:53)
[2021-01-04] MEDS: MULTIVITAMINS, THERA 1 EACH TAB PO SCH (14:10)
[2021-01-04] MEDS: SODIUM BICARBONATE TAB 650 MG TAB PO SCH ×2 (14:11→21:51)
[2021-01-04] MEDS: REPAGLINIDE 1 MG TAB PO SCH ×2 (14:11→17:32)
[2021-01-04] MEDS: SENNOSIDES 8.6 MG TAB PO SCH ×2 (14:11→21:50)
[2021-01-04 16:49] LABS: Glucose,Whole Blood 137 mg/dL (75-99)
--- NOTE | 2021-01-04 17:43 | P.CNNES ---
History of Present Illness Consult date: 01/04/21 Reason for Consult: mental status changes History of Present Illness: The patient is an 85-year-old female who is seen in neurologic co nsultation on January 04, 2021, via teleneurology. The patient is being seen because of mental status changes. Her son is present at the time of the evaluation. He provides the history. He says that his mother lives in a [facility] and recently suffered a fall. She apparently fell, hit her head, twisted her leg and broke her leg. She was brought into the emergency department. Apparently there is no loss of consciousness with the fall. There was injury to the head as the son says there is a "flap" in the back of her head. The patient apparently had surgery to repair her broken hip. On Tuesday, per the son, the patient was doing well. Yesterday, she apparently apparently he was somewhat sedated from the anesthesia. Today, the patient is intermittently agitated and very confused. The patient apparently does not recognize her son. She is able to answer some questions appropriately. She is very hard of hearing. According to the patient's nurse, the patient did receive oral Xanax with her breakfast. She also received 0.25 mg of Ativan IV push at some point during this agitation. The patient's son reports that he is not aware of his mother having any problems with anesthesia, in the past. The son reports that his mother has no difficulty with memory or thinking, at her baseline. Chart, labs and imaging are reviewed. Past Medical History Past Medical History: Heart Failure, Diabetes Mellitus, Hypertension, Memory Impairment, Osteoarthritis (OA) Additional Past Medical History / Comment(s): Patient was in the hospital back in May 2019 after she had a fall and she developed a nondisplaced fracture of the lateral tibial condyle of the right knee. She was transferred to [facility]. She has memory impairment and dementia in addition to osteoarthritis and chronic back pain. She has also chronic stage III kidney disease, CHF, diabetes mellitus type 2, hypertension, and she has obesity with a BMI of 35.7. History of Any Multi-Drug Resistant Organisms: None Reported Past Surgical History: Cholecystectomy, Hysterectomy, Tonsillectomy Additional Past Surgical History / Comment(s): Back surgery, cholecystectomy, oopherectomy, 2 surgeries on face, Past Anesthesia/Blood Transfusion Reactions: No Reported Reaction Past Psychological History: Anxiety, Depression Smoking Status: Former smoker Past Alcohol Use History: None Reported Past Drug Use History: None Reported - Past Family History Mother Additional Family Medical History / Comment(s): of cancer Father Family Medical History: Congestive Heart Failure (CHF) Additional Family Medical History / Comment(s): shingles Medications and Allergies Home Medications Medication Instructions Recorded Confirmed Type Citalopram Hydrobromide [CeleXA] 10 mg PO DAILY 08/26/17 01/02/21 History Levothyroxine Sodium [Synthroid] 50 mcg PO DAILY@0700 06/14/19 01/02/21 History Budesonide [Pulmicort] 0.5 mg INHALATION RT-BID 02/23/20 01/02/21 History Metoprolol Tartrate [Lopressor] 50 mg PO BID 02/23/20 01/02/21 History Montelukast [Singulair] 10 mg PO HS 02/23/20 01/02/21 History Multivitamins, Thera [Multivitamin 1 tab PO DAILY 02/23/20 01/02/21 History (formulary)] Sennosides [Senna] 8.6 mg PO BID 02/23/20 01/02/21 History Sodium Bicarbonate Tab 650 mg PO BID 02/23/20 01/02/21 History amLODIPine [Norvasc] 10 mg PO HS 02/23/20 01/02/21 History Insulin Glargine [Lantus] 10 unit SQ HS #0 02/29/20 01/02/21 Rx Calcitriol [Rocaltrol] 0.25 mcg PO SUTH 10/27/20 01/02/21 History Furosemide [Lasix] 60 mg PO DAILY 10/27/20 01/02/21 History HYDROcodone/APAP 5-325MG [Harrison 1 tab PO HS 10/27/20 01/02/21 History 5-325] HYDROcodone/APAP 5-325MG [Harrison 1 tab PO Q8H PRN 10/27/20 01/02/21 History 5-325] LORazepam [Ativan] 0.5 mg PO HS@2000 10/27/20 01/02/21 History Repaglinide [Prandin] 0.5 mg PO BID@1100,1800 10/27/20 01/02/21 History Ergocalciferol [Vitamin D2 (1250 1,250 mcg PO TU 01/02/21 01/02/21 History Mcg = 16142 Iu)] Famotidine [Pepcid] 20 mg PO HS 01/02/21 01/02/21 History Loteprednol Etabonate [Inveltys] 1 drop LEFT EYE BID 01/02/21 01/02/21 History Menthol [Icy Hot] 1 patch TRANSDERM DAILY 01/02/21 01/02/21 History Mineral Oil 2 drops BOTH EARS HS@199901/02/21 01/02/21 History Allergies Allergy/AdvReac Type Severity Reaction Status Date / Time codeine Allergy Unknown Verified 01/02/21 15:32 iodine Allergy Rash/Hives Verified 01/02/21 15:32 Latex, Natural Rubber Allergy Rash/Hives Verified 01/02/21 15:32 Penicillins Allergy Rash/Hives Verified 01/02/21 15:32 Sulfa (Sulfonamide Allergy Unknown Verified 01/02/21 15:32 Antibiotics) Physical Examination - Vital Signs Vital Signs: Vital Signs Temp Pulse Pulse Resp BP Pulse Ox 01/04/21 13:00 98.1 F 71 20 139/72 91 L 01/04/21 07:40 72 01/04/21 07:28 70 01/04/21 05:10 98.0 F 72 18 116/67 93 L 01/03/21 21:25 68 01/03/21 21:13 69 96 01/03/21 21:05 16 01/03/21 20:43 98.6 F 68 18 154/76 96 Intake and Output 01/04/21 01/04/21 01/04/21 06:59 14:59 22:59 Intake Total 460 180 Output Total 420 300 Balance 40 -120 Intake: Intake, IV Titration 100 180 Amount Clindamycin 900 mg In 50 Dextrose 5% in Water 50 ml @ 50 mls/hr IVPB Q6H [facility] Rx#:[id number] Lactated Ringers 1,000 ml 180 @ 0 mls/hr IV .[facility] Rx#:[id number] cefTRIAXone 1 gm In 50 Sodium Chloride 0.9% 50 ml @ 100 mls/hr IVPB HS [facility] Rx#:[id number] Oral 360 Output: Urine 420 300 Gen.: The patient is reclining in the bed. Her son is seated at the bedside. The patient is in no acute distress. HEENT: Head is normocephalic. Fundus not visualized. There is no scleral icterus. Neck: No bruits. There is significant JVD Heart: Regular rate and rhythm Extremities: Patient has support on her right lower extremity Neurological examination Mental status: Patient is awake and alert. Her speech is intermittently dysarthric. She is able to state her first name, year of , and age. The patient is very hard of hearing. She is not oriented to her current location, the current year or the current president. There is perseveration of speech. The patient becomes easily agitated. The patient is able to cooperate with the examination. She follows most instructions. Cranial nerves: Pupils are 2 millimeters, equal and reactive. The patient does blink to visual threat. Eye movements appear full. There is no obvious facial asymmetry. Hearing is diminished. Tongue protrudes midline. Motor: Physical Therapist Aide strength is equal and strong bilaterally. Patient is able to wiggle her toes to command. Sensation: Grossly intact to light touch Coordination and deep tendon reflexes were not assessed Results - Laboratory Findings CBC and BMP: 01/04/21 05:28 01/03/21 22:29 Abnormal Lab Findings: Abnormal Labs 01/02/21 01/02/21 01/02/21 18:19 18:19 18:19 RBC Hgb 11.2 L Hct MCH MCHC RDW Immature Gran # Lymphocytes # 0.7 L Eosinophils # Potassium 5.6 H Chloride BUN 52 H Creatinine 2.32 H Glucose 115 H POC Glucose (mg/dL) Calcium 7.8 L Alkaline Phosphatase 215 H Albumin 3.2 L Urine Appearance Turbid H Urine Protein 3+ H Urine Blood Small H Ur Leukocyte Esterase Large H Urine RBC 11 H Urine WBC >182 H Urine WBC Clumps Many H Urine Bacteria Few H 01/02/21 01/03/21 01/03/21 21:43 06:23 07:28 RBC Hgb Hct MCH MCHC RDW Immature Gran # Lymphocytes # Eosinophils # Potassium Chloride BUN Creatinine Glucose POC Glucose (mg/dL) 112 H 115 H 117 H Calcium Alkaline Phosphatase Albumin Urine Appearance Urine Protein Urine Blood Ur Leukocyte Esterase Urine RBC Urine WBC Urine WBC Clumps Urine Bacteria 01/03/21 01/03/21 01/03/21 11:07 12:37 17:01 RBC Hgb Hct MCH MCHC RDW Immature Gran # Lymphocytes # Eosinophils # Potassium Chloride BUN Creatinine Glucose POC Glucose (mg/dL) 120 H 138 H 141 H Calcium Alkaline Phosphatase Albumin Urine Appearance Urine Protein Urine Blood Ur Leukocyte Esterase Urine RBC Urine WBC Urine WBC Clumps Urine Bacteria 01/03/21 01/03/21 01/04/21 20:48 22:29 05:28 RBC 3.34 L Hgb 9.0 L Hct 29.9 L MCH 26.9 L MCHC 30.1 L RDW 15.4 H Immature Gran # 0.22 H Lymphocytes # 0.54 L Eosinophils # 0.02 L Potassium 5.9 H Chloride 109 H BUN 55 H Creatinine 2.46 H Glucose 120 H POC Glucose (mg/dL) 117 H Calcium 7.5 L Alkaline Phosphatase Albumin Urine Appearance Urine Protein Urine Blood Ur Leukocyte Esterase Urine RBC Urine WBC Urine WBC Clumps Urine Bacteria 01/04/21 06:48 RBC Hgb Hct MCH MCHC RDW Immature Gran # Lymphocytes # Eosinophils # Potassium Chloride BUN Creatinine Glucose POC Glucose (mg/dL) 102 H Calcium Alkaline Phosphatase Albumin Urine Appearance Urine Protein Urine Blood Ur Leukocyte Esterase Urine RBC Urine WBC Urine WBC Clumps Urine Bacteria Assessment and Plan Assessment: 1. Delirium-multi factorial: Urinary tract infection, acute kidney injury, recent anesthesia, hospitalization 2. Hip fracture secondary to fall 3. Head injury secondary to fall Plan: 1. Family support is very helpful for patients with delirium/agitation-I believe it is important to allow the patient's son to remain with her after visiting hours. This was discussed with the patient's son and the patient's nurse 2. Your treatment of urinary tract infection and kidney injury 3. Consider Seroquel 25 mg daily at bedtime for control of agitation Time with Patient: Greater than 30 (spent 50 minutes with patient via teleneurology)
[2021-01-04 20:01] LABS: Glucose,Whole Blood 141 mg/dL (75-99)
[2021-01-04] MEDS: CEFEPIME 1 GM in SODIUM CHLORIDE 0.9% 50 ML IVPB SCH (21:43)
[2021-01-04] MEDS: SENNOSIDES-DOCUSATE SODIUM 1 EACH TAB PO SCH (21:45)
[2021-01-04] MEDS: amLODIPine 10 MG TAB PO SCH (21:46)
[2021-01-04] MEDS: LORazepam 0.5 MG TAB PO SCH (21:50)
[2021-01-04] MEDS: FAMOTIDINE 20 MG TAB PO SCH (21:50)
[2021-01-04] MEDS: INSULIN DETEMIR (LEVEMIR) 100 UNIT/ML SYR SQ SCH (21:52)
--- NOTE | 2021-01-04 21:52 | P.PN ---
Progress Note - Text Progress Note Date: 01/04/21 - Chief Complaint Right hip Consultation Patient is a 85-year-old female patient of of Dr. Edmondson, resident of [facility]. Chronic stable medical conditions include hypertension, diabetes type 2, chronic kidney disease stage III, chronic CHF , and chronic back pain, osteoarthritis . At the [facility] patient fell from a chair. She did hit her head. No report of patient passing out. Some bleeding from her scalp wound. Was complaining of right hip pain in the ER. Some shoulder pain also. Patient not a good historian. Patient suffered a right femoral neck fracture displaced comminuted. Underwent right hip hemiarthroplasty. Today-patient said of the bedside. He informed. Before hospitalization patient is able to carry out simple conversation. Patient has been receiving Dilaudid. Somewhat delirious still. Not able to answer questions. Moving her limbs. Not eating Review of systems: Cannot be done as patient is delirious Active Medications Acetaminophen (Acetaminophen Tab 325 Mg Tab) 650 mg PO Q6HR PRN PRN Reason: Mild Pain or Fever > 100.5 Hydrocodone Bitart/Acetaminophen (Hydrocodone/Apap 5-325mg 1 Each Tab) 1 each PO Q4HR PRN PRN Reason: Pain Alprazolam (Alprazolam 0.25 Mg Tab) 0.25 mg PO QID PRN PRN Reason: Agitation Amlodipine Besylate (Amlodipine 10 Mg Tab) 10 mg PO [facility] Last Admin: 01/04/21 21:46 Dose: 10 mg Documented by: Budesonide (Budesonide 0.5 Mg/2 Ml Nebu) 0.5 mg INHALATION RT-BID [facility] Last Admin: 01/04/21 20:14 Dose: 0.5 mg Documented by: Calcitriol (Calcitriol 0.25 Mcg Cap) 0.25 mcg PO SUTH [facility] Last Admin: 01/04/21 14:10 Dose: Not Given Documented by: Citalopram Hydrobromide (Citalopram Hydrobromide 10 Mg Tab) 10 mg PO DAILY [facility] Last Admin: 01/04/21 14:10 Dose: Not Given Documented by: Famotidine (Famotidine 20 Mg Tab) 20 mg PO [facility] Last Admin: 01/03/21 22:17 Dose: 20 mg Documented by: Hydromorphone HCl (Hydromorphone 0.5 Mg/0.5 Ml Syringe) 0.5 mg IVP Q3HR PRN PRN Reason: Moderate Pain Last Admin: 01/04/21 17:37 Dose: 0.5 mg Documented by: Cefepime HCl 1 gm/ Sodium (Chloride) 50 mls @ 12.5 mls/hr IVPB Q12HR [facility] Last Admin: 01/04/21 21:43 Dose: 12.5 mls/hr Documented by: Sodium Chloride (Saline 0.9%) 1,000 mls @ 100 mls/hr IV .Q10H [facility] Insulin Aspart (Insulin Aspart (Novolog) 100 Unit/Ml Vial) 0 unit SQ [facility]; Protocol Last Admin: 01/04/21 17:31 Dose: 1 unit Documented by: Insulin Detemir (Insulin Detemir (Levemir) 100 Unit/Ml Syr) 10 unit SQ [facility] Last Admin: 01/03/21 22:19 Dose: Not Given Documented by: Levothyroxine Sodium (Levothyroxine 50 Mcg Tab) 50 mcg PO DAILY@0700 [facility] Last Admin: 01/04/21 14:09 Dose: Not Given Documented by: Lorazepam (Lorazepam 0.5 Mg Tab) 0.5 mg PO HS@2000 [facility] Last Admin: 01/03/21 22:17 Dose: 0.5 mg Documented by: Magnesium Hydroxide (Magnesium Hydroxide 2,400 Mg/10 Ml Cup) 2,400 mg PO DAILY PRN PRN Reason: Constipation Metoprolol Tartrate (Metoprolol Tartrate 50 Mg Tab) 50 mg PO BID [facility] Last Admin: 01/04/21 14:10 Dose: Not Given Documented by: Montelukast Sodium (Montelukast 10 Mg Tab) 10 mg PO HS [facility] Last Admin: 01/03/21 22:17 Dose: 10 mg Documented by: Multivitamins (Multivitamins, Thera 1 Each Tab) 1 each PO DAILY [facility] Last Admin: 01/04/21 14:10 Dose: Not Given Documented by: Naloxone HCl (Naloxone 0.4 Mg/Ml 1 Ml Vial) 0.2 mg IV Q2M PRN PRN Reason: Opioid Reversal Non-Formulary Medication (Loteprednol Etabonate [Inveltys]) 1 drop LEFT EYE BID [facility] Last Admin: 01/04/21 14:10 Dose: Not Given Documented by: Ondansetron HCl (Ondansetron 4 Mg/2 Ml Vial) 4 mg IVP Q24HR PRN PRN Reason: Nausea And Vomiting Repaglinide (Repaglinide 1 Mg Tab) 0.5 mg PO BID@1100,1800 [facility] Last Admin: 01/04/21 17:32 Dose: 0.5 mg Documented by: Senna (Sennosides 8.6 Mg Tab) 8.6 mg PO BID [facility] Last Admin: 01/04/21 14:11 Dose: Not Given Documented by: Senna/Docusate Sodium (Sennosides-Docusate Sodium 1 Each Tab) 2 each PO HS [facility] Last Admin: 01/04/21 21:45 Dose: 2 each Documented by: Sodium Bicarbonate (Sodium Bicarbonate Tab 650 Mg Tab) 650 mg PO BID [facility] Last Admin: 01/04/21 14:11 Dose: Not Given Documented by: Trimethobenzamide HCl (Trimethobenzamide 100 Mg/Ml 2 Ml Vial) 200 mg IM Q6HR PRN PRN Reason: Nausea Past medical history to include: Chronic kidney disease stage III, hypertension, diabetes, CHF with diastolic dysfunction EF 55-60%, cognitive impairment, osteoarthritis, hard of hearing, morbid obesity, anxiety depression, hypothyroidism Social history: Patient is a . Currently at [facility]. Smoked a few cigarettes a day from 1969 through 2000. No alcohol. Normally uses a walker. Physical examination: VITAL SIGNS: 98.1, 71, 20, 139 / 72, 91% on nasal cannula GENERAL: BMI 37.4, laying in bed, lethargic, delirious]. EYES: Pupils equal. Conjunctiva normal. NECK: JVD unable to assess; masses not palpable. HEART: First and second heart sounds are normal; no edema. LUNGS: Respiratory rate normal; decreased breath sounds. ABDOMEN: Soft, nontender, liver spleen not palpable, no masses palpable. PSYCH: [Patient delirious MUSCULAR skeletal: Dressing over the right hip. Evidence of OA. NEUROLOGICAL: Cranial nerves grossly intact; no facial asymmetry, moving her arms. Delirious INVESTIGATIONS, reviewed in the clinical context: January 04: White count 6.8 hemoglobin 9 rate 182 CBC 8.9 hemoglobin 11.2 platelets 215 potassium 5.6 bun 52 creatinine 2.3 to UA positive for leukoesterase, WBC, bacteria Urine culture-positive for Citrobacter farmeri Coronavirus [PCR]-not detected EKG tracing personally reviewed by me-normal sinus rhythm, first degree AV block, prolonged QT Right hip [id number] neck fracture Computed tomography scan of the brain and C-spine without contrast-heterogenesis midline anterior mass likely meningioma, atrophy CT pelvis without contrast-L5 compression fracture, chronic- acute component questionable Previous testin12/09/2020 bun 38 creatinine 2.1 Assessment: -Right femoral neck fracture secondary to fall followed by hemiarthroplasty -Chronic kidney disease stage III likely nephrosclerosis and diabetic nephropathy -hyperkalemia secondary chronic kidney- repeat potassium. Hold off any potassium sparing medication Essential Hypertension Diabetes type 2, chronically on insulin, follow Accu-Chek Chronic CHF exacerbation with diastolic dysfunction EF 55-60% Mild cognitive impairment Primary Osteoarthritis Chronic back pain Morbid obesity with BMI 37.1 Anxiety/depression Hypothyroidism -Prolonged QT interval -Sacral decubitus ulcer, POA -Acute UTI with cystitis from Citrobacter farmeri-based on sensitivities we'll change the IV ceftriaxone to IV cefepime -Chronic meningioma -Probable chronic L5 compression fracture -Acute delirium. This could be from medications and patient receiving IV Dilaudid. Concussions in the differential. Spoke to son at the bedside. Neurology consultation was done.. Thank you
[2021-01-04] MEDS: SODIUM CHLORIDE 0.9% 1,000 ML IV SCH (21:54)
[2021-01-04] MEDS: MONTELUKAST 10 MG TAB PO SCH (21:56)
[2021-01-04 22:44] LABS: African American GFR (CKD) 18 (>60 ml/min/1.73 sqM); Anion Gap 7 mmol/L; Blood Urea Nitrogen 57 mg/dL (7-17); Calcium 7.7 mg/dL (8.4-10.2); Carbon Dioxide 25 mmol/L (22-30); Chloride 110 mmol/L (98-107); Glucose 121 mg/dL (74-99); Non-African American GFR(CKD) 16 (>60 ml/min/1.73 sqM); Potassium 5.2 mmol/L (3.5-5.1); Sodium 142 mmol/L (137-145)
[2021-01-05] MEDS ORDERED: SODIUM POLYSTYRENE SULFONATE 15 GM/60 ML BOTTLE PO STA (00:19)
[2021-01-05] MEDS: HYDROmorphone 0.5 MG/0.5 ML SYRINGE IVP PRN ×3 (00:48→17:38)
[2021-01-05] MEDS: INSULIN ASPART (NovoLOG) 100 UNIT/ML VIAL SQ SCH ×4 (07:27→20:36)
[2021-01-05 07:34] LABS: Glucose,Whole Blood 116 mg/dL (75-99)
[2021-01-05 07:57] LABS: African American GFR (CKD) 19 (>60 ml/min/1.73 sqM); Anion Gap 8 mmol/L; Blood Urea Nitrogen 54 mg/dL (7-17); Calcium 7.9 mg/dL (8.4-10.2); Carbon Dioxide 24 mmol/L (22-30); Chloride 112 mmol/L (98-107); Glucose 105 mg/dL (74-99); Non-African American GFR(CKD) 17 (>60 ml/min/1.73 sqM); Potassium 5.1 mmol/L (3.5-5.1); Sodium 144 mmol/L (137-145)
[2021-01-05] MEDS: SENNOSIDES 8.6 MG TAB PO SCH ×2 (08:17→22:04)
[2021-01-05] MEDS: MULTIVITAMINS, THERA 1 EACH TAB PO SCH (08:17)
[2021-01-05] MEDS: CEFEPIME 1 GM in SODIUM CHLORIDE 0.9% 50 ML IVPB SCH ×2 (08:17→22:02)
[2021-01-05] MEDS: CITALOPRAM HYDROBROMIDE 10 MG TAB PO SCH (08:17)
[2021-01-05] MEDS: LEVOTHYROXINE 50 MCG TAB PO SCH (08:17)
[2021-01-05] MEDS: SODIUM CHLORIDE 0.9% 1,000 ML IV SCH ×2 (08:17→17:44)
[2021-01-05] MEDS: SODIUM BICARBONATE TAB 650 MG TAB PO SCH ×2 (08:17→22:05)
[2021-01-05] MEDS: METOPROLOL TARTRATE 50 MG TAB PO SCH ×2 (08:17→22:04)
[2021-01-05] MEDS: NON FORMULARY DRUG (Loteprednol Etabonate [Inveltys] 2.8 ML Drops.Susp) LEFT EYE SCH ×2 (08:18→22:20)
--- NOTE | 2021-01-05 09:09 | XR ---
EXAMINATION TYPE: XR chest 1V DATE OF EXAM: 01/05/2021 COMPARISON: 01/02/2021 HISTORY: 85-year-old female follow-up, shortness of breath. TECHNIQUE: Single frontal view of the chest is obtained. FINDINGS: Heart remains enlarged. Diffuse bilateral opacities with moderate effusions persist without significa nt change. IMPRESSION: Moderate effusions with cardiomegaly and bilateral opacities. Correlate for similar ongoing CHF.
--- NOTE | 2021-01-05 09:55 | P.PN ---
Subjective From records: Patient is a 85-year-old female patient of of Dr. Edmondson, resident of [facility]. Chronic stable medical conditions include hypertension, diabetes type 2, chronic kidney disease stage III, chronic CHF , and chronic back pain, osteoarthritis . At the [facility] patient fell from a chair. She did hit her head. No report of patient passing out. Some bleeding from her scalp wound. Was complaining of right hip pain in the ER. Some shoulder pain also. Patient not a good historian. Patient suffered a right femoral neck fracture displaced comminuted. Underwent right hip hemiarthroplasty. Today-patient said of the bedside. He informed. Before hospitalization patient is able to carry out simple conversation. Patient has been receiving Dilaudid. Somewhat delirious still. Not able to answer questions. Moving her limbs. Not eating Subjective:this is the first day I am taking care of the patient 01/05/2021 Patient could not provide information was obtained from staff and medical chart. Patient is a pleasant 85 years old female who was admitted on 01/02 for right femoral neck fracture status post right hip arthroplasty done next day on 01/03. Patient was delirious and confused probably metabolic encephalopathy and she could not provide information also she has a component of acute kidney injury on her chronic kidney disease and she's been treated for UTI with Citrobacter with cefepime. Chest x-ray on admission was showing pulmonary edema and pleural effusion. This morning the patient was lying in bed, she open eyes spontaneously but does not answer questions or follow commands, she is moving her hands and air for on none identified object in the air. Patient looks with some respiratory distress, mild to moderate. An on exam she has decreased air entry and wheezing. Also she has bilateral leg edema. She is saturating 90s on 5-6 L oxygen via nasal cannula repeat chest x-ray this morning showing moderate diffusion with cardiomegaly and bilateral opacity correlating for ongoing CHF she was on normal sinus 100 mL/h which was not prominent when I came into the room. And when it was discontinued and patient will be started on Lasix 40 mg twice daily Patient also has CT of the brain showing meningioma and she's been evaluated by neurologist. Her creatinine is stable today at 2.5 compared to baseline of 1.3-1.6 or a little higher and she has elevated pro-BMP at 21 500. Patient vitals are stable. She is currently on cefepime and Seroquel and insulin 10 units at bedtime. Echocardiogram performed 02/2021 showed ejection fraction of 55-60% with mild LVH. There are going to repeat echocardiogram Review of systems: N/a Active Medications Generic Name Dose Route Start Last Admin Trade Name Freq PRN Reason Stop Dose Admin Acetaminophen 650 mg 01/02/21 18:49 Acetaminophen Tab 325 Mg Tab PO Q6HR PRN Mild Pain or Fever > 100.5 Hydrocodone Bitart/Acetaminophen 1 each 01/03/21 10:42 Hydrocodone/Apap 5-325mg 1 Each Tab PO Q4HR PRN Pain Alprazolam 0.25 mg 01/04/21 11:51 01/05/21 01:37 Alprazolam 0.25 Mg Tab PO 0.25 mg QID PRN Administration Agitation Amlodipine Besylate 10 mg 01/03/21 21:00 01/04/21 21:46 Amlodipine 10 Mg Tab PO 10 mg HS [facility] Administration Budesonide 0.5 mg 01/03/21 11:30 01/04/21 20:14 Budesonide 0.5 Mg/2 Ml Nebu INHALATION 0.5 mg RT-BID [facility] Administration Calcitriol 0.25 mcg 01/04/21 09:00 01/04/21 14:10 Calcitriol 0.25 Mcg Cap PO Not Given SUTH [facility] Citalopram Hydrobromide 10 mg 01/03/21 11:30 01/05/21 08:17 Citalopram Hydrobromide 10 Mg Tab PO 10 mg DAILY [facility] Administration Famotidine 20 mg 01/03/21 21:00 01/04/21 21:50 Famotidine 20 Mg Tab PO 20 mg HS [facility] Administration Furosemide 40 mg 01/05/21 10:00 Furosemide 10 Mg/Ml 4 Ml Vial IV Q12HR [facility] Hydromorphone HCl 0.5 mg 01/02/21 18:49 01/05/21 00:48 Hydromorphone 0.5 Mg/0.5 Ml Syringe IVP 0.5 mg Q3HR PRN Administration Moderate Pain Cefepime HCl 1 gm/ Sodium 50 mls @ 12.5 mls/hr 01/04/21 21:00 01/05/21 08:17 Chloride IVPB 12.5 mls/hr Q12HR [facility] Administration Sodium Chloride 1,000 mls @ 100 mls/hr 01/04/21 22:00 01/05/21 08:17 Saline 0.9% IV Not Given .Q10H [facility] Insulin Aspart 0 unit 01/03/21 12:30 01/05/21 07:27 Insulin Aspart (Novolog) 100 Unit/Ml Vial SQ Not Given ACHS [facility] Protocol Insulin Detemir 10 unit 01/03/21 21:00 01/04/21 21:52 Insulin Detemir (Levemir) 100 Unit/Ml Syr SQ 10 unit HS [facility] Administration Levothyroxine Sodium 50 mcg 01/04/21 07:00 01/05/21 08:17 Levothyroxine 50 Mcg Tab PO 50 mcg DAILY@0700 [facility] Administration Lorazepam 0.5 mg 01/03/21 20:00 01/04/21 21:50 Lorazepam 0.5 Mg Tab PO 0.5 mg HS@2000 [facility] Administration Magnesium Hydroxide 2,400 mg 01/03/21 10:39 Magnesium Hydroxide 2,400 Mg/10 Ml Cup PO DAILY PRN Constipation Metoprolol Tartrate 50 mg 01/03/21 11:45 01/05/21 08:17 Metoprolol Tartrate 50 Mg Tab PO 50 mg BID [facility] Administration Montelukast Sodium 10 mg 01/03/21 21:00 01/04/21 21:56 Montelukast 10 Mg Tab PO 10 mg HS [facility] Administration Multivitamins 1 each 01/03/21 11:45 01/05/21 08:17 Multivitamins, Thera 1 Each Tab PO 1 each DAILY [facility] Administration Naloxone HCl 0.2 mg 01/02/21 18:49 Naloxone 0.4 Mg/Ml 1 Ml Vial IV Q2M PRN Opioid Reversal Non-Formulary Medication 1 drop 01/03/21 21:00 01/05/21 08:18 Loteprednol Etabonate [Inveltys] LEFT EYE Not Given BID [facility] Ondansetron HCl 4 mg 01/03/21 10:39 Ondansetron 4 Mg/2 Ml Vial IVP Q24HR PRN Nausea And Vomiting Repaglinide 0.5 mg 01/03/21 18:00 01/04/21 17:32 Repaglinide 1 Mg Tab PO 0.5 mg BID@1100,1800 [facility] Administration Senna 8.6 mg 01/03/21 21:00 01/05/21 08:17 Sennosides 8.6 Mg Tab PO 8.6 mg BID [facility] Administration Senna/Docusate Sodium 2 each 01/03/21 21:00 01/04/21 21:45 Sennosides-Docusate Sodium 1 Each Tab PO 2 each HS [facility] Administration Sodium Bicarbonate 650 mg 01/03/21 21:00 01/05/21 08:17 Sodium Bicarbonate Tab 650 Mg Tab PO 650 mg BID [facility] Administration Trimethobenzamide HCl 200 mg 01/02/21 18:50 Trimethobenzamide 100 Mg/Ml 2 Ml Vial IM Q6HR PRN Nausea Objective - Vital Signs Vital signs: Vital Signs Temp 96.8 F L 01/05/21 06:35 Pulse 79 01/05/21 06:35 Resp 18 01/05/21 06:35 BP 156/76 01/05/21 06:35 Pulse Ox 100 01/05/21 06:35 Intake & Output 01/04/21 01/05/21 01/05/21 18:59 06:59 18:59 Intake Total 180 790 Output Total 300 Balance -120 790 Intake: Intake, IV Titration 180 550 Amount Cefepime 1 gm In Sodium 50 Chloride 0.9% 50 ml @ 12. 5 mls/hr IVPB Q12HR [facility] Rx#:[id number] Lactated Ringers 1,000 ml 180 @ 0 mls/hr IV .[facility] Rx#:[id number] Sodium Chloride 0.9% 1, 500 000 ml @ 100 mls/hr IV . Q10H [facility] Rx#:[id number] Oral 240 Output: Urine 300 Other: # Voids 0 3 - Exam -GENERAL: The patient is awake but confused and does not follow command and she is in mild to moderate respiratory distress and obesity HEENT: Pupils are round and equally reacting to light. EOMI. No scleral icterus. No conjunctival pallor. Normocephalic, atraumatic. No pharyngeal erythema. No thyromegaly. CARDIOVASCULAR: S1 and S2 present. No murmurs, rubs, or gallops. -PULMONARY: Decreased air entry on both sides with expiratory wheezing ABDOMEN: Soft, nontender, nondistended, normoactive bowel sounds. No palpable organomegaly. MUSCULOSKELETAL: No joint swelling or deformity. -EXTREMITIES: No cyanosis, clubbing, . Bilateral pitting like edema. Right hip wound with a dressing, rest of exam is deferred to surgery team NEUROLOGICAL: Gross neurological examination did not reveal any focal deficits. SKIN: No rashes. no petechiae. - Labs CBC & Chem 7: 01/04/21 05:28 01/05/21 06:20 Labs: Abnormal Lab Results - Last 24 Hours (Table) 01/04/21 01/04/21 01/04/21 Range/Units 05:28 16:44 19:59 RBC 3.34 L (4.10-5.20) X 10*6/uL Hgb 9.0 L (12.0-15.0) g/dL Hct 29.9 L (37.2-46.3) % MCH 26.9 L (27.0-32.0) pg MCHC 30.1 L (32.0-37.0) g/dL RDW 15.4 H (11.5-14.5) % Immature Gran # 0.22 H (0.00-0.04) X 10*3/uL Lymphocytes # 0.54 L (0.90-5.00) X 10*3/uL Eosinophils # 0.02 L (0.04-0.35) X 10*3/uL Potassium (3.5-5.1) mmol/L Chloride (98-107) mmol/L BUN (7-17) mg/dL Creatinine (0.52-1.04) mg/dL Glucose (74-99) mg/dL POC Glucose (mg/dL) 137 H 141 H (75-99) mg/dL Calcium (8.4-10.2) mg/dL 01/04/21 01/05/21 01/05/21 Range/Units 22:17 06:20 07:24 RBC (4.10-5.20) X 10*6/uL Hgb (12.0-15.0) g/dL Hct (37.2-46.3) % MCH (27.0-32.0) pg MCHC (32.0-37.0) g/dL RDW (11.5-14.5) % Immature Gran # (0.00-0.04) X 10*3/uL Lymphocytes # (0.90-5.00) X 10*3/uL Eosinophils # (0.04-0.35) X 10*3/uL Potassium 5.2 H (3.5-5.1) mmol/L Chloride 110 H 112 H (98-107) mmol/L BUN 57 H 54 H (7-17) mg/dL Creatinine 2.63 H 2.50 H (0.52-1.04) mg/dL Glucose 121 H 105 H (74-99) mg/dL POC Glucose (mg/dL) 116 H (75-99) mg/dL Calcium 7.7 L 7.9 L (8.4-10.2) mg/dL Microbiology - Last 24 Hours (Table) 01/02/21 18:19 Urine Culture - Final Urine,Voided Citrobacter farmeri Assessment and Plan Assessment: -Right femoral neck fracture secondary to fall followed by hemiarthroplasty -Acute on Chronic CHF exacerbation with diastolic dysfunction EF 55-60% (02/2020) -Acute kidney injury on top ofChronic kidney disease stage III likely nephrosclerosis and diabetic nephropathy. -hyperkalemia secondary chronic kidney- repeat potassium. Hold off any potass ium sparing medication -Acute UTI with cystitis from Citrobacter farmeri-based on sensitivities we'll change the IV ceftriaxone to IV cefepime Metabolic encephalopathy secondary to above- -Chronic meningioma -Sacral decubitus ulcer, POA Essential Hypertension Diabetes type 2, chronically on insulin, follow Accu-Chek Mild cognitive impairment Primary Osteoarthritis Chronic back pain Morbid obesity with BMI 37.1 Anxiety/depression Hypothyroidism -Prolonged QT interval -Probable chronic L5 compression fracture Plan: This is a pleasant 85 years old female who presents with right hip fracture status post arthroplasty, also she is confused and fluid overload. Discontinue IV fluids. Start Lasix 40 mg twice daily. Monitor kidney function and electrolytes. Continue with cefepime for UTI. Neurology service on the case. Orthopedic primary team R following the case closely Labs and medication were reviewed.. Continue same treatment. Continue with symptomatic treatment. Resume home medication. Monitor lytes and vitals. DVT and GI prophylaxis. Further recommendationsas per clinical course of the patient DVT prophylaxis: Subcutaneous heparin GI Prophylaxis: Pepcid PT/OT: Pending Prognosis is guarded
[2021-01-05] MEDS: BUDESONIDE 0.5 MG/2 ML NEBU INHALATION SCH ×2 (10:11→19:35)
[2021-01-05] MEDS: HEPARIN SODIUM,PORCINE 5,000 UNIT/ML 1 ML VIAL SQ SCH ×2 (10:16→22:04)
[2021-01-05] MEDS: FUROSEMIDE 10 MG/ML 4 ML VIAL IV SCH ×2 (10:17→22:04)
--- NOTE | 2021-01-05 11:05 | P.PN ---
Subjective Progress Note Date: 01/05/21 Principal diagnosis: Status post right hip hemiarthroplasty Patient evaluated at bedside. Patient's agitation is improved significantly since yesterday. Patient continues to remain confused. Using the head phone and handpiece to talk to patient, she was able to answer a few my questions with regards to her right hip and home was doing. Internal medicine is following closely with this patient Review of systems was unachievable due to her current mental state. Objective - Vital Signs Vital signs: Vital Signs Temp 96.8 F L 01/05/21 06:35 Pulse 80 01/05/21 10:11 Resp 18 01/05/21 06:35 BP 156/76 01/05/21 06:35 Pulse Ox 92 L 01/05/21 10:11 Intake & Output 01/04/21 01/05/21 01/05/21 18:59 06:59 18:59 Intake Total 180 790 Output Total 300 Balance -120 790 Intake: Intake, IV Titration 180 550 Amount Cefepime 1 gm In Sodium 50 Chloride 0.9% 50 ml @ 12. 5 mls/hr IVPB Q12HR [facility] Rx#:[id number] Lactated Ringers 1,000 ml 180 @ 0 mls/hr IV .[facility] Rx#:[id number] Sodium Chloride 0.9% 1, 500 000 ml @ 100 mls/hr IV . Q10H [facility] Rx#:[id number] Oral 240 Output: Urine 300 Other: # Voids 0 3 - Exam Right lower extremity: Incision is clean, dry, and intact. The foam dressing is in good condition. There is minimal soft tissue swelling and ecchymosis surrounding the medial and lateral aspects of the incision. Calf is soft, no tenderness with palpation. Plantar flexion, dorsiflexion, EHL, FHL are intact. Dorsal pedis pulses 2+. - Labs CBC & Chem 7: 01/04/21 05:28 01/05/21 06:20 Labs: Abnormal Lab Results - Last 24 Hours (Table) 01/04/21 01/04/21 01/04/21 Range/Units 16:44 19:59 22:17 Potassium 5.2 H (3.5-5.1) mmol/L Chloride 110 H (98-107) mmol/L BUN 57 H (7-17) mg/dL Creatinine 2.63 H (0.52-1.04) mg/dL Glucose 121 H (74-99) mg/dL POC Glucose (mg/dL) 137 H 141 H (75-99) mg/dL Calcium 7.7 L (8.4-10.2) mg/dL 01/05/21 01/05/21 Range/Units 06:20 07:24 Potassium (3.5-5.1) mmol/L Chloride 112 H (98-107) mmol/L BUN 54 H (7-17) mg/dL Creatinine 2.50 H (0.52-1.04) mg/dL Glucose 105 H (74-99) mg/dL POC Glucose (mg/dL) 116 H (75-99) mg/dL Calcium 7.9 L (8.4-10.2) mg/dL Microbiology - Last 24 Hours (Table) 01/02/21 18:19 Urine Culture - Final Urine,Voided Citrobacter farmeri Assessment and Plan Assessment: Status post right hip hemiarthroplasty Urinary tract infection Multiple medical comorbidities Plan: I did reach out to internal medicine today via perfect serve to discuss transferring service to them as the primary team with us remaining on consult Appreciated their recommendations Neurology is also following patient at this time, cruciate their recommendation Pain control, continue low dose oral narcotics. IV pain medication for breakthrough, used sparingly due to age and current mental state DVT prophylaxis, continue subcu medication PT/OT evaluation Weight-bear as tolerated with walker , use of abduction pillow while in bed We will continue to follow patient during inpatient stay Time with Patient: Less than 30
[2021-01-05 11:15] LABS: Basophils # (A) 0.05 X 10*3/uL (0.00-0.10); Basophils % (A) 0.6 %; Eosinophils # (A) 0.08 X 10*3/uL (0.04-0.35); HCT 30.3 % (37.2-46.3); HGB 9.4 g/dL (12.0-15.0); Lymphocytes # (A) 0.72 X 10*3/uL (0.90-5.00); Lymphocytes % (A) 8.7 %; MCH 27.4 pg (27.0-32.0); MCV 88.3 fL (80.0-97.0); Mean Platelet Volume 11.5 fL (9.5-12.2); Monocytes # (A) 0.56 X 10*3/uL (0.20-1.00); Monocytes % (A) 6.7 %; Neutrophils % (A) 78.1 %; Platelet Count 190 X 10*3/uL (140-440); RBC 3.43 X 10*6/uL (4.10-5.20); RDW 15.8 % (11.5-14.5); WBC 8.32 X 10*3/uL (4.50-10.00)
[2021-01-05] MEDS: REPAGLINIDE 1 MG TAB PO SCH ×2 (11:27→17:44)
[2021-01-05 12:01] LABS: Glucose,Whole Blood 131 mg/dL (75-99)
--- NOTE | 2021-01-05 12:57 | CDI ---
Documentation Clarification Form Date: 01/05/2021 12:33:09 PM From: Gaby Montgomery RN, CCDS Admit Date: 01/02/2021 07:01:00 PM Patient Name: Danna Brambila Visit Number: [id number] Discharge Date: ATTENTION: The Clinical Documentation Specialists (CDI) and [facility] Coding Staff appreciate your assistance in clarifying documentation. Please respond to the clarification below the line at the bottom and electronically sign. The CDI & [facility] Coding staff will review the response and follow-up if needed. Please note: Queries are made part of the Legal Health Record. If you have any questions, please contact the author of this message via ITS. Dr. Wai Wood A sacral pressure ulcer was documented in the ED integumentary assessment (sacral pressure ulcer, right) on 01/02 and in the medical consult on 01/03 as a sacral decubitus ulcer, POA. Please render your opinion on the stage and confirm location of the ulcer if known. History/Risk Factors: Right femoral neck fracture, Diabetes type 2, CKD stage III, Resident of [facility] Clinical Indicators: 85-year-old female present to ED on 01/02 after a fall and suffered a right femoral neck fracture displaced comminuted. On admission a sacral pressure ulcer is documented in ED and in consult and subsequent progress notes. Location: Right sacral (01/02 ED) Wound description: not noted Treatment: Monitor skin integrity per protocol Elements for accurate and compliant documentation of an ulcer: *The location/laterality of the ulcer *Etiology (decubitus/pressure, diabetic, PVD) *Stage I-IV, Unstageable, Suspected Deep Tissue Injury (To the deepest stage) *If the ulcer was present at admission (POA) or occurred after admission In your professional opinion, can you please clarify the diagnosis, location, laterality and whether present on admission (POA): Stage 1 Pressure/Decubitus Ulcer (intact skin, non-blanching redness of local area) Stage 2 Pressure/Decubitus Ulcer (Partial thickness, loss of dermis, pink wound bed) Stage 3 Pressure/Decubitus Ulcer (Full thickness tissue loss) Stage 4 Pressure/Decubitus Ulcer (Full thickness tissue loss with exposed bone, tendon, or muscle. May have slough or eschar present) Unstageable Other condition, please specify Unable to determine Please indicate etiology of pressure ulcer (if known). (Last Revision: August 2017) Stage 2 Pressure/Decubitus Ulcer (Partial thickness, loss of dermis, pink wound bed) MTDD
[2021-01-05 17:15] LABS: Glucose,Whole Blood 152 mg/dL (75-99)
[2021-01-05 20:23] LABS: Glucose,Whole Blood 125 mg/dL (75-99)
[2021-01-05] MEDS: INSULIN DETEMIR (LEVEMIR) 100 UNIT/ML SYR SQ SCH (22:03)
[2021-01-05] MEDS: SENNOSIDES-DOCUSATE SODIUM 1 EACH TAB PO SCH (22:04)
[2021-01-05] MEDS: amLODIPine 10 MG TAB PO SCH (22:04)
[2021-01-05] MEDS: FAMOTIDINE 20 MG TAB PO SCH (22:04)
[2021-01-05] MEDS: LORazepam 0.5 MG TAB PO SCH (22:05)
[2021-01-05] MEDS: MONTELUKAST 10 MG TAB PO SCH (22:05)
[2021-01-06 07:22] LABS: Glucose,Whole Blood 81 mg/dL (75-99)
[2021-01-06] MEDS: BUDESONIDE 0.5 MG/2 ML NEBU INHALATION SCH ×2 (07:55→20:50)
[2021-01-06] MEDS: CEFEPIME 1 GM in SODIUM CHLORIDE 0.9% 50 ML IVPB SCH ×2 (08:31→22:52)
[2021-01-06] MEDS: FUROSEMIDE 10 MG/ML 4 ML VIAL IV SCH ×2 (08:31→21:13)
[2021-01-06] MEDS: HEPARIN SODIUM,PORCINE 5,000 UNIT/ML 1 ML VIAL SQ SCH ×2 (08:31→21:13)
[2021-01-06] MEDS: SENNOSIDES 8.6 MG TAB PO SCH ×2 (08:32→21:11)
[2021-01-06] MEDS: LEVOTHYROXINE 50 MCG TAB PO SCH (08:32)
[2021-01-06] MEDS: MULTIVITAMINS, THERA 1 EACH TAB PO SCH (08:32)
[2021-01-06] MEDS: NON FORMULARY DRUG (Loteprednol Etabonate [Inveltys] 2.8 ML Drops.Susp) LEFT EYE SCH ×2 (08:32→21:14)
[2021-01-06] MEDS: SODIUM BICARBONATE TAB 650 MG TAB PO SCH ×2 (08:32→21:14)
[2021-01-06] MEDS: CITALOPRAM HYDROBROMIDE 10 MG TAB PO SCH (08:32)
[2021-01-06] MEDS: METOPROLOL TARTRATE 50 MG TAB PO SCH ×2 (08:32→21:11)
[2021-01-06] MEDS: INSULIN ASPART (NovoLOG) 100 UNIT/ML VIAL SQ SCH ×4 (08:33→21:01)
--- NOTE | 2021-01-06 10:25 | P.PN ---
Subjective Progress Note Date: 01/06/21 Principal diagnosis: Status post right hip hemiarthroplasty Patient evaluated at bedside. Patient was very difficult to arouse at bedside today, even with her head phone units did not respond to any medical questions. Her vitals remained stable at this time. Internal medicine is following closely with this patient Review of systems was unachievable due to her current mental state. Objective - Vital Signs Vital signs: Vital Signs Temp 97.5 F L 01/06/21 05:46 Pulse 74 01/06/21 05:46 Resp 16 01/06/21 05:46 BP 157/75 01/06/21 05:46 Pulse Ox 92 L 01/06/21 05:46 Intake & Output 01/05/21 01/06/21 01/06/21 18:59 06:59 18:59 Intake Total 1200 590 Balance 1200 590 Intake: Intake, IV Titration 1200 Amount Sodium Chloride 0.9% 1, 1200 000 ml @ 100 mls/hr IV . Q10H [facility] Rx#:[id number] Oral 590 Other: Voiding Method Indwelling Catheter # Voids 2 2 - Exam Right lower extremity: Incision is clean, dry, and intact. The foam dressing is in good condition. There is minimal soft tissue swelling and ecchymosis surrounding the medial and lateral aspects of the incision. Calf is soft, no tenderness with palpation. Plantar flexion, dorsiflexion, EHL, FHL are intact. Dorsal pedis pulses 2+. - Labs CBC & Chem 7: 01/05/21 06:20 01/05/21 06:20 Labs: Abnormal Lab Results - Last 24 Hours (Table) 01/05/21 01/05/21 01/05/21 Range/Units 06:20 06:20 11:59 RBC 3.43 L (4.10-5.20) X 10*6/uL Hgb 9.4 L (12.0-15.0) g/dL Hct 30.3 L (37.2-46.3) % MCHC 31.0 L (32.0-37.0) g/dL RDW 15.8 H (11.5-14.5) % Absolute Nucleated RBC 0.02 H (0.00-0.00) X 10*3/uL Immature Gran # 0.41 H (0.00-0.04) X 10*3/uL Lymphocytes # 0.72 L (0.90-5.00) X 10*3/uL NRBC/100 WBC Diff 0.2 H (0.0-0.0) /100 WBCS POC Glucose (mg/dL) 131 H (75-99) mg/dL Procalcitonin 0.70 H (0.02-0.09) ng/mL 01/05/21 01/05/21 Range/Units 17:12 20:22 RBC (4.10-5.20) X 10*6/uL Hgb (12.0-15.0) g/dL Hct (37.2-46.3) % MCHC (32.0-37.0) g/dL RDW (11.5-14.5) % Absolute Nucleated RBC (0.00-0.00) X 10*3/uL Immature Gran # (0.00-0.04) X 10*3/uL Lymphocytes # (0.90-5.00) X 10*3/uL NRBC/100 WBC Diff (0.0-0.0) /100 WBCS POC Glucose (mg/dL) 152 H 125 H (75-99) mg/dL Procalcitonin (0.02-0.09) ng/mL Assessment and Plan Assessment: Status post right hip hemiarthroplasty Urinary tract infection Multiple medical comorbidities Plan: Pain control, continue low dose oral narcotics. Discontinued IV pain medication. DVT prophylaxis, continue subcu medication PT/OT evaluation Weight-bear as tolerated with walker , use of abduction pillow while in bed Internal medicine and neurology recommendations appreciated We will continue to follow during inpatient stay Discharge planning: On an orthopedic standpoint patient remained stable discharge back to rehab. Time with Patient: Less than 30
--- NOTE | 2021-01-06 10:41 | P.PN ---
Subjective From records: Patient is a 85-year-old female patient of of Dr. Edmondson, resident of [facility]. Chronic stable medical conditions include hypertension, diabetes type 2, chronic kidney disease stage III, chronic CHF , and chronic back pain, osteoarthritis . At the [facility] patient fell from a chair. She did hit her head. No report of patient passing out. Some bleeding from her scalp wound. Was complaining of right hip pain in the ER. Some shoulder pain also. Patient not a good historian. Patient suffered a right femoral neck fracture displaced comminuted. Underwent right hip hemiarthroplasty. Today-patient said of the bedside. He informed. Before hospitalization patient is able to carry out simple conversation. Patient has been receiving Dilaudid. Somewhat delirious still. Not able to answer questions. Moving her limbs. Not eating Subjective:this is the first day I am taking care of the patient 01/05/2021 Patient could not provide information was obtained from staff and medical chart. Patient is a pleasant 85 years old female who was admitted on 01/02 for right femoral neck fracture status post right hip arthroplasty done next day on 01/03. Patient was delirious and confused probably metabolic encephalopathy and she could not provide information also she has a component of acute kidney injury on her chronic kidney disease and she's been treated for UTI with Citrobacter with cefepime. Chest x-ray on admission was showing pulmonary edema and pleural effusion. This morning the patient was lying in bed, she open eyes spontaneously but does not answer questions or follow commands, she is moving her hands and air for on none identified object in the air. Patient looks with some respiratory distress, mild to moderate. An on exam she has decreased air entry and wheezing. Also she has bilateral leg edema. She is saturating 90s on 5-6 L oxygen via nasal cannula repeat chest x-ray this morning showing moderate diffusion with cardiomegaly and bilateral opacity correlating for ongoing CHF she was on normal sinus 100 mL/h which was not prominent when I came into the room. And when it was discontinued and patient will be started on Lasix 40 mg twice daily Patient also has CT of the brain showing meningioma and she's been evaluated by neurologist. Her creatinine is stable today at 2.5 compared to baseline of 1.3-1.6 or a little higher and she has elevated pro-BMP at 21 500. Patient vitals are stable. She is currently on cefepime and Seroquel and insulin 10 units at bedtime. Echocardiogram performed 02/2021 showed ejection fraction of 55-60% with mild LVH. There are going to repeat echocardiogram 01/06/21 She has still confused today, she is less tachypneic although she has some difficulty breathing, looks like patient has history of dementia and at baseline is oriented 1 only Vitas looks stable. CBC is stable.proCalcitonin is elevated at 0.7. Creatinine is 2.5 which is stable, was 2.3 upon admission is a status post right hip arthroplasty and orthopedic team transverse disservice to medicine. She is fluid overload with bilateral leg edema and pulmonary congestion, currently she is on IV Lasix twice daily, she is saturating 92% on 4-5 L nasal cannula. On reviewing medication, the patient got Ativan and Xanax yesterday. Today also she is getting [place] which may contribute to her sleepiness, we will discontinue the benzodiazepine Review of systems: N/a Active Medications Generic Name Dose Route Start Last Admin Trade Name Freq PRN Reason Stop Dose Admin Acetaminophen 650 mg 01/02/21 18:49 Acetaminophen Tab 325 Mg Tab PO Q6HR PRN Mild Pain or Fever > 100.5 Hydrocodone Bitart/Acetaminophen 1 each 01/03/21 10:42 Hydrocodone/Apap 5-325mg 1 Each Tab PO Q4HR PRN Pain Alprazolam 0.25 mg 01/04/21 11:51 01/05/21 01:37 Alprazolam 0.25 Mg Tab PO 0.25 mg QID PRN Administration Agitation Amlodipine Besylate 10 mg 01/03/21 21:00 01/04/21 21:46 Amlodipine 10 Mg Tab PO 10 mg HS SULIAMAN Administration Budesonide 0.5 mg 01/03/21 11:30 01/04/21 20:14 Budesonide 0.5 Mg/2 Ml Nebu INHALATION 0.5 mg RT-BID SULAIMAN Administration Calcitriol 0.25 mcg 01/04/21 09:00 01/04/21 14:10 Calcitriol 0.25 Mcg Cap PO Not Given SUTH SULAIMAN Citalopram Hydrobromide 10 mg 01/03/21 11:30 01/05/21 08:17 Citalopram Hydrobromide 10 Mg Tab PO 10 mg DAILY SULAIMAN Administration Famotidine 20 mg 01/03/21 21:00 01/04/21 21:50 Famotidine 20 Mg Tab PO 20 mg HS SULAIMAN Administration Furosemide 40 mg 01/05/21 10:00 Furosemide 10 Mg/Ml 4 Ml Vial IV Q12HR SULAIMAN Hydromorphone HCl 0.5 mg 01/02/21 18:49 01/05/21 00:48 Hydromorphone 0.5 Mg/0.5 Ml Syringe IVP 0.5 mg Q3HR PRN Administration Moderate Pain Cefepime HCl 1 gm/ Sodium 50 mls @ 12.5 mls/hr 01/04/21 21:00 01/05/21 08:17 Chloride IVPB 12.5 mls/hr Q12HR SULAIMAN Administration Sodium Chloride 1,000 mls @ 100 mls/hr 01/04/21 22:00 01/05/21 08:17 Saline 0.9% IV Not Given .Q10H [facility] Insulin Aspart 0 unit 01/03/21 12:30 01/05/21 07:27 Insulin Aspart (Novolog) 100 Unit/Ml Vial SQ Not Given ACHS [facility] Protocol Insulin Detemir 10 unit 01/03/21 21:00 01/04/21 21:52 Insulin Detemir (Levemir) 100 Unit/Ml Syr SQ 10 unit HS SULAIMAN Administration Levothyroxine Sodium 50 mcg 01/04/21 07:00 01/05/21 08:17 Levothyroxine 50 Mcg Tab PO 50 mcg DAILY@0700 SULAIMAN Administration Lorazepam 0.5 mg 01/03/21 20:00 01/04/21 21:50 Lorazepam 0.5 Mg Tab PO 0.5 mg HS@2000 SULAIMAN Administration Magnesium Hydroxide 2,400 mg 01/03/21 10:39 Magnesium Hydroxide 2,400 Mg/10 Ml Cup PO DAILY PRN Constipation Metoprolol Tartrate 50 mg 01/03/21 11:45 01/05/21 08:17 Metoprolol Tartrate 50 Mg Tab PO 50 mg BID SULAIMAN Administration Montelukast Sodium 10 mg 01/03/21 21:00 01/04/21 21:56 Montelukast 10 Mg Tab PO 10 mg HS SULAIMAN Administration Multivitamins 1 each 01/03/21 11:45 01/05/21 08:17 Multivitamins, Thera 1 Each Tab PO 1 each DAILY SULAIMAN Administration Naloxone HCl 0.2 mg 01/02/21 18:49 Naloxone 0.4 Mg/Ml 1 Ml Vial IV Q2M PRN Opioid Reversal Non-Formulary Medication 1 drop 01/03/21 21:00 01/05/21 08:18 Loteprednol Etabonate [Inveltys] LEFT EYE Not Given BID SULAIMAN Ondansetron HCl 4 mg 01/03/21 10:39 Ondansetron 4 Mg/2 Ml Vial IVP Q24HR PRN Nausea And Vomiting Repaglinide 0.5 mg 01/03/21 18:00 01/04/21 17:32 Repaglinide 1 Mg Tab PO 0.5 mg BID@1100,1800 SULAIMAN Administration Senna 8.6 mg 01/03/21 21:00 01/05/21 08:17 Sennosides 8.6 Mg Tab PO 8.6 mg BID SULAIMAN Administration Senna/Docusate Sodium 2 each 01/03/21 21:00 01/04/21 21:45 Sennosides-Docusate Sodium 1 Each Tab PO 2 each HS SULAIMAN Administration Sodium Bicarbonate 650 mg 01/03/21 21:00 01/05/21 08:17 Sodium Bicarbonate Tab 650 Mg Tab PO 650 mg BID SULAIMAN Administration Trimethobenzamide HCl 200 mg 01/02/21 18:50 Trimethobenzamide 100 Mg/Ml 2 Ml Vial IM Q6HR PRN Nausea Objective - Vital Signs Vital signs: Vital Signs Temp 97.5 F L 01/06/21 05:46 Pulse 74 01/06/21 05:46 Resp 16 01/06/21 05:46 BP 157/75 01/06/21 05:46 Pulse Ox 92 L 01/06/21 05:46 Intake & Output 01/05/21 01/06/21 01/06/21 18:59 06:59 18:59 Intake Total 1200 590 Balance 1200 590 Intake: Intake, IV Titration 1200 Amount Sodium Chloride 0.9% 1, 1200 000 ml @ 100 mls/hr IV . Q10H [facility] Rx#:[id number] Oral 590 Other: Voiding Method Indwelling Catheter # Voids 2 2 - Exam -GENERAL: The patient is awake but confused and does not follow command and she is in mild to moderate respiratory distress and obesity HEENT: Pupils are round and equally reacting to light. EOMI. No scleral icterus. No conjunctival pallor. Normocephalic, atraumatic. No pharyngeal erythema. No thyromegaly. CARDIOVASCULAR: S1 and S2 present. No murmurs, rubs, or gallops. -PULMONARY: Decreased air entry on both sides with expiratory wheezing ABDOMEN: Soft, nontender, nondistended, normoactive bowel sounds. No palpable organomegaly. MUSCULOSKELETAL: No joint swelling or deformity. -EXTREMITIES: No cyanosis, clubbing, . Bilateral pitting like edema. Right hip wound with a dressing, rest of exam is deferred to surgery team NEUROLOGICAL: Gross neurological examination did not reveal any focal deficits. SKIN: No rashes. no petechiae. - Labs CBC & Chem 7: 01/05/21 06:20 01/05/21 06:20 Labs: Abnormal Lab Results - Last 24 Hours (Table) 01/05/21 01/05/21 01/05/21 Range/Units 06:20 06:20 11:59 RBC 3.43 L (4.10-5.20) X 10*6/uL Hgb 9.4 L (12.0-15.0) g/dL Hct 30.3 L (37.2-46.3) % MCHC 31.0 L (32.0-37.0) g/dL RDW 15.8 H (11.5-14.5) % Absolute Nucleated RBC 0.02 H (0.00-0.00) X 10*3/uL Immature Gran # 0.41 H (0.00-0.04) X 10*3/uL Lymphocytes # 0.72 L (0.90-5.00) X 10*3/uL NRBC/100 WBC Diff 0.2 H (0.0-0.0) /100 WBCS POC Glucose (mg/dL) 131 H (75-99) mg/dL Procalcitonin 0.70 H (0.02-0.09) ng/mL 01/05/21 01/05/21 Range/Units 17:12 20:22 RBC (4.10-5.20) X 10*6/uL Hgb (12.0-15.0) g/dL Hct (37.2-46.3) % MCHC (32.0-37.0) g/dL RDW (11.5-14.5) % Absolute Nucleated RBC (0.00-0.00) X 10*3/uL Immature Gran # (0.00-0.04) X 10*3/uL Lymphocytes # (0.90-5.00) X 10*3/uL NRBC/100 WBC Diff (0.0-0.0) /100 WBCS POC Glucose (mg/dL) 152 H 125 H (75-99) mg/dL Procalcitonin (0.02-0.09) ng/mL Assessment and Plan Assessment: -Right femoral neck fracture secondary to fall followed by hemiarthroplasty -Acute on Chronic CHF exacerbation with diastolic dysfunction EF 55-60% (02/2020) -Acute kidney injury on top ofChronic kidney disease stage III likely nephrosclerosis and diabetic nephropathy. -hyperkalemia secondary chronic kidney- repeat potassium. Hold off any potassium sparing medication -Acute UTI with cystitis from Citrobacter farmeri-based on sensitivities we'll change the IV ceftriaxone to IV cefepime Metabolic encephalopathy secondary to above- -Chronic meningioma -Sacral decubitus ulcer, POA Essential Hypertension Diabetes type 2, chronically on insulin, follow Accu-Chek Mild cognitive impairment Primary Osteoarthritis Chronic back pain Morbid obesity with BMI 37.1 Anxiety/depression Hypothyroidism -Prolonged QT interval -Probable chronic L5 compression fracture Plan: This is a pleasant 85 years old female who presents with right hip fracture status post arthroplasty, also she is confused and fluid overload. Discontinue IV fluids. Start Lasix 40 mg twice daily. Monitor kidney function and electrolytes. Continue with cefepime for UTI. Neurology service on the case. Orthopedic primary team R following the case closely We will repeat urine analysis, check chest x-ray in the morning. Check labs in the morning and follow-up mental status Labs and medication were reviewed.. Continue same treatment. Continue with symptomatic treatment. Resume home medication. Monitor lytes and vitals. DVT and GI prophylaxis. Further recommendationsas per clinical course of the patient DVT prophylaxis: Subcutaneous heparin GI Prophylaxis: Pepcid PT/OT: Pending Prognosis is guarded
[2021-01-06 11:33] LABS: Glucose,Whole Blood 89 mg/dL (75-99)
[2021-01-06 11:36] LABS: Appearance,Urine Clear (Clear); Bacteria,Urine Rare /hpf; Bilirubin,Urine Negative (Negative); Blood,Urine Trace (Negative); Color,Urine Light Yellow; Glucose,Urine (UA) Trace (Negative); Ketones,Urine Negative (Negative); Leukocyte Esterase,Urine Negative (Negative); Nitrite,Urine Negative (Negative); Protein,Urine 2+ (Negative); RBC,Urine 1 /hpf (0-5); Specific Gravity,Urine 1.011 (1.001-1.035); Squamous Epithelial Cell,Urine <1 /hpf (0-4); Urobilinogen,Urine <2.0 mg/dL (<2.0); WBC,Urine 2 /hpf (0-5)
[2021-01-06 11:55] LABS: Basophils # (A) 0.05 X 10*3/uL (0.00-0.10); Basophils % (A) 0.6 %; Eosinophils # (A) 0.11 X 10*3/uL (0.04-0.35); Eosinophils % (A) 1.4 %; HCT 32.3 % (37.2-46.3); HGB 9.8 g/dL (12.0-15.0); Lymphocytes # (A) 0.75 X 10*3/uL (0.90-5.00); Lymphocytes % (A) 9.2 %; MCHC 30.3 g/dL (32.0-37.0); Mean Platelet Volume 11.3 fL (9.5-12.2); Monocytes # (A) 0.43 X 10*3/uL (0.20-1.00); Monocytes % (A) 5.3 %; Neutrophils # (A) 6.49 X 10*3/uL (1.80-7.70); Neutrophils % (A) 79.8 %; Platelet Count 193 X 10*3/uL (140-440); RBC 3.63 X 10*6/uL (4.10-5.20); RDW 15.8 % (11.5-14.5); WBC 8.13 X 10*3/uL (4.50-10.00)
[2021-01-06 12:12] LABS: African American GFR (CKD) 22.8 (60.0-200.0); Anion Gap 13.5 mmol/L (4.00-12.00); Calcium 7.8 mg/dL (8.7-10.3); Carbon Dioxide 24.5 mmol/L (21.6-31.8); Magnesium 1.8 mg/dL (1.5-2.4); Non-African American GFR(CKD) 19.6 (60.0-200.0); Potassium 4.4 mmol/L (3.5-5.5)
--- NOTE | 2021-01-06 12:28 | P.PN ---
Progress Note - Text Progress Note Date: 01/06/21 reviewed the note of Fern vasquez and I agree. Continue with aggressive mobilization protocol is decreased narcotics as well as sedative medications increased patient ambulation. SCDs and KIRILL de la cruz for DVT prophylaxis as well as heparin subcu. Pain control as needed. Limit narcotics. Appreciate medicine management. To rehab when appropriate.
[2021-01-06] MEDS: REPAGLINIDE 1 MG TAB PO SCH ×2 (12:55→18:06)
--- NOTE | 2021-01-06 14:41 | ECHOF ---
Referral Reason:pulmonary congestion MEASUREMENTS -------- HEIGHT: 149.9 cm WEIGHT: 83.9 kg BP: 157/75 IVSd: 1.3 cm (0.6 - 1.1) LVIDd: 4.1 cm (3.9 - 5.3) LVPWd: 1.2 cm (0.6 - 1.1) IVSs: 1.5 cm LVIDs: 3.0 cm LVPWs: 1.7 cm RVIDd: 3.9 cm (< 3.3) LAESV Index (A-L): 43.37 ml/m Ao Diam: 3.2 cm (2.0 - 3.7) LA Diam: 3.5 cm (2.7 - 3.8) AV Cusp: 1.7 cm (1.5 - 2.6) EPSS: 1.0 cm MV E Jasbir: 1.37 m/s MV DecT: 183 ms MV A Jasbir: 0.99 m/s MV E/A Ratio: 1.39 RAP: 5.00 mmHg RVSP: 50.83 mmHg MV EF SLOPE: 65.82 mm/s (70 - 150) MV EXCURSION: 15.49 mm (> 18.000) FINDINGS -------- Sinus rhythm. This was a technically difficult study with suboptimal views. Pt unable to turn due to hip fx. The left ventricular size is normal. There is mild concentric left ventricular hypertrophy. Overa ll left ventricular systolic function is mildly impaired with, an EF between 45 - 50 %. Atypical se ptal wall motion The right ventricle is mild to moderately enlarged. LA is severely dilated >40 ml/m2 The right atrium is moderately enlarged. Lumason used Interatrial and interventricular septum intact. There is no evidence of aortic regurgitation. There is no evidence of aortic stenosis. [id number] mitral regurgitation is present. Moderate to severe tricuspid regurgitation present. There is severe pulmonary hypertension. The r ight ventricular systolic pressure, as measured by Doppler, is 50.83mmHg. Trace/mild (physiologic) pulmonic regurgitation. The aortic root size is normal. IVC Not well visulized. There is no pericardial effusion. CONCLUSIONS -------- 1. The left ventricular size is normal. 2. There is mild concentric left ventricular hypertrophy. 3. Overall left ventricular systolic function is mildly impaired with, an EF between 45 - 50 %. 4. The right ventricle is mild to moderately enlarged. 5. LA is severely dilated >40 ml/m2 6. The right atrium is moderately enlarged. 7. Qimhdpat-[id number] mitral regurgitation is present. 8. Moderate to severe tricuspid regurgitation present. 9. There is severe pulmonary hypertension. 10. The right ventricular systolic pressure, as measured by Doppler, is 50.83mmHg. 11. Trace/mild (physiologic) pulmonic regurgitation. ENGRAVING PRESS OPERATOR: Ashley Martinez RDCS
[2021-01-06 17:34] LABS: Glucose,Whole Blood 87 mg/dL (75-99)
[2021-01-06 20:29] LABS: Glucose,Whole Blood 82 mg/dL (75-99)
[2021-01-06] MEDS: MONTELUKAST 10 MG TAB PO SCH (21:12)
[2021-01-06] MEDS: amLODIPine 10 MG TAB PO SCH (21:12)
[2021-01-06] MEDS: ACETAMINOPHEN TAB 325 MG TAB PO PRN (21:12)
[2021-01-06] MEDS: FAMOTIDINE 20 MG TAB PO SCH (21:12)
[2021-01-06] MEDS ORDERED: DEXTROSE 5% IN WATER 1,000 ML IV ONE (23:00)
[2021-01-06] MEDS: SENNOSIDES-DOCUSATE SODIUM 1 EACH TAB PO SCH (23:10)
[2021-01-06 23:48] LABS: Glucose,Whole Blood 113 mg/dL (75-99)
[2021-01-07] MEDS: INSULIN DETEMIR (LEVEMIR) 100 UNIT/ML SYR SQ SCH ×2 (00:12→21:26)
[2021-01-07] MEDS: HYDROcodone/APAP 5-325MG 1 EACH TAB PO PRN (05:31)
[2021-01-07 07:31] LABS: Glucose,Whole Blood 108 mg/dL (75-99)
[2021-01-07] MEDS ORDERED: DEXTROSE 5% IN WATER 1,000 ML IV ONE (07:48)
[2021-01-07] MEDS: BUDESONIDE 0.5 MG/2 ML NEBU INHALATION SCH ×2 (08:29→19:38)
--- NOTE | 2021-01-07 08:30 | XR ---
EXAMINATION TYPE: XR chest 1V DATE OF EXAM: 01/07/2021 HISTORY: Shortness of breath. COMPARISON: 01/05/2021 TECHNIQUE: Single view of the chest is submitted. FINDINGS: Demonstrated are scattered senescent parenchymal change. Persistent cardiomegaly pulmonary venous congestion scattered infiltrates and pleural effusions. Hilar and mediastinal structures are within normal limits. Degenerative changes are seen of the dorsal spine. IMPRESSION: 1. Persistent cardiomegaly pulmonary venous congestion scattered infiltrates and pleural effusions.
[2021-01-07] MEDS: CITALOPRAM HYDROBROMIDE 10 MG TAB PO SCH (08:45)
[2021-01-07] MEDS: MULTIVITAMINS, THERA 1 EACH TAB PO SCH (08:45)
[2021-01-07] MEDS: SODIUM BICARBONATE TAB 650 MG TAB PO SCH ×2 (08:45→21:24)
[2021-01-07] MEDS: SENNOSIDES 8.6 MG TAB PO SCH ×2 (08:45→23:03)
[2021-01-07] MEDS: LEVOTHYROXINE 50 MCG TAB PO SCH (08:46)
[2021-01-07] MEDS: HEPARIN SODIUM,PORCINE 5,000 UNIT/ML 1 ML VIAL SQ SCH ×2 (08:46→21:26)
[2021-01-07] MEDS: METOPROLOL TARTRATE 50 MG TAB PO SCH ×3 (08:56→21:24)
[2021-01-07] MEDS: INSULIN ASPART (NovoLOG) 100 UNIT/ML VIAL SQ SCH ×4 (09:05→23:09)
--- NOTE | 2021-01-07 09:44 | P.PN ---
Subjective Progress Note Date: 01/07/21 Principal diagnosis: Status post right hip hemiarthroplasty Patient evaluated at bedside. Patient mental status much improved today. I was able to hold a conversation with her with the use of her head phone device. She notes some discomfort in the right hip. Discussed with physical therapy today bedside, they were able to get her to site of the bed yesterday. She continues to utilize the abductor pillow. Internal medicine is following closely with this patient Objective - Vital Signs Vital signs: Vital Signs Temp 96.7 F L 01/07/21 04:42 Pulse 68 01/07/21 08:42 Resp 18 01/07/21 08:00 BP 177/80 01/07/21 04:42 Pulse Ox 94 L 01/07/21 04:42 Intake & Output 01/06/21 01/07/21 01/07/21 18:59 06:59 18:59 Intake Total 1340 Output Total 781 550 Balance -781 790 Intake: Intake, IV Titration 750 Amount Cefepime 1 gm In Sodium 50 Chloride 0.9% 50 ml @ 12. 5 mls/hr IVPB Q12HR [facility] Rx#:[id number] Dextrose 5% in Water 1, 700 000 ml @ 100 mls/hr IV . Q10H [facility] Rx#:[id number] Oral 590 Output: Urine 650 550 Post Void Residual 131 Other: Voiding Method Indwelling Catheter Indwelling Catheter - Exam Right lower extremity: Incision is clean, dry, and intact. The foam dressing is in good condition. There is minimal soft tissue swelling and ecchymosis surrounding the medial and lateral aspects of the incision. Calf is soft, no tenderness with palpation. Plantar flexion, dorsiflexion, EHL, FHL are intact. Dorsal pedis pulses 2+. - Labs CBC & Chem 7: 01/06/21 06:01 01/06/21 06:01 Labs: Abnormal Lab Results - Last 24 Hours (Table) 01/05/21 01/06/21 01/06/21 Range/Units 06:20 06:01 06:01 RBC 3.63 L (4.10-5.20) X 10*6/uL Hgb 9.8 L (12.0-15.0) g/dL Hct 32.3 L (37.2-46.3) % MCHC 30.3 L (32.0-37.0) g/dL RDW 15.8 H (11.5-14.5) % Absolute Nucleated RBC 0.02 H (0.00-0.00) X 10*3/uL Immature Gran # 0.30 H (0.00-0.04) X 10*3/uL Lymphocytes # 0.75 L (0.90-5.00) X 10*3/uL NRBC/100 WBC Diff 0.2 H (0.0-0.0) /100 WBCS Sodium 151 H (135-145) mmol/L Chloride 113 H (96-109) mmol/L Anion Gap 13.50 H (4.00-12.00) mmol/L BUN 55.0 H (9.0-27.0) mg/dL Creatinine 2.2 H (0.6-1.5) mg/dL Est GFR (CKD-EPI)AfAm 22.8 L (60.0-200.0) Est GFR (CKD-EPI)NonAf 19.6 L (60.0-200.0) BUN/Creatinine Ratio 25.00 H (12.00-20.00) Ratio Glucose 69 L (70-110) mg/dL POC Glucose (mg/dL) (75-99) mg/dL Calcium 7.8 L (8.7-10.3) mg/dL Procalcitonin 0.70 H (0.02-0.09) ng/mL Urine Protein (Negative) Urine Glucose (UA) (Negative) Urine Blood (Negative) Urine Bacteria (None) /hpf 01/06/21 01/06/21 01/07/21 Range/Units 11:00 23:47 07:29 RBC (4.10-5.20) X 10*6/uL Hgb (12.0-15.0) g/dL Hct (37.2-46.3) % MCHC (32.0-37.0) g/dL RDW (11.5-14.5) % Absolute Nucleated RBC (0.00-0.00) X 10*3/uL Immature Gran # (0.00-0.04) X 10*3/uL Lymphocytes # (0.90-5.00) X 10*3/uL NRBC/100 WBC Diff (0.0-0.0) /100 WBCS Sodium (135-145) mmol/L Chloride (96-109) mmol/L Anion Gap (4.00-12.00) mmol/L BUN (9.0-27.0) mg/dL Creatinine (0.6-1.5) mg/dL Est GFR (CKD-EPI)AfAm (60.0-200.0) Est GFR (CKD-EPI)NonAf (60.0-200.0) BUN/Creatinine Ratio (12.00-20.00) Ratio Glucose (70-110) mg/dL POC Glucose (mg/dL) 113 H 108 H (75-99) mg/dL Calcium (8.7-10.3) mg/dL Procalcitonin (0.02-0.09) ng/mL Urine Protein 2+ H (Negative) Urine Glucose (UA) Trace H (Negative) Urine Blood Trace H (Negative) Urine Bacteria Rare H (None) /hpf Assessment and Plan Assessment: Status post right hip hemiarthroplasty Urinary tract infection Multiple medical comorbidities Plan: Pain control, plan for her to resume her [place] 5 mg/325 mg DVT prophylaxis, plan for discharge on heparin 5000 units bid for 2 weeks Weight-bear as tolerated with walker , use of abduction pillow while in bed Internal medicine and neurology recommendations appreciated We will continue to follow during inpatient stay Discharge planning: On an orthopedic standpoint patient remained stable di scharge back to rehab. Plan for follow-up for recheck in office in 2-3 weeks Time with Patient: Less than 30
[2021-01-07 09:46] LABS: African American GFR (CKD) 24.1 (60.0-200.0); Anion Gap 8.3 mmol/L (4.00-12.00); BUN/Creat Ratio 24.29 Ratio (12.00-20.00); Calcium 8.1 mg/dL (8.7-10.3); Carbon Dioxide 29.7 mmol/L (21.6-31.8); Magnesium 1.6 mg/dL (1.5-2.4); Non-African American GFR(CKD) 20.8 (60.0-200.0); Potassium 3.6 mmol/L (3.5-5.5)
[2021-01-07] MEDS: NON FORMULARY DRUG (Loteprednol Etabonate [Inveltys] 2.8 ML Drops.Susp) LEFT EYE SCH ×2 (10:55→23:02)
[2021-01-07] MEDS: CEFEPIME 1 GM in SODIUM CHLORIDE 0.9% 50 ML IVPB SCH ×2 (10:57→21:25)
[2021-01-07] MEDS: FUROSEMIDE 10 MG/ML 4 ML VIAL IV SCH ×2 (10:57→21:25)
[2021-01-07 11:58] LABS: Glucose,Whole Blood 92 mg/dL (75-99)
[2021-01-07] MEDS: REPAGLINIDE 1 MG TAB PO SCH ×2 (13:36→17:10)
[2021-01-07] MEDS: ACETAMINOPHEN TAB 325 MG TAB PO PRN (13:37)
[2021-01-07] MEDS: hydrALAZINE HCL 10 MG TAB PO SCH ×2 (13:37→21:24)
[2021-01-07 17:24] LABS: Glucose,Whole Blood 63 mg/dL (75-99)
[2021-01-07 17:43] LABS: Glucose,Whole Blood 90 mg/dL (75-99)
[2021-01-07 20:24] LABS: Glucose,Whole Blood 141 mg/dL (75-99)
[2021-01-07] MEDS: amLODIPine 10 MG TAB PO SCH (21:24)
[2021-01-07] MEDS: SENNOSIDES-DOCUSATE SODIUM 1 EACH TAB PO SCH (21:25)
[2021-01-07] MEDS: MONTELUKAST 10 MG TAB PO SCH (21:25)
[2021-01-07] MEDS: FAMOTIDINE 20 MG TAB PO SCH (21:25)
--- NOTE | 2021-01-07 22:15 | P.PN ---
Subjective From records: Patient is a 85-year-old female patient of of Dr. Edmondson, resident of [facility]. Chronic stable medical conditions include hypertension, diabetes type 2, chronic kidney disease stage III, chronic CHF , and chronic back pain, osteoarthritis . At the [facility] patient fell from a chair. She did hit her head. No report of patient passing out. Some bleeding from her scalp wound. Was complaining of right hip pain in the ER. Some shoulder pain also. Patient not a good historian. Patient suffered a right femoral neck fracture displaced comminuted. Underwent right hip hemiarthroplasty. Today-patient said of the bedside. He informed. Before hospitalization patient is able to carry out simple conversation. Patient has been receiving Dilaudid. Somewhat delirious still. Not able to answer questions. Moving her limbs. Not eating Subjective:this is the first day I am taking care of the patient 01/05/2021 Patient could not provide information was obtained from staff and medical chart. Patient is a pleasant 85 years old female who was admitted on 01/02 for right femoral neck fracture status post right hip arthroplasty done next day on 01/03. Patient was delirious and confused probably metabolic encephalopathy and she could not provide information also she has a component of acute kidney injury on her chronic kidney disease and she's been treated for UTI with Citrobacter with cefepime. Chest x-ray on admission was showing pulmonary edema and pleural effusion. This morning the patient was lying in bed, she open eyes spontaneously but does not answer questions or follow commands, she is moving her hands and air for on none identified object in the air. Patient looks with some respiratory distress, mild to moderate. An on exam she has decreased air entry and wheezing. Also she has bilateral leg edema. She is saturating 90s on 5-6 L oxygen via nasal cannula repeat chest x-ray this morning showing moderate diffusion with cardiomegaly and bilateral opacity correlating for ongoing CHF she was on normal sinus 100 mL/h which was not prominent when I came into the room. And when it was discontinued and patient will be started on Lasix 40 mg twice daily Patient also has CT of the brain showing meningioma and she's been evaluated by neurologist. Her creatinine is stable today at 2.5 compared to baseline of 1.3-1.6 or a little higher and she has elevated pro-BMP at 21 500. Patient vitals are stable. She is currently on cefepime and Seroquel and insulin 10 units at bedtime. Echocardiogram performed 02/2021 showed ejection fraction of 55-60% with mild LVH. There are going to repeat echocardiogram 01/06/21 She has still confused today, she is less tachypneic although she has some difficulty breathing, looks like patient has history of dementia and at baseline is oriented 1 only Vitas looks stable. CBC is stable.proCalcitonin is elevated at 0.7. Creatinine is 2.5 which is stable, was 2.3 upon admission is a status post right hip arthroplasty and orthopedic team transverse disservice to medicine. She is fluid overload with bilateral leg edema and pulmonary congestion, currently she is on IV Lasix twice daily, she is saturating 92% on 4-5 L nasal cannula. On reviewing medication, the patient got Ativan and Xanax yesterday. Today also she is getting [place] which may contribute to her sleepiness, we will discontinue the benzodiazepine 01/07/2021 Patient is a 85-year-old female patient of of Dr. Edmondson, resident of [facility]. Chronic stable medical conditions include hypertension, diabetes type 2, chronic kidney disease stage III, chronic CHF , and chronic back pain, osteoarthritis . At the [facility] patient fell from a chair. No report of patient passing out. Patient suffered a right femoral neck fracture displaced comminuted. Underwent right hip hemiarthroplasty done next day on 01/03. Patient postoperatively was delirious and confused probably metabolic encephalopathy and found to have acute urinary tract infection secondary to Citrobacter. And she was treated with cefepime showed interval improvement, repeat urinalysis looks clean. No suprapubic tenderness. Patient also had elevated creatinine at 2.6 compared to baseline of 1.3-1.8. Chest x-ray showed pulmonary edema and pleural effusion suspicious for CHF, patient was placed on IV Lasix 40 mg twice daily. While her hypernatremia was treated with D5W.her sodium was improved to 149, and lower her D5W to 75 ml/h Patient was confused and obtunded for a few days, however with treatment she woke up, this morning she is fully awake, she answers questions appropriately and she has been told that was going on including the hip fracture that needed surgery of the right hip,she looks to understand and she asked me to write this down so she can tell her son Galen. Patient is hard of hearing. Her pain at hip area looks controlled, no other complaints and no chest or abdomen. She denies dyspnea. No change in urine or bowel habits. No fever. She is hemodynamically stable, blood pressure on the high side with 177/80 and hydralazine added. She was slightly hypoglycemic and her Levemir was lowered from 10 down to 8 units at bedtime Objective - Vital Signs Vital signs: Vital Signs Temp 96.7 F L 01/07/21 20:34 Pulse 63 01/07/21 20:34 Resp 18 01/07/21 20:34 BP 171/83 01/07/21 20:34 Pulse Ox 96 01/07/21 20:34 Intake & Output 01/07/21 01/07/21 01/08/21 06:59 18:59 06:59 Intake Total 1340 Output Total 550 250 Balance 790 -250 Intake: Intake, IV Titration 750 Amount Cefepime 1 gm In Sodium 50 Chloride 0.9% 50 ml @ 12. 5 mls/hr IVPB Q12HR [facility] Rx#:[id number] Dextrose 5% in Water 1, 700 000 ml @ 100 mls/hr IV . Q10H ONE Rx#:[id number] Oral 590 Output: Urine 550 250 Other: Voiding Method Indwelling Catheter External Catheter Diaper Incontinent External Catheter # Voids 2 - Exam -GENERAL: The patient is awake but confused and does not follow command and she is in mild to moderate respiratory distress and obesity HEENT: Pupils are round and equally reacting to light. EOMI. No scleral icterus. No conjunctival pallor. Normocephalic, atraumatic. No pharyngeal erythema. No thyromegaly. CARDIOVASCULAR: S1 and S2 present. No murmurs, rubs, or gallops. -PULMONARY: Decreased air entry on both sides with expiratory wheezing ABDOMEN: Soft, nontender, nondistended, normoactive bowel sounds. No palpable organomegaly. MUSCULOSKELETAL: No joint swelling or deformity. -EXTREMITIES: No cyanosis, clubbing, . Bilateral pitting like edema. Right hip wound with a dressing, rest of exam is deferred to surgery team NEUROLOGICAL: Gross neurological examination did not reveal any focal deficits. SKIN: No rashes. no petechiae. - Labs CBC & Chem 7: 01/06/21 06:01 01/07/21 05:52 Labs: Abnormal Lab Results - Last 24 Hours (Table) 01/06/21 01/07/21 01/07/21 Range/Units 23:47 05:52 05:52 Sodium 149 H (135-145) mmol/L Chloride 111 H (96-109) mmol/L BUN 51.0 H (9.0-27.0) mg/dL Creatinine 2.1 H (0.6-1.5) mg/dL Est GFR (CKD-EPI)AfAm 24.1 L (60.0-200.0) Est GFR (CKD-EPI)NonAf 20.8 L (60.0-200.0) BUN/Creatinine Ratio 24.29 H (12.00-20.00) Ratio POC Glucose (mg/dL) 113 H (75-99) mg/dL Calcium 8.1 L (8.7-10.3) mg/dL Procalcitonin 0.38 H (0.02-0.09) ng/mL 01/07/21 01/07/21 01/07/21 Range/Units 07:29 17:22 20:22 Sodium (135-145) mmol/L Chloride (96-109) mmol/L BUN (9.0-27.0) mg/dL Creatinine (0.6-1.5) mg/dL Est GFR (CKD-EPI)AfAm (60.0-200.0) Est GFR (CKD-EPI)NonAf (60.0-200.0) BUN/Creatinine Ratio (12.00-20.00) Ratio POC Glucose (mg/dL) 108 H 63 L 141 H (75-99) mg/dL Calcium (8.7-10.3) mg/dL Procalcitonin (0.02-0.09) ng/mL Assessment and Plan Assessment: -Right femoral neck fracture secondary to fall followed by hemiarthroplasty -Acute on Chronic CHF exacerbation with diastolic dysfunction EF 55-60% (02/2020) -Acute kidney injury on top of Chronic kidney disease stage III likely nephrosclerosis and diabetic nephropathy. -hyperkalemia secondary chronic kidney- repeat potassium. Hold off any potassium sparing medication -Acute UTI with cystitis from Citrobacter farmeri-based on sensitivities we'll change the IV ceftriaxone to IV cefepime Metabolic encephalopathy secondary to above- -Chronic meningioma -Sacral decubitus ulcer, POA Essential Hypertension Diabetes type 2, chronically on insulin, follow Accu-Chek Mild cognitive impairment Primary Osteoarthritis Chronic back pain Morbid obesity with BMI 37.1 Anxiety/depression Hypothyroidism -Prolonged QT interval -Probable chronic L5 compression fracture Plan: This is a pleasant 85 years old female who presents with right hip fracture status post arthroplasty, also she is confused and fluid overload. Continue Lasix 40 mg twice daily. Monitor kidney function and electrolytes. Continue with cefepime for UTI. Neurology service on the case. Orthopedic primary team R following the case closely continue with D5 W Decrease Levemir to 8 units daily at bedtime Swallow evaluation is noted Labs and medication were reviewed.. Continue same treatment. Continue with symptomatic treatment. Resume home medication. Monitor lytes and vitals. DVT and GI prophylaxis. Further recommendationsas per clinical course of the patient DVT prophylaxis: Subcutaneous heparin GI Prophylaxis: Pepcid PT/OT:ECF for rehab upon discharge Prognosis is guarded
[2021-01-07] MEDS: hydrALAZINE HCL 25 MG TAB PO SCH (23:20)
[2021-01-07] MEDS: DEXTROSE 5% IN WATER 1,000 ML IV SCH (23:21)
[2021-01-08 07:13] LABS: Glucose,Whole Blood 91 mg/dL (75-99)
[2021-01-08] MEDS: HYDROcodone/APAP 5-325MG 1 EACH TAB PO PRN ×2 (07:48→21:34)
[2021-01-08] MEDS: METOPROLOL TARTRATE 50 MG TAB PO SCH ×3 (07:52→21:35)
[2021-01-08] MEDS: LEVOTHYROXINE 50 MCG TAB PO SCH (07:52)
[2021-01-08] MEDS: MULTIVITAMINS, THERA 1 EACH TAB PO SCH (07:52)
[2021-01-08] MEDS: hydrALAZINE HCL 25 MG TAB PO SCH ×2 (07:52→21:35)
[2021-01-08] MEDS: HEPARIN SODIUM,PORCINE 5,000 UNIT/ML 1 ML VIAL SQ SCH ×2 (07:52→21:35)
[2021-01-08] MEDS: SENNOSIDES 8.6 MG TAB PO SCH ×2 (07:52→21:35)
[2021-01-08] MEDS: FUROSEMIDE 10 MG/ML 4 ML VIAL IV SCH ×2 (07:53→21:35)
[2021-01-08] MEDS: INSULIN ASPART (NovoLOG) 100 UNIT/ML VIAL SQ SCH ×4 (07:58→21:40)
[2021-01-08] MEDS: CEFEPIME 1 GM in SODIUM CHLORIDE 0.9% 50 ML IVPB SCH ×3 (08:04→22:09)
[2021-01-08] MEDS: SODIUM BICARBONATE TAB 650 MG TAB PO SCH ×2 (08:04→21:39)
[2021-01-08] MEDS: CITALOPRAM HYDROBROMIDE 10 MG TAB PO SCH (08:04)
[2021-01-08] MEDS: NON FORMULARY DRUG (Loteprednol Etabonate [Inveltys] 2.8 ML Drops.Susp) LEFT EYE SCH ×2 (08:05→22:09)
[2021-01-08] MEDS: BUDESONIDE 0.5 MG/2 ML NEBU INHALATION SCH ×2 (08:21→21:27)
--- NOTE | 2021-01-08 08:50 | P.PN ---
Subjective Progress Note Date: 01/08/21 Principal diagnosis: RIGHT femoral neck fracture Patient seen and examined this morning. She is much more lucid than she has been she has been asking good questions she answers appropriately. She states that she wants to go back to her facility and she does not want anymore. She denies fevers or chills she states some shortness of breath and chest pain today. She denies pain in her hip at this time. No numbness or tingling. She has not been out of bed yet. She did sit up with physical therapy. Nursing is at bedside currently. I also discussed her care with physical therapy as they were coming to her room today. Objective - Vital Signs Vital signs: Vital Signs Temp 97.5 F L 01/08/21 04:00 Pulse 71 01/08/21 08:32 Resp 16 01/08/21 08:32 BP 160/98 01/08/21 04:00 Pulse Ox 98 01/08/21 08:22 Intake & Output 01/07/21 01/08/21 01/08/21 18:59 06:59 18:59 Output Total 250 Balance -250 Output: Urine 250 Other: Voiding Method External Catheter Diaper Incontinent External Catheter # Voids 2 0 - Exam Patient is alert and oriented 2-3 appears well-nourished well-hydrated is in no acute distress. They does not appear septic. On exam the patient has no tenderness to palpation of her thoracic or lumbar spine. There is no edema or ballottement sign. They have good strength in her lower extremities with 5 out of 5 dorsiflexion plantar flexion EHL and FHL bilaterally. Upper extremities show 5/5 strength in all major muscle groups. There is FROM that is painless of the b/l UE and LE in all major joints. They are intact to light touch sensation in L2 to S1 nerve distribution. Patient has palpable dorsalis pedis was posterior tibial pulses. Compartments are soft and compressible. Patient shows a negative Homans, Mansfield's, negative Babinski's negative clonus bilaterally. negative straight leg raise bilaterally. No tensioning signs.Cranial nerves II through XII are grossly intact. Overall alignment is well-maintained in the sagittal coronal planes. Right lower extremity exam shows that the dressing is clean dry and intact incision is clean dry and intact. There is some ecchymosis no erythema. Some tenderness to palpation. No swelling. She is able to move her lower extremities without any issues at this time as stated above. - Labs CBC & Chem 7: 01/06/21 06:01 01/07/21 05:52 Labs: Abnormal Lab Results - Last 24 Hours (Table) 01/07/21 01/07/21 01/07/21 Range/Units 05:52 05:52 17:22 Sodium 149 H (135-145) mmol/L Chloride 111 H (96-109) mmol/L BUN 51.0 H (9.0-27.0) mg/dL Creatinine 2.1 H (0.6-1.5) mg/dL Est GFR (CKD-EPI)AfAm 24.1 L (60.0-200.0) Est GFR (CKD-EPI)NonAf 20.8 L (60.0-200.0) BUN/Creatinine Ratio 24.29 H (12.00-20.00) Ratio POC Glucose (mg/dL) 63 L (75-99) mg/dL Calcium 8.1 L (8.7-10.3) mg/dL Procalcitonin 0.38 H (0.02-0.09) ng/mL 01/07/21 Range/Units 20:22 Sodium (135-145) mmol/L Chloride (96-109) mmol/L BUN (9.0-27.0) mg/dL Creatinine (0.6-1.5) mg/dL Est GFR (CKD-EPI)AfAm (60.0-200.0) Est GFR (CKD-EPI)NonAf (60.0-200.0) BUN/Creatinine Ratio (12.00-20.00) Ratio POC Glucose (mg/dL) 141 H (75-99) mg/dL Calcium (8.7-10.3) mg/dL Procalcitonin (0.02-0.09) ng/mL Assessment and Plan Assessment: 85-year-old female postoperative day 5 right hip hemiarthroplasty for femoral neck fracture Multiple medical comorbidities Plan: -Appreciate medicine management. -Pain control: Adequate at this time -Aggressive ambulation protocol. OOB with all meals. OOB or in chair 4-5x daily. -PT/OT -TEDs, SCDs, mechanical ppx. OK for heparin today. Early ambulation is best. -GI ppx. -[No further imaging needed at this time] -Trend labs. -Dispo: Ortho stable for [facility] once medically appropriate
[2021-01-08 10:10] LABS: African American GFR (CKD) 27.2 (60.0-200.0); Anion Gap 11.3 mmol/L (4.00-12.00); BUN/Creat Ratio 24.21 Ratio (12.00-20.00); Calcium 7.8 mg/dL (8.7-10.3); Carbon Dioxide 25.7 mmol/L (21.6-31.8); Magnesium 1.4 mg/dL (1.5-2.4); Non-African American GFR(CKD) 23.5 (60.0-200.0); Potassium 3.7 mmol/L (3.5-5.5)
[2021-01-08] MEDS: REPAGLINIDE 1 MG TAB PO SCH ×2 (11:17→18:18)
[2021-01-08 11:37] VITALS: BMI 37.3
[2021-01-08 12:05] LABS: Glucose,Whole Blood 96 mg/dL (75-99)
[2021-01-08] MEDS: MAGNESIUM SULFATE-D5W PMX 1 GM in DEXTROSE/WATER 1 100ML.BAG IVPB SCH ×2 (12:11→13:34)
[2021-01-08 12:32] VITALS: BP 165/88; PULSE 59; RESP 19; TEMP 97.4
[2021-01-08] MEDS: DEXTROSE 5% IN WATER 1,000 ML IV SCH (12:35)
--- NOTE | 2021-01-08 14:57 | P.PN ---
Subjective Progress Note Date: 01/08/21 01/08/2021 Patient is currently lying in the bed comfortably. Patient is awake alert and able to communicate. Hard of hearing. No complaints of chest pain or shortness of breath. No abdominal pain. Pain is controlled. Mentation is much improved. Patient is being continued on antibiotics in the form cefepime for Citrobacter urinary tract infection. Complete antibiotic course for a total of 7 days. Sodium level is improving as well as renal function. Patient is stable to be transferred to extended care facility. Encourage ambulation, incentive spirometry and oral intake. No fever no chills. No chest pain or shortness of breath. Blood pressure is fairly controlled. Objective - Vital Signs Vital signs: Vital Signs Temp 97.4 F L 01/08/21 12:00 Pulse 59 L 01/08/21 12:00 Resp 19 01/08/21 12:00 BP 165/88 01/08/21 12:00 Pulse Ox 98 01/08/21 12:00 Intake & Output 01/07/21 01/08/21 01/08/21 18:59 06:59 18:59 Output Total 250 Balance -250 Weight 83.915 kg Output: Urine 250 Other: Voiding Method External Catheter Diaper Diaper Incontinent Incontinent External Catheter External Catheter # Voids 2 0 - Labs CBC & Chem 7: 01/06/21 06:01 01/08/21 04:56 Labs: Abnormal Lab Results - Last 24 Hours (Table) 01/07/21 01/07/21 01/08/21 Range/Units 17:22 20:22 04:56 BUN 46.0 H (9.0-27.0) mg/dL Creatinine 1.9 H (0.6-1.5) mg/dL Est GFR (CKD-EPI)AfAm 27.2 L (60.0-200.0) Est GFR (CKD-EPI)NonAf 23.5 L (60.0-200.0) BUN/Creatinine Ratio 24.21 H (12.00-20.00) Ratio POC Glucose (mg/dL) 63 L 141 H (75-99) mg/dL Calcium 7.8 L (8.7-10.3) mg/dL Magnesium 1.4 L (1.5-2.4) mg/dL
--- NOTE | 2021-01-08 15:11 | P.DS ---
Providers Date of admission: 01/02/21 19:01 Expected date of discharge: 01/08/21 Attending physician: Stephanie Nguyễn Consults: 01/02/21 18:49 Consult Physician Routine Consulting Provider: Sea Padilla Consult Reason/Comments: Medical management Do you want consulting provider notified?: Yes 01/04/21 13:08 Consult Physician Routine Consulting Provider: Adele Barr Consult Reason/Comments: mental status changes Do you want consulting provider notified?: Yes Primary care physician: Freddy Edmondson [facility] Course: Discharge diagnosis -Right femoral neck fracture secondary to fall followed by hemiarthroplasty -Acute on Chronic CHF exacerbation with diastolic dysfunction EF 55-60% (02/2020) -Acute kidney injury on top of Chronic kidney disease stage III likely nep hrosclerosis and diabetic nephropathy. -hyperkalemia secondary chronic kidney- repeat potassium. Hold off any potassium sparing medication -Acute UTI with cystitis from Citrobacter farmeri-based on sensitivities we'll change the IV ceftriaxone to IV cefepime -Metabolic encephalopathy secondary to above-improving. -Chronic meningioma -Sacral decubitus ulcer, POA Essential Hypertension Diabetes type 2, chronically on insulin, follow Accu-Chek Mild cognitive impairment Primary Osteoarthritis Chronic back pain Morbid obesity with BMI 37.1 Anxiety/depression Hypothyroidism -Prolonged QT interval -Probable chronic L5 compression fracture next Hospital course Patient is a 85-year-old female patient of of Dr. Edmondson, resident of [facility]. Chronic stable medical conditions include hypertension, diabetes type 2, chronic kidney disease stage III, chronic CHF , and chronic back pain, osteoarthritis . At the [facility] patient fell from a chair. She did hit her head. No report of patient passing out. Some bleeding from her scalp wound. Was complaining of right hip pain in the ER. Some shoulder pain also. Patient not a good historian. Patient suffered a right femoral neck fracture displaced comminuted. Underwent right hip hemiarthroplasty. Today-patient said of the bedside. He informed. Before hospitalization patient is able to carry out simple conversation. Patient has been receiving Dilaudid. Somewhat delirious still. Not able to answer questions. Moving her limbs. Not eating Subjective:this is the first day I am taking care of the patient 01/05/2021 Patient could not provide information was obtained from staff and medical chart. Patient is a pleasant 85 years old female who was admitted on 01/02 for right femoral neck fracture status post right hip arthroplasty done next day on 01/03. Patient was delirious and confused probably metabolic encephalopathy and she could not provide information also she has a component of acute kidney injury on her chronic kidney disease and she's been treated for UTI with Citrobacter with cefepime. Chest x-ray on admission was showing pulmonary edema and pleural effusion. This morning the patient was lying in bed, she open eyes spontaneously but does not answer questions or follow commands, she is moving her hands and air for on none identified object in the air. Patient looks with some respiratory distress, mild to moderate. An on exam she has decreased air entry and wheezing. Also she has bilateral leg edema. She is saturating 90s on 5-6 L oxygen via nasal cannula repeat chest x-ray this morning showing moderate diffusion with cardiomegaly and bilateral opacity correlating for ongoing CHF she was on normal sinus 100 mL/h which was not prominent when I came into the room. And when it was discontinued and patient will be started on Lasix 40 mg twice daily Patient also has CT of the brain showing meningioma and she's been evaluated by neurologist. Her creatinine is stable today at 2.5 compared to baseline of 1.3-1.6 or a little higher and she has elevated pro-BMP at 21 500. Patient vitals are stable. She is currently on cefepime and Seroquel and insulin 10 units at bedtime. Echocardiogram performed 02/2021 showed ejection fraction of 55-60% with mild LVH. There are going to repeat echocardiogram 01/06/21 She has still confused today, she is less tachypneic although she has some difficulty breathing, looks like patient has history of dementia and at baseline is oriented 1 only Vitas looks stable. CBC is stable.proCalcitonin is elevated at 0.7. Creatinine is 2.5 which is stable, was 2.3 upon admission is a status post right hip arthroplasty and orthopedic team transverse disservice to medicine. She is fluid overload with bilateral leg edema and pulmonary congestion, currently she is on IV Lasix twice daily, she is saturating 92% on 4-5 L nasal cannula. On reviewing medication, the patient got Ativan and Xanax yesterday. Today also she is getting [place] which may contribute to her sleepiness, we will discontinue the benzodiazepine 01/07/2021 Patient is a 85-year-old female patient of of Dr. Edmondson, resident of [facility]. Chronic stable medical conditions include hypertension, diabetes type 2, chronic kidney disease stage III, chronic CHF , and chronic back pain, osteoarthritis . At the [facility] patient fell from a chair. No report of patient passing out. Patient suffered a right femoral neck fracture displaced comminuted. Underwent right hip hemiarthroplasty done next day on 01/03. Patient postoperatively was delirious and confused probably metabolic encephalopathy and found to have acute urinary tract infection secondary to Citrobacter. And she was treated with cefepime showed interval improvement, repeat urinalysis looks clean. No suprapubic tenderness. Patient also had elevated creatinine at 2.6 compared to baseline of 1.3-1.8. Chest x-ray showed pulmonary edema and pleural effusion suspicious for CHF, patient was placed on IV Lasix 40 mg twice daily. While her hypernatremia was treated with D5W.her sodium was improved to 149, and lower her D5W to 75 ml/h Patient was confused and obtunded for a few days, however with treatment she woke up, this morning she is fully awake, she answers questions appropriately and she has been told that was going on including the hip fracture that needed surgery of the right hip,she looks to understand and she asked me to write this down so she can tell her son Galen. Patient is hard of hearing. Her pain at hip area looks controlled, no other complaints and no chest or abdomen. She denies dyspnea. No change in urine or bowel habits. No fever. She is hemodynamically stable, blood pressure on the high side with 177/80 and hydralazine added. She was slightly hypoglycemic and her Levemir was lowered from 10 down to 8 units at bedtime 01/08/2021 Patient is currently lying in the bed comfortably. Patient is awake alert and able to communicate. Hard of hearing. No complaints of chest pain or shortness of breath. No abdominal pain. Pain is controlled. Mentation is much improved. Patient is being continued on antibiotics in the form cefepime for Citrobacter urinary tract infection. Complete antibiotic course for a total of 7 days. Sodium level is improving as well as renal function. Patient is stable to be transferred to extended care facility. Encourage ambulation, incentive spirometry and oral intake. No fever no chills. No chest pain or shortness of breath. Blood pressure is fairly controlled. Patient is being discharged to rehab. - Exam -GENERAL: The patient is awake and alert. Able to follow commands. Lying in the bed comfortably. No acute distress. Hard of hearing. HEENT: Pupils are round and equally reacting to light. EOMI. No scleral icterus. No conjunctival pallor. Normocephalic, atraumatic. No pharyngeal erythema. No thyromegaly. CARDIOVASCULAR: S1 and S2 present. No murmurs, rubs, or gallops. -PULMONARY: Decreased air entry on both sides with expiratory wheezing ABDOMEN: Soft, nontender, nondistended, normoactive bowel sounds. No palpable organomegaly. MUSCULOSKELETAL: No joint swelling or deformity. -EXTREMITIES: No cyanosis, clubbing, . Bilateral 1+ pedal edema. Right hip wound with a dressing, able to move her right hip. No significant tenderness. NEUROLOGICAL: Gross neurological examination did not reveal any focal deficits. SKIN: No rashes. no petechiae. Objective - Vital Signs Vital signs: Vital Signs Temp 97.4 F L 01/08/21 12:00 Pulse 59 L 01/08/21 12:00 Resp 19 01/08/21 12:00 BP 165/88 01/08/21 12:00 Pulse Ox 98 01/08/21 12:00 Intake & Output 01/07/21 01/08/21 01/08/21 18:59 06:59 18:59 Output Total 250 Balance -250 Weight 83.915 kg Output: Urine 250 Other: Voiding Method External Catheter Diaper Diaper Incontinent Incontinent External Catheter External Catheter # Voids 2 0 - Labs CBC & Chem 7: 01/06/21 06:01 01/08/21 04:56 Labs: Abnormal Lab Results - Last 24 Hours (Table) 01/07/21 01/07/21 01/08/21 Range/Units 17:22 20:22 04:56 BUN 46.0 H (9.0-27.0) mg/dL Creatinine 1.9 H (0.6-1.5) mg/dL Est GFR (CKD-EPI)AfAm 27.2 L (60.0-200.0) Est GFR (CKD-EPI)NonAf 23.5 L (60.0-200.0) BUN/Creatinine Ratio 24.21 H (12.00-20.00) Ratio POC Glucose (mg/dL) 63 L 141 H (75-99) mg/dL Calcium 7.8 L (8.7-10.3) mg/dL Magnesium 1.4 L (1.5-2.4) mg/dL Total time taken greater than 35 minutes including 18 minutes for counseling and coordination of care. Patient Condition at Discharge: Serious Plan - Discharge Summary New Discharge Prescriptions: New Heparin Sodium,Porcine [Heparin Sodium] 5,000 unit SQ Q12HR #40 vial HYDROcodone/APAP 5-325MG [[place] 5-325] 1 tab PO Q6HR PRN 3 Days #12 tab PRN Reason: Pain Levofloxacin [Levaquin] 500 mg PO DAILY 3 Days #3 tab Continue Citalopram Hydrobromide [CeleXA] 10 mg PO DAILY Levothyroxine Sodium [Synthroid] 50 mcg PO DAILY@0700 amLODIPine [Norvasc] 10 mg PO HS Sennosides [Senna] 8.6 mg PO BID Budesonide [Pulmicort] 0.5 mg INHALATION RT-BID Metoprolol Tartrate [Lopressor] 50 mg PO BID Multivitamins, Thera [Multivitamin (formulary)] 1 tab PO DAILY Montelukast [Singulair] 10 mg PO HS Insulin Glargine [Lantus] 10 unit SQ HS #0 Repaglinide [Prandin] 0.5 mg PO BID@1100,1800 Furosemide [Lasix] 60 mg PO DAILY Calcitriol [Rocaltrol] 0.25 mcg PO SUTH Ergocalciferol [Vitamin D2 (1250 Mcg = 48086 Iu)] 1,250 mcg PO TU Menthol [Icy Hot] 1 patch TRANSDERM DAILY Mineral Oil 2 drops BOTH EARS HS@2000 Famotidine [Pepcid] 20 mg PO HS Loteprednol Etabonate [Inveltys] 1 drop LEFT EYE BID Discontinued Sodium Bicarbonate Tab 650 mg PO BID HYDROcodone/APAP 5-325MG [[place] 5-325] 1 tab PO HS HYDROcodone/APAP 5-325MG [[place] 5-325] 1 tab PO Q8H PRN PRN Reason: LOWER BACK PAIN LORazepam [Ativan] 0.5 mg PO HS@2000 Discharge Medication List Citalopram Hydrobromide [CeleXA] 10 mg PO DAILY 08/26/17 [History] Levothyroxine Sodium [Synthroid] 50 mcg PO DAILY@0700 06/14/19 [History] Budesonide [Pulmicort] 0.5 mg INHALATION RT-BID 02/23/20 [History] Metoprolol Tartrate [Lopressor] 50 mg PO BID 02/23/20 [History] Montelukast [Singulair] 10 mg PO HS 02/23/20 [History] Multivitamins, Thera [Multivitamin (formulary)] 1 tab PO DAILY 02/23/20 [History] Sennosides [Senna] 8.6 mg PO BID 02/23/20 [History] amLODIPine [Norvasc] 10 mg PO HS 02/23/20 [History] Insulin Glargine [Lantus] 10 unit SQ HS #0 02/29/20 [Rx] Calcitriol [Rocaltrol] 0.25 mcg PO SUTH 10/27/20 [History] Furosemide [Lasix] 60 mg PO DAILY 10/27/20 [History] Repaglinide [Prandin] 0.5 mg PO BID@1100,1800 10/27/20 [History] Ergocalciferol [Vitamin D2 (1250 Mcg = 07758 Iu)] 1,250 mcg PO TU 01/02/21 [History] Famotidine [Pepcid] 20 mg PO HS 01/02/21 [History] Loteprednol Etabonate [Inveltys] 1 drop LEFT EYE BID 01/02/21 [History] Menthol [Icy Hot] 1 patch TRANSDERM DAILY 01/02/21 [History] Mineral Oil 2 drops BOTH EARS HS@199901/02/21 [History] HYDROcodone/APAP 5-325MG [[place] 5-325] 1 tab PO Q6HR PRN 3 Days #12 tab 01/07/21 [Rx] Heparin Sodium,Porcine [Heparin Sodium] 5,000 unit SQ Q12HR #40 vial 01/07/21 [Rx] Levofloxacin [Levaquin] 500 mg PO DAILY 3 Days #3 tab 01/08/21 [Rx] Follow up Appointment(s)/Referral(s): Freddy Edmondson DO [Primary Care Provider] - 1-2 days Justin Navarrete DO [Doctor of Osteopathic Medicine] - 2 Weeks Activity/Diet/Wound Care/Special Instructions: Orthopedic discharge instructions: 1. Continue use of abductor pillow while in bed sitting in chair 2. Weight-bear as tolerated with walker at all times 3. Heparin 5000 units twice a day for DVT prophylaxis, will utilize for 3-4 weeks 4. Keep incision dry and covered while showering 5. Okay to remove foam dressing on 01/13/2021, after removal of bandage. Shower directly over the incision. Discharge Disposition: TRANSFER TO SNF/ECF
[2021-01-08 16:46] LABS: Glucose,Whole Blood 97 mg/dL (75-99)
[2021-01-08] MEDS ORDERED: INSULIN DETEMIR (LEVEMIR) 100 UNIT/ML SYR SQ SCH (21:00)
[2021-01-08 21:17] LABS: Glucose,Whole Blood 96 mg/dL (75-99)
[2021-01-08] MEDS: MONTELUKAST 10 MG TAB PO SCH (21:34)
[2021-01-08] MEDS: SENNOSIDES-DOCUSATE SODIUM 1 EACH TAB PO SCH (21:34)
[2021-01-08] MEDS: FAMOTIDINE 20 MG TAB PO SCH (21:34)
[2021-01-08] MEDS: amLODIPine 10 MG TAB PO SCH (21:34)
--- NOTE | 2021-01-08 22:55 | P.PN ---
Subjective Progress Note Date: 01/08/21 Principal diagnosis: -Right femoral neck fracture secondary to fall followed by hemiarthroplasty -Acute on Chronic CHF exacerbation with diastolic dysfunction EF 55-60% (02/2020) -Acute kidney injury on top of Chronic kidney disease stage III likely nephrosclerosis and diabetic nephropathy. Hospital course Patient is a 85-year-old female patient of of Dr. Edmondson, resident of [facility]. Chronic stable medical conditions include hypertension, diabetes type 2, chronic kidney disease stage III, chronic CHF , and chronic back pain, osteoarthritis . At the [facility] patient fell from a chair. She did hit her head. No report of patient passing out. Some bleeding from her scalp wound. Was complaining of right hip pain in the ER. Some shoulder pain also. Patient not a good histor [place]. Patient suffered a right femoral neck fracture displaced comminuted. Underwent right hip hemiarthroplasty. Today-patient said of the bedside. He informed. Before hospitalization patient is able to carry out simple conversation. Patient has been receiving Dilaudid. Somewhat delirious still. Not able to answer questions. Moving her limbs. Not eating Subjective:this is the first day I am taking care of the patient 01/05/2021 Patient could not provide information was obtained from staff and medical chart. Patient is a pleasant 85 years old female who was admitted on 01/02 for right femoral neck fracture status post right hip arthroplasty done next day on 01/03. Patient was delirious and confused probably metabolic encephalopathy and she could not provide information also she has a component of acute kidney injury on her chronic kidney disease and she's been treated for UTI with Citrobacter with cefepime. Chest x-ray on admission was showing pulmonary edema and pleural eff usion. This morning the patient was lying in bed, she open eyes spontaneously but does not answer questions or follow commands, she is moving her hands and air for on none identified object in the air. Patient looks with some respiratory distress, mild to moderate. An on exam she has decreased air entry and wheezing. Also she has bilateral leg edema. She is saturating 90s on 5-6 L oxygen via nasal cannula repeat chest x-ray this morning showing moderate diffusion with cardiomegaly and bilateral opacity correlating for ongoing CHF she was on normal sinus 100 mL/h which was not prominent when I came into the room. And when it was discontinued and patient will be started on Lasix 40 mg twice daily Patient also has CT of the brain showing meningioma and she's been evaluated by neurologist. Her creatinine is stable today at 2.5 compared to baseline of 1.3-1.6 or a little higher and she has elevated pro-BMP at 21 500. Patient vitals are stable. She is currently on cefepime and Seroquel and insulin 10 units at bedtime. Echocardiogram performed 02/2021 showed ejection fraction of 55-60% with mild LVH. There are going to repeat echocardiogram 01/06/21 She has still confused today, she is less tachypneic although she has some difficulty breathing, looks like patient has history of dementia and at baseline is oriented 1 only Vitas looks stable. CBC is stable.proCalcitonin is elevated at 0.7. Creatinine is 2.5 which is stable, was 2.3 upon admission is a status post right hip arthroplasty and orthopedic team transverse disservice to medicine. She is fluid overload with bilateral leg edema and pulmonary congestion, currently she is on IV Lasix twice daily, she is saturating 92% on 4-5 L nasal cannula. On reviewing medication, the patient got Ativan and Xanax yesterday. Today also she is getting [place] which may contribute to her sleepiness, we will discontinue the benzodiazepine 01/07/2021 Patient is a 85-year-old female patient of of Dr. Edmondson, resident of [facility]. Chronic stable medical conditions include hypertension, diabetes type 2, chronic kidney disease stage III, chronic CHF , and chronic back pain, osteoarthritis . At the [facility] patient fell from a chair. No report of patient passing out. Patient suffered a right femoral neck fracture displaced comminuted. Underwent right hip hemiarthroplasty done next day on 01/03. Patient postoperatively was delirious and confused probably metabolic encephalopathy and found to have acute urinary tract infection secondary to Citrobacter. And she was treated with cefepime showed interval improvement, repeat urinalysis looks clean. No suprapubic tenderness. Patient also had elevated creatinine at 2.6 compared to baseline of 1.3-1.8. Chest x-ray showed pulmonary edema and pleural effusion suspicious for CHF, patient was placed on IV Lasix 40 mg twice daily. While her hypernatremia was treated with D5W.her sodium was improved to 149, and lower her D5W to 75 ml/h Patient was confused and obtunded for a few days, however with treatment she woke up, this morning she is fully awake, she answers questions appropriately and she has been told that was going on including the hip fracture that needed surgery of the right hip,she looks to understand and she asked me to write this down so she can tell her son Galen. Patient is hard of hearing. Her pain at hip area looks controlled, no other complaints and no chest or abdomen. She denies dyspnea. No change in urine or bowel habits. No fever. She is hemodynamically stable, blood pressure on the high side with 177/80 and hydralazine added. She was slightly hypoglycemic and her Levemir was lowered from 10 down to 8 units at bedtime 01/08/2021 Patient is currently lying in the bed comfortably. Patient is awake alert and able to communicate. Hard of hearing. No complaints of chest pain or shortness of breath. No abdominal pain. Pain is controlled. Mentation is much improved. Patient is being continued on antibiotics in the form cefepime for Citrobacter urinary tract infection. Complete antibiotic course for a total of 7 days. Sodium level is improving as well as renal function. Patient is stable to be transferred to extended care facility. Encourage ambulation, incentive spirometry and oral intake. No fever no chills. No chest pain or shortness of breath. Blood pressure is fairly controlled. Anticipate discharge to rehab. Current medications reviewed. Objective - Vital Signs Vital signs: Vital Signs Temp 97.4 F L 01/08/21 12:00 Pulse 59 L 01/08/21 12:00 Resp 19 01/08/21 12:00 BP 165/88 01/08/21 12:00 Pulse Ox 98 01/08/21 12:00 Intake & Output 01/08/21 01/08/21 01/09/21 06:59 18:59 06:59 Intake Total 240 120 Balance 240 120 Weight 83.915 kg Intake: Oral 240 120 Other: Voiding Method Diaper Diaper Incontinent Incontinent External Catheter External Catheter # Voids 0 - Exam - Exam -GENERAL: The patient is awake and alert. Able to follow commands. Lying in the bed comfortably. No acute distress. Hard of hearing. HEENT: Pupils are round and equally reacting to light. EOMI. No scleral icterus. No conjunctival pallor. Normocephalic, atraumatic. No pharyngeal erythema. No thyromegaly. CARDIOVASCULAR: S1 and S2 present. No murmurs, rubs, or gallops. -PULMONARY: Decreased air entry on both sides with expiratory wheezing ABDOMEN: Soft, nontender, nondistended, normoactive bowel sounds. No palpable organomegaly. MUSCULOSKELETAL: No joint swelling or deformity. -EXTREMITIES: No cyanosis, clubbing, . Bilateral 1+ pedal edema. Right hip wound with a dressing, able to move her right hip. No significant tenderness. NEUROLOGICAL: Gross neurological examination did not reveal any focal deficits. SKIN: No rashes. no petechiae. - Labs CBC & Chem 7: 01/06/21 06:01 01/08/21 04:56 Labs: Abnormal Lab Results - Last 24 Hours (Table) 01/08/21 Range/Units 04:56 BUN 46.0 H (9.0-27.0) mg/dL Creatinine 1.9 H (0.6-1.5) mg/dL Est GFR (CKD-EPI)AfAm 27.2 L (60.0-200.0) Est GFR (CKD-EPI)NonAf 23.5 L (60.0-200.0) BUN/Creatinine Ratio 24.21 H (12.00-20.00) Ratio Calcium 7.8 L (8.7-10.3) mg/dL Magnesium 1.4 L (1.5-2.4) mg/dL Assessment and Plan Assessment: -Right femoral neck fracture secondary to fall followed by hemiarthroplasty -Acute on Chronic CHF exacerbation with diastolic dysfunction EF 55-60% (02/2020) -Acute kidney injury on top of Chronic kidney disease stage III likely nephrosclerosis and diabetic nephropathy. -hyperkalemia secondary chronic kidney- repeat potassium. Hold off any potassium sparing medication -Acute UTI with cystitis from Citrobacter farmeri-based on sensitivities, changed the IV ceftriaxone to IV cefepime -Metabolic encephalopathy secondary to above-improving. -Chronic meningioma -Sacral decubitus ulcer, POA Essential Hypertension Diabetes type 2, chronically on insulin, follow Accu-Chek Mild cognitive impairment Primary Osteoarthritis Chronic back pain Morbid obesity with BMI 37.1 Anxiety/depression Hypothyroidism -Prolonged QT interval -Probable chronic L5 compression fracture nex Time with Patient: Greater than 30
== END 2021-01-08 22:15 | DRG 521 ==
LOC: EC 15:13 → 5NMEDONC 19:01
PROVIDERS: ADMIT Internal Medicine; ATTEND Internal Medicine
PROC: 4A11X4G Monitoring of Peripheral Nervous Electrical Activity, Intraoperative, External Approach (ICD-10-PCS; principal; 2021-01-02)
PROC: 0SRR01A Replacement of Right Hip Joint, Femoral Surface with Metal Synthetic Substitute, Uncemented, Open Approach (ICD-10-PCS; principal; 2021-01-02)
DX: S72.011A Unspecified intracapsular fracture of right femur, initial encounter for closed fracture (principal); G93.41 Metabolic encephalopathy; I50.33 Acute on chronic diastolic (congestive) heart failure; I13.0 Hypertensive heart and chronic kidney disease with heart failure and stage 1 through stage 4 chronic kidney disease, or unspecified chronic kidney disease; N17.9 Acute kidney failure, unspecified; N30.00 Acute cystitis without hematuria; M48.56XA Collapsed vertebra, not elsewhere classified, lumbar region, initial encounter for fracture; E87.0 Hyperosmolality and hypernatremia; F05 Delirium due to known physiological condition; E11.22 Type 2 diabetes mellitus with diabetic chronic kidney disease; N18.30 Chronic kidney disease, stage 3 unspecified; F03.90 Unspecified dementia, unspecified severity, without behavioral disturbance, psychotic disturbance, mood disturbance, and anxiety; G89.29 Other chronic pain; M54.9 Dorsalgia, unspecified; F41.9 Anxiety disorder, unspecified; F32.9 Major depressive disorder, single episode, unspecified; M19.91 Primary osteoarthritis, unspecified site; Z20.822 Contact with and (suspected) exposure to COVID-19; B96.89 Other specified bacterial agents as the cause of diseases classified elsewhere; L89.156 Pressure-induced deep tissue damage of sacral region; E66.01 Morbid (severe) obesity due to excess calories; E03.9 Hypothyroidism, unspecified; E87.5 Hyperkalemia; S01.01XA Laceration without foreign body of scalp, initial encounter; D32.0 Benign neoplasm of cerebral meninges; E11.649 Type 2 diabetes mellitus with hypoglycemia without coma; W05.0XXA Fall from non-moving wheelchair, initial encounter; H91.90 Unspecified hearing loss, unspecified ear; Z88.5 Allergy status to narcotic agent; Z88.0 Allergy status to penicillin; Z88.2 Allergy status to sulfonamides; Z91.041 Radiographic dye allergy status; Z91.040 Latex allergy status; Z79.01 Long term (current) use of anticoagulants; Z79.890 Hormone replacement therapy; Z79.4 Long term (current) use of insulin; Z79.51 Long term (current) use of inhaled steroids; Z79.899 Other long term (current) drug therapy; Z68.35 Body mass index [BMI] 35.0-35.9, adult; Z90.710 Acquired absence of both cervix and uterus; Z90.49 Acquired absence of other specified parts of digestive tract; Z90.89 Acquired absence of other organs; Z90.721 Acquired absence of ovaries, unilateral; Z98.890 Other specified postprocedural states; Z87.891 Personal history of nicotine dependence; Z80.9 Family history of malignant neoplasm, unspecified; Z82.49 Family history of ischemic heart disease and other diseases of the circulatory system; Z83.1 Family history of other infectious and parasitic diseases; Z68.37 Body mass index [BMI] 37.0-37.9, adult
CPT/HCPCS: 36415; 51702; 70450; 71045; 72125; 72170; 72192; 73501; 73502; 80048; 80053; 81001; 83735; 83880; 84145; 85025; 85610; 85730; 87077; 87086; 87186; 87635; 88305; 88311; 93005; 93306; 94640; 94760; 96365; 96375; 96376; 99285